=== PATIENT | female | born 1955 | race Caucasian/White ===

== ENCOUNTER 2016-02-12 09:33 | Inpatient (IN) | payer MEDICARE, MEDICAID ==
[~2016-02-12] VITALS: Ht 154.9 cm; Wt 100.8 kg
[~2016-02-12 09:33] MED LIST: AMLO2.5T PO; FOLI1 PO; HALO2 PO; MULT-29 PO; THIA100 PO
[2016-02-12 11:26] VITALS: BP 138/52
[2016-02-12 11:35] VITALS: BP 151/74
[2016-02-12] MEDS ORDERED: OLANZAPINE PAMOATE 405 MG/2.7 ML VIAL IM ONE (13:00)
[2016-02-12] MEDS ORDERED: ACETAMINOPHEN 325 MG TABLET PO PRN (13:00)
[2016-02-12] MEDS ORDERED: LOPERAMIDE HCL 2 MG CAPSULE PO PRN (13:00)
[2016-02-12] MEDS ORDERED: GuaiFENesin/D-METHORPHAN [SUGAR-FREE] 200-20MG/10 ML SYRUP UDCUP PO PRN (13:00)
[2016-02-12] MEDS: LORazepam 2 MG TABLET PO PRN ×2 (15:05→20:13)
[2016-02-12 16:21] VITALS: BP 141/86
[2016-02-12] MEDS: THIAMINE HCL 100 MG TABLET PO SCH (16:23)
[2016-02-12] MEDS: MAGNESIUM HYDROXIDE SUSPENSION 30 ML UDCUP PO PRN (17:36)
[2016-02-12] MEDS: ZOLPIDEM TARTRATE 10 MG TABLET PO PRN (20:33)
[2016-02-13 03:40] VITALS: BP 111/61
[2016-02-13 07:59] LABS: BASOPHILS # (AUTO) 0.03 K/uL (0.00-0.20); BASOPHILS % (AUTO) 0.4 % (0.0-2.0); EOSINOPHILS # (AUTO) 0.09 K/uL (0.00-0.70); EOSINOPHILS % (AUTO) 1.45 % (1.0-6.0); HEMATOCRIT 39.8 % (36-46); HEMOGLOBIN 13.1 g/dL (12.0-16.0); LYMPHOCYTES # (AUTO) 1.7 K/uL (1.0-4.8); LYMPHOCYTES % (AUTO) 26.4 % (22.0-44.0); MEAN CORPUSCULAR HEMOGLOBIN 28.3 pg (26.0-34.0); MEAN CORPUSCULAR HGB CONC 32.9 G/dL (31.0-37.0); MEAN CORPUSCULAR VOLUME 86 fL (80-100); MONOCYTES # (AUTO) 0.7 K/uL (0.1-1.0); MONOCYTES % (AUTO) 10.8 % (2.0-9.0); NEUTROPHILS # (AUTO) 3.9 K/uL (1.8-7.7); PLATELET COUNT (AUTO) 302 K/uL (150-450); RED BLOOD CELL COUNT(AUTO) 4.62 MIL/uL (4.00-5.20); RED CELL DISTRIBUTION WIDTH 13.8 % (11.5-14.5); WHITE BLOOD COUNT (AUTO) 6.3 K/uL (4.5-11.0)
[2016-02-13 08:05] VITALS: BP 137/96
[2016-02-13 08:21] LABS: ALANINE AMINOTRANSFERASE 33 U/L (12-78); ALBUMIN 3.6 g/dL (3.4-5.0); ANION GAP 11 mmol/L (8-16); ASPARTATE AMINOTRANSFERASE 20 U/L (15-37); BILIRUBIN,TOTAL 0.4 mg/dL (0.1-1.0); CALCIUM, TOTAL 8.7 mg/dL (8.8-10.5); CARBON DIOXIDE 25 mmol/L (22-29); CHLORIDE 96 mmol/L (98-107); GLOMERULAR FILTR. RATE CALC > 60 mL/min (>60); SODIUM SERUM 132 mmol/L (136-145); TOTAL PROTEIN, SERUM 7.1 g/dL (6.4-8.2); UREA NITROGEN, BLOOD 14 mg/dL (7-18)
[2016-02-13] MEDS ORDERED: FOLIC ACID 1 MG TABLET PO SCH (09:00)
[2016-02-13] MEDS: MULTIVITAMINS WITH MINERALS, THERAPEUTIC TABLET PO SCH (09:28)
[2016-02-13] MEDS: THIAMINE HCL 100 MG TABLET PO SCH ×2 (09:29→16:17)
[2016-02-13] MEDS: LORazepam 2 MG TABLET PO PRN ×2 (09:29→16:17)
[2016-02-13] MEDS: NICOTINE 21 MG/24 HOUR PATCH TD SCH (11:15)
[2016-02-13 16:10] VITALS: BP 135/72
[2016-02-13] MEDS: IBUPROFEN 400 MG TABLET PO PRN (16:17)
[2016-02-13 16:41] VITALS: BP 139/65
[2016-02-13] MEDS ORDERED: MAGNESIUM CITRATE 300 ML ORAL SOLUTION PO ONE (17:30)
[2016-02-13] MEDS ORDERED: NICOTINE 21 MG/24 HOUR PATCH TD ONE (17:30)
[2016-02-13 18:00] VITALS: BP 135/73
[2016-02-13] MEDS: ACETAMINOPHEN 325 MG TABLET PO PRN (18:02)
[2016-02-13] MEDS: ZOLPIDEM TARTRATE 10 MG TABLET PO PRN (21:16)
[2016-02-14 00:21] VITALS: BP 138/81
[2016-02-14] MEDS: LORazepam 2 MG TABLET PO PRN ×4 (00:21→17:32)
[2016-02-14 08:04] VITALS: BP 136/70
[2016-02-14] MEDS ORDERED: [UNRECOGNIZED DRUG - OTHER] PO SCH (09:00)
[2016-02-14] MEDS: FOLIC ACID 1 MG TABLET PO SCH (09:04)
[2016-02-14] MEDS: THIAMINE HCL 100 MG TABLET PO SCH ×2 (09:04→16:22)
[2016-02-14] MEDS: OMEPRAZOLE 20 MG CAPSULE PO SCH (09:05)
[2016-02-14] MEDS: AmLODIPine BESYLATE 2.5 MG TABLET PO SCH (09:05)
[2016-02-14] MEDS: MULTIVITAMINS WITH MINERALS, THERAPEUTIC TABLET PO SCH (09:05)
[2016-02-14] MEDS: NICOTINE 21 MG/24 HOUR PATCH TD SCH (09:06)
[2016-02-14] MEDS: OLANZapine 5 MG RAPDIS TABLET PO PRN ×2 (14:17→18:40)
[2016-02-14] MEDS: HydrOXYzine PAMOATE 50 MG CAPSULE PO PRN (16:22)
[2016-02-14 16:39] VITALS: BP 145/72
[2016-02-14 18:30] VITALS: BP 138/85
[2016-02-14] MEDS: ACETAMINOPHEN 325 MG TABLET PO PRN (18:31)
[2016-02-14] MEDS: ZOLPIDEM TARTRATE 10 MG TABLET PO PRN (21:14)
[2016-02-15 02:25] VITALS: BP 126/88
[2016-02-15] MEDS: LORazepam 2 MG TABLET PO PRN ×4 (02:28→18:13)
[2016-02-15] MEDS: OMEPRAZOLE 20 MG CAPSULE PO SCH (08:25)
[2016-02-15] MEDS: AmLODIPine BESYLATE 2.5 MG TABLET PO SCH (08:25)
[2016-02-15] MEDS: MULTIVITAMINS WITH MINERALS, THERAPEUTIC TABLET PO SCH (08:25)
[2016-02-15] MEDS: FOLIC ACID 1 MG TABLET PO SCH (08:25)
[2016-02-15 08:26] VITALS: BP 133/79
[2016-02-15] MEDS: ACETAMINOPHEN 325 MG TABLET PO PRN (08:26)
[2016-02-15] MEDS: THIAMINE HCL 100 MG TABLET PO SCH ×2 (08:26→16:31)
[2016-02-15] MEDS: NICOTINE 21 MG/24 HOUR PATCH TD SCH (08:26)
[2016-02-15 08:44] VITALS: BP 138/72
[2016-02-15] MEDS: IBUPROFEN 400 MG TABLET PO PRN (12:25)
[2016-02-15 16:05] VITALS: BP 142/66
[2016-02-15] MEDS: ZOLPIDEM TARTRATE 10 MG TABLET PO PRN (20:29)
[2016-02-16 01:50] VITALS: BP 128/67
[2016-02-16] MEDS: LORazepam 2 MG TABLET PO PRN ×4 (01:56→18:31)
[2016-02-16] MEDS: THIAMINE HCL 100 MG TABLET PO SCH ×2 (08:06→16:03)
[2016-02-16] MEDS: OMEPRAZOLE 20 MG CAPSULE PO SCH (08:06)
[2016-02-16] MEDS: AmLODIPine BESYLATE 2.5 MG TABLET PO SCH (08:06)
[2016-02-16] MEDS: FOLIC ACID 1 MG TABLET PO SCH (08:06)
[2016-02-16] MEDS: MULTIVITAMINS WITH MINERALS, THERAPEUTIC TABLET PO SCH (08:06)
[2016-02-16 08:42] VITALS: BP 138/78
[2016-02-16] MEDS: NICOTINE 21 MG/24 HOUR PATCH TD SCH (08:44)
[2016-02-16] MEDS: ACETAMINOPHEN 325 MG TABLET PO PRN (08:45)
[2016-02-16 09:33] LABS: APPEARANCE,URINE CLEAR (CLEAR); GLUCOSE, URINE (UA) NEGATIVE (NEGATIVE); KETONES,URINE NEGATIVE (NEGATIVE); LEUKOCYTE ESTERASE ,URINE NEGATIVE (NEGATIVE); OCCULT BLOOD,URINE NEGATIVE (NEGATIVE); PH,URINE 6.5 (5.0-8.0); PROTEIN,URINE NEGATIVE (NEGATIVE)
[2016-02-16 09:41] LABS: ADD UA MICROSCOPIC NO
[2016-02-16 16:00] VITALS: BP 139/78
[2016-02-16] MEDS: HydrOXYzine PAMOATE 50 MG CAPSULE PO PRN (16:04)
[2016-02-16] MEDS: IBUPROFEN 400 MG TABLET PO PRN (16:04)
[2016-02-16] MEDS: ASENAPINE 5 MG SUBLINGUAL TABLET SL SCH (20:15)
[2016-02-16] MEDS: ZOLPIDEM TARTRATE 10 MG TABLET PO PRN (21:13)
[2016-02-17 03:24] VITALS: BP 146/90
[2016-02-17] MEDS: LORazepam 2 MG TABLET PO PRN ×4 (03:31→17:23)
[2016-02-17] MEDS: THIAMINE HCL 100 MG TABLET PO SCH ×2 (08:21→16:52)
[2016-02-17] MEDS: NICOTINE 21 MG/24 HOUR PATCH TD SCH (08:21)
[2016-02-17] MEDS: OMEPRAZOLE 20 MG CAPSULE PO SCH (08:21)
[2016-02-17] MEDS: FOLIC ACID 1 MG TABLET PO SCH (08:21)
[2016-02-17] MEDS: AmLODIPine BESYLATE 2.5 MG TABLET PO SCH (08:22)
[2016-02-17] MEDS: ASENAPINE 5 MG SUBLINGUAL TABLET SL SCH (08:22)
[2016-02-17] MEDS: MULTIVITAMINS WITH MINERALS, THERAPEUTIC TABLET PO SCH (08:22)
[2016-02-17 08:23] VITALS: BP 132/78
[2016-02-17] MEDS: ACETAMINOPHEN 325 MG TABLET PO PRN (08:23)
[2016-02-17 08:32] LABS: ANION GAP 8 mmol/L (8-16); CALCIUM, TOTAL 8.9 mg/dL (8.8-10.5); CARBON DIOXIDE 28 mmol/L (22-29); CHLORIDE 98 mmol/L (98-107); CREATININE 0.66 mg/dL (0.60-1.30); GLOMERULAR FILTR. RATE CALC > 60 mL/min (>60); SODIUM SERUM 134 mmol/L (136-145); UREA NITROGEN, BLOOD 14 mg/dL (7-18)
[2016-02-17 08:44] VITALS: BP 129/82
[2016-02-17] MEDS: IBUPROFEN 400 MG TABLET PO PRN (15:15)
[2016-02-17 15:17] VITALS: BP 118/74
[2016-02-17 16:11] VITALS: BP 138/75
[2016-02-17 16:14] VITALS: BP 143/74
[2016-02-17] MEDS: ZOLPIDEM TARTRATE 10 MG TABLET PO PRN (20:38)
[2016-02-18 01:15] VITALS: BP 142/88
[2016-02-18] MEDS: ACETAMINOPHEN 325 MG TABLET PO PRN ×2 (02:21→18:23)
[2016-02-18] MEDS: LORazepam 2 MG TABLET PO PRN ×3 (05:00→17:28)
[2016-02-18 08:03] VITALS: BP 139/72
[2016-02-18] MEDS: AmLODIPine BESYLATE 2.5 MG TABLET PO SCH (08:29)
[2016-02-18] MEDS: MULTIVITAMINS WITH MINERALS, THERAPEUTIC TABLET PO SCH (08:30)
[2016-02-18] MEDS: FluPHENAZine HCL 5 MG TABLET PO SCH ×3 (08:30→17:29)
[2016-02-18] MEDS: OMEPRAZOLE 20 MG CAPSULE PO SCH (08:30)
[2016-02-18] MEDS: NICOTINE 21 MG/24 HOUR PATCH TD SCH (08:30)
[2016-02-18] MEDS: THIAMINE HCL 100 MG TABLET PO SCH ×2 (08:30→17:28)
[2016-02-18] MEDS: FOLIC ACID 1 MG TABLET PO SCH (08:30)
[2016-02-18] MEDS: DiphenhydrAMINE HCL 25 MG CAPSULE PO SCH ×3 (08:31→17:28)
[2016-02-18 16:04] VITALS: BP 130/79
[2016-02-18] MEDS: ZOLPIDEM TARTRATE 10 MG TABLET PO PRN (20:41)
[2016-02-19] MEDS: LORazepam 2 MG TABLET PO PRN ×3 (05:53→18:12)
[2016-02-19 06:33] VITALS: BP 107/68
[2016-02-19] MEDS: AmLODIPine BESYLATE 2.5 MG TABLET PO SCH (08:35)
[2016-02-19] MEDS: NICOTINE 21 MG/24 HOUR PATCH TD SCH (08:35)
[2016-02-19] MEDS: FOLIC ACID 1 MG TABLET PO SCH (08:36)
[2016-02-19] MEDS: FluPHENAZine HCL 5 MG TABLET PO SCH ×3 (08:36→16:05)
[2016-02-19] MEDS: OMEPRAZOLE 20 MG CAPSULE PO SCH (08:36)
[2016-02-19] MEDS: MULTIVITAMINS WITH MINERALS, THERAPEUTIC TABLET PO SCH (08:36)
[2016-02-19] MEDS: THIAMINE HCL 100 MG TABLET PO SCH ×2 (08:37→16:05)
[2016-02-19] MEDS: DiphenhydrAMINE HCL 25 MG CAPSULE PO SCH ×3 (08:37→16:05)
[2016-02-19 08:50] VITALS: BP 133/83
[2016-02-19] MEDS: IBUPROFEN 400 MG TABLET PO PRN (10:13)
[2016-02-19] MEDS: ACETAMINOPHEN 325 MG TABLET PO PRN (16:06)
[2016-02-19 16:08] VITALS: BP 145/69
[2016-02-20 06:32] VITALS: BP 144/88
[2016-02-20] MEDS: DiphenhydrAMINE HCL 25 MG CAPSULE PO SCH ×3 (08:04→16:03)
[2016-02-20] MEDS: MULTIVITAMINS WITH MINERALS, THERAPEUTIC TABLET PO SCH (08:04)
[2016-02-20] MEDS: OMEPRAZOLE 20 MG CAPSULE PO SCH (08:04)
[2016-02-20] MEDS: NICOTINE 21 MG/24 HOUR PATCH TD SCH (08:05)
[2016-02-20] MEDS: THIAMINE HCL 100 MG TABLET PO SCH ×2 (08:05→16:04)
[2016-02-20] MEDS: AmLODIPine BESYLATE 2.5 MG TABLET PO SCH (08:05)
[2016-02-20] MEDS: LORazepam 2 MG TABLET PO PRN ×2 (08:05→15:08)
[2016-02-20] MEDS: FOLIC ACID 1 MG TABLET PO SCH (08:05)
[2016-02-20] MEDS: FluPHENAZine HCL 5 MG TABLET PO SCH ×3 (08:06→16:04)
[2016-02-20] MEDS: PREGABALIN 50 MG CAPSULE PO SCH (08:06)
[2016-02-20 08:18] VITALS: BP 132/74
[2016-02-20 08:25] LABS: ANION GAP 10 mmol/L (8-16); CALCIUM, TOTAL 9.3 mg/dL (8.8-10.5); CARBON DIOXIDE 26 mmol/L (22-29); CHLORIDE 96 mmol/L (98-107); CREATININE 0.69 mg/dL (0.60-1.30); GLOMERULAR FILTR. RATE CALC > 60 mL/min (>60); POTASSIUM 4.3 mmol/L (3.5-5.1); SODIUM SERUM 132 mmol/L (136-145); UREA NITROGEN, BLOOD 12 mg/dL (7-18)
[2016-02-20] MEDS: IBUPROFEN 400 MG TABLET PO PRN ×2 (08:33→18:11)
[2016-02-20 15:54] VITALS: BP 110/87
[2016-02-20] MEDS: ACETAMINOPHEN 325 MG TABLET PO PRN (15:54)
[2016-02-20] MEDS: SODIUM CHLORIDE 1 GM TABLET PO SCH (16:03)
[2016-02-20 18:10] VITALS: BP 130/77
[2016-02-20] MEDS: FluPHENAZine HCL 5 MG TABLET PO PRN (18:50)
[2016-02-20] MEDS: ZOLPIDEM TARTRATE 10 MG TABLET PO PRN (20:10)
[2016-02-21 00:58] VITALS: BP 115/74
[2016-02-21] MEDS: LORazepam 2 MG TABLET PO PRN ×3 (00:59→16:34)
[2016-02-21] MEDS: DiphenhydrAMINE HCL 25 MG CAPSULE PO SCH ×3 (08:01→16:34)
[2016-02-21] MEDS: FOLIC ACID 1 MG TABLET PO SCH (08:01)
[2016-02-21] MEDS: SODIUM CHLORIDE 1 GM TABLET PO SCH ×2 (08:01→16:35)
[2016-02-21] MEDS: MULTIVITAMINS WITH MINERALS, THERAPEUTIC TABLET PO SCH (08:01)
[2016-02-21] MEDS: THIAMINE HCL 100 MG TABLET PO SCH ×2 (08:01→16:35)
[2016-02-21] MEDS: PREGABALIN 50 MG CAPSULE PO SCH (08:02)
[2016-02-21] MEDS: AmLODIPine BESYLATE 2.5 MG TABLET PO SCH (08:02)
[2016-02-21] MEDS: OMEPRAZOLE 20 MG CAPSULE PO SCH (08:02)
[2016-02-21] MEDS: FluPHENAZine HCL 5 MG TABLET PO SCH ×3 (08:02→16:35)
[2016-02-21 08:36] VITALS: BP 141/74
[2016-02-21] MEDS: NICOTINE 14 MG/24 HOUR PATCH TD SCH (09:45)
[2016-02-21 10:27] VITALS: BP 134/70
[2016-02-21] MEDS: IBUPROFEN 400 MG TABLET PO PRN ×2 (10:27→18:56)
[2016-02-21 16:08] VITALS: BP 133/86
[2016-02-21] MEDS: ACETAMINOPHEN 325 MG TABLET PO PRN (16:35)
[2016-02-21 16:47] VITALS: BP_SYST 133; BP_SYST 138; BP_DIAS 81; BP_DIAS 86
[2016-02-21 18:56] VITALS: BP 147/78
[2016-02-22 06:01] VITALS: BP 126/80
[2016-02-22] MEDS: LORazepam 2 MG TABLET PO PRN ×2 (07:48→14:33)
[2016-02-22] MEDS: FluPHENAZine HCL 5 MG TABLET PO SCH ×3 (08:30→16:31)
[2016-02-22] MEDS: SODIUM CHLORIDE 1 GM TABLET PO SCH ×2 (08:30→16:31)
[2016-02-22] MEDS: DiphenhydrAMINE HCL 25 MG CAPSULE PO SCH ×3 (08:30→16:30)
[2016-02-22] MEDS: FOLIC ACID 1 MG TABLET PO SCH (08:30)
[2016-02-22] MEDS: NICOTINE 14 MG/24 HOUR PATCH TD SCH (08:30)
[2016-02-22] MEDS: THIAMINE HCL 100 MG TABLET PO SCH (08:30)
[2016-02-22] MEDS: AmLODIPine BESYLATE 2.5 MG TABLET PO SCH (08:31)
[2016-02-22] MEDS: PREGABALIN 50 MG CAPSULE PO SCH (08:31)
[2016-02-22] MEDS: OMEPRAZOLE 20 MG CAPSULE PO SCH (08:31)
[2016-02-22] MEDS: MULTIVITAMINS WITH MINERALS, THERAPEUTIC TABLET PO SCH (08:31)
[2016-02-22 08:53] VITALS: BP 147/75
[2016-02-22 16:00] VITALS: BP 138/78
[2016-02-22 18:05] VITALS: BP 136/76
[2016-02-22] MEDS: IBUPROFEN 400 MG TABLET PO PRN (18:07)
[2016-02-22] MEDS: FluPHENAZine HCL 5 MG TABLET PO PRN (18:08)
[2016-02-22 20:00] VITALS: BP 128/77
[2016-02-22] MEDS: ACETAMINOPHEN 325 MG TABLET PO PRN (20:00)
[2016-02-22] MEDS: ZOLPIDEM TARTRATE 10 MG TABLET PO PRN (21:01)
[2016-02-23 06:15] VITALS: BP 131/87
[2016-02-23] MEDS: IBUPROFEN 400 MG TABLET PO PRN ×2 (06:17→12:30)
[2016-02-23] MEDS: LORazepam 2 MG TABLET PO PRN ×2 (06:40→15:02)
[2016-02-23] MEDS: FluPHENAZine HCL 5 MG TABLET PO PRN (07:11)
[2016-02-23 08:05] VITALS: BP 128/70
[2016-02-23] MEDS ORDERED: TUBERCULIN, PURIFIED PROTEIN DERIVATIVE 5 TU/0.1 ML SYG ID ONE (09:00)
[2016-02-23] MEDS: NICOTINE 14 MG/24 HOUR PATCH TD SCH (09:03)
[2016-02-23] MEDS: OMEPRAZOLE 20 MG CAPSULE PO SCH (09:03)
[2016-02-23] MEDS: AmLODIPine BESYLATE 2.5 MG TABLET PO SCH (09:03)
[2016-02-23] MEDS: PREGABALIN 50 MG CAPSULE PO SCH (09:04)
[2016-02-23] MEDS: FOLIC ACID 1 MG TABLET PO SCH (09:05)
[2016-02-23] MEDS: MULTIVITAMINS WITH MINERALS, THERAPEUTIC TABLET PO SCH (09:05)
[2016-02-23] MEDS: DiphenhydrAMINE HCL 25 MG CAPSULE PO SCH ×2 (09:05→16:05)
[2016-02-23] MEDS: SODIUM CHLORIDE 1 GM TABLET PO SCH ×2 (09:06→16:05)
[2016-02-23] MEDS: FluPHENAZine HCL 10 MG TABLET PO SCH ×2 (09:06→16:05)
[2016-02-23 16:09] VITALS: BP 147/77
[2016-02-24] MEDS: LORazepam 2 MG TABLET PO PRN ×3 (03:36→16:03)
[2016-02-24] MEDS: IBUPROFEN 400 MG TABLET PO PRN ×2 (03:38→20:03)
[2016-02-24 08:14] VITALS: BP 123/84
[2016-02-24 08:15] LABS: ANION GAP 9 mmol/L (8-16); CALCIUM, TOTAL 9.1 mg/dL (8.8-10.5); CARBON DIOXIDE 27 mmol/L (22-29); CHLORIDE 98 mmol/L (98-107); CREATININE 0.66 mg/dL (0.60-1.30); GLOMERULAR FILTR. RATE CALC > 60 mL/min (>60); POTASSIUM 4.1 mmol/L (3.5-5.1); SODIUM SERUM 134 mmol/L (136-145); UREA NITROGEN, BLOOD 12 mg/dL (7-18)
[2016-02-24] MEDS: DiphenhydrAMINE HCL 25 MG CAPSULE PO SCH ×2 (08:42→16:48)
[2016-02-24] MEDS: NICOTINE 14 MG/24 HOUR PATCH TD SCH (08:42)
[2016-02-24] MEDS: OMEPRAZOLE 20 MG CAPSULE PO SCH (08:43)
[2016-02-24] MEDS: AmLODIPine BESYLATE 2.5 MG TABLET PO SCH (08:43)
[2016-02-24] MEDS: PREGABALIN 50 MG CAPSULE PO SCH (08:43)
[2016-02-24] MEDS: SODIUM CHLORIDE 1 GM TABLET PO SCH ×2 (08:43→16:48)
[2016-02-24] MEDS: MULTIVITAMINS WITH MINERALS, THERAPEUTIC TABLET PO SCH (08:44)
[2016-02-24] MEDS: FOLIC ACID 1 MG TABLET PO SCH (08:44)
[2016-02-24] MEDS: FluPHENAZine HCL 10 MG TABLET PO SCH ×2 (08:44→16:48)
[2016-02-24 16:09] VITALS: BP 124/75
[2016-02-24 20:02] VITALS: BP 122/78
[2016-02-24] MEDS: ZOLPIDEM TARTRATE 10 MG TABLET PO PRN (21:40)
[2016-02-25] MEDS: LORazepam 2 MG TABLET PO PRN ×2 (04:28→14:14)
[2016-02-25] MEDS: FOLIC ACID 1 MG TABLET PO SCH (08:08)
[2016-02-25] MEDS: DiphenhydrAMINE HCL 25 MG CAPSULE PO SCH ×2 (08:08→17:00)
[2016-02-25] MEDS: SODIUM CHLORIDE 1 GM TABLET PO SCH ×2 (08:09→17:00)
[2016-02-25] MEDS: PREGABALIN 50 MG CAPSULE PO SCH (08:10)
[2016-02-25] MEDS: AmLODIPine BESYLATE 2.5 MG TABLET PO SCH (08:10)
[2016-02-25] MEDS: MULTIVITAMINS WITH MINERALS, THERAPEUTIC TABLET PO SCH (08:10)
[2016-02-25] MEDS: OMEPRAZOLE 20 MG CAPSULE PO SCH (08:11)
[2016-02-25] MEDS: NICOTINE 14 MG/24 HOUR PATCH TD SCH (08:30)
[2016-02-25] MEDS: FluPHENAZine HCL 10 MG TABLET PO SCH ×2 (08:41→16:59)
[2016-02-25 08:42] VITALS: BP 127/77
[2016-02-25 10:59] VITALS: BP 124/72
[2016-02-25] MEDS: IBUPROFEN 400 MG TABLET PO PRN (10:59)
[2016-02-25 16:00] VITALS: BP 133/69
[2016-02-25 17:58] VITALS: BP 135/72
[2016-02-25] MEDS: ACETAMINOPHEN 325 MG TABLET PO PRN (17:59)
[2016-02-26 02:09] VITALS: BP 137/84
[2016-02-26] MEDS: ZOLPIDEM TARTRATE 10 MG TABLET PO PRN (02:11)
[2016-02-26] MEDS: LORazepam 2 MG TABLET PO PRN ×3 (02:11→15:15)
[2016-02-26] MEDS: IBUPROFEN 400 MG TABLET PO PRN ×2 (06:03→16:05)
[2016-02-26 08:17] VITALS: BP 119/64
[2016-02-26] MEDS: NICOTINE 14 MG/24 HOUR PATCH TD SCH (08:30)
[2016-02-26] MEDS: DiphenhydrAMINE HCL 25 MG CAPSULE PO SCH ×2 (08:31→16:04)
[2016-02-26] MEDS: OMEPRAZOLE 20 MG CAPSULE PO SCH (08:31)
[2016-02-26] MEDS: SODIUM CHLORIDE 1 GM TABLET PO SCH ×2 (08:31→16:04)
[2016-02-26] MEDS: PREGABALIN 50 MG CAPSULE PO SCH (08:31)
[2016-02-26] MEDS: FOLIC ACID 1 MG TABLET PO SCH (08:31)
[2016-02-26] MEDS: MULTIVITAMINS WITH MINERALS, THERAPEUTIC TABLET PO SCH (08:31)
[2016-02-26] MEDS: FluPHENAZine HCL 10 MG TABLET PO SCH ×2 (08:32→16:04)
[2016-02-26] MEDS: AmLODIPine BESYLATE 2.5 MG TABLET PO SCH (08:32)
[2016-02-26 16:05] VITALS: BP 147/72
[2016-02-26 16:38] VITALS: BP 147/72
[2016-02-27 07:13] VITALS: BP 121/63
[2016-02-27] MEDS: PREGABALIN 50 MG CAPSULE PO SCH (08:02)
[2016-02-27] MEDS: AmLODIPine BESYLATE 2.5 MG TABLET PO SCH (08:02)
[2016-02-27] MEDS: LORazepam 2 MG TABLET PO PRN ×2 (08:05→15:11)
[2016-02-27] MEDS: OMEPRAZOLE 20 MG CAPSULE PO SCH (08:06)
[2016-02-27] MEDS: SODIUM CHLORIDE 1 GM TABLET PO SCH ×2 (08:06→16:24)
[2016-02-27] MEDS: FOLIC ACID 1 MG TABLET PO SCH (08:06)
[2016-02-27] MEDS: MULTIVITAMINS WITH MINERALS, THERAPEUTIC TABLET PO SCH (08:06)
[2016-02-27] MEDS: DiphenhydrAMINE HCL 25 MG CAPSULE PO SCH ×2 (08:06→16:24)
[2016-02-27] MEDS: FluPHENAZine HCL 10 MG TABLET PO SCH ×2 (08:06→16:24)
[2016-02-27] MEDS: NICOTINE 14 MG/24 HOUR PATCH TD SCH (08:07)
[2016-02-27 09:35] VITALS: BP 145/84
[2016-02-27] MEDS: IBUPROFEN 400 MG TABLET PO PRN ×2 (11:45→20:55)
[2016-02-27 16:35] VITALS: BP 123/79
[2016-02-27] MEDS: ACETAMINOPHEN 325 MG TABLET PO PRN (16:57)
[2016-02-27] MEDS: ZOLPIDEM TARTRATE 10 MG TABLET PO PRN (20:55)
[2016-02-28] MEDS: OMEPRAZOLE 20 MG CAPSULE PO SCH (08:09)
[2016-02-28] MEDS: LORazepam 2 MG TABLET PO PRN ×3 (08:09→21:33)
[2016-02-28] MEDS: MULTIVITAMINS WITH MINERALS, THERAPEUTIC TABLET PO SCH (08:10)
[2016-02-28] MEDS: FOLIC ACID 1 MG TABLET PO SCH (08:10)
[2016-02-28] MEDS: SODIUM CHLORIDE 1 GM TABLET PO SCH ×3 (08:10→16:22)
[2016-02-28] MEDS: DiphenhydrAMINE HCL 25 MG CAPSULE PO SCH ×2 (08:10→16:22)
[2016-02-28] MEDS: AmLODIPine BESYLATE 2.5 MG TABLET PO SCH (08:10)
[2016-02-28] MEDS: PREGABALIN 50 MG CAPSULE PO SCH (08:11)
[2016-02-28] MEDS: FluPHENAZine HCL 10 MG TABLET PO SCH ×3 (08:11→16:22)
[2016-02-28 08:13] VITALS: BP 146/100
[2016-02-28 08:25] LABS: ANION GAP 12 mmol/L (8-16); CARBON DIOXIDE 25 mmol/L (22-29); CHLORIDE 95 mmol/L (98-107); CREATININE 0.74 mg/dL (0.60-1.30); GLOMERULAR FILTR. RATE CALC > 60 mL/min (>60); POTASSIUM 4.1 mmol/L (3.5-5.1); SODIUM SERUM 132 mmol/L (136-145); UREA NITROGEN, BLOOD 13 mg/dL (7-18)
[2016-02-28] MEDS: NICOTINE 14 MG/24 HOUR PATCH TD SCH (08:31)
[2016-02-28 12:49] VITALS: BP 118/65
[2016-02-28 16:05] VITALS: BP 147/79
[2016-02-28 21:31] VITALS: BP 140/84
[2016-02-28] MEDS: IBUPROFEN 400 MG TABLET PO PRN (21:33)
[2016-02-29 07:16] VITALS: BP 126/80
[2016-02-29] MEDS: LORazepam 2 MG TABLET PO PRN ×2 (07:35→15:14)
[2016-02-29] MEDS: SODIUM CHLORIDE 1 GM TABLET PO SCH ×3 (08:19→16:20)
[2016-02-29] MEDS: NICOTINE 14 MG/24 HOUR PATCH TD SCH (08:19)
[2016-02-29] MEDS: FluPHENAZine HCL 10 MG TABLET PO SCH ×2 (08:20→16:20)
[2016-02-29] MEDS: MULTIVITAMINS WITH MINERALS, THERAPEUTIC TABLET PO SCH (08:20)
[2016-02-29] MEDS: OMEPRAZOLE 20 MG CAPSULE PO SCH (08:20)
[2016-02-29] MEDS: PREGABALIN 50 MG CAPSULE PO SCH (08:20)
[2016-02-29] MEDS: DiphenhydrAMINE HCL 25 MG CAPSULE PO SCH ×2 (08:20→16:20)
[2016-02-29] MEDS: AmLODIPine BESYLATE 10 MG TABLET PO SCH (08:21)
[2016-02-29] MEDS: FOLIC ACID 1 MG TABLET PO SCH (08:21)
[2016-02-29 08:49] VITALS: BP_SYST 128; BP_SYST 130; BP_DIAS 71; BP_DIAS 81
[2016-02-29] MEDS: IBUPROFEN 400 MG TABLET PO PRN ×2 (08:49→18:25)
[2016-02-29 16:10] VITALS: BP 142/81
[2016-02-29 18:20] VITALS: BP 123/74
[2016-03-01 06:14] VITALS: BP 138/66
[2016-03-01] MEDS: LORazepam 2 MG TABLET PO PRN ×2 (08:40→15:12)
[2016-03-01] MEDS: SODIUM CHLORIDE 1 GM TABLET PO SCH ×3 (09:00→17:09)
[2016-03-01] MEDS: MULTIVITAMINS WITH MINERALS, THERAPEUTIC TABLET PO SCH (09:00)
[2016-03-01] MEDS: NICOTINE 14 MG/24 HOUR PATCH TD SCH (09:00)
[2016-03-01] MEDS: DiphenhydrAMINE HCL 25 MG CAPSULE PO SCH ×2 (09:00→17:12)
[2016-03-01] MEDS: PREGABALIN 50 MG CAPSULE PO SCH (09:00)
[2016-03-01] MEDS: FOLIC ACID 1 MG TABLET PO SCH (09:00)
[2016-03-01] MEDS: OMEPRAZOLE 20 MG CAPSULE PO SCH (09:00)
[2016-03-01] MEDS: FluPHENAZine HCL 10 MG TABLET PO SCH ×2 (09:00→17:13)
[2016-03-01] MEDS: AmLODIPine BESYLATE 10 MG TABLET PO SCH (09:00)
[2016-03-01 09:25] VITALS: BP 122/78
[2016-03-01] MEDS: IBUPROFEN 400 MG TABLET PO PRN (09:25)
[2016-03-01 10:42] VITALS: BP 119/68
[2016-03-01 16:00] VITALS: BP 138/74
[2016-03-02 06:27] VITALS: BP 129/84
[2016-03-02] MEDS: PREGABALIN 50 MG CAPSULE PO SCH (08:03)
[2016-03-02] MEDS: FluPHENAZine HCL 10 MG TABLET PO SCH ×2 (08:03→16:39)
[2016-03-02] MEDS: OMEPRAZOLE 20 MG CAPSULE PO SCH (08:03)
[2016-03-02] MEDS: MULTIVITAMINS WITH MINERALS, THERAPEUTIC TABLET PO SCH (08:03)
[2016-03-02] MEDS: NICOTINE 14 MG/24 HOUR PATCH TD SCH (08:03)
[2016-03-02] MEDS: AmLODIPine BESYLATE 10 MG TABLET PO SCH (08:03)
[2016-03-02] MEDS: DiphenhydrAMINE HCL 25 MG CAPSULE PO SCH ×2 (08:04→16:38)
[2016-03-02] MEDS: SODIUM CHLORIDE 1 GM TABLET PO SCH ×3 (08:04→16:38)
[2016-03-02] MEDS: FOLIC ACID 1 MG TABLET PO SCH (08:04)
[2016-03-02 08:06] VITALS: BP 141/80
[2016-03-02] MEDS: LORazepam 2 MG TABLET PO PRN ×2 (08:32→14:42)
[2016-03-02] MEDS: IBUPROFEN 400 MG TABLET PO PRN (08:57)
[2016-03-02 09:00] LABS: ANION GAP 13 mmol/L (8-16); CALCIUM, TOTAL 9.3 mg/dL (8.8-10.5); CARBON DIOXIDE 24 mmol/L (22-29); CHLORIDE 95 mmol/L (98-107); CREATININE 0.79 mg/dL (0.60-1.30); GLOMERULAR FILTR. RATE CALC > 60 mL/min (>60); POTASSIUM 3.7 mmol/L (3.5-5.1); SODIUM SERUM 132 mmol/L (136-145); UREA NITROGEN, BLOOD 12 mg/dL (7-18)
[2016-03-02 16:00] VITALS: BP 121/75
[2016-03-02] MEDS: PRAZOSIN HCL 1 MG CAPSULE PO SCH (21:18)
[2016-03-03 02:12] VITALS: BP 119/83
[2016-03-03] MEDS: LORazepam 2 MG TABLET PO PRN ×2 (02:17→08:44)
[2016-03-03 08:45] VITALS: BP 137/78
[2016-03-03] MEDS: IBUPROFEN 400 MG TABLET PO PRN (08:45)
[2016-03-03 08:56] VITALS: BP 137/78
[2016-03-03] MEDS: SODIUM CHLORIDE 1 GM TABLET PO SCH ×3 (09:16→17:06)
[2016-03-03] MEDS: FOLIC ACID 1 MG TABLET PO SCH (09:16)
[2016-03-03] MEDS: NICOTINE 14 MG/24 HOUR PATCH TD SCH (09:17)
[2016-03-03] MEDS: DiphenhydrAMINE HCL 25 MG CAPSULE PO SCH ×2 (09:17→17:05)
[2016-03-03] MEDS: OMEPRAZOLE 20 MG CAPSULE PO SCH (09:17)
[2016-03-03] MEDS: FluPHENAZine HCL 10 MG TABLET PO SCH ×2 (09:17→17:06)
[2016-03-03] MEDS: MULTIVITAMINS WITH MINERALS, THERAPEUTIC TABLET PO SCH (09:17)
[2016-03-03] MEDS: AmLODIPine BESYLATE 10 MG TABLET PO SCH (09:17)
[2016-03-03] MEDS: PREGABALIN 50 MG CAPSULE PO SCH (09:18)
[2016-03-03 16:55] VITALS: BP 136/72
[2016-03-03] MEDS: PRAZOSIN HCL 1 MG CAPSULE PO SCH (20:36)
[2016-03-04] MEDS: LORazepam 2 MG TABLET PO PRN ×2 (05:11→12:40)
[2016-03-04] MEDS: IBUPROFEN 400 MG TABLET PO PRN (05:14)
[2016-03-04] MEDS: PREGABALIN 50 MG CAPSULE PO SCH (08:09)
[2016-03-04] MEDS: FluPHENAZine HCL 10 MG TABLET PO SCH ×2 (08:10→17:18)
[2016-03-04] MEDS: NICOTINE 14 MG/24 HOUR PATCH TD SCH (08:10)
[2016-03-04] MEDS: OMEPRAZOLE 20 MG CAPSULE PO SCH (08:10)
[2016-03-04] MEDS: AmLODIPine BESYLATE 10 MG TABLET PO SCH (08:10)
[2016-03-04] MEDS: SODIUM CHLORIDE 1 GM TABLET PO SCH ×3 (08:10→17:18)
[2016-03-04] MEDS: DiphenhydrAMINE HCL 25 MG CAPSULE PO SCH ×2 (08:10→17:18)
[2016-03-04] MEDS: MULTIVITAMINS WITH MINERALS, THERAPEUTIC TABLET PO SCH (08:11)
[2016-03-04] MEDS: FOLIC ACID 1 MG TABLET PO SCH (08:11)
[2016-03-04 08:45] VITALS: BP 137/71
[2016-03-04 16:17] VITALS: BP 107/64
[2016-03-04] MEDS: PRAZOSIN HCL 1 MG CAPSULE PO SCH (20:16)
[2016-03-05 00:15] VITALS: BP 123/71
[2016-03-05] MEDS: LORazepam 2 MG TABLET PO PRN ×3 (00:17→14:32)
[2016-03-05] MEDS: AmLODIPine BESYLATE 10 MG TABLET PO SCH (08:11)
[2016-03-05] MEDS: PREGABALIN 50 MG CAPSULE PO SCH (08:11)
[2016-03-05] MEDS: FOLIC ACID 1 MG TABLET PO SCH (08:11)
[2016-03-05] MEDS: FluPHENAZine HCL 10 MG TABLET PO SCH ×2 (08:11→16:23)
[2016-03-05] MEDS: DiphenhydrAMINE HCL 25 MG CAPSULE PO SCH ×2 (08:12→16:22)
[2016-03-05] MEDS: OMEPRAZOLE 20 MG CAPSULE PO SCH (08:12)
[2016-03-05] MEDS: MULTIVITAMINS WITH MINERALS, THERAPEUTIC TABLET PO SCH (08:12)
[2016-03-05] MEDS: SODIUM CHLORIDE 1 GM TABLET PO SCH ×3 (08:12→16:22)
[2016-03-05] MEDS: NICOTINE 14 MG/24 HOUR PATCH TD SCH (08:16)
[2016-03-05 08:42] VITALS: BP 132/88
[2016-03-05] MEDS: IBUPROFEN 400 MG TABLET PO PRN (14:32)
[2016-03-05 14:33] VITALS: BP 120/74
[2016-03-05 17:31] VITALS: BP 123/68
[2016-03-05] MEDS: PRAZOSIN HCL 1 MG CAPSULE PO SCH (20:34)
[2016-03-06 00:12] VITALS: BP 128/72
[2016-03-06] MEDS: LORazepam 2 MG TABLET PO PRN ×3 (00:16→16:52)
[2016-03-06] MEDS: IBUPROFEN 400 MG TABLET PO PRN ×2 (00:17→20:47)
[2016-03-06 08:09] VITALS: BP 115/74
[2016-03-06] MEDS: SODIUM CHLORIDE 1 GM TABLET PO SCH ×3 (08:12→17:09)
[2016-03-06] MEDS: OMEPRAZOLE 20 MG CAPSULE PO SCH (08:12)
[2016-03-06] MEDS: NICOTINE 14 MG/24 HOUR PATCH TD SCH (08:12)
[2016-03-06] MEDS: MULTIVITAMINS WITH MINERALS, THERAPEUTIC TABLET PO SCH (08:12)
[2016-03-06] MEDS: PREGABALIN 50 MG CAPSULE PO SCH (08:12)
[2016-03-06] MEDS: AmLODIPine BESYLATE 10 MG TABLET PO SCH (08:12)
[2016-03-06] MEDS: DiphenhydrAMINE HCL 25 MG CAPSULE PO SCH ×2 (08:13→17:09)
[2016-03-06] MEDS: FluPHENAZine HCL 10 MG TABLET PO SCH ×2 (08:13→17:09)
[2016-03-06] MEDS: FOLIC ACID 1 MG TABLET PO SCH (08:31)
[2016-03-06] MEDS: FluPHENAZine HCL 5 MG TABLET PO PRN (13:38)
[2016-03-06 16:06] VITALS: BP 133/87
[2016-03-06] MEDS: PRAZOSIN HCL 1 MG CAPSULE PO SCH (20:25)
[2016-03-06 20:47] VITALS: BP 128/74
[2016-03-07 06:04] VITALS: BP 111/78
[2016-03-07 07:55] LABS: ANION GAP 12 mmol/L (8-16); CALCIUM, TOTAL 9.3 mg/dL (8.8-10.5); CARBON DIOXIDE 25 mmol/L (22-29); CHLORIDE 94 mmol/L (98-107); CREATININE 0.77 mg/dL (0.60-1.30); GLOMERULAR FILTR. RATE CALC > 60 mL/min (>60); POTASSIUM 3.8 mmol/L (3.5-5.1); SODIUM SERUM 131 mmol/L (136-145); UREA NITROGEN, BLOOD 11 mg/dL (7-18)
[2016-03-07] MEDS: NICOTINE 14 MG/24 HOUR PATCH TD SCH (08:22)
[2016-03-07] MEDS: MULTIVITAMINS WITH MINERALS, THERAPEUTIC TABLET PO SCH (08:22)
[2016-03-07] MEDS: DiphenhydrAMINE HCL 25 MG CAPSULE PO SCH ×2 (08:22→16:26)
[2016-03-07] MEDS: SODIUM CHLORIDE 1 GM TABLET PO SCH ×3 (08:22→16:25)
[2016-03-07] MEDS: AmLODIPine BESYLATE 10 MG TABLET PO SCH (08:22)
[2016-03-07] MEDS: PREGABALIN 50 MG CAPSULE PO SCH (08:23)
[2016-03-07] MEDS: FluPHENAZine HCL 10 MG TABLET PO SCH (08:23)
[2016-03-07] MEDS: FOLIC ACID 1 MG TABLET PO SCH (08:23)
[2016-03-07] MEDS: OMEPRAZOLE 20 MG CAPSULE PO SCH (08:23)
[2016-03-07] MEDS: LORazepam 2 MG TABLET PO PRN ×3 (09:00→17:27)
[2016-03-07] MEDS: FluPHENAZine HCL 5 MG TABLET PO SCH (16:25)
[2016-03-07] MEDS: ClonazePAM 0.5 MG TABLET PO SCH (16:25)
[2016-03-07 17:26] VITALS: BP 112/76
[2016-03-07] MEDS: IBUPROFEN 400 MG TABLET PO PRN (17:29)
[2016-03-07 20:36] VITALS: BP 115/80
[2016-03-07] MEDS: PRAZOSIN HCL 1 MG CAPSULE PO SCH (20:38)
[2016-03-08] MEDS: LORazepam 2 MG TABLET PO PRN ×3 (01:36→20:01)
[2016-03-08 01:38] VITALS: BP 115/68
[2016-03-08] MEDS: FOLIC ACID 1 MG TABLET PO SCH (08:05)
[2016-03-08] MEDS: DiphenhydrAMINE HCL 25 MG CAPSULE PO SCH ×2 (08:05→16:22)
[2016-03-08] MEDS: AmLODIPine BESYLATE 10 MG TABLET PO SCH (08:05)
[2016-03-08] MEDS: MULTIVITAMINS WITH MINERALS, THERAPEUTIC TABLET PO SCH (08:05)
[2016-03-08] MEDS: PREGABALIN 50 MG CAPSULE PO SCH (08:06)
[2016-03-08] MEDS: SODIUM CHLORIDE 1 GM TABLET PO SCH ×3 (08:06→16:21)
[2016-03-08] MEDS: FluPHENAZine HCL 5 MG TABLET PO SCH ×2 (08:06→16:22)
[2016-03-08] MEDS: OMEPRAZOLE 20 MG CAPSULE PO SCH (08:06)
[2016-03-08] MEDS: ClonazePAM 0.5 MG TABLET PO SCH ×2 (08:06→16:23)
[2016-03-08] MEDS: NICOTINE 14 MG/24 HOUR PATCH TD SCH (08:24)
[2016-03-08 08:42] VITALS: BP 106/74
[2016-03-08 16:10] VITALS: BP 136/72
[2016-03-08] MEDS: PRAZOSIN HCL 1 MG CAPSULE PO SCH (20:00)
[2016-03-08] MEDS: IBUPROFEN 400 MG TABLET PO PRN (20:01)
[2016-03-08 20:04] VITALS: BP 112/64
[2016-03-09 05:30] VITALS: BP 123/77
[2016-03-09] MEDS: IBUPROFEN 400 MG TABLET PO PRN ×2 (05:33→21:26)
[2016-03-09] MEDS: LORazepam 2 MG TABLET PO PRN ×3 (05:34→16:31)
[2016-03-09] MEDS: ClonazePAM 0.5 MG TABLET PO SCH ×2 (08:13→16:31)
[2016-03-09] MEDS: FOLIC ACID 1 MG TABLET PO SCH (08:13)
[2016-03-09] MEDS: MULTIVITAMINS WITH MINERALS, THERAPEUTIC TABLET PO SCH (08:13)
[2016-03-09] MEDS: OMEPRAZOLE 20 MG CAPSULE PO SCH (08:13)
[2016-03-09] MEDS: FluPHENAZine HCL 5 MG TABLET PO SCH ×2 (08:13→16:30)
[2016-03-09] MEDS: DiphenhydrAMINE HCL 25 MG CAPSULE PO SCH ×2 (08:14→16:31)
[2016-03-09] MEDS: PREGABALIN 50 MG CAPSULE PO SCH (08:14)
[2016-03-09] MEDS: AmLODIPine BESYLATE 10 MG TABLET PO SCH (08:14)
[2016-03-09] MEDS: SODIUM CHLORIDE 1 GM TABLET PO SCH ×3 (08:14→16:30)
[2016-03-09] MEDS: NICOTINE 14 MG/24 HOUR PATCH TD SCH (08:21)
[2016-03-09 08:48] VITALS: BP 154/67
[2016-03-09 16:23] VITALS: BP 147/85
[2016-03-09] MEDS ORDERED: DiphenhydrAMINE HCL 50 MG/ML VIAL IM ONE (17:00)
[2016-03-09] MEDS ORDERED: FluPHENAZine HCL 2.5 MG/ML INJ IM ONE (17:00)
[2016-03-09] MEDS: LORazepam 0.5 MG TABLET PO SCH (17:00)
[2016-03-09] MEDS ORDERED: LORazepam 2 MG/ML VIAL IM ONE (17:00)
[2016-03-09 18:13] VITALS: BP 140/81
[2016-03-09 18:54] VITALS: BP 135/77
[2016-03-09] MEDS: PRAZOSIN HCL 1 MG CAPSULE PO SCH (19:57)
[2016-03-09] MEDS: ZOLPIDEM TARTRATE 10 MG TABLET PO PRN (21:39)
[2016-03-10 07:05] VITALS: BP 122/84
[2016-03-10] MEDS: PREGABALIN 50 MG CAPSULE PO SCH (08:17)
[2016-03-10] MEDS: OMEPRAZOLE 20 MG CAPSULE PO SCH (08:17)
[2016-03-10] MEDS: AmLODIPine BESYLATE 10 MG TABLET PO SCH (08:17)
[2016-03-10] MEDS: SODIUM CHLORIDE 1 GM TABLET PO SCH ×3 (08:17→17:01)
[2016-03-10] MEDS: DiphenhydrAMINE HCL 25 MG CAPSULE PO SCH ×2 (08:18→17:00)
[2016-03-10] MEDS: FOLIC ACID 1 MG TABLET PO SCH (08:18)
[2016-03-10] MEDS: MULTIVITAMINS WITH MINERALS, THERAPEUTIC TABLET PO SCH (08:18)
[2016-03-10] MEDS: LORazepam 0.5 MG TABLET PO SCH ×3 (08:18→17:00)
[2016-03-10] MEDS: FluPHENAZine HCL 5 MG TABLET PO SCH ×2 (08:19→17:00)
[2016-03-10] MEDS: NICOTINE 14 MG/24 HOUR PATCH TD SCH (08:21)
[2016-03-10 08:52] VITALS: BP 135/77
[2016-03-10 18:11] VITALS: BP 131/65
[2016-03-10] MEDS: PRAZOSIN HCL 1 MG CAPSULE PO SCH (20:49)
[2016-03-11 00:28] VITALS: BP 128/69
[2016-03-11] MEDS: ZOLPIDEM TARTRATE 10 MG TABLET PO PRN ×2 (00:45→20:20)
[2016-03-11] MEDS: MULTIVITAMINS WITH MINERALS, THERAPEUTIC TABLET PO SCH (08:23)
[2016-03-11] MEDS: FOLIC ACID 1 MG TABLET PO SCH (08:24)
[2016-03-11] MEDS: OMEPRAZOLE 20 MG CAPSULE PO SCH (08:24)
[2016-03-11] MEDS: DiphenhydrAMINE HCL 25 MG CAPSULE PO SCH ×2 (08:24→16:26)
[2016-03-11] MEDS: PREGABALIN 50 MG CAPSULE PO SCH (08:24)
[2016-03-11] MEDS: AmLODIPine BESYLATE 10 MG TABLET PO SCH (08:24)
[2016-03-11] MEDS: SODIUM CHLORIDE 1 GM TABLET PO SCH ×3 (08:24→16:26)
[2016-03-11] MEDS: FluPHENAZine HCL 5 MG TABLET PO SCH ×2 (08:25→16:26)
[2016-03-11 08:26] LABS: ANION GAP 11 mmol/L (8-16); CALCIUM, TOTAL 9.2 mg/dL (8.8-10.5); CARBON DIOXIDE 25 mmol/L (22-29); CHLORIDE 97 mmol/L (98-107); CREATININE 0.72 mg/dL (0.60-1.30); GLOMERULAR FILTR. RATE CALC > 60 mL/min (>60); SODIUM SERUM 133 mmol/L (136-145); UREA NITROGEN, BLOOD 14 mg/dL (7-18)
[2016-03-11] MEDS: IBUPROFEN 400 MG TABLET PO PRN (08:28)
[2016-03-11 08:47] VITALS: BP 126/74
[2016-03-11] MEDS ORDERED: OLANZAPINE PAMOATE 405 MG/2.7 ML VIAL IM SCH (09:00)
[2016-03-11] MEDS: NICOTINE 14 MG/24 HOUR PATCH TD SCH (09:24)
[2016-03-11] MEDS: LORazepam 0.5 MG TABLET PO SCH ×3 (09:24→16:26)
[2016-03-11] MEDS ORDERED: LORazepam 2 MG/ML VIAL IM ONE (15:00)
[2016-03-11 16:47] VITALS: BP 140/83
[2016-03-11] MEDS: PRAZOSIN HCL 1 MG CAPSULE PO SCH (20:10)
[2016-03-12 00:25] VITALS: BP 111/76
[2016-03-12] MEDS: LORazepam 2 MG TABLET PO PRN (00:32)
[2016-03-12] MEDS: DiphenhydrAMINE HCL 25 MG CAPSULE PO SCH ×2 (08:18→16:42)
[2016-03-12] MEDS: PREGABALIN 50 MG CAPSULE PO SCH (08:18)
[2016-03-12] MEDS: MULTIVITAMINS WITH MINERALS, THERAPEUTIC TABLET PO SCH (08:19)
[2016-03-12] MEDS: OMEPRAZOLE 20 MG CAPSULE PO SCH (08:19)
[2016-03-12] MEDS: LORazepam 0.5 MG TABLET PO SCH ×3 (08:19→16:43)
[2016-03-12] MEDS: FOLIC ACID 1 MG TABLET PO SCH (08:19)
[2016-03-12] MEDS: AmLODIPine BESYLATE 10 MG TABLET PO SCH (08:19)
[2016-03-12] MEDS: FluPHENAZine HCL 5 MG TABLET PO SCH ×2 (08:19→16:43)
[2016-03-12] MEDS: NICOTINE 14 MG/24 HOUR PATCH TD SCH (08:20)
[2016-03-12] MEDS: SODIUM CHLORIDE 1 GM TABLET PO SCH ×3 (08:20→16:42)
[2016-03-12 08:32] VITALS: BP 129/75
[2016-03-12 16:27] VITALS: BP 134/67
[2016-03-12 17:30] VITALS: BP 136/62
[2016-03-12] MEDS: IBUPROFEN 400 MG TABLET PO PRN (17:32)
[2016-03-12 18:30] VITALS: BP 126/60
[2016-03-12] MEDS: PRAZOSIN HCL 1 MG CAPSULE PO SCH (20:45)
[2016-03-13 04:10] VITALS: BP 117/77
[2016-03-13] MEDS: LORazepam 2 MG TABLET PO PRN ×2 (04:11→12:53)
[2016-03-13] MEDS: IBUPROFEN 400 MG TABLET PO PRN ×2 (04:11→19:42)
[2016-03-13] MEDS: NICOTINE 14 MG/24 HOUR PATCH TD SCH (08:16)
[2016-03-13] MEDS: OMEPRAZOLE 20 MG CAPSULE PO SCH (08:18)
[2016-03-13] MEDS: PREGABALIN 50 MG CAPSULE PO SCH (08:19)
[2016-03-13] MEDS: FluPHENAZine HCL 5 MG TABLET PO SCH ×2 (08:19→16:26)
[2016-03-13] MEDS: DiphenhydrAMINE HCL 25 MG CAPSULE PO SCH ×2 (08:22→16:26)
[2016-03-13] MEDS: LORazepam 0.5 MG TABLET PO SCH ×3 (08:22→16:26)
[2016-03-13] MEDS: SODIUM CHLORIDE 1 GM TABLET PO SCH ×3 (08:23→16:41)
[2016-03-13] MEDS: AmLODIPine BESYLATE 10 MG TABLET PO SCH (08:23)
[2016-03-13] MEDS: FOLIC ACID 1 MG TABLET PO SCH (08:23)
[2016-03-13] MEDS: MULTIVITAMINS WITH MINERALS, THERAPEUTIC TABLET PO SCH (08:23)
[2016-03-13 08:47] VITALS: BP 131/77
[2016-03-13 18:00] VITALS: BP 149/82
[2016-03-13] MEDS: PRAZOSIN HCL 1 MG CAPSULE PO SCH (20:54)
[2016-03-14 02:23] VITALS: BP 104/64
[2016-03-14] MEDS: LORazepam 2 MG TABLET PO PRN ×2 (02:28→13:02)
[2016-03-14] MEDS: NICOTINE 14 MG/24 HOUR PATCH TD SCH (08:25)
[2016-03-14] MEDS: FluPHENAZine HCL 5 MG TABLET PO SCH ×2 (08:25→16:14)
[2016-03-14] MEDS: OMEPRAZOLE 20 MG CAPSULE PO SCH (08:26)
[2016-03-14] MEDS: DiphenhydrAMINE HCL 25 MG CAPSULE PO SCH ×2 (08:26→16:14)
[2016-03-14] MEDS: LORazepam 0.5 MG TABLET PO SCH ×3 (08:26→16:14)
[2016-03-14] MEDS: PREGABALIN 50 MG CAPSULE PO SCH (08:26)
[2016-03-14] MEDS: SODIUM CHLORIDE 1 GM TABLET PO SCH ×3 (08:26→16:14)
[2016-03-14] MEDS: FOLIC ACID 1 MG TABLET PO SCH (08:26)
[2016-03-14] MEDS: MULTIVITAMINS WITH MINERALS, THERAPEUTIC TABLET PO SCH (08:26)
[2016-03-14] MEDS: AmLODIPine BESYLATE 10 MG TABLET PO SCH (09:13)
[2016-03-14 09:18] VITALS: BP 160/86
[2016-03-14] MEDS: IBUPROFEN 400 MG TABLET PO PRN (10:46)
[2016-03-14 16:37] VITALS: BP 135/75
[2016-03-14] MEDS: PRAZOSIN HCL 1 MG CAPSULE PO SCH (20:19)
[2016-03-14] MEDS: ZOLPIDEM TARTRATE 10 MG TABLET PO PRN (20:26)
[2016-03-15] MEDS: IBUPROFEN 400 MG TABLET PO PRN ×2 (00:27→11:48)
[2016-03-15 00:28] VITALS: BP 129/88
[2016-03-15] MEDS: LORazepam 2 MG TABLET PO PRN ×3 (00:28→20:52)
[2016-03-15] MEDS: SODIUM CHLORIDE 1 GM TABLET PO SCH ×3 (08:09→16:53)
[2016-03-15] MEDS: FluPHENAZine HCL 5 MG TABLET PO SCH ×2 (08:09→16:54)
[2016-03-15] MEDS: OMEPRAZOLE 20 MG CAPSULE PO SCH (08:09)
[2016-03-15] MEDS: LORazepam 0.5 MG TABLET PO SCH ×3 (08:09→16:53)
[2016-03-15] MEDS: MULTIVITAMINS WITH MINERALS, THERAPEUTIC TABLET PO SCH (08:09)
[2016-03-15] MEDS: PREGABALIN 50 MG CAPSULE PO SCH (08:10)
[2016-03-15] MEDS: DiphenhydrAMINE HCL 25 MG CAPSULE PO SCH ×2 (08:10→16:53)
[2016-03-15] MEDS: AmLODIPine BESYLATE 10 MG TABLET PO SCH (08:10)
[2016-03-15] MEDS: FOLIC ACID 1 MG TABLET PO SCH (08:10)
[2016-03-15] MEDS: NICOTINE 14 MG/24 HOUR PATCH TD SCH (08:11)
[2016-03-15 08:58] VITALS: BP 142/75
[2016-03-15 11:48] VITALS: BP 132/74
[2016-03-15 16:20] VITALS: BP 142/81
[2016-03-15] MEDS: PRAZOSIN HCL 1 MG CAPSULE PO SCH (20:24)
[2016-03-16 06:28] VITALS: BP 124/65
[2016-03-16] MEDS: IBUPROFEN 400 MG TABLET PO PRN ×2 (07:06→17:48)
[2016-03-16] MEDS: LORazepam 2 MG TABLET PO PRN (07:06)
[2016-03-16] MEDS: LORazepam 0.5 MG TABLET PO SCH ×3 (08:18→16:17)
[2016-03-16] MEDS: MULTIVITAMINS WITH MINERALS, THERAPEUTIC TABLET PO SCH (08:18)
[2016-03-16] MEDS: DiphenhydrAMINE HCL 25 MG CAPSULE PO SCH ×2 (08:18→16:17)
[2016-03-16] MEDS: NICOTINE 14 MG/24 HOUR PATCH TD SCH (08:18)
[2016-03-16] MEDS: AmLODIPine BESYLATE 10 MG TABLET PO SCH (08:19)
[2016-03-16] MEDS: OMEPRAZOLE 20 MG CAPSULE PO SCH (08:19)
[2016-03-16] MEDS: PREGABALIN 50 MG CAPSULE PO SCH (08:19)
[2016-03-16] MEDS: FOLIC ACID 1 MG TABLET PO SCH (08:19)
[2016-03-16] MEDS: SODIUM CHLORIDE 1 GM TABLET PO SCH ×3 (08:19→16:17)
[2016-03-16] MEDS: FluPHENAZine HCL 5 MG TABLET PO SCH ×2 (08:24→16:17)
[2016-03-16 08:39] VITALS: BP 114/68
[2016-03-16 12:59] VITALS: BP 110/80
[2016-03-16] MEDS: ACETAMINOPHEN 325 MG TABLET PO PRN (12:59)
[2016-03-16 16:10] VITALS: BP 141/86
[2016-03-16] MEDS: PRAZOSIN HCL 1 MG CAPSULE PO SCH (20:19)
[2016-03-17] MEDS: LORazepam 2 MG TABLET PO PRN ×2 (05:13→20:04)
[2016-03-17] MEDS: IBUPROFEN 400 MG TABLET PO PRN (07:11)
[2016-03-17 08:27] VITALS: BP 114/75
[2016-03-17] MEDS: MULTIVITAMINS WITH MINERALS, THERAPEUTIC TABLET PO SCH (08:52)
[2016-03-17] MEDS: DiphenhydrAMINE HCL 25 MG CAPSULE PO SCH ×2 (08:52→16:38)
[2016-03-17] MEDS: FluPHENAZine HCL 5 MG TABLET PO SCH ×2 (08:52→16:39)
[2016-03-17] MEDS: OMEPRAZOLE 20 MG CAPSULE PO SCH (08:53)
[2016-03-17] MEDS: LORazepam 0.5 MG TABLET PO SCH ×3 (08:53→16:39)
[2016-03-17] MEDS: PREGABALIN 50 MG CAPSULE PO SCH (08:53)
[2016-03-17] MEDS: NICOTINE 14 MG/24 HOUR PATCH TD SCH (08:53)
[2016-03-17] MEDS: FOLIC ACID 1 MG TABLET PO SCH (08:53)
[2016-03-17] MEDS: AmLODIPine BESYLATE 10 MG TABLET PO SCH (08:53)
[2016-03-17] MEDS: SODIUM CHLORIDE 1 GM TABLET PO SCH ×3 (08:54→16:39)
[2016-03-17] MEDS: ACETAMINOPHEN 325 MG TABLET PO PRN (11:43)
[2016-03-17 16:00] VITALS: BP 141/77
[2016-03-17 20:24] VITALS: BP 134/70
[2016-03-17] MEDS: PRAZOSIN HCL 1 MG CAPSULE PO SCH (20:26)
[2016-03-17] MEDS: ZOLPIDEM TARTRATE 10 MG TABLET PO PRN (21:01)
[2016-03-18 02:36] VITALS: BP 132/75
[2016-03-18] MEDS: LORazepam 2 MG TABLET PO PRN ×2 (07:16→18:07)
[2016-03-18] MEDS: FOLIC ACID 1 MG TABLET PO SCH (08:30)
[2016-03-18] MEDS: DiphenhydrAMINE HCL 25 MG CAPSULE PO SCH ×2 (08:30→16:23)
[2016-03-18] MEDS: AmLODIPine BESYLATE 10 MG TABLET PO SCH (08:30)
[2016-03-18] MEDS: OMEPRAZOLE 20 MG CAPSULE PO SCH (08:31)
[2016-03-18] MEDS: LORazepam 0.5 MG TABLET PO SCH ×3 (08:31→16:23)
[2016-03-18] MEDS: SODIUM CHLORIDE 1 GM TABLET PO SCH ×3 (08:31→16:23)
[2016-03-18] MEDS: MULTIVITAMINS WITH MINERALS, THERAPEUTIC TABLET PO SCH (08:31)
[2016-03-18] MEDS: FluPHENAZine HCL 5 MG TABLET PO SCH ×2 (08:31→16:22)
[2016-03-18] MEDS: PREGABALIN 50 MG CAPSULE PO SCH (08:32)
[2016-03-18 08:55] VITALS: BP 131/77
[2016-03-18] MEDS: NICOTINE 14 MG/24 HOUR PATCH TD SCH (10:05)
[2016-03-18] MEDS: ACETAMINOPHEN 325 MG TABLET PO PRN (10:54)
[2016-03-18 16:05] VITALS: BP 150/88
[2016-03-18] MEDS: PRAZOSIN HCL 1 MG CAPSULE PO SCH (20:09)
[2016-03-18] MEDS: ZOLPIDEM TARTRATE 10 MG TABLET PO PRN (20:10)
[2016-03-19] MEDS: IBUPROFEN 400 MG TABLET PO PRN (06:37)
[2016-03-19] MEDS: LORazepam 2 MG TABLET PO PRN (06:37)
[2016-03-19] MEDS: DiphenhydrAMINE HCL 25 MG CAPSULE PO SCH ×2 (08:05→16:16)
[2016-03-19] MEDS: NICOTINE 14 MG/24 HOUR PATCH TD SCH (08:05)
[2016-03-19] MEDS: SODIUM CHLORIDE 1 GM TABLET PO SCH ×3 (08:05→16:16)
[2016-03-19] MEDS: PREGABALIN 50 MG CAPSULE PO SCH (08:05)
[2016-03-19] MEDS: FluPHENAZine HCL 5 MG TABLET PO SCH ×2 (08:05→16:16)
[2016-03-19] MEDS: MULTIVITAMINS WITH MINERALS, THERAPEUTIC TABLET PO SCH (08:10)
[2016-03-19] MEDS: OMEPRAZOLE 20 MG CAPSULE PO SCH (08:11)
[2016-03-19] MEDS: FOLIC ACID 1 MG TABLET PO SCH (08:11)
[2016-03-19] MEDS: LORazepam 0.5 MG TABLET PO SCH ×3 (08:11→16:16)
[2016-03-19] MEDS: AmLODIPine BESYLATE 10 MG TABLET PO SCH (08:11)
[2016-03-19 08:28] VITALS: BP 130/62
[2016-03-19] MEDS ORDERED: INFLUENZA VIRUS VACCINE QVS 2016-17 (3YR+)/PF 60 MCG/0.5 ML SYRINGE IM ONE (12:00)
[2016-03-19] MEDS ORDERED: CloNIDine HCL 0.1 MG TABLET PO PRN (13:45)
[2016-03-19 15:54] VITALS: BP 136/76
[2016-03-19 16:01] VITALS: BP 136/76
[2016-03-19 16:45] VITALS: BP 128/74
[2016-03-19] MEDS: ACETAMINOPHEN 325 MG TABLET PO PRN (16:45)
[2016-03-19 20:36] VITALS: BP 124/78
[2016-03-19] MEDS: PRAZOSIN HCL 1 MG CAPSULE PO SCH (20:38)
[2016-03-19] MEDS: ZOLPIDEM TARTRATE 10 MG TABLET PO PRN (21:06)
[2016-03-20] MEDS: LORazepam 2 MG TABLET PO PRN ×2 (06:15→11:48)
[2016-03-20 06:26] VITALS: BP 138/75
[2016-03-20] MEDS: NICOTINE 14 MG/24 HOUR PATCH TD SCH (08:07)
[2016-03-20] MEDS: DiphenhydrAMINE HCL 25 MG CAPSULE PO SCH ×2 (08:07→16:47)
[2016-03-20] MEDS: FluPHENAZine HCL 5 MG TABLET PO SCH ×2 (08:08→16:47)
[2016-03-20] MEDS: AmLODIPine BESYLATE 10 MG TABLET PO SCH (08:08)
[2016-03-20] MEDS: SODIUM CHLORIDE 1 GM TABLET PO SCH ×3 (08:08→16:47)
[2016-03-20] MEDS: OMEPRAZOLE 20 MG CAPSULE PO SCH (08:08)
[2016-03-20] MEDS: PREGABALIN 50 MG CAPSULE PO SCH (08:08)
[2016-03-20] MEDS: FOLIC ACID 1 MG TABLET PO SCH (08:09)
[2016-03-20] MEDS: MULTIVITAMINS WITH MINERALS, THERAPEUTIC TABLET PO SCH (08:09)
[2016-03-20] MEDS: LORazepam 0.5 MG TABLET PO SCH ×3 (08:09→16:47)
[2016-03-20 08:56] VITALS: BP 135/70
[2016-03-20] MEDS: FluPHENAZine HCL 5 MG TABLET PO PRN (13:11)
[2016-03-20 17:32] VITALS: BP 133/70
[2016-03-20] MEDS: PRAZOSIN HCL 1 MG CAPSULE PO SCH (20:18)
[2016-03-20] MEDS: ZOLPIDEM TARTRATE 10 MG TABLET PO PRN (20:18)
[2016-03-21 04:06] VITALS: BP 114/78
[2016-03-21] MEDS: LORazepam 2 MG TABLET PO PRN ×2 (04:11→18:12)
[2016-03-21] MEDS: ACETAMINOPHEN 325 MG TABLET PO PRN ×2 (07:35→18:08)
[2016-03-21] MEDS ORDERED: DiphenhydrAMINE HCL 50 MG/ML VIAL IM ONE (08:15)
[2016-03-21] MEDS ORDERED: LORazepam 2 MG/ML VIAL IM ONE (08:15)
[2016-03-21] MEDS ORDERED: FluPHENAZine HCL 2.5 MG/ML INJ IM ONE (08:15)
[2016-03-21 08:20] VITALS: BP 128/75
[2016-03-21] MEDS: FluPHENAZine HCL 5 MG TABLET PO SCH ×2 (08:22→16:32)
[2016-03-21] MEDS: DiphenhydrAMINE HCL 25 MG CAPSULE PO SCH ×2 (08:22→16:32)
[2016-03-21] MEDS: LORazepam 0.5 MG TABLET PO SCH ×3 (08:22→16:33)
[2016-03-21] MEDS: OMEPRAZOLE 20 MG CAPSULE PO SCH (09:10)
[2016-03-21] MEDS: MULTIVITAMINS WITH MINERALS, THERAPEUTIC TABLET PO SCH (09:10)
[2016-03-21] MEDS: PREGABALIN 50 MG CAPSULE PO SCH (09:10)
[2016-03-21] MEDS: NICOTINE 14 MG/24 HOUR PATCH TD SCH (09:11)
[2016-03-21] MEDS: AmLODIPine BESYLATE 10 MG TABLET PO SCH (09:11)
[2016-03-21] MEDS: SODIUM CHLORIDE 1 GM TABLET PO SCH ×3 (09:11→16:32)
[2016-03-21] MEDS: FOLIC ACID 1 MG TABLET PO SCH (09:12)
[2016-03-21 16:23] VITALS: BP 134/94
[2016-03-21 18:07] VITALS: BP 130/86
[2016-03-21] MEDS: ZOLPIDEM TARTRATE 10 MG TABLET PO PRN (20:33)
[2016-03-21] MEDS: PRAZOSIN HCL 1 MG CAPSULE PO SCH (20:33)
[2016-03-22] MEDS: LORazepam 2 MG TABLET PO PRN ×3 (04:23→14:31)
[2016-03-22 05:15] VITALS: BP 125/68
[2016-03-22] MEDS: NICOTINE 14 MG/24 HOUR PATCH TD SCH (08:09)
[2016-03-22] MEDS: DiphenhydrAMINE HCL 25 MG CAPSULE PO SCH ×2 (08:09→16:37)
[2016-03-22] MEDS: OMEPRAZOLE 20 MG CAPSULE PO SCH (08:09)
[2016-03-22 08:10] VITALS: BP 100/59
[2016-03-22] MEDS: LORazepam 0.5 MG TABLET PO SCH ×3 (08:10→16:38)
[2016-03-22] MEDS: PREGABALIN 50 MG CAPSULE PO SCH (08:10)
[2016-03-22] MEDS: MULTIVITAMINS WITH MINERALS, THERAPEUTIC TABLET PO SCH (08:10)
[2016-03-22] MEDS: SODIUM CHLORIDE 1 GM TABLET PO SCH ×3 (08:10→16:38)
[2016-03-22] MEDS: FluPHENAZine HCL 5 MG TABLET PO SCH ×2 (08:10→16:38)
[2016-03-22] MEDS: FOLIC ACID 1 MG TABLET PO SCH (08:10)
[2016-03-22] MEDS: AmLODIPine BESYLATE 10 MG TABLET PO SCH (08:10)
[2016-03-22] MEDS: ACETAMINOPHEN 325 MG TABLET PO PRN (08:11)
[2016-03-22] MEDS: IBUPROFEN 400 MG TABLET PO PRN ×2 (09:08→17:56)
[2016-03-22 10:15] VITALS: BP 124/72
[2016-03-22 16:09] VITALS: BP 137/74
[2016-03-22] MEDS: ZOLPIDEM TARTRATE 10 MG TABLET PO PRN (20:22)
[2016-03-22] MEDS: PRAZOSIN HCL 1 MG CAPSULE PO SCH (20:22)
[2016-03-23 06:41] VITALS: BP 129/77
[2016-03-23] MEDS: ACETAMINOPHEN 325 MG TABLET PO PRN ×2 (06:47→16:19)
[2016-03-23] MEDS: LORazepam 2 MG TABLET PO PRN ×2 (06:48→15:14)
[2016-03-23] MEDS: MAG HYDROX/AL HYDROX/SIMETH ES 30 ML SUSPENSION UDCUP PO PRN (07:39)
[2016-03-23] MEDS: LORazepam 0.5 MG TABLET PO SCH ×3 (08:03→16:17)
[2016-03-23] MEDS: MULTIVITAMINS WITH MINERALS, THERAPEUTIC TABLET PO SCH (08:04)
[2016-03-23] MEDS: AmLODIPine BESYLATE 10 MG TABLET PO SCH (08:04)
[2016-03-23] MEDS: PREGABALIN 50 MG CAPSULE PO SCH (08:04)
[2016-03-23] MEDS: SODIUM CHLORIDE 1 GM TABLET PO SCH ×3 (08:04→16:16)
[2016-03-23] MEDS: OMEPRAZOLE 20 MG CAPSULE PO SCH (08:04)
[2016-03-23] MEDS: FOLIC ACID 1 MG TABLET PO SCH (08:04)
[2016-03-23] MEDS: FluPHENAZine HCL 5 MG TABLET PO SCH ×2 (08:05→16:17)
[2016-03-23] MEDS: DiphenhydrAMINE HCL 25 MG CAPSULE PO SCH ×2 (08:05→16:17)
[2016-03-23] MEDS: NICOTINE 14 MG/24 HOUR PATCH TD SCH (08:07)
[2016-03-23 08:54] VITALS: BP 136/73
[2016-03-23 09:55] VITALS: BP 130/74
[2016-03-23] MEDS: IBUPROFEN 400 MG TABLET PO PRN (09:55)
[2016-03-23 16:08] VITALS: BP 118/69
[2016-03-23] MEDS: PRAZOSIN HCL 1 MG CAPSULE PO SCH (20:23)
[2016-03-24 04:56] VITALS: BP 128/77
[2016-03-24] MEDS: ACETAMINOPHEN 325 MG TABLET PO PRN (05:38)
[2016-03-24] MEDS: LORazepam 2 MG TABLET PO PRN ×2 (05:38→17:11)
[2016-03-24] MEDS: FluPHENAZine HCL 5 MG TABLET PO SCH ×2 (08:06→16:03)
[2016-03-24] MEDS: MULTIVITAMINS WITH MINERALS, THERAPEUTIC TABLET PO SCH (08:07)
[2016-03-24] MEDS: PREGABALIN 50 MG CAPSULE PO SCH (08:07)
[2016-03-24] MEDS: DiphenhydrAMINE HCL 25 MG CAPSULE PO SCH ×2 (08:07→16:03)
[2016-03-24] MEDS: AmLODIPine BESYLATE 10 MG TABLET PO SCH (08:07)
[2016-03-24] MEDS: OMEPRAZOLE 20 MG CAPSULE PO SCH (08:07)
[2016-03-24] MEDS: FOLIC ACID 1 MG TABLET PO SCH (08:07)
[2016-03-24] MEDS: LORazepam 0.5 MG TABLET PO SCH ×3 (08:07→16:03)
[2016-03-24] MEDS: SODIUM CHLORIDE 1 GM TABLET PO SCH ×3 (08:08→16:03)
[2016-03-24 08:27] VITALS: BP 140/76
[2016-03-24] MEDS: NICOTINE 14 MG/24 HOUR PATCH TD SCH (08:46)
[2016-03-24 12:42] VITALS: BP 124/80
[2016-03-24] MEDS: IBUPROFEN 400 MG TABLET PO PRN (12:50)
[2016-03-24 19:52] VITALS: BP 143/75
[2016-03-24] MEDS: ZOLPIDEM TARTRATE 10 MG TABLET PO PRN (20:10)
[2016-03-24] MEDS: PRAZOSIN HCL 1 MG CAPSULE PO SCH (20:10)
[2016-03-25 05:40] VITALS: BP 139/71
[2016-03-25] MEDS: LORazepam 2 MG TABLET PO PRN ×2 (05:40→17:23)
[2016-03-25] MEDS: ACETAMINOPHEN 325 MG TABLET PO PRN (05:41)
[2016-03-25] MEDS: OMEPRAZOLE 20 MG CAPSULE PO SCH (08:08)
[2016-03-25] MEDS: NICOTINE 14 MG/24 HOUR PATCH TD SCH (08:11)
[2016-03-25] MEDS: DiphenhydrAMINE HCL 25 MG CAPSULE PO SCH ×2 (08:12→16:10)
[2016-03-25] MEDS: MULTIVITAMINS WITH MINERALS, THERAPEUTIC TABLET PO SCH (08:12)
[2016-03-25] MEDS: FluPHENAZine HCL 5 MG TABLET PO SCH ×2 (08:12→16:10)
[2016-03-25] MEDS: AmLODIPine BESYLATE 10 MG TABLET PO SCH (08:13)
[2016-03-25] MEDS: SODIUM CHLORIDE 1 GM TABLET PO SCH ×3 (08:13→16:09)
[2016-03-25] MEDS: FOLIC ACID 1 MG TABLET PO SCH (08:13)
[2016-03-25] MEDS: PREGABALIN 50 MG CAPSULE PO SCH (08:13)
[2016-03-25] MEDS: LORazepam 0.5 MG TABLET PO SCH ×3 (08:13→16:10)
[2016-03-25 08:26] LABS: ANION GAP 12 mmol/L (8-16); CALCIUM, TOTAL 9.3 mg/dL (8.8-10.5); CARBON DIOXIDE 23 mmol/L (22-29); CHLORIDE 98 mmol/L (98-107); CREATININE 0.88 mg/dL (0.60-1.30); GLOMERULAR FILTR. RATE CALC > 60 mL/min (>60); POTASSIUM 4.2 mmol/L (3.5-5.1); SODIUM SERUM 133 mmol/L (136-145); UREA NITROGEN, BLOOD 13 mg/dL (7-18)
[2016-03-25 09:08] VITALS: BP 124/78
[2016-03-25 09:45] VITALS: BP 118/70
[2016-03-25] MEDS: IBUPROFEN 400 MG TABLET PO PRN ×2 (09:45→20:40)
[2016-03-25 16:23] VITALS: BP 132/75
[2016-03-25] MEDS: ZOLPIDEM TARTRATE 10 MG TABLET PO PRN (20:16)
[2016-03-25] MEDS: PRAZOSIN HCL 1 MG CAPSULE PO SCH (20:16)
[2016-03-25 20:41] VITALS: BP 128/80
[2016-03-26 00:40] VITALS: BP 127/73
[2016-03-26] MEDS: ACETAMINOPHEN 325 MG TABLET PO PRN ×2 (00:58→20:19)
[2016-03-26] MEDS: LORazepam 2 MG TABLET PO PRN ×2 (01:28→14:37)
[2016-03-26] MEDS: IBUPROFEN 400 MG TABLET PO PRN ×2 (07:19→17:38)
[2016-03-26 08:02] VITALS: BP 158/82
[2016-03-26] MEDS: DiphenhydrAMINE HCL 25 MG CAPSULE PO SCH ×2 (08:14→16:24)
[2016-03-26] MEDS: AmLODIPine BESYLATE 10 MG TABLET PO SCH (08:14)
[2016-03-26] MEDS: MULTIVITAMINS WITH MINERALS, THERAPEUTIC TABLET PO SCH (08:15)
[2016-03-26] MEDS: FOLIC ACID 1 MG TABLET PO SCH (08:15)
[2016-03-26] MEDS: FluPHENAZine HCL 5 MG TABLET PO SCH ×2 (08:15→16:25)
[2016-03-26] MEDS: OMEPRAZOLE 20 MG CAPSULE PO SCH (08:15)
[2016-03-26] MEDS: PREGABALIN 50 MG CAPSULE PO SCH (08:15)
[2016-03-26] MEDS: LORazepam 0.5 MG TABLET PO SCH ×3 (08:15→16:25)
[2016-03-26] MEDS: SODIUM CHLORIDE 1 GM TABLET PO SCH ×3 (08:16→16:25)
[2016-03-26] MEDS: NICOTINE 14 MG/24 HOUR PATCH TD SCH (08:19)
[2016-03-26] MEDS: MAG HYDROX/AL HYDROX/SIMETH ES 30 ML SUSPENSION UDCUP PO PRN (14:23)
[2016-03-26 16:00] VITALS: BP 130/73
[2016-03-26] MEDS: PRAZOSIN HCL 1 MG CAPSULE PO SCH (20:08)
[2016-03-27] MEDS: IBUPROFEN 400 MG TABLET PO PRN ×2 (04:03→20:33)
[2016-03-27] MEDS: LORazepam 2 MG TABLET PO PRN ×3 (04:03→15:22)
[2016-03-27 08:12] VITALS: BP 145/78
[2016-03-27] MEDS: PREGABALIN 50 MG CAPSULE PO SCH (08:13)
[2016-03-27] MEDS: DiphenhydrAMINE HCL 25 MG CAPSULE PO SCH ×2 (08:13→16:20)
[2016-03-27] MEDS: OMEPRAZOLE 20 MG CAPSULE PO SCH (08:13)
[2016-03-27] MEDS: FluPHENAZine HCL 5 MG TABLET PO SCH ×2 (08:13→16:20)
[2016-03-27] MEDS: SODIUM CHLORIDE 1 GM TABLET PO SCH ×3 (08:13→16:21)
[2016-03-27] MEDS: AmLODIPine BESYLATE 10 MG TABLET PO SCH (08:14)
[2016-03-27] MEDS: LORazepam 0.5 MG TABLET PO SCH ×3 (08:14→16:21)
[2016-03-27] MEDS: FOLIC ACID 1 MG TABLET PO SCH (08:14)
[2016-03-27] MEDS: NICOTINE 14 MG/24 HOUR PATCH TD SCH (08:15)
[2016-03-27] MEDS: MULTIVITAMINS WITH MINERALS, THERAPEUTIC TABLET PO SCH (08:23)
[2016-03-27 16:16] VITALS: BP 135/78
[2016-03-27] MEDS: ACETAMINOPHEN 325 MG TABLET PO PRN (16:29)
[2016-03-27] MEDS: PRAZOSIN HCL 1 MG CAPSULE PO SCH (20:21)
[2016-03-27] MEDS: ZOLPIDEM TARTRATE 10 MG TABLET PO PRN (21:55)
[2016-03-28 04:44] VITALS: BP 128/77
[2016-03-28] MEDS: LORazepam 2 MG TABLET PO PRN ×2 (04:45→18:32)
[2016-03-28] MEDS: ACETAMINOPHEN 325 MG TABLET PO PRN ×2 (06:57→18:32)
[2016-03-28 08:00] VITALS: BP 125/76
[2016-03-28 08:53] VITALS: BP 147/76
[2016-03-28] MEDS: FluPHENAZine HCL 5 MG TABLET PO SCH ×2 (09:00→16:04)
[2016-03-28] MEDS: SODIUM CHLORIDE 1 GM TABLET PO SCH ×3 (09:00→16:05)
[2016-03-28] MEDS: PREGABALIN 50 MG CAPSULE PO SCH (09:01)
[2016-03-28] MEDS: AmLODIPine BESYLATE 10 MG TABLET PO SCH (09:01)
[2016-03-28] MEDS: DiphenhydrAMINE HCL 25 MG CAPSULE PO SCH ×2 (09:01→16:04)
[2016-03-28] MEDS: MULTIVITAMINS WITH MINERALS, THERAPEUTIC TABLET PO SCH (09:01)
[2016-03-28] MEDS: OMEPRAZOLE 20 MG CAPSULE PO SCH (09:01)
[2016-03-28] MEDS: FOLIC ACID 1 MG TABLET PO SCH (09:02)
[2016-03-28] MEDS: LORazepam 0.5 MG TABLET PO SCH ×3 (09:02→16:05)
[2016-03-28] MEDS: NICOTINE 14 MG/24 HOUR PATCH TD SCH (09:03)
[2016-03-28 16:15] VITALS: BP 141/70
[2016-03-28 18:30] VITALS: BP 130/75
[2016-03-28] MEDS: ZOLPIDEM TARTRATE 10 MG TABLET PO PRN (20:10)
[2016-03-28] MEDS: PRAZOSIN HCL 1 MG CAPSULE PO SCH (20:10)
[2016-03-28 20:50] VITALS: BP 139/88
[2016-03-28] MEDS: IBUPROFEN 400 MG TABLET PO PRN (20:54)
[2016-03-29 04:36] VITALS: BP 129/73
[2016-03-29] MEDS: IBUPROFEN 400 MG TABLET PO PRN ×3 (04:39→20:49)
[2016-03-29] MEDS: LORazepam 2 MG TABLET PO PRN ×2 (04:39→17:36)
[2016-03-29] MEDS: NICOTINE 14 MG/24 HOUR PATCH TD SCH (08:05)
[2016-03-29] MEDS: LORazepam 0.5 MG TABLET PO SCH ×3 (08:05→16:21)
[2016-03-29] MEDS: FluPHENAZine HCL 5 MG TABLET PO SCH ×2 (08:05→16:21)
[2016-03-29] MEDS: SODIUM CHLORIDE 1 GM TABLET PO SCH ×3 (08:05→16:21)
[2016-03-29] MEDS: AmLODIPine BESYLATE 10 MG TABLET PO SCH (08:06)
[2016-03-29] MEDS: PREGABALIN 50 MG CAPSULE PO SCH (08:06)
[2016-03-29] MEDS: DiphenhydrAMINE HCL 25 MG CAPSULE PO SCH ×2 (08:06→16:21)
[2016-03-29] MEDS: MULTIVITAMINS WITH MINERALS, THERAPEUTIC TABLET PO SCH (08:06)
[2016-03-29] MEDS: FOLIC ACID 1 MG TABLET PO SCH (08:06)
[2016-03-29] MEDS: OMEPRAZOLE 20 MG CAPSULE PO SCH (08:07)
[2016-03-29 08:35] VITALS: BP 137/81
[2016-03-29 12:24] VITALS: BP 128/74
[2016-03-29 16:40] VITALS: BP 112/63
[2016-03-29] MEDS: PRAZOSIN HCL 1 MG CAPSULE PO SCH (20:30)
[2016-03-29] MEDS: ZOLPIDEM TARTRATE 10 MG TABLET PO PRN (21:12)
[2016-03-30 06:31] VITALS: BP 101/62
[2016-03-30] MEDS: IBUPROFEN 400 MG TABLET PO PRN ×2 (06:56→14:28)
[2016-03-30] MEDS: LORazepam 2 MG TABLET PO PRN ×3 (07:25→22:32)
[2016-03-30] MEDS: DiphenhydrAMINE HCL 25 MG CAPSULE PO SCH ×2 (08:01→16:18)
[2016-03-30] MEDS: LORazepam 0.5 MG TABLET PO SCH ×3 (08:01→16:17)
[2016-03-30] MEDS: FluPHENAZine HCL 5 MG TABLET PO SCH ×2 (08:02→16:17)
[2016-03-30] MEDS: PREGABALIN 50 MG CAPSULE PO SCH (08:02)
[2016-03-30] MEDS: MULTIVITAMINS WITH MINERALS, THERAPEUTIC TABLET PO SCH (08:02)
[2016-03-30] MEDS: SODIUM CHLORIDE 1 GM TABLET PO SCH ×3 (08:02→16:18)
[2016-03-30] MEDS: AmLODIPine BESYLATE 10 MG TABLET PO SCH (08:03)
[2016-03-30] MEDS: OMEPRAZOLE 20 MG CAPSULE PO SCH (08:03)
[2016-03-30] MEDS: FOLIC ACID 1 MG TABLET PO SCH (08:03)
[2016-03-30] MEDS: NICOTINE 14 MG/24 HOUR PATCH TD SCH (08:04)
[2016-03-30 09:04] VITALS: BP 123/81
[2016-03-30 14:30] VITALS: BP 120/74
[2016-03-30 16:23] VITALS: BP 132/78
[2016-03-30] MEDS: ACETAMINOPHEN 325 MG TABLET PO PRN (20:39)
[2016-03-30] MEDS: ZOLPIDEM TARTRATE 10 MG TABLET PO PRN (20:39)
[2016-03-30] MEDS: PRAZOSIN HCL 1 MG CAPSULE PO SCH (20:39)
[2016-03-31 03:10] VITALS: BP 128/76
[2016-03-31] MEDS: LORazepam 2 MG TABLET PO PRN ×2 (03:12→09:18)
[2016-03-31] MEDS: IBUPROFEN 400 MG TABLET PO PRN ×2 (03:12→11:26)
[2016-03-31 08:23] VITALS: BP 144/73
[2016-03-31] MEDS: FluPHENAZine HCL 5 MG TABLET PO SCH ×2 (08:36→16:27)
[2016-03-31] MEDS: PREGABALIN 50 MG CAPSULE PO SCH (08:36)
[2016-03-31] MEDS: NICOTINE 14 MG/24 HOUR PATCH TD SCH (08:36)
[2016-03-31] MEDS: MULTIVITAMINS WITH MINERALS, THERAPEUTIC TABLET PO SCH (08:37)
[2016-03-31] MEDS: FOLIC ACID 1 MG TABLET PO SCH (08:37)
[2016-03-31] MEDS: AmLODIPine BESYLATE 10 MG TABLET PO SCH (08:37)
[2016-03-31] MEDS: OMEPRAZOLE 20 MG CAPSULE PO SCH (08:37)
[2016-03-31] MEDS: SODIUM CHLORIDE 1 GM TABLET PO SCH ×3 (08:37→16:27)
[2016-03-31] MEDS: LORazepam 0.5 MG TABLET PO SCH ×3 (08:38→16:27)
[2016-03-31] MEDS: DiphenhydrAMINE HCL 25 MG CAPSULE PO SCH ×2 (08:38→16:26)
[2016-03-31 11:20] VITALS: BP 126/68
[2016-03-31 16:39] VITALS: BP 123/73
[2016-03-31] MEDS: PRAZOSIN HCL 1 MG CAPSULE PO SCH (20:21)
[2016-03-31] MEDS: ZOLPIDEM TARTRATE 10 MG TABLET PO PRN (20:22)
[2016-04-01] MEDS: LORazepam 2 MG TABLET PO PRN ×3 (06:47→21:14)
[2016-04-01 06:48] VITALS: BP 122/79
[2016-04-01] MEDS: IBUPROFEN 400 MG TABLET PO PRN ×2 (06:48→13:14)
[2016-04-01] MEDS: FOLIC ACID 1 MG TABLET PO SCH (08:35)
[2016-04-01] MEDS: LORazepam 0.5 MG TABLET PO SCH ×3 (08:35→16:12)
[2016-04-01] MEDS: DiphenhydrAMINE HCL 25 MG CAPSULE PO SCH ×2 (08:35→16:12)
[2016-04-01] MEDS: PREGABALIN 50 MG CAPSULE PO SCH (08:35)
[2016-04-01] MEDS: OMEPRAZOLE 20 MG CAPSULE PO SCH (08:36)
[2016-04-01] MEDS: AmLODIPine BESYLATE 10 MG TABLET PO SCH (08:36)
[2016-04-01] MEDS: FluPHENAZine HCL 5 MG TABLET PO SCH ×2 (08:36→16:13)
[2016-04-01] MEDS: MULTIVITAMINS WITH MINERALS, THERAPEUTIC TABLET PO SCH (08:36)
[2016-04-01 08:37] VITALS: BP 148/78
[2016-04-01] MEDS: SODIUM CHLORIDE 1 GM TABLET PO SCH ×2 (08:37→12:28)
[2016-04-01] MEDS: NICOTINE 14 MG/24 HOUR PATCH TD SCH (09:51)
[2016-04-01 16:00] VITALS: BP 132/84
[2016-04-01] MEDS: PRAZOSIN HCL 1 MG CAPSULE PO SCH (20:05)
[2016-04-01] MEDS: ZOLPIDEM TARTRATE 10 MG TABLET PO PRN (20:21)
[2016-04-02 05:46] VITALS: BP 137/77
[2016-04-02] MEDS: FluPHENAZine HCL 5 MG TABLET PO SCH ×2 (06:14→16:15)
[2016-04-02] MEDS: LORazepam 0.5 MG TABLET PO SCH ×3 (06:14→16:15)
[2016-04-02] MEDS: PREGABALIN 50 MG CAPSULE PO SCH (06:15)
[2016-04-02] MEDS: DiphenhydrAMINE HCL 25 MG CAPSULE PO SCH ×2 (06:15→16:15)
[2016-04-02 06:53] VITALS: BP 128/80
[2016-04-02] MEDS: IBUPROFEN 400 MG TABLET PO PRN ×3 (07:03→23:16)
[2016-04-02] MEDS: MULTIVITAMINS WITH MINERALS, THERAPEUTIC TABLET PO SCH (08:23)
[2016-04-02] MEDS: OMEPRAZOLE 20 MG CAPSULE PO SCH (08:23)
[2016-04-02] MEDS: FOLIC ACID 1 MG TABLET PO SCH (08:24)
[2016-04-02] MEDS: NICOTINE 14 MG/24 HOUR PATCH TD SCH (08:26)
[2016-04-02] MEDS: AmLODIPine BESYLATE 10 MG TABLET PO SCH (08:28)
[2016-04-02 08:38] VITALS: BP 100/54
[2016-04-02] MEDS: LORazepam 2 MG TABLET PO PRN ×2 (11:43→17:21)
[2016-04-02 17:28] VITALS: BP 147/81
[2016-04-02] MEDS: FluPHENAZine HCL 5 MG TABLET PO PRN (19:33)
[2016-04-02] MEDS: ZOLPIDEM TARTRATE 10 MG TABLET PO PRN (20:24)
[2016-04-02] MEDS: PRAZOSIN HCL 1 MG CAPSULE PO SCH (20:24)
[2016-04-03 01:43] VITALS: BP 137/86
[2016-04-03] MEDS: FluPHENAZine HCL 5 MG TABLET PO SCH ×2 (06:22→16:42)
[2016-04-03] MEDS: DiphenhydrAMINE HCL 25 MG CAPSULE PO SCH ×2 (06:22→16:42)
[2016-04-03] MEDS: PREGABALIN 50 MG CAPSULE PO SCH (06:23)
[2016-04-03] MEDS: LORazepam 0.5 MG TABLET PO SCH ×3 (06:23→16:42)
[2016-04-03 08:09] VITALS: BP 120/70
[2016-04-03] MEDS: AmLODIPine BESYLATE 10 MG TABLET PO SCH (08:09)
[2016-04-03] MEDS: NICOTINE 14 MG/24 HOUR PATCH TD SCH (08:09)
[2016-04-03] MEDS: OMEPRAZOLE 20 MG CAPSULE PO SCH (08:09)
[2016-04-03] MEDS: IBUPROFEN 400 MG TABLET PO PRN ×2 (08:09→17:18)
[2016-04-03] MEDS: MULTIVITAMINS WITH MINERALS, THERAPEUTIC TABLET PO SCH (08:09)
[2016-04-03] MEDS: FOLIC ACID 1 MG TABLET PO SCH (08:09)
[2016-04-03 09:02] VITALS: BP 120/70
[2016-04-03] MEDS: LORazepam 2 MG TABLET PO PRN (09:45)
[2016-04-03] MEDS: FluPHENAZine HCL 5 MG TABLET PO PRN (10:36)
[2016-04-03 16:35] VITALS: BP 126/73
[2016-04-03 17:56] VITALS: BP 130/72
[2016-04-03] MEDS: PRAZOSIN HCL 1 MG CAPSULE PO SCH (20:26)
[2016-04-03] MEDS: ZOLPIDEM TARTRATE 10 MG TABLET PO PRN (20:26)
[2016-04-04 05:50] VITALS: BP 141/76
[2016-04-04] MEDS: DiphenhydrAMINE HCL 25 MG CAPSULE PO SCH ×2 (06:14→16:15)
[2016-04-04] MEDS: FluPHENAZine HCL 5 MG TABLET PO SCH ×2 (06:14→16:15)
[2016-04-04] MEDS: LORazepam 0.5 MG TABLET PO SCH ×4 (06:14→16:15)
[2016-04-04] MEDS: PREGABALIN 50 MG CAPSULE PO SCH (06:15)
[2016-04-04 06:30] VITALS: BP 140/76
[2016-04-04] MEDS: IBUPROFEN 400 MG TABLET PO PRN (06:33)
[2016-04-04] MEDS: FOLIC ACID 1 MG TABLET PO SCH (08:11)
[2016-04-04] MEDS: OMEPRAZOLE 20 MG CAPSULE PO SCH (08:11)
[2016-04-04] MEDS: MULTIVITAMINS WITH MINERALS, THERAPEUTIC TABLET PO SCH (08:11)
[2016-04-04] MEDS: AmLODIPine BESYLATE 10 MG TABLET PO SCH (08:11)
[2016-04-04] MEDS: NICOTINE 14 MG/24 HOUR PATCH TD SCH (08:12)
[2016-04-04 08:58] VITALS: BP 155/88
[2016-04-04] MEDS: LORazepam 2 MG TABLET PO PRN (12:44)
[2016-04-04] MEDS: FluPHENAZine HCL 5 MG TABLET PO PRN (12:44)
[2016-04-04] MEDS ORDERED: LORazepam 2 MG/ML VIAL IM ONE (15:00)
[2016-04-04 16:29] VITALS: BP 130/72
[2016-04-04 16:30] VITALS: BP 152/86
[2016-04-04 20:00] VITALS: BP 134/82
[2016-04-04] MEDS: ZOLPIDEM TARTRATE 10 MG TABLET PO PRN (20:34)
[2016-04-04] MEDS: PRAZOSIN HCL 1 MG CAPSULE PO SCH (20:34)
[2016-04-05 00:05] VITALS: BP 130/72
[2016-04-05] MEDS: IBUPROFEN 400 MG TABLET PO PRN (00:10)
[2016-04-05 05:21] VITALS: BP 123/69
[2016-04-05] MEDS: LORazepam 2 MG TABLET PO PRN ×3 (05:29→20:38)
[2016-04-05] MEDS: PREGABALIN 50 MG CAPSULE PO SCH ×2 (06:38→08:56)
[2016-04-05] MEDS: DiphenhydrAMINE HCL 25 MG CAPSULE PO SCH ×2 (06:38→16:27)
[2016-04-05] MEDS: FluPHENAZine HCL 5 MG TABLET PO SCH ×2 (06:38→16:27)
[2016-04-05] MEDS: LORazepam 0.5 MG TABLET PO SCH ×3 (06:39→16:27)
[2016-04-05 08:28] VITALS: BP 118/71
[2016-04-05] MEDS: OMEPRAZOLE 20 MG CAPSULE PO SCH (08:55)
[2016-04-05] MEDS: MULTIVITAMINS WITH MINERALS, THERAPEUTIC TABLET PO SCH (08:55)
[2016-04-05] MEDS: NICOTINE 14 MG/24 HOUR PATCH TD SCH (08:55)
[2016-04-05] MEDS: AmLODIPine BESYLATE 10 MG TABLET PO SCH (08:56)
[2016-04-05] MEDS: FOLIC ACID 1 MG TABLET PO SCH (08:56)
[2016-04-05 10:51] LABS: ANION GAP 17 mmol/L (8-16); CALCIUM, TOTAL 9.4 mg/dL (8.8-10.5); CARBON DIOXIDE 21 mmol/L (22-29); CHLORIDE 96 mmol/L (98-107); CREATININE 0.83 mg/dL (0.60-1.30); GLOMERULAR FILTR. RATE CALC > 60 mL/min (>60); POTASSIUM 4.3 mmol/L (3.5-5.1); SODIUM SERUM 134 mmol/L (136-145); UREA NITROGEN, BLOOD 16 mg/dL (7-18)
[2016-04-05 16:21] VITALS: BP 136/81
[2016-04-05] MEDS: PRAZOSIN HCL 1 MG CAPSULE PO SCH (20:33)
[2016-04-06 05:46] VITALS: BP 129/78
[2016-04-06] MEDS: LORazepam 0.5 MG TABLET PO SCH ×3 (06:08→16:41)
[2016-04-06] MEDS: DiphenhydrAMINE HCL 25 MG CAPSULE PO SCH ×2 (06:08→16:40)
[2016-04-06] MEDS: FluPHENAZine HCL 5 MG TABLET PO SCH ×2 (06:08→16:41)
[2016-04-06] MEDS: IBUPROFEN 400 MG TABLET PO PRN ×2 (07:00→16:41)
[2016-04-06] MEDS: AmLODIPine BESYLATE 10 MG TABLET PO SCH (08:18)
[2016-04-06] MEDS: OMEPRAZOLE 20 MG CAPSULE PO SCH (08:19)
[2016-04-06] MEDS: MULTIVITAMINS WITH MINERALS, THERAPEUTIC TABLET PO SCH (08:20)
[2016-04-06] MEDS: NICOTINE 14 MG/24 HOUR PATCH TD SCH (08:20)
[2016-04-06] MEDS: FOLIC ACID 1 MG TABLET PO SCH (08:20)
[2016-04-06 08:45] VITALS: BP 129/74
[2016-04-06] MEDS: LORazepam 2 MG TABLET PO PRN ×2 (10:18→15:14)
[2016-04-06] MEDS: FluPHENAZine HCL 5 MG TABLET PO PRN (15:13)
[2016-04-06 16:19] VITALS: BP 142/86
[2016-04-06] MEDS: PRAZOSIN HCL 1 MG CAPSULE PO SCH (20:40)
[2016-04-06] MEDS: ZOLPIDEM TARTRATE 10 MG TABLET PO PRN (20:40)
[2016-04-07 05:18] VITALS: BP 142/75
[2016-04-07] MEDS: LORazepam 2 MG TABLET PO PRN ×2 (05:20→10:56)
[2016-04-07] MEDS: PREGABALIN 50 MG CAPSULE PO SCH (06:40)
[2016-04-07] MEDS: DiphenhydrAMINE HCL 25 MG CAPSULE PO SCH ×2 (06:40→16:32)
[2016-04-07] MEDS: FluPHENAZine HCL 5 MG TABLET PO SCH ×2 (06:41→16:32)
[2016-04-07] MEDS: LORazepam 0.5 MG TABLET PO SCH ×3 (06:41→16:32)
[2016-04-07] MEDS: IBUPROFEN 400 MG TABLET PO PRN (07:18)
[2016-04-07] MEDS: NICOTINE 14 MG/24 HOUR PATCH TD SCH (08:12)
[2016-04-07] MEDS: OMEPRAZOLE 20 MG CAPSULE PO SCH (08:13)
[2016-04-07] MEDS: MULTIVITAMINS WITH MINERALS, THERAPEUTIC TABLET PO SCH (08:13)
[2016-04-07] MEDS: AmLODIPine BESYLATE 10 MG TABLET PO SCH (08:13)
[2016-04-07] MEDS: FOLIC ACID 1 MG TABLET PO SCH (08:13)
[2016-04-07 08:48] VITALS: BP 128/63
[2016-04-07] MEDS: FluPHENAZine HCL 5 MG TABLET PO PRN (12:29)
[2016-04-07 16:27] VITALS: BP 132/74
[2016-04-07 20:30] VITALS: BP 129/87
[2016-04-07] MEDS: PRAZOSIN HCL 1 MG CAPSULE PO SCH (20:36)
[2016-04-07] MEDS: ZOLPIDEM TARTRATE 10 MG TABLET PO PRN (20:36)
[2016-04-08] MEDS: PREGABALIN 50 MG CAPSULE PO SCH ×2 (06:00→06:47)
[2016-04-08] MEDS: FluPHENAZine HCL 5 MG TABLET PO SCH ×2 (06:06→16:24)
[2016-04-08] MEDS: LORazepam 0.5 MG TABLET PO SCH ×3 (06:06→16:24)
[2016-04-08] MEDS: DiphenhydrAMINE HCL 25 MG CAPSULE PO SCH ×2 (06:06→16:24)
[2016-04-08 06:58] VITALS: BP 138/75
[2016-04-08 09:00] VITALS: BP 131/66
[2016-04-08] MEDS: FOLIC ACID 1 MG TABLET PO SCH (09:13)
[2016-04-08] MEDS: OMEPRAZOLE 20 MG CAPSULE PO SCH (09:13)
[2016-04-08] MEDS: AmLODIPine BESYLATE 10 MG TABLET PO SCH (09:13)
[2016-04-08] MEDS: NICOTINE 14 MG/24 HOUR PATCH TD SCH (09:13)
[2016-04-08] MEDS: MULTIVITAMINS WITH MINERALS, THERAPEUTIC TABLET PO SCH (09:13)
[2016-04-08] MEDS: LORazepam 2 MG TABLET PO PRN ×2 (10:08→17:29)
[2016-04-08 16:18] VITALS: BP 142/78
[2016-04-08] MEDS: ZOLPIDEM TARTRATE 10 MG TABLET PO PRN (20:24)
[2016-04-08] MEDS: PRAZOSIN HCL 1 MG CAPSULE PO SCH (20:24)
[2016-04-09 05:16] VITALS: BP 140/88
[2016-04-09] MEDS: LORazepam 2 MG TABLET PO PRN ×3 (05:18→17:58)
[2016-04-09] MEDS: MAG HYDROX/AL HYDROX/SIMETH ES 30 ML SUSPENSION UDCUP PO PRN (05:18)
[2016-04-09] MEDS: PREGABALIN 50 MG CAPSULE PO SCH (06:19)
[2016-04-09] MEDS: LORazepam 0.5 MG TABLET PO SCH ×3 (06:20→16:38)
[2016-04-09] MEDS: FluPHENAZine HCL 5 MG TABLET PO SCH ×2 (06:20→16:38)
[2016-04-09] MEDS: DiphenhydrAMINE HCL 25 MG CAPSULE PO SCH ×2 (06:20→16:38)
[2016-04-09 08:24] VITALS: BP 112/64
[2016-04-09] MEDS: OMEPRAZOLE 20 MG CAPSULE PO SCH (08:26)
[2016-04-09] MEDS: MULTIVITAMINS WITH MINERALS, THERAPEUTIC TABLET PO SCH (08:26)
[2016-04-09] MEDS: AmLODIPine BESYLATE 10 MG TABLET PO SCH (08:26)
[2016-04-09] MEDS: NICOTINE 14 MG/24 HOUR PATCH TD SCH (08:26)
[2016-04-09] MEDS: FOLIC ACID 1 MG TABLET PO SCH (08:26)
[2016-04-09] MEDS: FluPHENAZine HCL 5 MG TABLET PO PRN (10:44)
[2016-04-09 16:13] VITALS: BP 123/69
[2016-04-09 20:22] VITALS: BP 130/70
[2016-04-09] MEDS: PRAZOSIN HCL 1 MG CAPSULE PO SCH (20:26)
[2016-04-09] MEDS: ZOLPIDEM TARTRATE 10 MG TABLET PO PRN (20:26)
[2016-04-10] MEDS: LORazepam 0.5 MG TABLET PO SCH ×3 (06:09→16:44)
[2016-04-10] MEDS: DiphenhydrAMINE HCL 25 MG CAPSULE PO SCH ×2 (06:09→16:44)
[2016-04-10] MEDS: FluPHENAZine HCL 5 MG TABLET PO SCH ×2 (06:09→16:44)
[2016-04-10] MEDS: PREGABALIN 50 MG CAPSULE PO SCH (06:10)
[2016-04-10 06:34] VITALS: BP 131/80
[2016-04-10] MEDS: IBUPROFEN 400 MG TABLET PO PRN (06:44)
[2016-04-10 08:12] VITALS: BP 111/70
[2016-04-10] MEDS: MULTIVITAMINS WITH MINERALS, THERAPEUTIC TABLET PO SCH (10:06)
[2016-04-10] MEDS: OMEPRAZOLE 20 MG CAPSULE PO SCH (10:06)
[2016-04-10] MEDS: AmLODIPine BESYLATE 10 MG TABLET PO SCH (10:06)
[2016-04-10] MEDS: FOLIC ACID 1 MG TABLET PO SCH (10:06)
[2016-04-10] MEDS: NICOTINE 14 MG/24 HOUR PATCH TD SCH (10:07)
[2016-04-10] MEDS: SODIUM CHLORIDE 1 GM TABLET PO SCH ×2 (14:25→16:44)
[2016-04-10] MEDS: LORazepam 2 MG TABLET PO PRN (14:25)
[2016-04-10] MEDS: FluPHENAZine HCL 5 MG TABLET PO PRN (15:16)
[2016-04-10 16:20] VITALS: BP 108/70
[2016-04-10] MEDS: PRAZOSIN HCL 1 MG CAPSULE PO SCH (20:25)
[2016-04-10] MEDS: ZOLPIDEM TARTRATE 10 MG TABLET PO PRN (20:33)
[2016-04-11 04:42] VITALS: BP 118/76
[2016-04-11] MEDS: LORazepam 2 MG TABLET PO PRN ×3 (04:43→14:32)
[2016-04-11] MEDS: LORazepam 0.5 MG TABLET PO SCH ×3 (06:01→16:18)
[2016-04-11] MEDS: DiphenhydrAMINE HCL 25 MG CAPSULE PO SCH ×2 (06:01→16:17)
[2016-04-11] MEDS: FluPHENAZine HCL 5 MG TABLET PO SCH ×2 (06:01→16:17)
[2016-04-11] MEDS: PREGABALIN 50 MG CAPSULE PO SCH (06:01)
[2016-04-11 08:59] VITALS: BP 134/62
[2016-04-11 09:41] VITALS: BP 130/78
[2016-04-11] MEDS: MULTIVITAMINS WITH MINERALS, THERAPEUTIC TABLET PO SCH (09:42)
[2016-04-11] MEDS: SODIUM CHLORIDE 1 GM TABLET PO SCH ×3 (09:42→16:17)
[2016-04-11] MEDS: FOLIC ACID 1 MG TABLET PO SCH (09:42)
[2016-04-11] MEDS: NICOTINE 14 MG/24 HOUR PATCH TD SCH (09:42)
[2016-04-11] MEDS: AmLODIPine BESYLATE 10 MG TABLET PO SCH (09:42)
[2016-04-11] MEDS: OMEPRAZOLE 20 MG CAPSULE PO SCH (09:42)
[2016-04-11] MEDS: IBUPROFEN 400 MG TABLET PO PRN (09:43)
[2016-04-11] MEDS: FluPHENAZine HCL 5 MG TABLET PO PRN ×2 (09:43→15:02)
[2016-04-11 10:43] VITALS: BP 129/74
[2016-04-11 16:10] VITALS: BP 133/79
[2016-04-11] MEDS: PRAZOSIN HCL 1 MG CAPSULE PO SCH (20:13)
[2016-04-11] MEDS: ZOLPIDEM TARTRATE 10 MG TABLET PO PRN (20:13)
[2016-04-12 03:41] VITALS: BP 140/70
[2016-04-12] MEDS: LORazepam 2 MG TABLET PO PRN ×3 (03:42→20:04)
[2016-04-12] MEDS: IBUPROFEN 400 MG TABLET PO PRN ×2 (03:42→18:39)
[2016-04-12] MEDS: DiphenhydrAMINE HCL 25 MG CAPSULE PO SCH ×2 (06:01→16:19)
[2016-04-12] MEDS: LORazepam 0.5 MG TABLET PO SCH ×3 (06:02→16:20)
[2016-04-12] MEDS: FluPHENAZine HCL 5 MG TABLET PO SCH ×2 (06:02→16:20)
[2016-04-12] MEDS: PREGABALIN 50 MG CAPSULE PO SCH (06:02)
[2016-04-12] MEDS: AmLODIPine BESYLATE 10 MG TABLET PO SCH (08:08)
[2016-04-12] MEDS: NICOTINE 14 MG/24 HOUR PATCH TD SCH (08:08)
[2016-04-12] MEDS: SODIUM CHLORIDE 1 GM TABLET PO SCH ×3 (08:08→16:58)
[2016-04-12] MEDS: FOLIC ACID 1 MG TABLET PO SCH (08:09)
[2016-04-12] MEDS: OMEPRAZOLE 20 MG CAPSULE PO SCH (08:09)
[2016-04-12] MEDS: MULTIVITAMINS WITH MINERALS, THERAPEUTIC TABLET PO SCH (08:09)
[2016-04-12 08:33] VITALS: BP 131/78
[2016-04-12] MEDS: FluPHENAZine HCL 5 MG TABLET PO PRN (09:48)
[2016-04-12] MEDS ORDERED: DiphenhydrAMINE HCL 50 MG/ML VIAL IM ONE (14:00)
[2016-04-12] MEDS ORDERED: FluPHENAZine HCL 2.5 MG/ML INJ IM ONE (14:00)
[2016-04-12 14:36] VITALS: BP 138/79
[2016-04-12 16:12] VITALS: BP 136/79
[2016-04-12 16:28] VITALS: BP 136/79
[2016-04-12] MEDS: PRAZOSIN HCL 1 MG CAPSULE PO SCH (20:25)
[2016-04-12] MEDS: ZOLPIDEM TARTRATE 10 MG TABLET PO PRN (21:31)
[2016-04-13] MEDS: DiphenhydrAMINE HCL 25 MG CAPSULE PO SCH ×2 (06:27→16:24)
[2016-04-13] MEDS: LORazepam 0.5 MG TABLET PO SCH ×3 (06:27→16:24)
[2016-04-13] MEDS: PREGABALIN 50 MG CAPSULE PO SCH (06:27)
[2016-04-13] MEDS: FluPHENAZine HCL 5 MG TABLET PO SCH ×2 (06:28→16:25)
[2016-04-13 06:37] VITALS: BP 107/60
[2016-04-13] MEDS: IBUPROFEN 400 MG TABLET PO PRN (06:43)
[2016-04-13] MEDS: AmLODIPine BESYLATE 10 MG TABLET PO SCH (08:21)
[2016-04-13] MEDS: OMEPRAZOLE 20 MG CAPSULE PO SCH (08:21)
[2016-04-13] MEDS: FOLIC ACID 1 MG TABLET PO SCH (08:21)
[2016-04-13] MEDS: MULTIVITAMINS WITH MINERALS, THERAPEUTIC TABLET PO SCH (08:21)
[2016-04-13] MEDS: NICOTINE 14 MG/24 HOUR PATCH TD SCH (08:21)
[2016-04-13] MEDS: SODIUM CHLORIDE 1 GM TABLET PO SCH ×3 (08:21→16:24)
[2016-04-13 08:22] VITALS: BP 133/71
[2016-04-13] MEDS: LORazepam 2 MG TABLET PO PRN ×2 (08:26→18:19)
[2016-04-13] MEDS: FluPHENAZine HCL 5 MG TABLET PO PRN (09:07)
[2016-04-13 16:08] VITALS: BP 119/69
[2016-04-13 18:17] VITALS: BP 137/71
[2016-04-13] MEDS: PRAZOSIN HCL 1 MG CAPSULE PO SCH (20:15)
[2016-04-13] MEDS: ZOLPIDEM TARTRATE 10 MG TABLET PO PRN (20:15)
[2016-04-14] MEDS: LORazepam 0.5 MG TABLET PO SCH ×3 (06:09→16:53)
[2016-04-14] MEDS: DiphenhydrAMINE HCL 25 MG CAPSULE PO SCH ×2 (06:10→16:03)
[2016-04-14] MEDS: FluPHENAZine HCL 5 MG TABLET PO SCH ×2 (06:10→16:04)
[2016-04-14] MEDS: PREGABALIN 50 MG CAPSULE PO SCH (06:11)
[2016-04-14 06:48] VITALS: BP 135/72
[2016-04-14] MEDS: IBUPROFEN 400 MG TABLET PO PRN (06:53)
[2016-04-14] MEDS: NICOTINE 14 MG/24 HOUR PATCH TD SCH (08:03)
[2016-04-14] MEDS: AmLODIPine BESYLATE 10 MG TABLET PO SCH (08:04)
[2016-04-14] MEDS: MULTIVITAMINS WITH MINERALS, THERAPEUTIC TABLET PO SCH (08:04)
[2016-04-14] MEDS: SODIUM CHLORIDE 1 GM TABLET PO SCH ×3 (08:04→16:03)
[2016-04-14] MEDS: FOLIC ACID 1 MG TABLET PO SCH (08:04)
[2016-04-14] MEDS: OMEPRAZOLE 20 MG CAPSULE PO SCH (08:04)
[2016-04-14 08:19] VITALS: BP 133/71
[2016-04-14] MEDS: PROMETHAZINE HCL 25 MG TABLET PO PRN (08:29)
[2016-04-14] MEDS: LORazepam 2 MG TABLET PO PRN ×2 (10:15→15:40)
[2016-04-14] MEDS: FluPHENAZine HCL 5 MG TABLET PO PRN (10:49)
[2016-04-14 16:22] VITALS: BP 138/76
[2016-04-14] MEDS: PRAZOSIN HCL 1 MG CAPSULE PO SCH (21:04)
[2016-04-14] MEDS: ZOLPIDEM TARTRATE 10 MG TABLET PO PRN (21:13)
[2016-04-15] MEDS: LORazepam 0.5 MG TABLET PO SCH ×3 (06:26→16:36)
[2016-04-15] MEDS: DiphenhydrAMINE HCL 25 MG CAPSULE PO SCH ×2 (06:26→16:35)
[2016-04-15] MEDS: FluPHENAZine HCL 5 MG TABLET PO SCH ×2 (06:26→16:35)
[2016-04-15] MEDS: PREGABALIN 50 MG CAPSULE PO SCH (06:28)
[2016-04-15 07:31] VITALS: BP 134/78
[2016-04-15] MEDS: MULTIVITAMINS WITH MINERALS, THERAPEUTIC TABLET PO SCH (07:52)
[2016-04-15] MEDS: FOLIC ACID 1 MG TABLET PO SCH (07:52)
[2016-04-15] MEDS: SODIUM CHLORIDE 1 GM TABLET PO SCH ×3 (07:52→16:35)
[2016-04-15] MEDS: OMEPRAZOLE 20 MG CAPSULE PO SCH (07:52)
[2016-04-15] MEDS: AmLODIPine BESYLATE 10 MG TABLET PO SCH (07:52)
[2016-04-15] MEDS: LORazepam 2 MG TABLET PO PRN ×2 (07:53→18:12)
[2016-04-15] MEDS: FluPHENAZine HCL 5 MG TABLET PO PRN ×2 (07:53→12:15)
[2016-04-15] MEDS: NICOTINE 14 MG/24 HOUR PATCH TD SCH (08:41)
[2016-04-15 08:59] VITALS: BP 125/77
[2016-04-15] MEDS: ACETAMINOPHEN 325 MG TABLET PO PRN (10:03)
[2016-04-15] MEDS ORDERED: FluPHENAZine HCL 2.5 MG/ML INJ IM ONE (12:45)
[2016-04-15] MEDS ORDERED: LORazepam 2 MG/ML VIAL IM ONE (12:45)
[2016-04-15] MEDS ORDERED: DiphenhydrAMINE HCL 50 MG/ML VIAL IM ONE (12:45)
[2016-04-15 18:40] VITALS: BP 133/78
[2016-04-15] MEDS: PRAZOSIN HCL 1 MG CAPSULE PO SCH (20:28)
[2016-04-15] MEDS: IBUPROFEN 400 MG TABLET PO PRN (20:29)
[2016-04-15] MEDS: ZOLPIDEM TARTRATE 10 MG TABLET PO PRN (20:29)
[2016-04-15 20:33] VITALS: BP 130/71
[2016-04-16 06:35] VITALS: BP 129/72
[2016-04-16] MEDS: FluPHENAZine HCL 5 MG TABLET PO SCH ×2 (06:48→16:18)
[2016-04-16] MEDS: DiphenhydrAMINE HCL 25 MG CAPSULE PO SCH ×2 (06:48→16:19)
[2016-04-16] MEDS: PREGABALIN 50 MG CAPSULE PO SCH (06:49)
[2016-04-16] MEDS: IBUPROFEN 400 MG TABLET PO PRN ×2 (06:49→16:19)
[2016-04-16] MEDS: LORazepam 0.5 MG TABLET PO SCH ×3 (06:57→16:19)
[2016-04-16 07:49] VITALS: BP 122/70
[2016-04-16 08:53] VITALS: BP 121/72
[2016-04-16] MEDS: MULTIVITAMINS WITH MINERALS, THERAPEUTIC TABLET PO SCH (09:23)
[2016-04-16] MEDS: SODIUM CHLORIDE 1 GM TABLET PO SCH ×3 (09:23→16:18)
[2016-04-16] MEDS: AmLODIPine BESYLATE 10 MG TABLET PO SCH (09:23)
[2016-04-16] MEDS: FOLIC ACID 1 MG TABLET PO SCH (09:23)
[2016-04-16] MEDS: OMEPRAZOLE 20 MG CAPSULE PO SCH (09:23)
[2016-04-16] MEDS: NICOTINE 14 MG/24 HOUR PATCH TD SCH (09:23)
[2016-04-16] MEDS: LORazepam 2 MG TABLET PO PRN ×2 (09:24→17:15)
[2016-04-16] MEDS: FluPHENAZine HCL 5 MG TABLET PO PRN (09:56)
[2016-04-16 16:00] VITALS: BP 130/77
[2016-04-16 16:32] VITALS: BP 127/73
[2016-04-16 20:48] VITALS: BP 129/88
[2016-04-16] MEDS: PRAZOSIN HCL 1 MG CAPSULE PO SCH (20:57)
[2016-04-16] MEDS: ZOLPIDEM TARTRATE 10 MG TABLET PO PRN (20:57)
[2016-04-17 03:13] VITALS: BP 139/73
[2016-04-17] MEDS: IBUPROFEN 400 MG TABLET PO PRN (03:16)
[2016-04-17] MEDS: DiphenhydrAMINE HCL 25 MG CAPSULE PO SCH ×2 (06:11→16:15)
[2016-04-17] MEDS: LORazepam 0.5 MG TABLET PO SCH ×3 (06:11→16:15)
[2016-04-17] MEDS: FluPHENAZine HCL 5 MG TABLET PO SCH ×2 (06:11→16:15)
[2016-04-17] MEDS: PREGABALIN 50 MG CAPSULE PO SCH (06:11)
[2016-04-17 09:13] VITALS: BP 108/59
[2016-04-17 09:46] VITALS: BP 106/66
[2016-04-17] MEDS: SODIUM CHLORIDE 1 GM TABLET PO SCH ×3 (09:49→16:15)
[2016-04-17] MEDS: NICOTINE 14 MG/24 HOUR PATCH TD SCH (09:49)
[2016-04-17] MEDS: OMEPRAZOLE 20 MG CAPSULE PO SCH (09:49)
[2016-04-17] MEDS: AmLODIPine BESYLATE 10 MG TABLET PO SCH (09:49)
[2016-04-17] MEDS: MULTIVITAMINS WITH MINERALS, THERAPEUTIC TABLET PO SCH (09:49)
[2016-04-17] MEDS: FOLIC ACID 1 MG TABLET PO SCH (09:50)
[2016-04-17] MEDS: LORazepam 2 MG TABLET PO PRN ×2 (09:50→15:02)
[2016-04-17] MEDS: FluPHENAZine HCL 5 MG TABLET PO PRN (13:20)
[2016-04-17 16:33] VITALS: BP 123/72
[2016-04-17 20:00] VITALS: BP 130/68
[2016-04-17] MEDS: PRAZOSIN HCL 1 MG CAPSULE PO SCH (20:33)
[2016-04-17] MEDS: ZOLPIDEM TARTRATE 10 MG TABLET PO PRN (20:33)
[2016-04-18] VITALS (7 sets, daily range): BP systolic 111–129; BP diastolic 68–83
[2016-04-18] MEDS: IBUPROFEN 400 MG TABLET PO PRN ×3 (02:35→21:46)
[2016-04-18] MEDS: LORazepam 2 MG TABLET PO PRN ×3 (02:55→14:56)
[2016-04-18] MEDS: LORazepam 0.5 MG TABLET PO SCH ×3 (06:26→16:58)
[2016-04-18] MEDS: PREGABALIN 50 MG CAPSULE PO SCH (06:26)
[2016-04-18] MEDS: DiphenhydrAMINE HCL 25 MG CAPSULE PO SCH ×2 (06:27→16:58)
[2016-04-18] MEDS: FluPHENAZine HCL 5 MG TABLET PO SCH ×2 (06:27→16:58)
[2016-04-18] MEDS: NICOTINE 14 MG/24 HOUR PATCH TD SCH (09:40)
[2016-04-18] MEDS: SODIUM CHLORIDE 1 GM TABLET PO SCH ×3 (09:40→16:58)
[2016-04-18] MEDS: OMEPRAZOLE 20 MG CAPSULE PO SCH (09:40)
[2016-04-18] MEDS: AmLODIPine BESYLATE 10 MG TABLET PO SCH (09:40)
[2016-04-18] MEDS: FOLIC ACID 1 MG TABLET PO SCH (09:41)
[2016-04-18] MEDS: ACETAMINOPHEN 325 MG TABLET PO PRN (09:42)
[2016-04-18] MEDS: MULTIVITAMINS WITH MINERALS, THERAPEUTIC TABLET PO SCH (09:45)
[2016-04-18] MEDS: FluPHENAZine HCL 5 MG TABLET PO PRN (09:58)
[2016-04-18] MEDS: PRAZOSIN HCL 1 MG CAPSULE PO SCH (20:51)
[2016-04-18] MEDS: ZOLPIDEM TARTRATE 10 MG TABLET PO PRN (20:52)
[2016-04-19] MEDS: PREGABALIN 50 MG CAPSULE PO SCH (06:11)
[2016-04-19] MEDS: FluPHENAZine HCL 5 MG TABLET PO SCH ×2 (06:11→16:03)
[2016-04-19] MEDS: DiphenhydrAMINE HCL 25 MG CAPSULE PO SCH ×2 (06:11→16:04)
[2016-04-19] MEDS: LORazepam 0.5 MG TABLET PO SCH ×3 (06:11→16:04)
[2016-04-19 06:32] VITALS: BP 125/78
[2016-04-19] MEDS: ACETAMINOPHEN 325 MG TABLET PO PRN (06:55)
[2016-04-19 08:29] VITALS: BP 150/80
[2016-04-19 09:30] VITALS: BP 140/73
[2016-04-19] MEDS: FOLIC ACID 1 MG TABLET PO SCH (09:31)
[2016-04-19] MEDS: SODIUM CHLORIDE 1 GM TABLET PO SCH ×3 (09:31→16:04)
[2016-04-19] MEDS: OMEPRAZOLE 20 MG CAPSULE PO SCH (09:31)
[2016-04-19] MEDS: LORazepam 2 MG TABLET PO PRN ×2 (09:32→13:56)
[2016-04-19] MEDS: AmLODIPine BESYLATE 10 MG TABLET PO SCH (09:32)
[2016-04-19] MEDS: NICOTINE 14 MG/24 HOUR PATCH TD SCH (09:32)
[2016-04-19] MEDS: FluPHENAZine HCL 5 MG TABLET PO PRN (09:33)
[2016-04-19] MEDS: MULTIVITAMINS WITH MINERALS, THERAPEUTIC TABLET PO SCH (09:34)
[2016-04-19] MEDS: IBUPROFEN 400 MG TABLET PO PRN ×2 (12:51→21:02)
[2016-04-19 16:00] VITALS: BP 140/85
[2016-04-19] MEDS: PRAZOSIN HCL 1 MG CAPSULE PO SCH (20:24)
[2016-04-19 21:00] VITALS: BP 121/77
[2016-04-19] MEDS: ZOLPIDEM TARTRATE 10 MG TABLET PO PRN (21:02)
[2016-04-20 04:00] VITALS: BP 122/76
[2016-04-20] MEDS: LORazepam 2 MG TABLET PO PRN ×3 (04:07→15:02)
[2016-04-20] MEDS: DiphenhydrAMINE HCL 25 MG CAPSULE PO SCH ×2 (06:49→16:37)
[2016-04-20] MEDS: LORazepam 0.5 MG TABLET PO SCH ×3 (06:50→16:37)
[2016-04-20] MEDS: FluPHENAZine HCL 5 MG TABLET PO SCH ×2 (06:50→16:37)
[2016-04-20] MEDS: PREGABALIN 50 MG CAPSULE PO SCH (06:50)
[2016-04-20] MEDS: AmLODIPine BESYLATE 10 MG TABLET PO SCH (08:10)
[2016-04-20] MEDS: MULTIVITAMINS WITH MINERALS, THERAPEUTIC TABLET PO SCH (08:10)
[2016-04-20] MEDS: NICOTINE 14 MG/24 HOUR PATCH TD SCH (08:10)
[2016-04-20] MEDS: SODIUM CHLORIDE 1 GM TABLET PO SCH ×3 (08:11→16:37)
[2016-04-20] MEDS: OMEPRAZOLE 20 MG CAPSULE PO SCH (08:11)
[2016-04-20] MEDS: FOLIC ACID 1 MG TABLET PO SCH (08:11)
[2016-04-20 08:54] VITALS: BP 127/86
[2016-04-20] MEDS: FluPHENAZine HCL 5 MG TABLET PO PRN (09:36)
[2016-04-20 16:21] VITALS: BP 138/78
[2016-04-20] MEDS: PRAZOSIN HCL 1 MG CAPSULE PO SCH (20:24)
[2016-04-20] MEDS: ZOLPIDEM TARTRATE 10 MG TABLET PO PRN (20:24)
[2016-04-21] VITALS (7 sets, daily range): BP systolic 117–130; BP diastolic 68–82
[2016-04-21] MEDS: IBUPROFEN 400 MG TABLET PO PRN ×2 (05:09→14:09)
[2016-04-21] MEDS: LORazepam 2 MG TABLET PO PRN ×3 (05:09→14:50)
[2016-04-21] MEDS: LORazepam 0.5 MG TABLET PO SCH ×3 (06:00→16:34)
[2016-04-21] MEDS: DiphenhydrAMINE HCL 25 MG CAPSULE PO SCH ×2 (06:00→16:34)
[2016-04-21] MEDS: PREGABALIN 50 MG CAPSULE PO SCH (06:00)
[2016-04-21] MEDS: FluPHENAZine HCL 10 MG TABLET PO SCH ×2 (06:00→16:34)
[2016-04-21] MEDS: SODIUM CHLORIDE 1 GM TABLET PO SCH ×3 (09:33→16:34)
[2016-04-21] MEDS: NICOTINE 14 MG/24 HOUR PATCH TD SCH (09:33)
[2016-04-21] MEDS: OMEPRAZOLE 20 MG CAPSULE PO SCH (09:33)
[2016-04-21] MEDS: FluPHENAZine HCL 5 MG TABLET PO PRN (09:34)
[2016-04-21] MEDS: FOLIC ACID 1 MG TABLET PO SCH (09:34)
[2016-04-21] MEDS: AmLODIPine BESYLATE 10 MG TABLET PO SCH (09:34)
[2016-04-21] MEDS: MULTIVITAMINS WITH MINERALS, THERAPEUTIC TABLET PO SCH (09:34)
[2016-04-21] MEDS: ACETAMINOPHEN 325 MG TABLET PO PRN (10:43)
[2016-04-21] MEDS: MAG HYDROX/AL HYDROX/SIMETH ES 30 ML SUSPENSION UDCUP PO PRN (12:39)
[2016-04-21] MEDS: PRAZOSIN HCL 1 MG CAPSULE PO SCH (20:19)
[2016-04-21] MEDS: ZOLPIDEM TARTRATE 10 MG TABLET PO PRN (20:19)
[2016-04-22] VITALS (7 sets, daily range): BP systolic 128–138; BP diastolic 73–88
[2016-04-22] MEDS: LORazepam 2 MG TABLET PO PRN ×3 (05:12→23:15)
[2016-04-22] MEDS: FluPHENAZine HCL 10 MG TABLET PO SCH (06:53)
[2016-04-22] MEDS: LORazepam 0.5 MG TABLET PO SCH ×3 (06:53→16:20)
[2016-04-22] MEDS: PREGABALIN 50 MG CAPSULE PO SCH (06:54)
[2016-04-22] MEDS: DiphenhydrAMINE HCL 25 MG CAPSULE PO SCH ×2 (06:54→16:20)
[2016-04-22] MEDS: FOLIC ACID 1 MG TABLET PO SCH (08:12)
[2016-04-22] MEDS: NICOTINE 14 MG/24 HOUR PATCH TD SCH (08:12)
[2016-04-22] MEDS: IBUPROFEN 400 MG TABLET PO PRN ×2 (08:12→16:39)
[2016-04-22] MEDS: MULTIVITAMINS WITH MINERALS, THERAPEUTIC TABLET PO SCH (08:13)
[2016-04-22] MEDS: AmLODIPine BESYLATE 10 MG TABLET PO SCH (08:13)
[2016-04-22] MEDS: OMEPRAZOLE 20 MG CAPSULE PO SCH (08:16)
[2016-04-22] MEDS: SODIUM CHLORIDE 1 GM TABLET PO SCH ×3 (08:16→16:19)
[2016-04-22] MEDS: FluPHENAZine HCL 5 MG TABLET PO PRN (09:19)
[2016-04-22] MEDS: FluPHENAZine HCL 5 MG TABLET PO SCH (20:23)
[2016-04-22] MEDS: ZOLPIDEM TARTRATE 10 MG TABLET PO PRN (20:23)
[2016-04-22] MEDS: PRAZOSIN HCL 1 MG CAPSULE PO SCH (20:23)
[2016-04-23 05:01] VITALS: BP 126/76
[2016-04-23] MEDS: LORazepam 2 MG TABLET PO PRN ×2 (05:11→14:04)
[2016-04-23] MEDS: IBUPROFEN 400 MG TABLET PO PRN ×2 (05:11→19:34)
[2016-04-23] MEDS: DiphenhydrAMINE HCL 25 MG CAPSULE PO SCH ×2 (06:03→16:22)
[2016-04-23] MEDS: LORazepam 0.5 MG TABLET PO SCH ×3 (06:03→16:21)
[2016-04-23] MEDS: PREGABALIN 50 MG CAPSULE PO SCH (06:03)
[2016-04-23] MEDS: FluPHENAZine HCL 5 MG TABLET PO SCH ×2 (06:04→20:22)
[2016-04-23 08:11] VITALS: BP 126/79
[2016-04-23] MEDS: OMEPRAZOLE 20 MG CAPSULE PO SCH (08:53)
[2016-04-23] MEDS: SODIUM CHLORIDE 1 GM TABLET PO SCH ×3 (08:53→16:21)
[2016-04-23] MEDS: FOLIC ACID 1 MG TABLET PO SCH (08:54)
[2016-04-23] MEDS: NICOTINE 14 MG/24 HOUR PATCH TD SCH (08:54)
[2016-04-23] MEDS: AmLODIPine BESYLATE 10 MG TABLET PO SCH (08:54)
[2016-04-23] MEDS: MULTIVITAMINS WITH MINERALS, THERAPEUTIC TABLET PO SCH (08:54)
[2016-04-23] MEDS: ACETAMINOPHEN 325 MG TABLET PO PRN (08:59)
[2016-04-23 16:00] VITALS: BP 135/73
[2016-04-23] MEDS: MAG HYDROX/AL HYDROX/SIMETH ES 30 ML SUSPENSION UDCUP PO PRN (16:24)
[2016-04-23] MEDS: FluPHENAZine HCL 5 MG TABLET PO PRN (16:35)
[2016-04-23 19:32] VITALS: BP 130/82
[2016-04-23] MEDS: PRAZOSIN HCL 1 MG CAPSULE PO SCH (20:22)
[2016-04-23 20:23] VITALS: BP 128/79
[2016-04-23] MEDS: ZOLPIDEM TARTRATE 10 MG TABLET PO PRN (21:13)
[2016-04-24] MEDS: LORazepam 2 MG TABLET PO PRN ×2 (02:48→10:26)
[2016-04-24 05:10] VITALS: BP 124/69
[2016-04-24] MEDS: FluPHENAZine HCL 5 MG TABLET PO SCH ×2 (05:59→20:27)
[2016-04-24] MEDS: LORazepam 0.5 MG TABLET PO SCH ×3 (05:59→16:25)
[2016-04-24] MEDS: PREGABALIN 50 MG CAPSULE PO SCH (05:59)
[2016-04-24] MEDS: DiphenhydrAMINE HCL 25 MG CAPSULE PO SCH ×2 (05:59→16:25)
[2016-04-24] MEDS: FOLIC ACID 1 MG TABLET PO SCH (08:19)
[2016-04-24] MEDS: NICOTINE 14 MG/24 HOUR PATCH TD SCH (08:19)
[2016-04-24] MEDS: AmLODIPine BESYLATE 10 MG TABLET PO SCH (08:20)
[2016-04-24] MEDS: MULTIVITAMINS WITH MINERALS, THERAPEUTIC TABLET PO SCH (08:20)
[2016-04-24] MEDS: SODIUM CHLORIDE 1 GM TABLET PO SCH ×3 (08:20→16:25)
[2016-04-24] MEDS: OMEPRAZOLE 20 MG CAPSULE PO SCH (08:20)
[2016-04-24 08:51] VITALS: BP 96/58
[2016-04-24] MEDS: FluPHENAZine HCL 5 MG TABLET PO PRN ×2 (10:26→17:07)
[2016-04-24 16:17] VITALS: BP 130/82
[2016-04-24] MEDS: PRAZOSIN HCL 1 MG CAPSULE PO SCH (20:27)
[2016-04-24] MEDS: ZOLPIDEM TARTRATE 10 MG TABLET PO PRN (20:27)
[2016-04-25] MEDS: LORazepam 2 MG TABLET PO PRN ×3 (04:24→15:05)
[2016-04-25] MEDS: LORazepam 0.5 MG TABLET PO SCH ×3 (05:44→16:31)
[2016-04-25] MEDS: DiphenhydrAMINE HCL 25 MG CAPSULE PO SCH ×2 (05:44→16:31)
[2016-04-25] MEDS: PREGABALIN 50 MG CAPSULE PO SCH (05:44)
[2016-04-25] MEDS: FluPHENAZine HCL 5 MG TABLET PO SCH ×2 (05:45→20:42)
[2016-04-25 07:28] VITALS: BP 140/86
[2016-04-25 08:00] VITALS: BP 146/72
[2016-04-25] MEDS: AmLODIPine BESYLATE 10 MG TABLET PO SCH (08:40)
[2016-04-25] MEDS: SODIUM CHLORIDE 1 GM TABLET PO SCH ×3 (08:40→16:31)
[2016-04-25] MEDS: NICOTINE 14 MG/24 HOUR PATCH TD SCH (08:41)
[2016-04-25] MEDS: MULTIVITAMINS WITH MINERALS, THERAPEUTIC TABLET PO SCH (08:41)
[2016-04-25] MEDS: OMEPRAZOLE 20 MG CAPSULE PO SCH (08:41)
[2016-04-25] MEDS: IBUPROFEN 400 MG TABLET PO PRN (08:42)
[2016-04-25] MEDS: FOLIC ACID 1 MG TABLET PO SCH (08:43)
[2016-04-25] MEDS: FluPHENAZine HCL 5 MG TABLET PO PRN (11:43)
[2016-04-25] MEDS: MAG HYDROX/AL HYDROX/SIMETH ES 30 ML SUSPENSION UDCUP PO PRN (12:11)
[2016-04-25 16:17] VITALS: BP 147/64
[2016-04-25] MEDS: ZOLPIDEM TARTRATE 10 MG TABLET PO PRN (20:42)
[2016-04-25] MEDS: PRAZOSIN HCL 1 MG CAPSULE PO SCH (20:42)
[2016-04-26] MEDS: PREGABALIN 50 MG CAPSULE PO SCH (06:01)
[2016-04-26] MEDS: FluPHENAZine HCL 5 MG TABLET PO SCH ×2 (06:01→20:35)
[2016-04-26] MEDS: DiphenhydrAMINE HCL 25 MG CAPSULE PO SCH ×2 (06:01→16:55)
[2016-04-26] MEDS: LORazepam 0.5 MG TABLET PO SCH ×3 (06:01→16:54)
[2016-04-26 06:14] VITALS: BP 116/64
[2016-04-26] MEDS: FOLIC ACID 1 MG TABLET PO SCH (08:02)
[2016-04-26] MEDS: MULTIVITAMINS WITH MINERALS, THERAPEUTIC TABLET PO SCH (08:03)
[2016-04-26] MEDS: AmLODIPine BESYLATE 10 MG TABLET PO SCH (08:03)
[2016-04-26] MEDS: NICOTINE 14 MG/24 HOUR PATCH TD SCH (08:03)
[2016-04-26] MEDS: OMEPRAZOLE 20 MG CAPSULE PO SCH (08:03)
[2016-04-26] MEDS: SODIUM CHLORIDE 1 GM TABLET PO SCH ×3 (08:03→16:54)
[2016-04-26] MEDS: LORazepam 2 MG TABLET PO PRN ×3 (08:37→22:10)
[2016-04-26 08:47] VITALS: BP 107/67
[2016-04-26] MEDS: FluPHENAZine HCL 5 MG TABLET PO PRN (09:17)
[2016-04-26 10:41] VITALS: BP 114/70
[2016-04-26] MEDS: IBUPROFEN 400 MG TABLET PO PRN ×2 (10:41→21:40)
[2016-04-26 16:00] VITALS: BP 137/72
[2016-04-26] MEDS: PRAZOSIN HCL 1 MG CAPSULE PO SCH (20:35)
[2016-04-26] MEDS: ZOLPIDEM TARTRATE 10 MG TABLET PO PRN (20:35)
[2016-04-26 21:41] VITALS: BP 148/83
[2016-04-27] MEDS: LORazepam 0.5 MG TABLET PO SCH ×3 (06:03→16:38)
[2016-04-27] MEDS: DiphenhydrAMINE HCL 25 MG CAPSULE PO SCH ×2 (06:04→16:38)
[2016-04-27] MEDS: FluPHENAZine HCL 5 MG TABLET PO SCH ×2 (06:04→20:34)
[2016-04-27] MEDS: PREGABALIN 50 MG CAPSULE PO SCH (06:04)
[2016-04-27 06:15] VITALS: BP 138/72
[2016-04-27] MEDS: MULTIVITAMINS WITH MINERALS, THERAPEUTIC TABLET PO SCH (08:15)
[2016-04-27] MEDS: OMEPRAZOLE 20 MG CAPSULE PO SCH (08:15)
[2016-04-27] MEDS: FOLIC ACID 1 MG TABLET PO SCH (08:15)
[2016-04-27] MEDS: AmLODIPine BESYLATE 10 MG TABLET PO SCH (08:15)
[2016-04-27] MEDS: SODIUM CHLORIDE 1 GM TABLET PO SCH ×3 (08:15→16:38)
[2016-04-27] MEDS: NICOTINE 14 MG/24 HOUR PATCH TD SCH (08:16)
[2016-04-27 08:31] VITALS: BP 114/67
[2016-04-27] MEDS: IBUPROFEN 400 MG TABLET PO PRN ×2 (08:31→21:27)
[2016-04-27] MEDS: LORazepam 2 MG TABLET PO PRN ×2 (09:38→17:14)
[2016-04-27] MEDS: FluPHENAZine HCL 5 MG TABLET PO PRN (13:09)
[2016-04-27] MEDS: MAG HYDROX/AL HYDROX/SIMETH ES 30 ML SUSPENSION UDCUP PO PRN (15:52)
[2016-04-27 16:16] VITALS: BP 141/79
[2016-04-27] MEDS: PRAZOSIN HCL 1 MG CAPSULE PO SCH (20:34)
[2016-04-27] MEDS: ZOLPIDEM TARTRATE 10 MG TABLET PO PRN (21:08)
[2016-04-27 21:28] VITALS: BP 137/78
[2016-04-28] MEDS: DiphenhydrAMINE HCL 25 MG CAPSULE PO SCH ×2 (06:01→16:02)
[2016-04-28] MEDS: PREGABALIN 50 MG CAPSULE PO SCH (06:01)
[2016-04-28] MEDS: FluPHENAZine HCL 5 MG TABLET PO SCH ×2 (06:02→20:42)
[2016-04-28] MEDS: LORazepam 0.5 MG TABLET PO SCH ×3 (06:02→16:01)
[2016-04-28 07:17] VITALS: BP 138/88
[2016-04-28] MEDS: LORazepam 2 MG TABLET PO PRN ×2 (07:21→18:11)
[2016-04-28] MEDS: IBUPROFEN 400 MG TABLET PO PRN ×2 (07:21→16:42)
[2016-04-28 08:16] VITALS: BP 112/72
[2016-04-28] MEDS: SODIUM CHLORIDE 1 GM TABLET PO SCH ×3 (08:16→16:01)
[2016-04-28] MEDS: MULTIVITAMINS WITH MINERALS, THERAPEUTIC TABLET PO SCH (08:16)
[2016-04-28] MEDS: OMEPRAZOLE 20 MG CAPSULE PO SCH (08:16)
[2016-04-28] MEDS: FluPHENAZine HCL 5 MG TABLET PO PRN ×2 (08:17→18:52)
[2016-04-28] MEDS: AmLODIPine BESYLATE 10 MG TABLET PO SCH (08:17)
[2016-04-28] MEDS: FOLIC ACID 1 MG TABLET PO SCH (08:17)
[2016-04-28] MEDS: NICOTINE 14 MG/24 HOUR PATCH TD SCH (08:19)
[2016-04-28 16:17] VITALS: BP 126/74
[2016-04-28 16:40] VITALS: BP 130/82
[2016-04-28 20:40] VITALS: BP 128/87
[2016-04-28] MEDS: PRAZOSIN HCL 1 MG CAPSULE PO SCH (20:41)
[2016-04-28] MEDS: ZOLPIDEM TARTRATE 10 MG TABLET PO PRN (20:42)
[2016-04-29] MEDS: LORazepam 2 MG TABLET PO PRN ×3 (04:22→19:45)
[2016-04-29 04:58] VITALS: BP 121/77
[2016-04-29] MEDS: PREGABALIN 50 MG CAPSULE PO SCH (06:03)
[2016-04-29] MEDS: FluPHENAZine HCL 5 MG TABLET PO SCH (06:03)
[2016-04-29] MEDS: LORazepam 0.5 MG TABLET PO SCH ×3 (06:03→16:04)
[2016-04-29] MEDS: DiphenhydrAMINE HCL 25 MG CAPSULE PO SCH ×2 (06:03→16:04)
[2016-04-29] MEDS: OMEPRAZOLE 20 MG CAPSULE PO SCH (08:25)
[2016-04-29] MEDS: FOLIC ACID 1 MG TABLET PO SCH (08:26)
[2016-04-29] MEDS: FluPHENAZine HCL 5 MG TABLET PO PRN (08:26)
[2016-04-29] MEDS: SODIUM CHLORIDE 1 GM TABLET PO SCH ×3 (08:26→16:04)
[2016-04-29] MEDS: AmLODIPine BESYLATE 10 MG TABLET PO SCH (08:26)
[2016-04-29] MEDS: MULTIVITAMINS WITH MINERALS, THERAPEUTIC TABLET PO SCH (08:26)
[2016-04-29] MEDS: NICOTINE 14 MG/24 HOUR PATCH TD SCH (08:26)
[2016-04-29 08:57] VITALS: BP 109/63
[2016-04-29] MEDS: IBUPROFEN 400 MG TABLET PO PRN ×2 (10:03→19:45)
[2016-04-29] MEDS: ACETAMINOPHEN 325 MG TABLET PO PRN (14:34)
[2016-04-29 16:11] VITALS: BP 135/78
[2016-04-29] MEDS: ZIPRASIDONE HCL 20 MG CAPSULE PO SCH (16:43)
[2016-04-29 19:42] VITALS: BP 130/84
[2016-04-29] MEDS: PRAZOSIN HCL 1 MG CAPSULE PO SCH (20:36)
[2016-04-29] MEDS: ZOLPIDEM TARTRATE 10 MG TABLET PO PRN (21:09)
[2016-04-30 04:45] VITALS: BP 124/75
[2016-04-30] MEDS: LORazepam 2 MG TABLET PO PRN ×3 (04:46→18:39)
[2016-04-30] MEDS: PREGABALIN 50 MG CAPSULE PO SCH (05:44)
[2016-04-30] MEDS: LORazepam 0.5 MG TABLET PO SCH ×3 (05:44→16:22)
[2016-04-30] MEDS: DiphenhydrAMINE HCL 25 MG CAPSULE PO SCH ×2 (05:45→16:22)
[2016-04-30] MEDS: ZIPRASIDONE HCL 20 MG CAPSULE PO SCH ×2 (06:26→16:22)
[2016-04-30] MEDS: FOLIC ACID 1 MG TABLET PO SCH (08:41)
[2016-04-30] MEDS: MULTIVITAMINS WITH MINERALS, THERAPEUTIC TABLET PO SCH (08:41)
[2016-04-30] MEDS: SODIUM CHLORIDE 1 GM TABLET PO SCH ×3 (08:41→16:23)
[2016-04-30] MEDS: AmLODIPine BESYLATE 10 MG TABLET PO SCH (08:41)
[2016-04-30] MEDS: OMEPRAZOLE 20 MG CAPSULE PO SCH (08:41)
[2016-04-30 08:42] VITALS: BP 113/61
[2016-04-30] MEDS: NICOTINE 14 MG/24 HOUR PATCH TD SCH (08:42)
[2016-04-30 11:02] VITALS: BP 116/70
[2016-04-30] MEDS: IBUPROFEN 400 MG TABLET PO PRN (11:02)
[2016-04-30 14:03] VITALS: BP 120/72
[2016-04-30] MEDS: ACETAMINOPHEN 325 MG TABLET PO PRN (14:03)
[2016-04-30 16:11] VITALS: BP 118/67
[2016-04-30] MEDS: FluPHENAZine HCL 5 MG TABLET PO PRN (17:26)
[2016-04-30 20:50] VITALS: BP 111/63
[2016-04-30] MEDS: ZOLPIDEM TARTRATE 10 MG TABLET PO PRN (20:55)
[2016-04-30] MEDS: PRAZOSIN HCL 1 MG CAPSULE PO SCH (20:55)
[2016-05-01] MEDS: LORazepam 2 MG TABLET PO PRN ×3 (04:00→17:36)
[2016-05-01 04:05] VITALS: BP 142/83
[2016-05-01] MEDS: DiphenhydrAMINE HCL 25 MG CAPSULE PO SCH ×2 (06:02→16:08)
[2016-05-01] MEDS: LORazepam 0.5 MG TABLET PO SCH ×3 (06:02→16:08)
[2016-05-01] MEDS: PREGABALIN 50 MG CAPSULE PO SCH (06:03)
[2016-05-01] MEDS: ZIPRASIDONE HCL 20 MG CAPSULE PO SCH ×2 (07:21→17:03)
[2016-05-01 08:08] VITALS: BP 108/65
[2016-05-01] MEDS: FOLIC ACID 1 MG TABLET PO SCH (08:18)
[2016-05-01] MEDS: AmLODIPine BESYLATE 10 MG TABLET PO SCH (08:18)
[2016-05-01] MEDS: NICOTINE 14 MG/24 HOUR PATCH TD SCH (08:18)
[2016-05-01] MEDS: OMEPRAZOLE 20 MG CAPSULE PO SCH (08:18)
[2016-05-01] MEDS: SODIUM CHLORIDE 1 GM TABLET PO SCH ×3 (08:18→16:08)
[2016-05-01 08:19] VITALS: BP 112/72
[2016-05-01] MEDS: IBUPROFEN 400 MG TABLET PO PRN ×3 (08:19→16:21)
[2016-05-01] MEDS: MULTIVITAMINS WITH MINERALS, THERAPEUTIC TABLET PO SCH (08:19)
[2016-05-01] MEDS: FluPHENAZine HCL 5 MG TABLET PO PRN ×2 (11:34→15:50)
[2016-05-01 15:50] VITALS: BP 120/66
[2016-05-01 16:12] VITALS: BP 120/66
[2016-05-01 20:11] VITALS: BP 126/78
[2016-05-01] MEDS: PRAZOSIN HCL 1 MG CAPSULE PO SCH (20:12)
[2016-05-01] MEDS: ZOLPIDEM TARTRATE 10 MG TABLET PO PRN (20:51)
[2016-05-02] MEDS: PREGABALIN 50 MG CAPSULE PO SCH (05:50)
[2016-05-02] MEDS: LORazepam 0.5 MG TABLET PO SCH ×3 (05:50→16:22)
[2016-05-02] MEDS: DiphenhydrAMINE HCL 25 MG CAPSULE PO SCH ×2 (05:50→16:22)
[2016-05-02] MEDS: ZIPRASIDONE HCL 20 MG CAPSULE PO SCH (06:17)
[2016-05-02 06:51] VITALS: BP 124/80
[2016-05-02] MEDS: NICOTINE 14 MG/24 HOUR PATCH TD SCH (08:01)
[2016-05-02] MEDS: SODIUM CHLORIDE 1 GM TABLET PO SCH ×3 (08:01→16:22)
[2016-05-02] MEDS: MULTIVITAMINS WITH MINERALS, THERAPEUTIC TABLET PO SCH (08:01)
[2016-05-02] MEDS: FOLIC ACID 1 MG TABLET PO SCH (08:02)
[2016-05-02] MEDS: LORazepam 2 MG TABLET PO PRN ×2 (08:02→16:38)
[2016-05-02] MEDS: AmLODIPine BESYLATE 10 MG TABLET PO SCH (08:02)
[2016-05-02] MEDS: OMEPRAZOLE 20 MG CAPSULE PO SCH (08:02)
[2016-05-02 08:35] VITALS: BP 115/67
[2016-05-02 08:50] VITALS: BP 124/74
[2016-05-02] MEDS: IBUPROFEN 400 MG TABLET PO PRN (08:50)
[2016-05-02] MEDS: FluPHENAZine HCL 5 MG TABLET PO PRN (11:35)
[2016-05-02 16:12] VITALS: BP 126/74
[2016-05-02] MEDS: ZIPRASIDONE HCL 40 MG CAPSULE PO SCH (16:22)
[2016-05-02] MEDS: ZOLPIDEM TARTRATE 10 MG TABLET PO PRN (21:09)
[2016-05-02] MEDS: PRAZOSIN HCL 1 MG CAPSULE PO SCH (21:09)
[2016-05-03 04:49] VITALS: BP 128/76
[2016-05-03] MEDS: LORazepam 2 MG TABLET PO PRN ×2 (04:50→11:03)
[2016-05-03] MEDS: ZIPRASIDONE HCL 40 MG CAPSULE PO SCH (06:26)
[2016-05-03] MEDS: LORazepam 0.5 MG TABLET PO SCH ×3 (06:26→17:34)
[2016-05-03] MEDS: PREGABALIN 50 MG CAPSULE PO SCH (06:26)
[2016-05-03] MEDS: DiphenhydrAMINE HCL 25 MG CAPSULE PO SCH ×2 (06:26→16:11)
[2016-05-03] MEDS: IBUPROFEN 400 MG TABLET PO PRN (08:38)
[2016-05-03] MEDS: OMEPRAZOLE 20 MG CAPSULE PO SCH (08:39)
[2016-05-03] MEDS: AmLODIPine BESYLATE 10 MG TABLET PO SCH (08:39)
[2016-05-03] MEDS: MULTIVITAMINS WITH MINERALS, THERAPEUTIC TABLET PO SCH (08:39)
[2016-05-03 08:40] VITALS: BP 136/81
[2016-05-03] MEDS: NICOTINE 14 MG/24 HOUR PATCH TD SCH (08:40)
[2016-05-03] MEDS: FOLIC ACID 1 MG TABLET PO SCH (08:41)
[2016-05-03] MEDS: SODIUM CHLORIDE 1 GM TABLET PO SCH ×3 (09:02→16:11)
[2016-05-03 11:03] VITALS: BP 129/89
[2016-05-03] MEDS: ACETAMINOPHEN 325 MG TABLET PO PRN (11:03)
[2016-05-03] MEDS: FluPHENAZine HCL 5 MG TABLET PO PRN (11:27)
[2016-05-03 16:00] VITALS: BP 135/79
[2016-05-03] MEDS: ZIPRASIDONE HCL 60 MG CAPSULE PO SCH (17:00)
[2016-05-03] MEDS: ZOLPIDEM TARTRATE 10 MG TABLET PO PRN (20:49)
[2016-05-03] MEDS: PRAZOSIN HCL 1 MG CAPSULE PO SCH (20:49)
[2016-05-04] MEDS: LORazepam 0.5 MG TABLET PO SCH ×3 (05:50→16:55)
[2016-05-04] MEDS: DiphenhydrAMINE HCL 25 MG CAPSULE PO SCH ×2 (05:51→16:55)
[2016-05-04] MEDS: PREGABALIN 50 MG CAPSULE PO SCH (05:51)
[2016-05-04] MEDS: ZIPRASIDONE HCL 60 MG CAPSULE PO SCH ×2 (06:15→16:55)
[2016-05-04 06:37] VITALS: BP 140/79
[2016-05-04 07:15] VITALS: BP 128/76
[2016-05-04] MEDS: LORazepam 2 MG TABLET PO PRN ×3 (07:16→17:51)
[2016-05-04] MEDS: FOLIC ACID 1 MG TABLET PO SCH (08:28)
[2016-05-04] MEDS: AmLODIPine BESYLATE 10 MG TABLET PO SCH (08:28)
[2016-05-04] MEDS: MULTIVITAMINS WITH MINERALS, THERAPEUTIC TABLET PO SCH (08:28)
[2016-05-04] MEDS: SODIUM CHLORIDE 1 GM TABLET PO SCH ×3 (08:28→16:55)
[2016-05-04] MEDS: NICOTINE 14 MG/24 HOUR PATCH TD SCH (08:28)
[2016-05-04] MEDS: OMEPRAZOLE 20 MG CAPSULE PO SCH (08:29)
[2016-05-04] MEDS: IBUPROFEN 400 MG TABLET PO PRN (08:29)
[2016-05-04] MEDS: FluPHENAZine HCL 5 MG TABLET PO PRN ×3 (08:29→17:51)
[2016-05-04 08:54] VITALS: BP 126/76
[2016-05-04 09:20] LABS: ANION GAP 11 mmol/L (8-16); CALCIUM, TOTAL 8.6 mg/dL (8.8-10.5); CARBON DIOXIDE 25 mmol/L (22-29); CHLORIDE 99 mmol/L (98-107); CREATININE 0.72 mg/dL (0.60-1.30); GLOMERULAR FILTR. RATE CALC > 60 mL/min (>60); POTASSIUM 3.9 mmol/L (3.5-5.1); SODIUM SERUM 135 mmol/L (136-145); UREA NITROGEN, BLOOD 11 mg/dL (7-18)
[2016-05-04] MEDS: ACETAMINOPHEN 325 MG TABLET PO PRN (10:17)
[2016-05-04 16:14] VITALS: BP 124/63
[2016-05-04] MEDS: PRAZOSIN HCL 1 MG CAPSULE PO SCH (20:27)
[2016-05-04] MEDS: ZOLPIDEM TARTRATE 10 MG TABLET PO PRN (21:02)
[2016-05-05] MEDS: LORazepam 0.5 MG TABLET PO SCH ×3 (06:07→16:02)
[2016-05-05] MEDS: DiphenhydrAMINE HCL 25 MG CAPSULE PO SCH ×2 (06:07→16:03)
[2016-05-05] MEDS: PREGABALIN 50 MG CAPSULE PO SCH (06:08)
[2016-05-05 06:20] VITALS: BP 145/98
[2016-05-05] MEDS: ZIPRASIDONE HCL 80 MG CAPSULE PO SCH ×2 (06:49→16:28)
[2016-05-05] MEDS: OMEPRAZOLE 20 MG CAPSULE PO SCH (08:10)
[2016-05-05] MEDS: AmLODIPine BESYLATE 10 MG TABLET PO SCH (08:11)
[2016-05-05] MEDS: MULTIVITAMINS WITH MINERALS, THERAPEUTIC TABLET PO SCH (08:11)
[2016-05-05] MEDS: FOLIC ACID 1 MG TABLET PO SCH (08:11)
[2016-05-05] MEDS: SODIUM CHLORIDE 1 GM TABLET PO SCH ×3 (08:11→16:02)
[2016-05-05] MEDS: NICOTINE 14 MG/24 HOUR PATCH TD SCH (08:13)
[2016-05-05 08:24] LABS: GLUCOSE, URINE (UA) NEGATIVE (NEGATIVE); KETONES,URINE NEGATIVE (NEGATIVE); LEUKOCYTE ESTERASE ,URINE SMALL (NEGATIVE); OCCULT BLOOD,URINE NEGATIVE (NEGATIVE); PROTEIN,URINE NEGATIVE (NEGATIVE)
[2016-05-05 08:55] VITALS: BP 120/69
[2016-05-05 09:12] LABS: ADD UA MICROSCOPIC YES; APPEARANCE,URINE HAZY (CLEAR)
[2016-05-05 09:13] LABS: RBC,URINE None Seen /HPF (0-2)
[2016-05-05 09:14] LABS: SQUAMOUS EPITHELIAL CELL,UR Few /LPF (None Seen)
[2016-05-05] MEDS: FluPHENAZine HCL 5 MG TABLET PO PRN ×2 (10:26→16:19)
[2016-05-05] MEDS: LORazepam 2 MG TABLET PO PRN ×3 (10:27→19:18)
[2016-05-05] MEDS: IBUPROFEN 400 MG TABLET PO PRN (15:58)
[2016-05-05 16:00] VITALS: BP 137/70
[2016-05-05] MEDS: PRAZOSIN HCL 1 MG CAPSULE PO SCH (20:24)
[2016-05-05] MEDS: ZOLPIDEM TARTRATE 10 MG TABLET PO PRN (21:03)
[2016-05-06] MEDS: LORazepam 2 MG TABLET PO PRN ×3 (04:38→14:46)
[2016-05-06] MEDS: DiphenhydrAMINE HCL 25 MG CAPSULE PO SCH ×2 (05:37→16:27)
[2016-05-06] MEDS: PREGABALIN 50 MG CAPSULE PO SCH (05:37)
[2016-05-06] MEDS: LORazepam 0.5 MG TABLET PO SCH ×3 (05:38→16:27)
[2016-05-06] MEDS: MAG HYDROX/AL HYDROX/SIMETH ES 30 ML SUSPENSION UDCUP PO PRN (05:51)
[2016-05-06] MEDS: ZIPRASIDONE HCL 80 MG CAPSULE PO SCH ×2 (06:24→16:28)
[2016-05-06] MEDS: NICOTINE 14 MG/24 HOUR PATCH TD SCH (08:12)
[2016-05-06] MEDS: OMEPRAZOLE 20 MG CAPSULE PO SCH (08:13)
[2016-05-06] MEDS: AmLODIPine BESYLATE 10 MG TABLET PO SCH (08:13)
[2016-05-06] MEDS: SODIUM CHLORIDE 1 GM TABLET PO SCH ×3 (08:13→16:27)
[2016-05-06] MEDS: FOLIC ACID 1 MG TABLET PO SCH (08:13)
[2016-05-06] MEDS: MULTIVITAMINS WITH MINERALS, THERAPEUTIC TABLET PO SCH (08:13)
[2016-05-06] MEDS: FluPHENAZine HCL 5 MG TABLET PO PRN (08:14)
[2016-05-06 09:27] VITALS: BP 124/77
[2016-05-06 13:52] VITALS: BP 120/74
[2016-05-06] MEDS: IBUPROFEN 400 MG TABLET PO PRN (13:52)
[2016-05-06 16:25] VITALS: BP 132/76
[2016-05-06] MEDS: PRAZOSIN HCL 1 MG CAPSULE PO SCH (20:55)
[2016-05-06] MEDS: ZOLPIDEM TARTRATE 10 MG TABLET PO PRN (21:00)
[2016-05-07] MEDS: LORazepam 0.5 MG TABLET PO SCH ×3 (06:24→16:20)
[2016-05-07] MEDS: ZIPRASIDONE HCL 80 MG CAPSULE PO SCH ×2 (06:24→17:07)
[2016-05-07] MEDS: DiphenhydrAMINE HCL 25 MG CAPSULE PO SCH ×2 (06:25→17:06)
[2016-05-07] MEDS: PREGABALIN 50 MG CAPSULE PO SCH (06:25)
[2016-05-07 06:35] VITALS: BP 134/64
[2016-05-07 09:24] VITALS: BP 123/64
[2016-05-07] MEDS: AmLODIPine BESYLATE 10 MG TABLET PO SCH (09:56)
[2016-05-07] MEDS: NICOTINE 14 MG/24 HOUR PATCH TD SCH (09:56)
[2016-05-07] MEDS: FOLIC ACID 1 MG TABLET PO SCH (09:56)
[2016-05-07] MEDS: SODIUM CHLORIDE 1 GM TABLET PO SCH ×3 (09:56→17:07)
[2016-05-07] MEDS: LORazepam 2 MG TABLET PO PRN ×2 (09:56→17:15)
[2016-05-07] MEDS: MULTIVITAMINS WITH MINERALS, THERAPEUTIC TABLET PO SCH (09:57)
[2016-05-07] MEDS: OMEPRAZOLE 20 MG CAPSULE PO SCH (09:57)
[2016-05-07] MEDS: IBUPROFEN 400 MG TABLET PO PRN ×2 (10:54→22:09)
[2016-05-07] MEDS: ACETAMINOPHEN 325 MG TABLET PO PRN (13:23)
[2016-05-07] MEDS: FluPHENAZine HCL 5 MG TABLET PO PRN (13:24)
[2016-05-07 16:00] VITALS: BP 138/76
[2016-05-07] MEDS: PRAZOSIN HCL 1 MG CAPSULE PO SCH (20:47)
[2016-05-07] MEDS: ZOLPIDEM TARTRATE 10 MG TABLET PO PRN (21:05)
[2016-05-07 22:09] VITALS: BP 121/70
[2016-05-08] MEDS: ZIPRASIDONE HCL 80 MG CAPSULE PO SCH ×2 (06:53→16:32)
[2016-05-08] MEDS: LORazepam 0.5 MG TABLET PO SCH ×3 (06:53→16:33)
[2016-05-08] MEDS: PREGABALIN 50 MG CAPSULE PO SCH (06:53)
[2016-05-08] MEDS: DiphenhydrAMINE HCL 25 MG CAPSULE PO SCH ×2 (06:53→16:33)
[2016-05-08 08:23] VITALS: BP 119/77
[2016-05-08] MEDS: SODIUM CHLORIDE 1 GM TABLET PO SCH ×3 (08:34→16:33)
[2016-05-08] MEDS: AmLODIPine BESYLATE 10 MG TABLET PO SCH (08:34)
[2016-05-08] MEDS: FOLIC ACID 1 MG TABLET PO SCH (08:35)
[2016-05-08] MEDS: MULTIVITAMINS WITH MINERALS, THERAPEUTIC TABLET PO SCH (08:35)
[2016-05-08] MEDS: OMEPRAZOLE 20 MG CAPSULE PO SCH (08:35)
[2016-05-08] MEDS: NICOTINE 14 MG/24 HOUR PATCH TD SCH (08:38)
[2016-05-08] MEDS: LORazepam 2 MG TABLET PO PRN ×2 (11:51→16:34)
[2016-05-08] MEDS: FluPHENAZine HCL 5 MG TABLET PO PRN (11:51)
[2016-05-08 16:21] VITALS: BP 132/89
[2016-05-08] MEDS: PRAZOSIN HCL 1 MG CAPSULE PO SCH (20:23)
[2016-05-09 05:48] VITALS: BP 131/72
[2016-05-09] MEDS: PREGABALIN 50 MG CAPSULE PO SCH (05:54)
[2016-05-09] MEDS: LORazepam 0.5 MG TABLET PO SCH ×3 (05:54→16:01)
[2016-05-09] MEDS: DiphenhydrAMINE HCL 25 MG CAPSULE PO SCH ×2 (05:54→16:01)
[2016-05-09] MEDS: ZIPRASIDONE HCL 80 MG CAPSULE PO SCH ×2 (07:11→16:23)
[2016-05-09] MEDS: IBUPROFEN 400 MG TABLET PO PRN (07:17)
[2016-05-09 08:00] VITALS: BP 147/71
[2016-05-09 08:17] VITALS: BP 132/80
[2016-05-09] MEDS: NICOTINE 14 MG/24 HOUR PATCH TD SCH (10:27)
[2016-05-09] MEDS: MULTIVITAMINS WITH MINERALS, THERAPEUTIC TABLET PO SCH (10:27)
[2016-05-09] MEDS: AmLODIPine BESYLATE 10 MG TABLET PO SCH (10:27)
[2016-05-09] MEDS: OMEPRAZOLE 20 MG CAPSULE PO SCH (10:27)
[2016-05-09] MEDS: SODIUM CHLORIDE 1 GM TABLET PO SCH ×3 (10:28→16:01)
[2016-05-09] MEDS: FOLIC ACID 1 MG TABLET PO SCH (10:28)
[2016-05-09] MEDS: LORazepam 2 MG TABLET PO PRN ×2 (10:28→14:28)
[2016-05-09] MEDS: FluPHENAZine HCL 5 MG TABLET PO PRN ×2 (12:51→17:18)
[2016-05-09 16:00] VITALS: BP 117/62
[2016-05-09] MEDS: MAGNESIUM HYDROXIDE SUSPENSION 30 ML UDCUP PO PRN (17:19)
[2016-05-09] MEDS: PRAZOSIN HCL 1 MG CAPSULE PO SCH (20:42)
[2016-05-09] MEDS: ZOLPIDEM TARTRATE 10 MG TABLET PO PRN (21:10)
[2016-05-10] MEDS: LORazepam 2 MG TABLET PO PRN ×3 (04:41→17:49)
[2016-05-10 04:52] VITALS: BP 126/73
[2016-05-10] MEDS: DiphenhydrAMINE HCL 25 MG CAPSULE PO SCH ×2 (06:41→16:52)
[2016-05-10] MEDS: LORazepam 0.5 MG TABLET PO SCH ×3 (06:41→16:51)
[2016-05-10] MEDS: ZIPRASIDONE HCL 80 MG CAPSULE PO SCH ×2 (06:42→16:51)
[2016-05-10] MEDS: PREGABALIN 50 MG CAPSULE PO SCH (06:42)
[2016-05-10 08:40] VITALS: BP 111/67
[2016-05-10] MEDS: FluPHENAZine HCL 5 MG TABLET PO PRN (08:50)
[2016-05-10] MEDS: MULTIVITAMINS WITH MINERALS, THERAPEUTIC TABLET PO SCH (08:50)
[2016-05-10] MEDS: NICOTINE 14 MG/24 HOUR PATCH TD SCH (08:50)
[2016-05-10] MEDS: IBUPROFEN 400 MG TABLET PO PRN ×2 (08:51→16:52)
[2016-05-10] MEDS: AmLODIPine BESYLATE 10 MG TABLET PO SCH (08:51)
[2016-05-10] MEDS: FOLIC ACID 1 MG TABLET PO SCH (08:53)
[2016-05-10] MEDS: OMEPRAZOLE 20 MG CAPSULE PO SCH (08:53)
[2016-05-10] MEDS: SODIUM CHLORIDE 1 GM TABLET PO SCH ×3 (08:53→16:52)
[2016-05-10] MEDS: ACETAMINOPHEN 325 MG TABLET PO PRN (10:47)
[2016-05-10 16:00] VITALS: BP 119/65
[2016-05-10] MEDS: PRAZOSIN HCL 1 MG CAPSULE PO SCH (20:24)
[2016-05-11 05:50] VITALS: BP 132/82
[2016-05-11] MEDS: IBUPROFEN 400 MG TABLET PO PRN (05:54)
[2016-05-11] MEDS: PREGABALIN 50 MG CAPSULE PO SCH (05:55)
[2016-05-11] MEDS: DiphenhydrAMINE HCL 25 MG CAPSULE PO SCH ×2 (05:56→16:14)
[2016-05-11] MEDS: LORazepam 0.5 MG TABLET PO SCH ×3 (05:56→16:14)
[2016-05-11] MEDS: ZIPRASIDONE HCL 80 MG CAPSULE PO SCH ×2 (06:25→16:49)
[2016-05-11 08:11] VITALS: BP 114/64
[2016-05-11] MEDS: SODIUM CHLORIDE 1 GM TABLET PO SCH ×3 (09:50→16:14)
[2016-05-11] MEDS: OMEPRAZOLE 20 MG CAPSULE PO SCH (09:51)
[2016-05-11] MEDS: FOLIC ACID 1 MG TABLET PO SCH (09:51)
[2016-05-11] MEDS: MULTIVITAMINS WITH MINERALS, THERAPEUTIC TABLET PO SCH (09:51)
[2016-05-11] MEDS: AmLODIPine BESYLATE 10 MG TABLET PO SCH (09:51)
[2016-05-11] MEDS: LORazepam 2 MG TABLET PO PRN ×4 (09:51→20:12)
[2016-05-11] MEDS: NICOTINE 14 MG/24 HOUR PATCH TD SCH (09:52)
[2016-05-11] MEDS: PROMETHAZINE HCL 25 MG TABLET PO PRN (12:54)
[2016-05-11] MEDS: MAG HYDROX/AL HYDROX/SIMETH ES 30 ML SUSPENSION UDCUP PO PRN (14:15)
[2016-05-11 16:11] VITALS: BP 121/65
[2016-05-11 20:00] VITALS: BP 124/72
[2016-05-11] MEDS: PRAZOSIN HCL 1 MG CAPSULE PO SCH (20:06)
[2016-05-12] MEDS: LORazepam 0.5 MG TABLET PO SCH ×3 (06:54→16:21)
[2016-05-12] MEDS: DiphenhydrAMINE HCL 25 MG CAPSULE PO SCH ×2 (06:55→16:20)
[2016-05-12] MEDS: ZIPRASIDONE HCL 80 MG CAPSULE PO SCH ×2 (06:55→16:51)
[2016-05-12] MEDS: PREGABALIN 50 MG CAPSULE PO SCH (06:55)
[2016-05-12 06:56] VITALS: BP 120/79
[2016-05-12] MEDS: IBUPROFEN 400 MG TABLET PO PRN ×2 (07:20→13:57)
[2016-05-12 08:11] VITALS: BP 123/74
[2016-05-12] MEDS: AmLODIPine BESYLATE 10 MG TABLET PO SCH (09:58)
[2016-05-12] MEDS: OMEPRAZOLE 20 MG CAPSULE PO SCH (09:58)
[2016-05-12] MEDS: MAGNESIUM HYDROXIDE SUSPENSION 30 ML UDCUP PO PRN (09:58)
[2016-05-12] MEDS: SODIUM CHLORIDE 1 GM TABLET PO SCH ×3 (09:58→16:20)
[2016-05-12] MEDS: MULTIVITAMINS WITH MINERALS, THERAPEUTIC TABLET PO SCH (09:59)
[2016-05-12] MEDS: LORazepam 2 MG TABLET PO PRN ×2 (09:59→18:04)
[2016-05-12] MEDS: FOLIC ACID 1 MG TABLET PO SCH (09:59)
[2016-05-12] MEDS: NICOTINE 14 MG/24 HOUR PATCH TD SCH (10:00)
[2016-05-12 16:14] VITALS: BP 139/82
[2016-05-12] MEDS: PRAZOSIN HCL 1 MG CAPSULE PO SCH (20:50)
[2016-05-13] MEDS: LORazepam 0.5 MG TABLET PO SCH ×3 (06:21→16:23)
[2016-05-13] MEDS: DiphenhydrAMINE HCL 25 MG CAPSULE PO SCH ×2 (06:21→16:23)
[2016-05-13] MEDS: PREGABALIN 50 MG CAPSULE PO SCH (06:21)
[2016-05-13] MEDS: ZIPRASIDONE HCL 80 MG CAPSULE PO SCH ×2 (06:31→16:24)
[2016-05-13 06:38] VITALS: BP 135/79
[2016-05-13] MEDS: IBUPROFEN 400 MG TABLET PO PRN (07:16)
[2016-05-13 08:31] VITALS: BP 112/65
[2016-05-13] MEDS: MULTIVITAMINS WITH MINERALS, THERAPEUTIC TABLET PO SCH (08:44)
[2016-05-13] MEDS: OMEPRAZOLE 20 MG CAPSULE PO SCH (08:44)
[2016-05-13] MEDS: LORazepam 2 MG TABLET PO PRN ×3 (08:44→19:35)
[2016-05-13] MEDS: FOLIC ACID 1 MG TABLET PO SCH (08:44)
[2016-05-13] MEDS: AmLODIPine BESYLATE 10 MG TABLET PO SCH (08:44)
[2016-05-13] MEDS: SODIUM CHLORIDE 1 GM TABLET PO SCH ×3 (08:46→16:23)
[2016-05-13] MEDS: NICOTINE 14 MG/24 HOUR PATCH TD SCH (09:59)
[2016-05-13] MEDS: ACETAMINOPHEN 325 MG TABLET PO PRN (10:54)
[2016-05-13] MEDS: FluPHENAZine HCL 5 MG TABLET PO PRN (11:18)
[2016-05-13 16:02] VITALS: BP 151/82
[2016-05-13 17:18] VITALS: BP 136/80
[2016-05-13] MEDS: PRAZOSIN HCL 1 MG CAPSULE PO SCH (20:46)
[2016-05-14 05:31] VITALS: BP 111/67
[2016-05-14] MEDS: DiphenhydrAMINE HCL 25 MG CAPSULE PO SCH ×2 (05:36→16:02)
[2016-05-14] MEDS: LORazepam 0.5 MG TABLET PO SCH ×3 (05:37→16:02)
[2016-05-14] MEDS: IBUPROFEN 400 MG TABLET PO PRN ×2 (05:37→16:56)
[2016-05-14] MEDS: PREGABALIN 50 MG CAPSULE PO SCH (05:37)
[2016-05-14] MEDS: ZIPRASIDONE HCL 80 MG CAPSULE PO SCH ×2 (06:46→16:56)
[2016-05-14 08:46] VITALS: BP 101/69
[2016-05-14] MEDS: MULTIVITAMINS WITH MINERALS, THERAPEUTIC TABLET PO SCH (08:46)
[2016-05-14] MEDS: OMEPRAZOLE 20 MG CAPSULE PO SCH (08:46)
[2016-05-14] MEDS: SODIUM CHLORIDE 1 GM TABLET PO SCH ×3 (08:46→16:02)
[2016-05-14] MEDS: FOLIC ACID 1 MG TABLET PO SCH (08:46)
[2016-05-14] MEDS: LORazepam 2 MG TABLET PO PRN ×2 (08:47→19:36)
[2016-05-14] MEDS: FluPHENAZine HCL 5 MG TABLET PO PRN (08:48)
[2016-05-14] MEDS: NICOTINE 14 MG/24 HOUR PATCH TD SCH (09:00)
[2016-05-14 09:38] VITALS: BP 120/70
[2016-05-14] MEDS: AmLODIPine BESYLATE 10 MG TABLET PO SCH (09:39)
[2016-05-14 10:56] VITALS: BP 118/74
[2016-05-14] MEDS: ACETAMINOPHEN 325 MG TABLET PO PRN (10:56)
[2016-05-14 16:56] VITALS: BP 132/72
[2016-05-14] MEDS: PRAZOSIN HCL 1 MG CAPSULE PO SCH (20:52)
[2016-05-15 01:34] VITALS: BP 112/69
[2016-05-15] MEDS: IBUPROFEN 400 MG TABLET PO PRN ×2 (01:38→10:08)
[2016-05-15] MEDS: LORazepam 2 MG TABLET PO PRN ×3 (01:38→13:36)
[2016-05-15] MEDS: PREGABALIN 50 MG CAPSULE PO SCH (05:53)
[2016-05-15] MEDS: LORazepam 0.5 MG TABLET PO SCH ×3 (05:53→17:00)
[2016-05-15] MEDS: DiphenhydrAMINE HCL 25 MG CAPSULE PO SCH ×2 (05:53→16:03)
[2016-05-15] MEDS: ZIPRASIDONE HCL 80 MG CAPSULE PO SCH ×2 (06:47→16:40)
[2016-05-15] MEDS: AmLODIPine BESYLATE 10 MG TABLET PO SCH (08:25)
[2016-05-15] MEDS: SODIUM CHLORIDE 1 GM TABLET PO SCH ×3 (08:25→16:40)
[2016-05-15] MEDS: OMEPRAZOLE 20 MG CAPSULE PO SCH (08:25)
[2016-05-15] MEDS: FOLIC ACID 1 MG TABLET PO SCH (08:26)
[2016-05-15] MEDS: MULTIVITAMINS WITH MINERALS, THERAPEUTIC TABLET PO SCH (08:26)
[2016-05-15] MEDS: NICOTINE 14 MG/24 HOUR PATCH TD SCH (08:26)
[2016-05-15 08:34] VITALS: BP 133/59
[2016-05-15 10:08] VITALS: BP 122/72
[2016-05-15] MEDS: FluPHENAZine HCL 5 MG TABLET PO PRN (14:22)
[2016-05-15 16:13] VITALS: BP 113/60
[2016-05-15 16:30] VITALS: BP 128/86
[2016-05-15 20:50] VITALS: BP 127/86
[2016-05-15] MEDS: PRAZOSIN HCL 1 MG CAPSULE PO SCH (20:53)
[2016-05-16] VITALS (7 sets, daily range): BP systolic 115–132; BP diastolic 64–86
[2016-05-16] MEDS: IBUPROFEN 400 MG TABLET PO PRN ×2 (05:50→13:51)
[2016-05-16] MEDS: PREGABALIN 50 MG CAPSULE PO SCH (05:50)
[2016-05-16] MEDS: DiphenhydrAMINE HCL 25 MG CAPSULE PO SCH ×2 (05:50→16:07)
[2016-05-16] MEDS: LORazepam 0.5 MG TABLET PO SCH ×3 (05:50→16:07)
[2016-05-16] MEDS: ZIPRASIDONE HCL 80 MG CAPSULE PO SCH ×2 (06:24→16:33)
[2016-05-16] MEDS: MULTIVITAMINS WITH MINERALS, THERAPEUTIC TABLET PO SCH (08:24)
[2016-05-16] MEDS: SODIUM CHLORIDE 1 GM TABLET PO SCH ×3 (08:26→16:06)
[2016-05-16] MEDS: AmLODIPine BESYLATE 10 MG TABLET PO SCH (08:26)
[2016-05-16] MEDS: OMEPRAZOLE 20 MG CAPSULE PO SCH (08:26)
[2016-05-16] MEDS: FOLIC ACID 1 MG TABLET PO SCH (08:27)
[2016-05-16] MEDS: NICOTINE 14 MG/24 HOUR PATCH TD SCH (08:27)
[2016-05-16] MEDS: CELECOXIB 100 MG CAPSULE PO PRN ×2 (08:29→17:02)
[2016-05-16] MEDS: LORazepam 2 MG TABLET PO PRN ×2 (08:29→13:27)
[2016-05-16] MEDS: FluPHENAZine HCL 5 MG TABLET PO PRN ×2 (10:38→14:39)
[2016-05-16] MEDS: MAG HYDROX/AL HYDROX/SIMETH ES 30 ML SUSPENSION UDCUP PO PRN (13:54)
[2016-05-16] MEDS: PRAZOSIN HCL 1 MG CAPSULE PO SCH (20:40)
[2016-05-16] MEDS: ZOLPIDEM TARTRATE 10 MG TABLET PO PRN (21:05)
[2016-05-17] VITALS (7 sets, daily range): BP systolic 108–130; BP diastolic 66–90
[2016-05-17] MEDS: PREGABALIN 50 MG CAPSULE PO SCH (06:01)
[2016-05-17] MEDS: DiphenhydrAMINE HCL 25 MG CAPSULE PO SCH ×2 (06:02→16:11)
[2016-05-17] MEDS: LORazepam 0.5 MG TABLET PO SCH ×3 (06:02→16:11)
[2016-05-17] MEDS: ZIPRASIDONE HCL 80 MG CAPSULE PO SCH ×2 (06:48→16:11)
[2016-05-17] MEDS: AmLODIPine BESYLATE 10 MG TABLET PO SCH (08:08)
[2016-05-17] MEDS: FOLIC ACID 1 MG TABLET PO SCH (08:08)
[2016-05-17] MEDS: MAGNESIUM HYDROXIDE SUSPENSION 30 ML UDCUP PO PRN (08:08)
[2016-05-17] MEDS: LORazepam 2 MG TABLET PO PRN ×2 (08:08→21:53)
[2016-05-17] MEDS: SODIUM CHLORIDE 1 GM TABLET PO SCH ×3 (08:08→16:11)
[2016-05-17] MEDS: MULTIVITAMINS WITH MINERALS, THERAPEUTIC TABLET PO SCH (08:09)
[2016-05-17] MEDS: NICOTINE 14 MG/24 HOUR PATCH TD SCH (08:09)
[2016-05-17] MEDS: OMEPRAZOLE 20 MG CAPSULE PO SCH (08:09)
[2016-05-17] MEDS: CELECOXIB 100 MG CAPSULE PO PRN (09:33)
[2016-05-17] MEDS: IBUPROFEN 400 MG TABLET PO PRN (13:40)
[2016-05-17] MEDS: PRAZOSIN HCL 1 MG CAPSULE PO SCH (20:15)
[2016-05-17] MEDS: ZOLPIDEM TARTRATE 10 MG TABLET PO PRN (20:16)
[2016-05-18 05:21] VITALS: BP 114/67
[2016-05-18] MEDS: LORazepam 0.5 MG TABLET PO SCH ×3 (05:59→16:03)
[2016-05-18] MEDS: PREGABALIN 50 MG CAPSULE PO SCH (05:59)
[2016-05-18] MEDS: ZIPRASIDONE HCL 80 MG CAPSULE PO SCH ×2 (05:59→16:03)
[2016-05-18] MEDS: DiphenhydrAMINE HCL 25 MG CAPSULE PO SCH ×2 (06:00→16:03)
[2016-05-18] MEDS: LORazepam 2 MG TABLET PO PRN ×2 (06:33→10:08)
[2016-05-18] MEDS: MULTIVITAMINS WITH MINERALS, THERAPEUTIC TABLET PO SCH (08:13)
[2016-05-18] MEDS: SODIUM CHLORIDE 1 GM TABLET PO SCH ×3 (08:13→16:04)
[2016-05-18] MEDS: OMEPRAZOLE 20 MG CAPSULE PO SCH (08:13)
[2016-05-18] MEDS: FOLIC ACID 1 MG TABLET PO SCH (08:13)
[2016-05-18 08:14] VITALS: BP 150/76
[2016-05-18] MEDS: AmLODIPine BESYLATE 10 MG TABLET PO SCH (08:14)
[2016-05-18] MEDS: CELECOXIB 100 MG CAPSULE PO PRN (08:14)
[2016-05-18] MEDS: NICOTINE 14 MG/24 HOUR PATCH TD SCH (08:15)
[2016-05-18 08:33] VITALS: BP 150/76
[2016-05-18 10:08] VITALS: BP 138/70
[2016-05-18] MEDS: IBUPROFEN 400 MG TABLET PO PRN (10:09)
[2016-05-18] MEDS: FluPHENAZine HCL 5 MG TABLET PO PRN (10:21)
[2016-05-18 16:13] VITALS: BP 116/60
[2016-05-18 20:30] VITALS: BP 127/75
[2016-05-18] MEDS: PRAZOSIN HCL 1 MG CAPSULE PO SCH (20:52)
[2016-05-19 05:25] VITALS: BP 118/68
[2016-05-19] MEDS: DiphenhydrAMINE HCL 25 MG CAPSULE PO SCH ×2 (06:03→16:13)
[2016-05-19] MEDS: ZIPRASIDONE HCL 80 MG CAPSULE PO SCH ×2 (06:03→16:13)
[2016-05-19] MEDS: PREGABALIN 50 MG CAPSULE PO SCH (06:03)
[2016-05-19] MEDS: LORazepam 0.5 MG TABLET PO SCH ×3 (06:03→16:13)
[2016-05-19] MEDS: SODIUM CHLORIDE 1 GM TABLET PO SCH ×3 (08:03→16:41)
[2016-05-19] MEDS: OMEPRAZOLE 20 MG CAPSULE PO SCH (08:03)
[2016-05-19] MEDS: AmLODIPine BESYLATE 10 MG TABLET PO SCH (08:03)
[2016-05-19] MEDS: MULTIVITAMINS WITH MINERALS, THERAPEUTIC TABLET PO SCH (08:04)
[2016-05-19 08:06] VITALS: BP 134/74
[2016-05-19] MEDS: IBUPROFEN 400 MG TABLET PO PRN ×2 (08:06→16:14)
[2016-05-19] MEDS: NICOTINE 14 MG/24 HOUR PATCH TD SCH (08:06)
[2016-05-19] MEDS: FOLIC ACID 1 MG TABLET PO SCH (08:06)
[2016-05-19] MEDS: LORazepam 2 MG TABLET PO PRN ×2 (08:07→17:36)
[2016-05-19 08:56] VITALS: BP 139/77
[2016-05-19] MEDS: FluPHENAZine HCL 5 MG TABLET PO PRN ×3 (10:13→20:56)
[2016-05-19 16:15] VITALS: BP 120/61
[2016-05-19 20:52] VITALS: BP 119/60
[2016-05-19] MEDS: PRAZOSIN HCL 1 MG CAPSULE PO SCH (20:56)
[2016-05-20 04:00] VITALS: BP 110/68
[2016-05-20] MEDS: IBUPROFEN 400 MG TABLET PO PRN ×2 (04:00→14:13)
[2016-05-20] MEDS: LORazepam 2 MG TABLET PO PRN ×4 (04:00→21:15)
[2016-05-20] MEDS: PREGABALIN 50 MG CAPSULE PO SCH (05:48)
[2016-05-20] MEDS: DiphenhydrAMINE HCL 25 MG CAPSULE PO SCH ×2 (05:48→16:05)
[2016-05-20] MEDS: LORazepam 0.5 MG TABLET PO SCH ×3 (05:48→16:05)
[2016-05-20] MEDS: ZIPRASIDONE HCL 80 MG CAPSULE PO SCH ×2 (06:34→16:05)
[2016-05-20] MEDS: OMEPRAZOLE 20 MG CAPSULE PO SCH (08:18)
[2016-05-20] MEDS: SODIUM CHLORIDE 1 GM TABLET PO SCH ×3 (08:18→16:58)
[2016-05-20] MEDS: AmLODIPine BESYLATE 10 MG TABLET PO SCH (08:18)
[2016-05-20] MEDS: MULTIVITAMINS WITH MINERALS, THERAPEUTIC TABLET PO SCH (08:18)
[2016-05-20] MEDS: FOLIC ACID 1 MG TABLET PO SCH (08:18)
[2016-05-20] MEDS: NICOTINE 14 MG/24 HOUR PATCH TD SCH (08:19)
[2016-05-20 08:41] VITALS: BP 119/74
[2016-05-20 08:55] VITALS: BP 119/74
[2016-05-20] MEDS: CELECOXIB 100 MG CAPSULE PO PRN (08:55)
[2016-05-20 14:13] VITALS: BP 121/76
[2016-05-20 16:05] VITALS: BP 115/66
[2016-05-20 20:17] VITALS: BP 123/66
[2016-05-20] MEDS: PRAZOSIN HCL 1 MG CAPSULE PO SCH (21:15)
[2016-05-21 05:58] VITALS: BP 120/77
[2016-05-21] MEDS: LORazepam 0.5 MG TABLET PO SCH ×3 (06:07→16:24)
[2016-05-21] MEDS: PREGABALIN 50 MG CAPSULE PO SCH (06:07)
[2016-05-21] MEDS: DiphenhydrAMINE HCL 25 MG CAPSULE PO SCH ×2 (06:08→16:23)
[2016-05-21] MEDS: IBUPROFEN 400 MG TABLET PO PRN ×2 (06:28→16:24)
[2016-05-21] MEDS: ZIPRASIDONE HCL 80 MG CAPSULE PO SCH ×2 (06:51→16:24)
[2016-05-21 08:07] VITALS: BP 122/87
[2016-05-21] MEDS: MULTIVITAMINS WITH MINERALS, THERAPEUTIC TABLET PO SCH (08:39)
[2016-05-21] MEDS: LORazepam 2 MG TABLET PO PRN ×2 (08:39→17:11)
[2016-05-21] MEDS: NICOTINE 14 MG/24 HOUR PATCH TD SCH (08:39)
[2016-05-21] MEDS: SODIUM CHLORIDE 1 GM TABLET PO SCH ×3 (08:39→16:24)
[2016-05-21] MEDS: OMEPRAZOLE 20 MG CAPSULE PO SCH (08:40)
[2016-05-21] MEDS: AmLODIPine BESYLATE 10 MG TABLET PO SCH (08:40)
[2016-05-21] MEDS: FOLIC ACID 1 MG TABLET PO SCH (08:40)
[2016-05-21] MEDS: FluPHENAZine HCL 5 MG TABLET PO PRN (09:34)
[2016-05-21 16:08] VITALS: BP 137/69
[2016-05-21] MEDS: PRAZOSIN HCL 1 MG CAPSULE PO SCH (20:43)
[2016-05-22 05:27] VITALS: BP 119/68
[2016-05-22] MEDS: DiphenhydrAMINE HCL 25 MG CAPSULE PO SCH ×2 (05:56→16:17)
[2016-05-22] MEDS: LORazepam 0.5 MG TABLET PO SCH ×3 (05:56→16:18)
[2016-05-22] MEDS: PREGABALIN 50 MG CAPSULE PO SCH (05:56)
[2016-05-22] MEDS: ZIPRASIDONE HCL 80 MG CAPSULE PO SCH ×2 (06:43→16:18)
[2016-05-22] MEDS: NICOTINE 14 MG/24 HOUR PATCH TD SCH (09:00)
[2016-05-22 09:01] VITALS: BP 136/84
[2016-05-22 09:03] VITALS: BP 135/86
[2016-05-22] MEDS: OMEPRAZOLE 20 MG CAPSULE PO SCH (09:30)
[2016-05-22] MEDS: AmLODIPine BESYLATE 10 MG TABLET PO SCH (09:30)
[2016-05-22] MEDS: SODIUM CHLORIDE 1 GM TABLET PO SCH ×3 (09:30→16:17)
[2016-05-22] MEDS: MULTIVITAMINS WITH MINERALS, THERAPEUTIC TABLET PO SCH (09:31)
[2016-05-22] MEDS: LORazepam 2 MG TABLET PO PRN ×3 (09:31→20:26)
[2016-05-22] MEDS: FOLIC ACID 1 MG TABLET PO SCH (09:31)
[2016-05-22 16:15] VITALS: BP 127/65
[2016-05-22] MEDS: FluPHENAZine HCL 5 MG TABLET PO PRN (17:59)
[2016-05-22 20:20] VITALS: BP 129/76
[2016-05-22] MEDS: PRAZOSIN HCL 1 MG CAPSULE PO SCH (20:26)
[2016-05-23 06:00] VITALS: BP 122/83
[2016-05-23] MEDS: LORazepam 0.5 MG TABLET PO SCH ×3 (06:15→16:58)
[2016-05-23] MEDS: DiphenhydrAMINE HCL 25 MG CAPSULE PO SCH ×2 (06:15→16:56)
[2016-05-23] MEDS: IBUPROFEN 400 MG TABLET PO PRN ×2 (06:16→16:58)
[2016-05-23] MEDS: PREGABALIN 50 MG CAPSULE PO SCH (06:16)
[2016-05-23] MEDS: ZIPRASIDONE HCL 80 MG CAPSULE PO SCH ×2 (06:37→16:58)
[2016-05-23 08:39] VITALS: BP 129/80
[2016-05-23] MEDS: NICOTINE 14 MG/24 HOUR PATCH TD SCH (09:00)
[2016-05-23 09:08] VITALS: BP 122/84
[2016-05-23] MEDS: MULTIVITAMINS WITH MINERALS, THERAPEUTIC TABLET PO SCH (09:09)
[2016-05-23] MEDS: AmLODIPine BESYLATE 10 MG TABLET PO SCH (09:09)
[2016-05-23] MEDS: SODIUM CHLORIDE 1 GM TABLET PO SCH ×3 (09:09→16:57)
[2016-05-23] MEDS: FOLIC ACID 1 MG TABLET PO SCH (09:09)
[2016-05-23] MEDS: OMEPRAZOLE 20 MG CAPSULE PO SCH (09:09)
[2016-05-23] MEDS: CELECOXIB 100 MG CAPSULE PO PRN (09:10)
[2016-05-23] MEDS: LORazepam 2 MG TABLET PO PRN ×3 (09:10→18:52)
[2016-05-23 10:10] VITALS: BP 119/78
[2016-05-23] MEDS: FluPHENAZine HCL 5 MG TABLET PO PRN ×2 (13:08→17:49)
[2016-05-23] MEDS ORDERED: CELECOXIB 100 MG CAPSULE PO PRN (13:45)
[2016-05-23 16:29] VITALS: BP 146/84
[2016-05-23 20:24] VITALS: BP 122/71
[2016-05-23] MEDS: PRAZOSIN HCL 1 MG CAPSULE PO SCH (20:29)
[2016-05-23] MEDS: ROPINIRole HCL 1 MG TABLET PO SCH (22:58)
[2016-05-24] VITALS (8 sets, daily range): BP systolic 109–133; BP diastolic 63–82
[2016-05-24] MEDS: DiphenhydrAMINE HCL 25 MG CAPSULE PO SCH ×2 (05:28→17:06)
[2016-05-24] MEDS: PREGABALIN 50 MG CAPSULE PO SCH (05:29)
[2016-05-24] MEDS: IBUPROFEN 400 MG TABLET PO PRN ×2 (05:29→13:29)
[2016-05-24] MEDS: LORazepam 0.5 MG TABLET PO SCH ×3 (05:29→17:06)
[2016-05-24] MEDS: ZIPRASIDONE HCL 80 MG CAPSULE PO SCH ×2 (06:20→17:06)
[2016-05-24] MEDS: NICOTINE 14 MG/24 HOUR PATCH TD SCH (09:00)
[2016-05-24] MEDS: OMEPRAZOLE 20 MG CAPSULE PO SCH (09:03)
[2016-05-24] MEDS: SODIUM CHLORIDE 1 GM TABLET PO SCH ×3 (09:04→17:06)
[2016-05-24] MEDS: AmLODIPine BESYLATE 10 MG TABLET PO SCH (09:04)
[2016-05-24] MEDS: MULTIVITAMINS WITH MINERALS, THERAPEUTIC TABLET PO SCH (09:04)
[2016-05-24] MEDS: FOLIC ACID 1 MG TABLET PO SCH (09:04)
[2016-05-24] MEDS: LORazepam 2 MG TABLET PO PRN ×2 (09:05→18:38)
[2016-05-24] MEDS: CELECOXIB 100 MG CAPSULE PO PRN (09:06)
[2016-05-24] MEDS: MAGNESIUM HYDROXIDE SUSPENSION 30 ML UDCUP PO PRN (13:20)
[2016-05-24] MEDS: FluPHENAZine HCL 5 MG TABLET PO PRN (13:38)
[2016-05-24] MEDS: ROPINIRole HCL 1 MG TABLET PO SCH (21:06)
[2016-05-24] MEDS: PRAZOSIN HCL 1 MG CAPSULE PO SCH (21:06)
[2016-05-25 06:10] VITALS: BP 104/70
[2016-05-25] MEDS: DiphenhydrAMINE HCL 25 MG CAPSULE PO SCH ×2 (06:39→16:25)
[2016-05-25] MEDS: LORazepam 0.5 MG TABLET PO SCH ×3 (06:39→16:26)
[2016-05-25] MEDS: ZIPRASIDONE HCL 80 MG CAPSULE PO SCH ×2 (06:39→16:25)
[2016-05-25] MEDS: PREGABALIN 50 MG CAPSULE PO SCH (06:39)
[2016-05-25] MEDS: FOLIC ACID 1 MG TABLET PO SCH (08:04)
[2016-05-25] MEDS: MULTIVITAMINS WITH MINERALS, THERAPEUTIC TABLET PO SCH (08:05)
[2016-05-25] MEDS: AmLODIPine BESYLATE 10 MG TABLET PO SCH (08:05)
[2016-05-25] MEDS: OMEPRAZOLE 20 MG CAPSULE PO SCH (08:05)
[2016-05-25] MEDS: SODIUM CHLORIDE 1 GM TABLET PO SCH ×3 (08:05→16:25)
[2016-05-25] MEDS: NICOTINE 14 MG/24 HOUR PATCH TD SCH (08:11)
[2016-05-25 08:21] VITALS: BP 139/87
[2016-05-25] MEDS: IBUPROFEN 400 MG TABLET PO PRN ×2 (08:21→17:07)
[2016-05-25] MEDS: LORazepam 2 MG TABLET PO PRN ×2 (08:32→17:06)
[2016-05-25] MEDS: ACETAMINOPHEN 325 MG TABLET PO PRN (12:34)
[2016-05-25] MEDS: CYCLOBENZAPRINE HCL 10 MG TABLET PO SCH (13:03)
[2016-05-25 16:13] VITALS: BP 123/65
[2016-05-25] MEDS: LIDOCAINE HCL 5% TRANSDERMAL PATCH TD SCH (16:26)
[2016-05-25 20:57] VITALS: BP 123/68
[2016-05-25] MEDS: ROPINIRole HCL 1 MG TABLET PO SCH (20:58)
[2016-05-25] MEDS: PRAZOSIN HCL 1 MG CAPSULE PO SCH (20:58)
[2016-05-26 04:34] VITALS: BP 109/67
[2016-05-26] MEDS: LORazepam 2 MG TABLET PO PRN ×2 (04:40→14:16)
[2016-05-26] MEDS: IBUPROFEN 400 MG TABLET PO PRN ×2 (04:40→13:12)
[2016-05-26] MEDS: PREGABALIN 50 MG CAPSULE PO SCH (06:25)
[2016-05-26] MEDS: DiphenhydrAMINE HCL 25 MG CAPSULE PO SCH ×2 (06:26→16:11)
[2016-05-26] MEDS: LORazepam 0.5 MG TABLET PO SCH ×3 (06:27→16:11)
[2016-05-26] MEDS: ZIPRASIDONE HCL 80 MG CAPSULE PO SCH ×2 (06:28→16:11)
[2016-05-26] MEDS: CYCLOBENZAPRINE HCL 10 MG TABLET PO SCH (08:15)
[2016-05-26] MEDS: FOLIC ACID 1 MG TABLET PO SCH (08:15)
[2016-05-26] MEDS: OMEPRAZOLE 20 MG CAPSULE PO SCH (08:15)
[2016-05-26] MEDS: SODIUM CHLORIDE 1 GM TABLET PO SCH ×3 (08:15→16:11)
[2016-05-26] MEDS: AmLODIPine BESYLATE 10 MG TABLET PO SCH (08:15)
[2016-05-26] MEDS: MULTIVITAMINS WITH MINERALS, THERAPEUTIC TABLET PO SCH (08:15)
[2016-05-26 08:17] VITALS: BP 140/83
[2016-05-26] MEDS: LIDOCAINE HCL 5% TRANSDERMAL PATCH TD SCH (08:19)
[2016-05-26] MEDS: NICOTINE 14 MG/24 HOUR PATCH TD SCH (08:22)
[2016-05-26] MEDS: MAG HYDROX/AL HYDROX/SIMETH ES 30 ML SUSPENSION UDCUP PO PRN (10:23)
[2016-05-26 13:12] VITALS: BP 126/80
[2016-05-26 16:11] VITALS: BP 119/70
[2016-05-26] MEDS: ROPINIRole HCL 1 MG TABLET PO SCH (20:55)
[2016-05-26] MEDS: PRAZOSIN HCL 1 MG CAPSULE PO SCH (20:55)
[2016-05-27 05:09] VITALS: BP 118/63
[2016-05-27] MEDS: IBUPROFEN 400 MG TABLET PO PRN ×2 (05:18→16:14)
[2016-05-27] MEDS: LORazepam 0.5 MG TABLET PO SCH ×3 (06:25→16:14)
[2016-05-27] MEDS: DiphenhydrAMINE HCL 25 MG CAPSULE PO SCH ×2 (06:26→16:14)
[2016-05-27] MEDS: PREGABALIN 50 MG CAPSULE PO SCH (06:26)
[2016-05-27] MEDS: ZIPRASIDONE HCL 80 MG CAPSULE PO SCH ×2 (06:30→16:14)
[2016-05-27] MEDS: AmLODIPine BESYLATE 10 MG TABLET PO SCH (08:05)
[2016-05-27] MEDS: LIDOCAINE HCL 5% TRANSDERMAL PATCH TD SCH (08:05)
[2016-05-27] MEDS: FOLIC ACID 1 MG TABLET PO SCH (08:05)
[2016-05-27] MEDS: OMEPRAZOLE 20 MG CAPSULE PO SCH (08:05)
[2016-05-27] MEDS: MULTIVITAMINS WITH MINERALS, THERAPEUTIC TABLET PO SCH (08:05)
[2016-05-27] MEDS: SODIUM CHLORIDE 1 GM TABLET PO SCH ×3 (08:05→16:14)
[2016-05-27] MEDS: CYCLOBENZAPRINE HCL 10 MG TABLET PO SCH (08:06)
[2016-05-27] MEDS: NICOTINE 14 MG/24 HOUR PATCH TD SCH (08:06)
[2016-05-27] MEDS: LORazepam 2 MG TABLET PO PRN ×2 (08:06→15:02)
[2016-05-27 08:22] VITALS: BP 122/67
[2016-05-27] MEDS: FluPHENAZine HCL 5 MG TABLET PO PRN (12:56)
[2016-05-27 16:14] VITALS: BP 117/65
[2016-05-27] MEDS: ROPINIRole HCL 1 MG TABLET PO SCH (20:28)
[2016-05-27] MEDS: PRAZOSIN HCL 1 MG CAPSULE PO SCH (20:29)
[2016-05-28 03:36] VITALS: BP 111/74
[2016-05-28] MEDS: IBUPROFEN 400 MG TABLET PO PRN ×2 (03:59→16:02)
[2016-05-28] MEDS: LORazepam 0.5 MG TABLET PO SCH ×3 (05:56→16:02)
[2016-05-28] MEDS: DiphenhydrAMINE HCL 25 MG CAPSULE PO SCH ×2 (05:56→16:02)
[2016-05-28] MEDS: PREGABALIN 50 MG CAPSULE PO SCH (05:56)
[2016-05-28] MEDS: ZIPRASIDONE HCL 80 MG CAPSULE PO SCH ×2 (06:44→16:59)
[2016-05-28 08:10] VITALS: BP 136/98
[2016-05-28] MEDS: SODIUM CHLORIDE 1 GM TABLET PO SCH ×3 (08:22→16:02)
[2016-05-28] MEDS: OMEPRAZOLE 20 MG CAPSULE PO SCH (08:22)
[2016-05-28] MEDS: MULTIVITAMINS WITH MINERALS, THERAPEUTIC TABLET PO SCH (08:22)
[2016-05-28] MEDS: FOLIC ACID 1 MG TABLET PO SCH (08:22)
[2016-05-28] MEDS: AmLODIPine BESYLATE 10 MG TABLET PO SCH (08:22)
[2016-05-28] MEDS: NICOTINE 14 MG/24 HOUR PATCH TD SCH (08:23)
[2016-05-28] MEDS: LIDOCAINE HCL 5% TRANSDERMAL PATCH TD SCH (08:23)
[2016-05-28] MEDS: CYCLOBENZAPRINE HCL 10 MG TABLET PO SCH (08:23)
[2016-05-28] MEDS: LORazepam 2 MG TABLET PO PRN (12:42)
[2016-05-28] MEDS: MAG HYDROX/AL HYDROX/SIMETH ES 30 ML SUSPENSION UDCUP PO PRN (14:49)
[2016-05-28 16:02] VITALS: BP 130/84
[2016-05-28 16:14] VITALS: BP 144/75
[2016-05-28] MEDS: ROPINIRole HCL 1 MG TABLET PO SCH (20:24)
[2016-05-28] MEDS: PRAZOSIN HCL 1 MG CAPSULE PO SCH (20:25)
[2016-05-29 00:02] VITALS: BP 140/70
[2016-05-29] MEDS: LORazepam 2 MG TABLET PO PRN ×2 (00:05→12:24)
[2016-05-29] MEDS: PREGABALIN 50 MG CAPSULE PO SCH (05:57)
[2016-05-29] MEDS: DiphenhydrAMINE HCL 25 MG CAPSULE PO SCH ×2 (05:57→16:22)
[2016-05-29] MEDS: LORazepam 0.5 MG TABLET PO SCH ×3 (05:57→16:23)
[2016-05-29] MEDS: ZIPRASIDONE HCL 80 MG CAPSULE PO SCH ×2 (06:45→16:23)
[2016-05-29] MEDS: CELECOXIB 100 MG CAPSULE PO PRN (08:05)
[2016-05-29] MEDS: OMEPRAZOLE 20 MG CAPSULE PO SCH (08:07)
[2016-05-29] MEDS: AmLODIPine BESYLATE 10 MG TABLET PO SCH (08:08)
[2016-05-29] MEDS: SODIUM CHLORIDE 1 GM TABLET PO SCH ×3 (08:08→16:22)
[2016-05-29] MEDS: FOLIC ACID 1 MG TABLET PO SCH (08:08)
[2016-05-29] MEDS: CYCLOBENZAPRINE HCL 10 MG TABLET PO SCH (08:08)
[2016-05-29] MEDS: MULTIVITAMINS WITH MINERALS, THERAPEUTIC TABLET PO SCH (08:08)
[2016-05-29] MEDS: NICOTINE 14 MG/24 HOUR PATCH TD SCH (08:09)
[2016-05-29] MEDS: LIDOCAINE HCL 5% TRANSDERMAL PATCH TD SCH (08:09)
[2016-05-29 08:12] VITALS: BP 138/72
[2016-05-29 08:25] LABS: CREATININE 0.98 mg/dL (0.60-1.30); POTASSIUM 4.2 mmol/L (3.5-5.1)
[2016-05-29] MEDS: MAG HYDROX/AL HYDROX/SIMETH ES 30 ML SUSPENSION UDCUP PO PRN (08:49)
[2016-05-29 16:00] VITALS: BP 132/74
[2016-05-29] MEDS: IBUPROFEN 400 MG TABLET PO PRN (16:23)
[2016-05-29] MEDS: ROPINIRole HCL 1 MG TABLET PO SCH (20:42)
[2016-05-29] MEDS: PRAZOSIN HCL 1 MG CAPSULE PO SCH (20:42)
[2016-05-30 04:45] VITALS: BP 115/71
[2016-05-30] MEDS: IBUPROFEN 400 MG TABLET PO PRN (04:46)
[2016-05-30] MEDS: LORazepam 0.5 MG TABLET PO SCH ×3 (05:58→16:22)
[2016-05-30] MEDS: DiphenhydrAMINE HCL 25 MG CAPSULE PO SCH ×2 (05:59→16:05)
[2016-05-30] MEDS: PREGABALIN 50 MG CAPSULE PO SCH (05:59)
[2016-05-30] MEDS: ZIPRASIDONE HCL 80 MG CAPSULE PO SCH ×2 (07:00→16:36)
[2016-05-30] MEDS: LORazepam 2 MG TABLET PO PRN ×2 (07:28→13:33)
[2016-05-30] MEDS: FOLIC ACID 1 MG TABLET PO SCH (07:59)
[2016-05-30] MEDS: SODIUM CHLORIDE 1 GM TABLET PO SCH ×3 (08:04→16:05)
[2016-05-30] MEDS: CYCLOBENZAPRINE HCL 10 MG TABLET PO SCH (08:04)
[2016-05-30] MEDS: MULTIVITAMINS WITH MINERALS, THERAPEUTIC TABLET PO SCH (08:04)
[2016-05-30] MEDS: NICOTINE 14 MG/24 HOUR PATCH TD SCH (08:05)
[2016-05-30] MEDS: LIDOCAINE HCL 5% TRANSDERMAL PATCH TD SCH (08:05)
[2016-05-30] MEDS: OMEPRAZOLE 20 MG CAPSULE PO SCH (08:05)
[2016-05-30 08:43] VITALS: BP 108/50
[2016-05-30 08:53] VITALS: BP 118/72
[2016-05-30] MEDS: AmLODIPine BESYLATE 10 MG TABLET PO SCH (08:54)
[2016-05-30 13:33] VITALS: BP 128/88
[2016-05-30] MEDS: CELECOXIB 100 MG CAPSULE PO PRN (13:33)
[2016-05-30 16:23] VITALS: BP 117/63
[2016-05-30] MEDS: ROPINIRole HCL 1 MG TABLET PO SCH (20:40)
[2016-05-30] MEDS: PRAZOSIN HCL 1 MG CAPSULE PO SCH (20:40)
[2016-05-31 04:20] VITALS: BP 115/68
[2016-05-31] MEDS: IBUPROFEN 400 MG TABLET PO PRN ×2 (04:25→14:30)
[2016-05-31] MEDS: LORazepam 2 MG TABLET PO PRN ×3 (04:25→15:10)
[2016-05-31] MEDS: DiphenhydrAMINE HCL 25 MG CAPSULE PO SCH ×2 (06:08→16:17)
[2016-05-31] MEDS: PREGABALIN 50 MG CAPSULE PO SCH (06:08)
[2016-05-31] MEDS: LORazepam 0.5 MG TABLET PO SCH ×3 (06:09→16:18)
[2016-05-31] MEDS: ZIPRASIDONE HCL 80 MG CAPSULE PO SCH ×2 (06:09→16:18)
[2016-05-31 08:12] VITALS: BP 148/78
[2016-05-31] MEDS: NICOTINE 14 MG/24 HOUR PATCH TD SCH (08:29)
[2016-05-31] MEDS: AmLODIPine BESYLATE 10 MG TABLET PO SCH (08:30)
[2016-05-31] MEDS: MULTIVITAMINS WITH MINERALS, THERAPEUTIC TABLET PO SCH (08:30)
[2016-05-31] MEDS: OMEPRAZOLE 20 MG CAPSULE PO SCH (08:31)
[2016-05-31] MEDS: SODIUM CHLORIDE 1 GM TABLET PO SCH ×3 (08:31→16:17)
[2016-05-31] MEDS: FOLIC ACID 1 MG TABLET PO SCH (08:31)
[2016-05-31] MEDS: CYCLOBENZAPRINE HCL 10 MG TABLET PO SCH (08:31)
[2016-05-31] MEDS: LIDOCAINE HCL 5% TRANSDERMAL PATCH TD SCH (08:33)
[2016-05-31 14:30] VITALS: BP 135/73
[2016-05-31 16:09] VITALS: BP_SYST 109; BP_SYST 115; BP_DIAS 66; BP_DIAS 68
[2016-05-31] MEDS: ROPINIRole HCL 1 MG TABLET PO SCH (20:24)
[2016-05-31] MEDS: PRAZOSIN HCL 1 MG CAPSULE PO SCH (20:25)
[2016-06-01 04:49] VITALS: BP 127/67
[2016-06-01] MEDS: IBUPROFEN 400 MG TABLET PO PRN (04:50)
[2016-06-01] MEDS: LORazepam 0.5 MG TABLET PO SCH ×3 (06:21→16:19)
[2016-06-01] MEDS: DiphenhydrAMINE HCL 25 MG CAPSULE PO SCH ×2 (06:21→16:18)
[2016-06-01] MEDS: PREGABALIN 50 MG CAPSULE PO SCH (06:21)
[2016-06-01] MEDS: ZIPRASIDONE HCL 80 MG CAPSULE PO SCH ×2 (06:21→16:18)
[2016-06-01] MEDS: CELECOXIB 100 MG CAPSULE PO PRN (08:03)
[2016-06-01] MEDS: FOLIC ACID 1 MG TABLET PO SCH (08:12)
[2016-06-01] MEDS: SODIUM CHLORIDE 1 GM TABLET PO SCH ×3 (08:12→16:18)
[2016-06-01] MEDS: MULTIVITAMINS WITH MINERALS, THERAPEUTIC TABLET PO SCH (08:12)
[2016-06-01] MEDS: AmLODIPine BESYLATE 10 MG TABLET PO SCH (08:12)
[2016-06-01] MEDS: CYCLOBENZAPRINE HCL 10 MG TABLET PO SCH (08:12)
[2016-06-01] MEDS: OMEPRAZOLE 20 MG CAPSULE PO SCH (08:12)
[2016-06-01] MEDS: NICOTINE 14 MG/24 HOUR PATCH TD SCH (08:13)
[2016-06-01] MEDS: LIDOCAINE HCL 5% TRANSDERMAL PATCH TD SCH (08:13)
[2016-06-01 08:53] VITALS: BP 118/72
[2016-06-01] MEDS: LORazepam 2 MG TABLET PO PRN ×2 (11:44→23:39)
[2016-06-01] MEDS: FluPHENAZine HCL 5 MG TABLET PO PRN (13:00)
[2016-06-01 16:14] VITALS: BP 128/55
[2016-06-01] MEDS: PRAZOSIN HCL 1 MG CAPSULE PO SCH (20:28)
[2016-06-01] MEDS: ROPINIRole HCL 1 MG TABLET PO SCH (20:28)
[2016-06-02] VITALS: BP 109/70
[2016-06-02] MEDS: IBUPROFEN 400 MG TABLET PO PRN ×2 (04:02→17:06)
[2016-06-02] MEDS: PREGABALIN 50 MG CAPSULE PO SCH ×2 (06:18→17:05)
[2016-06-02] MEDS: DiphenhydrAMINE HCL 25 MG CAPSULE PO SCH ×2 (06:18→17:05)
[2016-06-02] MEDS: LORazepam 0.5 MG TABLET PO SCH ×3 (06:18→17:07)
[2016-06-02] MEDS: ZIPRASIDONE HCL 80 MG CAPSULE PO SCH ×2 (06:19→17:05)
[2016-06-02] MEDS: MULTIVITAMINS WITH MINERALS, THERAPEUTIC TABLET PO SCH (08:26)
[2016-06-02] MEDS: SODIUM CHLORIDE 1 GM TABLET PO SCH ×3 (08:26→17:05)
[2016-06-02] MEDS: OMEPRAZOLE 20 MG CAPSULE PO SCH (08:26)
[2016-06-02] MEDS: CYCLOBENZAPRINE HCL 10 MG TABLET PO SCH (08:26)
[2016-06-02] MEDS: FOLIC ACID 1 MG TABLET PO SCH (08:26)
[2016-06-02] MEDS: NICOTINE 14 MG/24 HOUR PATCH TD SCH (08:27)
[2016-06-02] MEDS: LIDOCAINE HCL 5% TRANSDERMAL PATCH TD SCH (08:27)
[2016-06-02 09:00] VITALS: BP 124/54
[2016-06-02 09:04] VITALS: BP 120/66
[2016-06-02] MEDS: LORazepam 2 MG TABLET PO PRN ×2 (09:04→15:08)
[2016-06-02] MEDS: AmLODIPine BESYLATE 10 MG TABLET PO SCH (09:04)
[2016-06-02 16:15] VITALS: BP 135/71
[2016-06-02] MEDS: PRAZOSIN HCL 1 MG CAPSULE PO SCH (20:52)
[2016-06-02] MEDS: ROPINIRole HCL 1 MG TABLET PO SCH (20:52)
[2016-06-03 05:31] VITALS: BP 133/86
[2016-06-03] MEDS: IBUPROFEN 400 MG TABLET PO PRN ×2 (05:33→17:04)
[2016-06-03] MEDS: LORazepam 0.5 MG TABLET PO SCH ×3 (06:30→17:04)
[2016-06-03] MEDS: DiphenhydrAMINE HCL 25 MG CAPSULE PO SCH ×2 (06:31→17:04)
[2016-06-03] MEDS: ZIPRASIDONE HCL 80 MG CAPSULE PO SCH ×2 (06:31→17:04)
[2016-06-03] MEDS: LIDOCAINE HCL 5% TRANSDERMAL PATCH TD SCH (08:18)
[2016-06-03] MEDS: FOLIC ACID 1 MG TABLET PO SCH (08:18)
[2016-06-03] MEDS: SODIUM CHLORIDE 1 GM TABLET PO SCH ×3 (08:18→17:04)
[2016-06-03] MEDS: OMEPRAZOLE 20 MG CAPSULE PO SCH (08:18)
[2016-06-03] MEDS: MULTIVITAMINS WITH MINERALS, THERAPEUTIC TABLET PO SCH (08:19)
[2016-06-03] MEDS: AmLODIPine BESYLATE 10 MG TABLET PO SCH (08:19)
[2016-06-03] MEDS: PREGABALIN 50 MG CAPSULE PO SCH ×3 (08:19→17:04)
[2016-06-03] MEDS: CYCLOBENZAPRINE HCL 10 MG TABLET PO SCH (08:19)
[2016-06-03] MEDS: NICOTINE 14 MG/24 HOUR PATCH TD SCH (08:20)
[2016-06-03 08:47] VITALS: BP 124/75
[2016-06-03] MEDS: LORazepam 2 MG TABLET PO PRN (08:51)
[2016-06-03] MEDS: FluPHENAZine HCL 5 MG TABLET PO PRN (09:40)
[2016-06-03 09:56] VITALS: BP 118/74
[2016-06-03] MEDS: CELECOXIB 100 MG CAPSULE PO PRN (09:56)
[2016-06-03 16:20] VITALS: BP 113/51
[2016-06-03] MEDS: PRAZOSIN HCL 1 MG CAPSULE PO SCH (20:43)
[2016-06-03] MEDS: ROPINIRole HCL 1 MG TABLET PO SCH (20:44)
[2016-06-03 21:35] VITALS: BP 116/66
[2016-06-04] MEDS: LORazepam 2 MG TABLET PO PRN ×3 (00:36→18:46)
[2016-06-04 06:45] VITALS: BP 124/79
[2016-06-04] MEDS: LORazepam 0.5 MG TABLET PO SCH ×3 (06:53→16:10)
[2016-06-04] MEDS: ZIPRASIDONE HCL 80 MG CAPSULE PO SCH ×2 (06:53→16:11)
[2016-06-04] MEDS: DiphenhydrAMINE HCL 25 MG CAPSULE PO SCH ×2 (06:53→16:10)
[2016-06-04] MEDS: IBUPROFEN 400 MG TABLET PO PRN (06:56)
[2016-06-04] MEDS: MULTIVITAMINS WITH MINERALS, THERAPEUTIC TABLET PO SCH (08:37)
[2016-06-04] MEDS: SODIUM CHLORIDE 1 GM TABLET PO SCH ×3 (08:38→16:10)
[2016-06-04] MEDS: AmLODIPine BESYLATE 10 MG TABLET PO SCH (08:38)
[2016-06-04] MEDS: OMEPRAZOLE 20 MG CAPSULE PO SCH (08:38)
[2016-06-04] MEDS: PREGABALIN 50 MG CAPSULE PO SCH ×3 (08:38→16:11)
[2016-06-04 08:39] VITALS: BP 105/54
[2016-06-04] MEDS: LIDOCAINE HCL 5% TRANSDERMAL PATCH TD SCH (08:39)
[2016-06-04] MEDS: CYCLOBENZAPRINE HCL 10 MG TABLET PO SCH (08:39)
[2016-06-04] MEDS: FOLIC ACID 1 MG TABLET PO SCH (08:39)
[2016-06-04] MEDS: CELECOXIB 100 MG CAPSULE PO PRN (08:40)
[2016-06-04] MEDS: NICOTINE 14 MG/24 HOUR PATCH TD SCH (08:40)
[2016-06-04 16:10] VITALS: BP 122/69
[2016-06-04] MEDS: ROPINIRole HCL 1 MG TABLET PO SCH (20:18)
[2016-06-04] MEDS: PRAZOSIN HCL 1 MG CAPSULE PO SCH (20:18)
[2016-06-05] MEDS: IBUPROFEN 400 MG TABLET PO PRN ×2 (04:04→13:09)
[2016-06-05 04:05] VITALS: BP 114/72
[2016-06-05] MEDS: ZIPRASIDONE HCL 80 MG CAPSULE PO SCH ×2 (06:32→16:56)
[2016-06-05] MEDS: DiphenhydrAMINE HCL 25 MG CAPSULE PO SCH ×2 (06:32→16:01)
[2016-06-05] MEDS: LORazepam 0.5 MG TABLET PO SCH ×3 (06:32→16:00)
[2016-06-05] MEDS: FOLIC ACID 1 MG TABLET PO SCH (08:24)
[2016-06-05] MEDS: LORazepam 2 MG TABLET PO PRN (08:24)
[2016-06-05] MEDS: NICOTINE 14 MG/24 HOUR PATCH TD SCH (08:24)
[2016-06-05] MEDS: MULTIVITAMINS WITH MINERALS, THERAPEUTIC TABLET PO SCH (08:24)
[2016-06-05] MEDS: CYCLOBENZAPRINE HCL 10 MG TABLET PO SCH (08:25)
[2016-06-05] MEDS: OMEPRAZOLE 20 MG CAPSULE PO SCH (08:25)
[2016-06-05] MEDS: SODIUM CHLORIDE 1 GM TABLET PO SCH ×3 (08:25→16:00)
[2016-06-05] MEDS: PREGABALIN 50 MG CAPSULE PO SCH ×3 (08:25→16:00)
[2016-06-05] MEDS: AmLODIPine BESYLATE 10 MG TABLET PO SCH (08:25)
[2016-06-05] MEDS: LIDOCAINE HCL 5% TRANSDERMAL PATCH TD SCH (08:26)
[2016-06-05] MEDS: CELECOXIB 100 MG CAPSULE PO PRN (08:43)
[2016-06-05 08:45] VITALS: BP 138/68
[2016-06-05] MEDS: MAG HYDROX/AL HYDROX/SIMETH ES 30 ML SUSPENSION UDCUP PO PRN (13:24)
[2016-06-05 16:14] VITALS: BP 131/81
[2016-06-05] MEDS: PRAZOSIN HCL 1 MG CAPSULE PO SCH (20:24)
[2016-06-05] MEDS: ROPINIRole HCL 1 MG TABLET PO SCH (20:25)
[2016-06-06 01:30] VITALS: BP 110/75
[2016-06-06] MEDS: LORazepam 2 MG TABLET PO PRN ×3 (01:35→18:37)
[2016-06-06] MEDS: IBUPROFEN 400 MG TABLET PO PRN ×2 (01:35→14:40)
[2016-06-06] MEDS: LORazepam 0.5 MG TABLET PO SCH ×3 (06:07→16:28)
[2016-06-06] MEDS: DiphenhydrAMINE HCL 25 MG CAPSULE PO SCH ×2 (06:07→16:04)
[2016-06-06] MEDS: ZIPRASIDONE HCL 80 MG CAPSULE PO SCH ×2 (06:42→16:28)
[2016-06-06] MEDS: CELECOXIB 100 MG CAPSULE PO PRN (07:28)
[2016-06-06 07:30] VITALS: BP 112/78
[2016-06-06] MEDS: SODIUM CHLORIDE 1 GM TABLET PO SCH ×3 (08:15→16:04)
[2016-06-06] MEDS: MULTIVITAMINS WITH MINERALS, THERAPEUTIC TABLET PO SCH (08:15)
[2016-06-06] MEDS: AmLODIPine BESYLATE 10 MG TABLET PO SCH (08:15)
[2016-06-06] MEDS: OMEPRAZOLE 20 MG CAPSULE PO SCH (08:15)
[2016-06-06] MEDS: FOLIC ACID 1 MG TABLET PO SCH (08:15)
[2016-06-06] MEDS: PREGABALIN 50 MG CAPSULE PO SCH ×3 (08:16→16:28)
[2016-06-06] MEDS: CYCLOBENZAPRINE HCL 10 MG TABLET PO SCH (08:16)
[2016-06-06] MEDS: NICOTINE 14 MG/24 HOUR PATCH TD SCH (08:16)
[2016-06-06] MEDS: LIDOCAINE HCL 5% TRANSDERMAL PATCH TD SCH (08:16)
[2016-06-06] MEDS: MAGNESIUM HYDROXIDE SUSPENSION 30 ML UDCUP PO PRN (08:30)
[2016-06-06 08:48] VITALS: BP 129/85
[2016-06-06 16:11] VITALS: BP 135/77
[2016-06-06 20:17] VITALS: BP 130/70
[2016-06-06] MEDS: ROPINIRole HCL 1 MG TABLET PO SCH (20:18)
[2016-06-06] MEDS: PRAZOSIN HCL 1 MG CAPSULE PO SCH (20:18)
[2016-06-06] MEDS: ZOLPIDEM TARTRATE 10 MG TABLET PO PRN (21:12)
[2016-06-07 02:02] VITALS: BP 112/74
[2016-06-07] MEDS: IBUPROFEN 400 MG TABLET PO PRN ×2 (02:05→16:06)
[2016-06-07] MEDS: MAGNESIUM CITRATE 300 ML ORAL SOLUTION PO PRN (02:26)
[2016-06-07] MEDS: ZIPRASIDONE HCL 80 MG CAPSULE PO SCH ×2 (06:40→16:05)
[2016-06-07] MEDS: LORazepam 0.5 MG TABLET PO SCH ×3 (06:40→16:06)
[2016-06-07] MEDS: DiphenhydrAMINE HCL 25 MG CAPSULE PO SCH ×2 (06:40→16:06)
[2016-06-07] MEDS: LIDOCAINE HCL 5% TRANSDERMAL PATCH TD SCH (08:12)
[2016-06-07] MEDS: CYCLOBENZAPRINE HCL 10 MG TABLET PO SCH (08:12)
[2016-06-07] MEDS: FOLIC ACID 1 MG TABLET PO SCH (08:12)
[2016-06-07] MEDS: MULTIVITAMINS WITH MINERALS, THERAPEUTIC TABLET PO SCH (08:13)
[2016-06-07] MEDS: SODIUM CHLORIDE 1 GM TABLET PO SCH ×3 (08:13→16:05)
[2016-06-07] MEDS: AmLODIPine BESYLATE 10 MG TABLET PO SCH (08:13)
[2016-06-07] MEDS: OMEPRAZOLE 20 MG CAPSULE PO SCH (08:13)
[2016-06-07] MEDS: PREGABALIN 50 MG CAPSULE PO SCH ×3 (08:14→16:06)
[2016-06-07] MEDS: NICOTINE 14 MG/24 HOUR PATCH TD SCH (08:14)
[2016-06-07 08:37] VITALS: BP 143/65
[2016-06-07] MEDS: CELECOXIB 100 MG CAPSULE PO PRN (08:37)
[2016-06-07 09:00] VITALS: BP 143/65
[2016-06-07 09:57] LABS: ALANINE AMINOTRANSFERASE 31 U/L (12-78); ALBUMIN 4.1 g/dL (3.4-5.0); ANION GAP 6 mmol/L (8-16); ASPARTATE AMINOTRANSFERASE 22 U/L (15-37); BILIRUBIN,TOTAL 0.2 mg/dL (0.1-1.0); CARBON DIOXIDE 31 mmol/L (22-29); CHLORIDE 95 mmol/L (98-107); CREATINE KINASE MB 2.1 ng/mL (0-5); CREATINE KINASE, TOTAL 197 U/L (26-192); CREATININE 0.96 mg/dL (0.60-1.30); GLOMERULAR FILTR. RATE CALC 59 mL/min (>60); POTASSIUM 4.5 mmol/L (3.5-5.1); SODIUM SERUM 132 mmol/L (136-145); TOTAL PROTEIN, SERUM 7.2 g/dL (6.4-8.2); UREA NITROGEN, BLOOD 15 mg/dL (7-18)
[2016-06-07] MEDS: LORazepam 2 MG TABLET PO PRN (15:11)
[2016-06-07 16:00] VITALS: BP 132/78
[2016-06-07] MEDS: PRAZOSIN HCL 1 MG CAPSULE PO SCH (20:18)
[2016-06-07] MEDS: ROPINIRole HCL 1 MG TABLET PO SCH (20:18)
[2016-06-08 04:40] VITALS: BP 102/79
[2016-06-08] MEDS: IBUPROFEN 400 MG TABLET PO PRN (04:42)
[2016-06-08] MEDS: DiphenhydrAMINE HCL 25 MG CAPSULE PO SCH ×2 (06:56→16:30)
[2016-06-08] MEDS: LORazepam 0.5 MG TABLET PO SCH ×3 (06:57→16:29)
[2016-06-08] MEDS: ZIPRASIDONE HCL 80 MG CAPSULE PO SCH ×2 (06:57→16:51)
[2016-06-08] MEDS: CYCLOBENZAPRINE HCL 10 MG TABLET PO SCH (08:06)
[2016-06-08] MEDS: LIDOCAINE HCL 5% TRANSDERMAL PATCH TD SCH (08:06)
[2016-06-08] MEDS: AmLODIPine BESYLATE 10 MG TABLET PO SCH (08:06)
[2016-06-08] MEDS: SODIUM CHLORIDE 1 GM TABLET PO SCH ×3 (08:07→16:29)
[2016-06-08] MEDS: OMEPRAZOLE 20 MG CAPSULE PO SCH (08:07)
[2016-06-08] MEDS: MULTIVITAMINS WITH MINERALS, THERAPEUTIC TABLET PO SCH (08:07)
[2016-06-08] MEDS: PREGABALIN 50 MG CAPSULE PO SCH ×3 (08:07→16:29)
[2016-06-08] MEDS: FOLIC ACID 1 MG TABLET PO SCH (08:07)
[2016-06-08] MEDS: LORazepam 2 MG TABLET PO PRN ×3 (08:08→17:20)
[2016-06-08 08:46] VITALS: BP 137/66
[2016-06-08 16:14] VITALS: BP 147/83
[2016-06-08] MEDS: PRAZOSIN HCL 1 MG CAPSULE PO SCH (20:04)
[2016-06-08] MEDS: ROPINIRole HCL 1 MG TABLET PO SCH (20:04)
[2016-06-09 04:14] VITALS: BP 130/71
[2016-06-09] MEDS: IBUPROFEN 400 MG TABLET PO PRN (05:55)
[2016-06-09] MEDS: DiphenhydrAMINE HCL 25 MG CAPSULE PO SCH ×2 (06:05→16:00)
[2016-06-09] MEDS: ZIPRASIDONE HCL 80 MG CAPSULE PO SCH ×2 (06:05→16:00)
[2016-06-09] MEDS: LORazepam 0.5 MG TABLET PO SCH ×3 (06:06→16:00)
[2016-06-09 08:09] VITALS: BP 138/65
[2016-06-09] MEDS: SODIUM CHLORIDE 1 GM TABLET PO SCH ×3 (09:30→16:00)
[2016-06-09] MEDS: LIDOCAINE HCL 5% TRANSDERMAL PATCH TD SCH (09:30)
[2016-06-09] MEDS: AmLODIPine BESYLATE 10 MG TABLET PO SCH (09:31)
[2016-06-09] MEDS: FOLIC ACID 1 MG TABLET PO SCH (09:31)
[2016-06-09] MEDS: MULTIVITAMINS WITH MINERALS, THERAPEUTIC TABLET PO SCH (09:31)
[2016-06-09] MEDS: PREGABALIN 50 MG CAPSULE PO SCH ×3 (09:31→16:01)
[2016-06-09] MEDS: LORazepam 2 MG TABLET PO PRN ×2 (09:32→13:39)
[2016-06-09] MEDS: CYCLOBENZAPRINE HCL 10 MG TABLET PO SCH (09:32)
[2016-06-09] MEDS: OMEPRAZOLE 20 MG CAPSULE PO SCH (09:32)
[2016-06-09] MEDS: FluPHENAZine HCL 5 MG TABLET PO PRN (12:50)
[2016-06-09 16:12] VITALS: BP 135/66
[2016-06-09] MEDS: ROPINIRole HCL 1 MG TABLET PO SCH (21:08)
[2016-06-09] MEDS: PRAZOSIN HCL 1 MG CAPSULE PO SCH (21:08)
[2016-06-10 03:12] VITALS: BP 109/66
[2016-06-10] MEDS: IBUPROFEN 400 MG TABLET PO PRN (03:15)
[2016-06-10] MEDS: ZIPRASIDONE HCL 80 MG CAPSULE PO SCH ×2 (06:12→17:11)
[2016-06-10] MEDS: LORazepam 0.5 MG TABLET PO SCH ×3 (06:12→18:00)
[2016-06-10] MEDS: DiphenhydrAMINE HCL 25 MG CAPSULE PO SCH ×2 (06:13→17:11)
[2016-06-10] MEDS: LIDOCAINE HCL 5% TRANSDERMAL PATCH TD SCH (08:04)
[2016-06-10] MEDS: FOLIC ACID 1 MG TABLET PO SCH (08:04)
[2016-06-10] MEDS: OMEPRAZOLE 20 MG CAPSULE PO SCH (08:05)
[2016-06-10] MEDS: MULTIVITAMINS WITH MINERALS, THERAPEUTIC TABLET PO SCH (08:05)
[2016-06-10] MEDS: CELECOXIB 100 MG CAPSULE PO PRN (08:05)
[2016-06-10] MEDS: SODIUM CHLORIDE 1 GM TABLET PO SCH ×3 (08:09→17:12)
[2016-06-10] MEDS: PREGABALIN 50 MG CAPSULE PO SCH ×3 (08:09→18:00)
[2016-06-10] MEDS: CYCLOBENZAPRINE HCL 10 MG TABLET PO SCH (08:09)
[2016-06-10] MEDS: AmLODIPine BESYLATE 10 MG TABLET PO SCH (08:13)
[2016-06-10 08:32] VITALS: BP 106/58
[2016-06-10 16:37] VITALS: BP 109/58
[2016-06-10] MEDS: PRAZOSIN HCL 1 MG CAPSULE PO SCH (20:26)
[2016-06-10] MEDS: ROPINIRole HCL 1 MG TABLET PO SCH (20:26)
[2016-06-11 00:08] VITALS: BP 121/64
[2016-06-11] MEDS: LORazepam 2 MG TABLET PO PRN ×2 (00:20→12:04)
[2016-06-11] MEDS: IBUPROFEN 400 MG TABLET PO PRN (00:21)
[2016-06-11] MEDS: DiphenhydrAMINE HCL 25 MG CAPSULE PO SCH ×2 (06:13→16:36)
[2016-06-11] MEDS: ZIPRASIDONE HCL 80 MG CAPSULE PO SCH ×2 (06:14→16:36)
[2016-06-11] MEDS: LORazepam 0.5 MG TABLET PO SCH ×3 (06:14→17:03)
[2016-06-11] MEDS: PREGABALIN 50 MG CAPSULE PO SCH ×3 (08:17→17:03)
[2016-06-11] MEDS: SODIUM CHLORIDE 1 GM TABLET PO SCH ×3 (08:17→16:36)
[2016-06-11] MEDS: AmLODIPine BESYLATE 10 MG TABLET PO SCH (08:17)
[2016-06-11] MEDS: OMEPRAZOLE 20 MG CAPSULE PO SCH (08:18)
[2016-06-11] MEDS: CYCLOBENZAPRINE HCL 10 MG TABLET PO SCH (08:19)
[2016-06-11] MEDS: FOLIC ACID 1 MG TABLET PO SCH (08:19)
[2016-06-11] MEDS: MULTIVITAMINS WITH MINERALS, THERAPEUTIC TABLET PO SCH (08:19)
[2016-06-11] MEDS: LIDOCAINE HCL 5% TRANSDERMAL PATCH TD SCH (08:20)
[2016-06-11 08:53] VITALS: BP 132/67
[2016-06-11] MEDS: CELECOXIB 100 MG CAPSULE PO PRN (12:05)
[2016-06-11 16:07] VITALS: BP 134/77
[2016-06-11] MEDS: PRAZOSIN HCL 1 MG CAPSULE PO SCH (20:17)
[2016-06-11] MEDS: ROPINIRole HCL 1 MG TABLET PO SCH (20:17)
[2016-06-12 04:05] VITALS: BP 132/69
[2016-06-12] MEDS: IBUPROFEN 400 MG TABLET PO PRN (04:09)
[2016-06-12] MEDS: LORazepam 0.5 MG TABLET PO SCH ×3 (06:08→16:37)
[2016-06-12] MEDS: DiphenhydrAMINE HCL 25 MG CAPSULE PO SCH ×2 (06:09→16:09)
[2016-06-12] MEDS: ZIPRASIDONE HCL 80 MG CAPSULE PO SCH ×2 (06:33→16:37)
[2016-06-12] MEDS: OMEPRAZOLE 20 MG CAPSULE PO SCH (08:07)
[2016-06-12] MEDS: CYCLOBENZAPRINE HCL 10 MG TABLET PO SCH (08:08)
[2016-06-12] MEDS: LIDOCAINE HCL 5% TRANSDERMAL PATCH TD SCH (08:09)
[2016-06-12] MEDS: AmLODIPine BESYLATE 10 MG TABLET PO SCH (08:09)
[2016-06-12] MEDS: FOLIC ACID 1 MG TABLET PO SCH (08:10)
[2016-06-12] MEDS: MULTIVITAMINS WITH MINERALS, THERAPEUTIC TABLET PO SCH (08:10)
[2016-06-12] MEDS: PREGABALIN 50 MG CAPSULE PO SCH ×3 (08:10→16:37)
[2016-06-12] MEDS: SODIUM CHLORIDE 1 GM TABLET PO SCH ×3 (08:10→16:08)
[2016-06-12 08:49] VITALS: BP 115/66
[2016-06-12] MEDS: LORazepam 2 MG TABLET PO PRN ×2 (09:11→13:59)
[2016-06-12] MEDS: FluPHENAZine HCL 5 MG TABLET PO PRN (13:31)
[2016-06-12 14:37] VITALS: BP 120/74
[2016-06-12] MEDS: CELECOXIB 100 MG CAPSULE PO PRN (14:37)
[2016-06-12 16:25] VITALS: BP 112/64
[2016-06-12] MEDS: PRAZOSIN HCL 1 MG CAPSULE PO SCH (20:29)
[2016-06-12] MEDS: ROPINIRole HCL 1 MG TABLET PO SCH (20:30)
[2016-06-13 04:15] VITALS: BP 111/70
[2016-06-13] MEDS: IBUPROFEN 400 MG TABLET PO PRN (04:28)
[2016-06-13] MEDS: LORazepam 2 MG TABLET PO PRN ×2 (04:40→09:29)
[2016-06-13] MEDS: LORazepam 0.5 MG TABLET PO SCH ×3 (06:05→17:10)
[2016-06-13] MEDS: DiphenhydrAMINE HCL 25 MG CAPSULE PO SCH ×2 (06:10→16:19)
[2016-06-13] MEDS: ZIPRASIDONE HCL 80 MG CAPSULE PO SCH ×2 (06:26→16:47)
[2016-06-13 08:53] VITALS: BP 114/68
[2016-06-13] MEDS: PREGABALIN 50 MG CAPSULE PO SCH ×3 (09:28→17:10)
[2016-06-13] MEDS: MULTIVITAMINS WITH MINERALS, THERAPEUTIC TABLET PO SCH (09:28)
[2016-06-13] MEDS: FOLIC ACID 1 MG TABLET PO SCH (09:28)
[2016-06-13] MEDS: OMEPRAZOLE 20 MG CAPSULE PO SCH (09:28)
[2016-06-13] MEDS: LIDOCAINE HCL 5% TRANSDERMAL PATCH TD SCH (09:28)
[2016-06-13] MEDS: CYCLOBENZAPRINE HCL 10 MG TABLET PO SCH (09:29)
[2016-06-13] MEDS: AmLODIPine BESYLATE 10 MG TABLET PO SCH (09:29)
[2016-06-13] MEDS: MAGNESIUM HYDROXIDE SUSPENSION 30 ML UDCUP PO PRN (09:30)
[2016-06-13] MEDS: FluPHENAZine HCL 5 MG TABLET PO PRN (09:47)
[2016-06-13 11:39] VITALS: BP 111/75
[2016-06-13] MEDS: CELECOXIB 100 MG CAPSULE PO PRN (11:41)
[2016-06-13 12:41] VITALS: BP 113/71
[2016-06-13 16:10] VITALS: BP 119/61
[2016-06-13] MEDS: ROPINIRole HCL 1 MG TABLET PO SCH (20:35)
[2016-06-13] MEDS: PRAZOSIN HCL 1 MG CAPSULE PO SCH (20:35)
[2016-06-14 04:16] VITALS: BP 111/65
[2016-06-14] MEDS: IBUPROFEN 400 MG TABLET PO PRN ×2 (04:19→13:36)
[2016-06-14] MEDS: ZIPRASIDONE HCL 80 MG CAPSULE PO SCH ×2 (06:31→16:10)
[2016-06-14] MEDS: DiphenhydrAMINE HCL 25 MG CAPSULE PO SCH ×2 (06:31→16:09)
[2016-06-14] MEDS: LORazepam 0.5 MG TABLET PO SCH ×3 (06:32→16:09)
[2016-06-14 08:02] VITALS: BP 130/68
[2016-06-14] MEDS: FOLIC ACID 1 MG TABLET PO SCH (08:21)
[2016-06-14] MEDS: LIDOCAINE HCL 5% TRANSDERMAL PATCH TD SCH (08:21)
[2016-06-14] MEDS: AmLODIPine BESYLATE 10 MG TABLET PO SCH (08:21)
[2016-06-14] MEDS: PREGABALIN 50 MG CAPSULE PO SCH ×3 (08:21→16:10)
[2016-06-14] MEDS: MULTIVITAMINS WITH MINERALS, THERAPEUTIC TABLET PO SCH (08:21)
[2016-06-14] MEDS: OMEPRAZOLE 20 MG CAPSULE PO SCH (08:21)
[2016-06-14] MEDS: CYCLOBENZAPRINE HCL 10 MG TABLET PO SCH (08:22)
[2016-06-14] MEDS: FluPHENAZine HCL 5 MG TABLET PO PRN (09:08)
[2016-06-14] MEDS: LORazepam 2 MG TABLET PO PRN (12:15)
[2016-06-14] MEDS: CELECOXIB 100 MG CAPSULE PO PRN (12:16)
[2016-06-14] MEDS: ACETAMINOPHEN 325 MG TABLET PO PRN (14:41)
[2016-06-14 16:30] VITALS: BP 132/70
[2016-06-14] MEDS: ROPINIRole HCL 1 MG TABLET PO SCH (20:46)
[2016-06-14] MEDS: PRAZOSIN HCL 1 MG CAPSULE PO SCH (20:46)
[2016-06-15 01:39] VITALS: BP 111/63
[2016-06-15] MEDS: DiphenhydrAMINE HCL 25 MG CAPSULE PO SCH ×2 (06:19→16:05)
[2016-06-15 06:20] VITALS: BP 121/72
[2016-06-15] MEDS: IBUPROFEN 400 MG TABLET PO PRN (06:20)
[2016-06-15] MEDS: LORazepam 0.5 MG TABLET PO SCH ×3 (06:20→16:06)
[2016-06-15] MEDS: ZIPRASIDONE HCL 80 MG CAPSULE PO SCH ×2 (06:54→16:05)
[2016-06-15] MEDS: AmLODIPine BESYLATE 10 MG TABLET PO SCH (08:34)
[2016-06-15] MEDS: OMEPRAZOLE 20 MG CAPSULE PO SCH (08:34)
[2016-06-15] MEDS: CYCLOBENZAPRINE HCL 10 MG TABLET PO SCH (08:34)
[2016-06-15] MEDS: LORazepam 2 MG TABLET PO PRN ×3 (08:35→22:33)
[2016-06-15] MEDS: MULTIVITAMINS WITH MINERALS, THERAPEUTIC TABLET PO SCH (08:35)
[2016-06-15] MEDS: PREGABALIN 50 MG CAPSULE PO SCH ×3 (08:35→16:05)
[2016-06-15] MEDS: LIDOCAINE HCL 5% TRANSDERMAL PATCH TD SCH (08:35)
[2016-06-15] MEDS: FOLIC ACID 1 MG TABLET PO SCH (08:36)
[2016-06-15 08:54] VITALS: BP 135/87
[2016-06-15] MEDS: CELECOXIB 100 MG CAPSULE PO PRN (10:26)
[2016-06-15] MEDS: FluPHENAZine HCL 5 MG TABLET PO PRN (14:45)
[2016-06-15 16:10] VITALS: BP 113/66
[2016-06-15] MEDS: PRAZOSIN HCL 1 MG CAPSULE PO SCH (20:09)
[2016-06-15] MEDS: ROPINIRole HCL 1 MG TABLET PO SCH (20:09)
[2016-06-16] MEDS: DiphenhydrAMINE HCL 25 MG CAPSULE PO SCH ×2 (06:13→16:07)
[2016-06-16] MEDS: ZIPRASIDONE HCL 80 MG CAPSULE PO SCH ×2 (06:13→16:45)
[2016-06-16] MEDS: LORazepam 0.5 MG TABLET PO SCH ×3 (06:13→16:06)
[2016-06-16 06:49] VITALS: BP 124/61
[2016-06-16 08:01] VITALS: BP 125/73
[2016-06-16] MEDS: PREGABALIN 50 MG CAPSULE PO SCH ×3 (08:01→16:06)
[2016-06-16] MEDS: CYCLOBENZAPRINE HCL 10 MG TABLET PO SCH (08:01)
[2016-06-16] MEDS: OMEPRAZOLE 20 MG CAPSULE PO SCH (08:01)
[2016-06-16] MEDS: IBUPROFEN 400 MG TABLET PO PRN (08:01)
[2016-06-16] MEDS: MULTIVITAMINS WITH MINERALS, THERAPEUTIC TABLET PO SCH (08:02)
[2016-06-16] MEDS: FOLIC ACID 1 MG TABLET PO SCH (08:02)
[2016-06-16] MEDS: AmLODIPine BESYLATE 10 MG TABLET PO SCH (08:02)
[2016-06-16] MEDS: LIDOCAINE HCL 5% TRANSDERMAL PATCH TD SCH (08:06)
[2016-06-16 08:29] VITALS: BP 125/73
[2016-06-16] MEDS: FluPHENAZine HCL 5 MG TABLET PO PRN (10:44)
[2016-06-16] MEDS: LORazepam 2 MG TABLET PO PRN (10:45)
[2016-06-16] MEDS: ACETAMINOPHEN 325 MG TABLET PO PRN (14:27)
[2016-06-16 15:27] VITALS: BP 119/61
[2016-06-16 16:29] VITALS: BP 119/61
[2016-06-16] MEDS: PRAZOSIN HCL 1 MG CAPSULE PO SCH (20:08)
[2016-06-16] MEDS: ROPINIRole HCL 1 MG TABLET PO SCH (20:09)
[2016-06-17] MEDS: ZIPRASIDONE HCL 80 MG CAPSULE PO SCH ×2 (06:25→16:45)
[2016-06-17] MEDS: LORazepam 0.5 MG TABLET PO SCH ×3 (06:25→16:45)
[2016-06-17] MEDS: DiphenhydrAMINE HCL 25 MG CAPSULE PO SCH ×2 (06:25→16:45)
[2016-06-17 06:45] VITALS: BP 116/64
[2016-06-17 07:59] VITALS: BP 106/59
[2016-06-17 08:00] VITALS: BP 106/59
[2016-06-17] MEDS: PREGABALIN 50 MG CAPSULE PO SCH ×3 (08:27→17:14)
[2016-06-17] MEDS: MULTIVITAMINS WITH MINERALS, THERAPEUTIC TABLET PO SCH (08:27)
[2016-06-17] MEDS: FluPHENAZine HCL 5 MG TABLET PO PRN (08:27)
[2016-06-17] MEDS: FOLIC ACID 1 MG TABLET PO SCH (08:27)
[2016-06-17] MEDS: OMEPRAZOLE 20 MG CAPSULE PO SCH (08:27)
[2016-06-17] MEDS: LORazepam 2 MG TABLET PO PRN ×2 (08:28→16:45)
[2016-06-17] MEDS: CYCLOBENZAPRINE HCL 10 MG TABLET PO SCH (08:28)
[2016-06-17] MEDS: LIDOCAINE HCL 5% TRANSDERMAL PATCH TD SCH (08:29)
[2016-06-17] MEDS: ACETAMINOPHEN 325 MG TABLET PO PRN (08:29)
[2016-06-17] MEDS: AmLODIPine BESYLATE 10 MG TABLET PO SCH (09:49)
[2016-06-17] MEDS: CELECOXIB 100 MG CAPSULE PO PRN (09:56)
[2016-06-17 16:45] VITALS: BP_SYST 127; BP_SYST 137; BP_DIAS 71
[2016-06-17] MEDS: IBUPROFEN 400 MG TABLET PO PRN (16:45)
[2016-06-17 20:41] VITALS: BP 103/69
[2016-06-17] MEDS: ROPINIRole HCL 1 MG TABLET PO SCH (20:50)
[2016-06-17] MEDS: PRAZOSIN HCL 1 MG CAPSULE PO SCH (20:50)
[2016-06-18 02:15] VITALS: BP 106/62
[2016-06-18] MEDS: IBUPROFEN 400 MG TABLET PO PRN (02:32)
[2016-06-18] MEDS: DiphenhydrAMINE HCL 25 MG CAPSULE PO SCH ×2 (06:49→16:02)
[2016-06-18] MEDS: ZIPRASIDONE HCL 80 MG CAPSULE PO SCH ×2 (06:49→16:47)
[2016-06-18] MEDS: LORazepam 0.5 MG TABLET PO SCH ×3 (06:49→16:02)
[2016-06-18] MEDS: LORazepam 2 MG TABLET PO PRN ×2 (07:24→16:46)
[2016-06-18] MEDS: FOLIC ACID 1 MG TABLET PO SCH (08:07)
[2016-06-18] MEDS: PREGABALIN 50 MG CAPSULE PO SCH ×3 (08:07→16:02)
[2016-06-18] MEDS: CYCLOBENZAPRINE HCL 10 MG TABLET PO SCH (08:08)
[2016-06-18] MEDS: MULTIVITAMINS WITH MINERALS, THERAPEUTIC TABLET PO SCH (08:08)
[2016-06-18] MEDS: OMEPRAZOLE 20 MG CAPSULE PO SCH (08:08)
[2016-06-18] MEDS: AmLODIPine BESYLATE 10 MG TABLET PO SCH (08:08)
[2016-06-18 08:09] VITALS: BP 112/62
[2016-06-18] MEDS: LIDOCAINE HCL 5% TRANSDERMAL PATCH TD SCH (08:09)
[2016-06-18 16:44] VITALS: BP 143/72
[2016-06-18] MEDS: PRAZOSIN HCL 1 MG CAPSULE PO SCH (20:09)
[2016-06-18] MEDS: ROPINIRole HCL 1 MG TABLET PO SCH (20:09)
[2016-06-19 04:47] VITALS: BP 130/78
[2016-06-19] MEDS: IBUPROFEN 400 MG TABLET PO PRN (04:50)
[2016-06-19] MEDS: DiphenhydrAMINE HCL 25 MG CAPSULE PO SCH ×2 (05:57→16:01)
[2016-06-19] MEDS: LORazepam 0.5 MG TABLET PO SCH ×3 (05:58→16:22)
[2016-06-19] MEDS: ZIPRASIDONE HCL 80 MG CAPSULE PO SCH ×2 (06:31→16:37)
[2016-06-19] MEDS: LORazepam 2 MG TABLET PO PRN (08:09)
[2016-06-19] MEDS: PREGABALIN 50 MG CAPSULE PO SCH ×3 (08:13→16:58)
[2016-06-19] MEDS: CYCLOBENZAPRINE HCL 10 MG TABLET PO SCH (08:13)
[2016-06-19] MEDS: LIDOCAINE HCL 5% TRANSDERMAL PATCH TD SCH (08:13)
[2016-06-19] MEDS: FOLIC ACID 1 MG TABLET PO SCH (08:13)
[2016-06-19] MEDS: OMEPRAZOLE 20 MG CAPSULE PO SCH (08:13)
[2016-06-19] MEDS: AmLODIPine BESYLATE 10 MG TABLET PO SCH (08:13)
[2016-06-19] MEDS: MULTIVITAMINS WITH MINERALS, THERAPEUTIC TABLET PO SCH (08:14)
[2016-06-19 08:20] VITALS: BP 135/75
[2016-06-19] MEDS: CELECOXIB 100 MG CAPSULE PO PRN ×2 (08:31→16:22)
[2016-06-19 16:22] VITALS: BP 131/85
[2016-06-19 16:28] VITALS: BP 131/85
[2016-06-19] MEDS: PRAZOSIN HCL 1 MG CAPSULE PO SCH (20:25)
[2016-06-19] MEDS: ROPINIRole HCL 1 MG TABLET PO SCH (20:25)
[2016-06-20] MEDS: LORazepam 2 MG TABLET PO PRN ×3 (03:57→14:54)
[2016-06-20 04:24] VITALS: BP 119/72
[2016-06-20 05:48] VITALS: BP 122/76
[2016-06-20] MEDS: LORazepam 0.5 MG TABLET PO SCH ×3 (05:50→17:31)
[2016-06-20] MEDS: DiphenhydrAMINE HCL 25 MG CAPSULE PO SCH ×2 (05:51→16:32)
[2016-06-20] MEDS: IBUPROFEN 400 MG TABLET PO PRN (05:51)
[2016-06-20] MEDS: ZIPRASIDONE HCL 80 MG CAPSULE PO SCH ×2 (06:45→16:32)
[2016-06-20 08:10] LABS: ANION GAP 9 mmol/L (8-16); CALCIUM, TOTAL 9.1 mg/dL (8.8-10.5); CARBON DIOXIDE 28 mmol/L (22-29); CHLORIDE 99 mmol/L (98-107); GLOMERULAR FILTR. RATE CALC > 60 mL/min (>60); POTASSIUM 4.3 mmol/L (3.5-5.1); SODIUM SERUM 136 mmol/L (136-145); THYROID STIMULATING HORMONE 1.99 uIU/mL (0.36-3.74); UREA NITROGEN, BLOOD 20 mg/dL (7-18)
[2016-06-20 08:29] VITALS: BP 106/66
[2016-06-20] MEDS: FOLIC ACID 1 MG TABLET PO SCH (09:06)
[2016-06-20] MEDS: LIDOCAINE HCL 5% TRANSDERMAL PATCH TD SCH (09:06)
[2016-06-20] MEDS: OMEPRAZOLE 20 MG CAPSULE PO SCH (09:06)
[2016-06-20] MEDS: AmLODIPine BESYLATE 10 MG TABLET PO SCH (09:06)
[2016-06-20] MEDS: MULTIVITAMINS WITH MINERALS, THERAPEUTIC TABLET PO SCH (09:06)
[2016-06-20] MEDS: PREGABALIN 50 MG CAPSULE PO SCH ×3 (09:07→17:06)
[2016-06-20] MEDS: FluPHENAZine HCL 5 MG TABLET PO PRN ×2 (09:07→14:54)
[2016-06-20] MEDS: CYCLOBENZAPRINE HCL 10 MG TABLET PO SCH (09:07)
[2016-06-20] MEDS: MAGNESIUM HYDROXIDE SUSPENSION 30 ML UDCUP PO PRN (09:08)
[2016-06-20 16:00] VITALS: BP 124/66
[2016-06-20] MEDS: ROPINIRole HCL 1 MG TABLET PO SCH (20:13)
[2016-06-20] MEDS: PRAZOSIN HCL 1 MG CAPSULE PO SCH (20:13)
[2016-06-21 01:50] VITALS: BP 126/71
[2016-06-21] MEDS: IBUPROFEN 400 MG TABLET PO PRN (01:53)
[2016-06-21] MEDS: MAGNESIUM HYDROXIDE SUSPENSION 30 ML UDCUP PO PRN (05:25)
[2016-06-21] MEDS: LORazepam 0.5 MG TABLET PO SCH ×3 (06:06→16:56)
[2016-06-21] MEDS: DiphenhydrAMINE HCL 25 MG CAPSULE PO SCH ×2 (06:06→16:57)
[2016-06-21] MEDS: ZIPRASIDONE HCL 80 MG CAPSULE PO SCH ×2 (06:38→16:57)
[2016-06-21] MEDS: CELECOXIB 100 MG CAPSULE PO PRN (08:02)
[2016-06-21] MEDS: LORazepam 2 MG TABLET PO PRN ×3 (08:02→20:10)
[2016-06-21] MEDS: CYCLOBENZAPRINE HCL 10 MG TABLET PO SCH (08:04)
[2016-06-21] MEDS: OMEPRAZOLE 20 MG CAPSULE PO SCH (08:05)
[2016-06-21] MEDS: AmLODIPine BESYLATE 10 MG TABLET PO SCH (08:06)
[2016-06-21] MEDS: PREGABALIN 50 MG CAPSULE PO SCH ×3 (08:06→16:57)
[2016-06-21] MEDS: FOLIC ACID 1 MG TABLET PO SCH (08:06)
[2016-06-21] MEDS: MULTIVITAMINS WITH MINERALS, THERAPEUTIC TABLET PO SCH (08:06)
[2016-06-21] MEDS: LIDOCAINE HCL 5% TRANSDERMAL PATCH TD SCH (08:07)
[2016-06-21 08:41] VITALS: BP 110/60
[2016-06-21] MEDS: MAGNESIUM CITRATE 300 ML ORAL SOLUTION PO PRN (10:33)
[2016-06-21 16:13] VITALS: BP 118/63
[2016-06-21 19:57] VITALS: BP 133/86
[2016-06-21] MEDS: PRAZOSIN HCL 1 MG CAPSULE PO SCH (20:18)
[2016-06-21] MEDS: ROPINIRole HCL 1 MG TABLET PO SCH (20:18)
[2016-06-22 05:50] VITALS: BP 131/78
[2016-06-22] MEDS: IBUPROFEN 400 MG TABLET PO PRN (05:52)
[2016-06-22] MEDS: LORazepam 0.5 MG TABLET PO SCH ×3 (05:54→16:07)
[2016-06-22] MEDS: DiphenhydrAMINE HCL 25 MG CAPSULE PO SCH ×2 (05:55→16:07)
[2016-06-22] MEDS: ZIPRASIDONE HCL 80 MG CAPSULE PO SCH ×2 (06:59→17:04)
[2016-06-22] MEDS: LIDOCAINE HCL 5% TRANSDERMAL PATCH TD SCH (08:08)
[2016-06-22] MEDS: AmLODIPine BESYLATE 10 MG TABLET PO SCH (08:08)
[2016-06-22] MEDS: OMEPRAZOLE 20 MG CAPSULE PO SCH (08:08)
[2016-06-22] MEDS: CYCLOBENZAPRINE HCL 10 MG TABLET PO SCH (08:09)
[2016-06-22] MEDS: FOLIC ACID 1 MG TABLET PO SCH (08:09)
[2016-06-22] MEDS: PREGABALIN 50 MG CAPSULE PO SCH ×3 (08:09→16:07)
[2016-06-22] MEDS: FluPHENAZine HCL 5 MG TABLET PO PRN ×2 (08:09→13:16)
[2016-06-22] MEDS: MULTIVITAMINS WITH MINERALS, THERAPEUTIC TABLET PO SCH (08:09)
[2016-06-22 08:46] VITALS: BP 115/68
[2016-06-22 16:23] VITALS: BP 116/65
[2016-06-22] MEDS: ROPINIRole HCL 1 MG TABLET PO SCH (20:21)
[2016-06-22] MEDS: PRAZOSIN HCL 1 MG CAPSULE PO SCH (20:21)
[2016-06-23 00:39] VITALS: BP 101/62
[2016-06-23] MEDS: IBUPROFEN 400 MG TABLET PO PRN (00:43)
[2016-06-23] MEDS: LORazepam 0.5 MG TABLET PO SCH ×3 (06:32→16:33)
[2016-06-23] MEDS: DiphenhydrAMINE HCL 25 MG CAPSULE PO SCH ×2 (06:34→16:33)
[2016-06-23] MEDS: ZIPRASIDONE HCL 80 MG CAPSULE PO SCH ×2 (06:34→16:33)
[2016-06-23] MEDS: AmLODIPine BESYLATE 10 MG TABLET PO SCH (08:13)
[2016-06-23] MEDS: LORazepam 2 MG TABLET PO PRN (08:13)
[2016-06-23] MEDS: FOLIC ACID 1 MG TABLET PO SCH (08:14)
[2016-06-23] MEDS: MULTIVITAMINS WITH MINERALS, THERAPEUTIC TABLET PO SCH (08:14)
[2016-06-23] MEDS: OMEPRAZOLE 20 MG CAPSULE PO SCH (08:14)
[2016-06-23] MEDS: PREGABALIN 50 MG CAPSULE PO SCH ×3 (08:19→16:33)
[2016-06-23] MEDS: CYCLOBENZAPRINE HCL 10 MG TABLET PO SCH (08:19)
[2016-06-23] MEDS: LIDOCAINE HCL 5% TRANSDERMAL PATCH TD SCH (08:20)
[2016-06-23 08:26] VITALS: BP 111/61
[2016-06-23 16:09] VITALS: BP 118/66
[2016-06-23] MEDS: PRAZOSIN HCL 1 MG CAPSULE PO SCH (20:08)
[2016-06-23] MEDS: ROPINIRole HCL 1 MG TABLET PO SCH (20:09)
[2016-06-24 05:07] VITALS: BP 115/78
[2016-06-24] MEDS: IBUPROFEN 400 MG TABLET PO PRN ×2 (05:08→16:24)
[2016-06-24] MEDS: DiphenhydrAMINE HCL 25 MG CAPSULE PO SCH ×2 (06:13→16:23)
[2016-06-24] MEDS: LORazepam 0.5 MG TABLET PO SCH ×3 (06:13→16:23)
[2016-06-24] MEDS: ZIPRASIDONE HCL 80 MG CAPSULE PO SCH ×2 (06:48→16:23)
[2016-06-24] MEDS: LORazepam 2 MG TABLET PO PRN ×3 (07:57→22:24)
[2016-06-24] MEDS: LIDOCAINE HCL 5% TRANSDERMAL PATCH TD SCH (07:59)
[2016-06-24] MEDS: CYCLOBENZAPRINE HCL 10 MG TABLET PO SCH (08:00)
[2016-06-24] MEDS: AmLODIPine BESYLATE 10 MG TABLET PO SCH (08:00)
[2016-06-24] MEDS: OMEPRAZOLE 20 MG CAPSULE PO SCH (08:00)
[2016-06-24] MEDS: MULTIVITAMINS WITH MINERALS, THERAPEUTIC TABLET PO SCH (08:00)
[2016-06-24] MEDS: PREGABALIN 50 MG CAPSULE PO SCH ×3 (08:00→16:24)
[2016-06-24] MEDS: FOLIC ACID 1 MG TABLET PO SCH (08:00)
[2016-06-24 08:34] VITALS: BP 120/77
[2016-06-24] MEDS: CELECOXIB 100 MG CAPSULE PO PRN (12:06)
[2016-06-24 16:15] VITALS: BP 125/90
[2016-06-24] MEDS: ROPINIRole HCL 1 MG TABLET PO SCH (20:01)
[2016-06-24] MEDS: PRAZOSIN HCL 1 MG CAPSULE PO SCH (20:01)
[2016-06-25 05:20] VITALS: BP 126/79
[2016-06-25] MEDS: IBUPROFEN 400 MG TABLET PO PRN (05:27)
[2016-06-25] MEDS: ZIPRASIDONE HCL 80 MG CAPSULE PO SCH ×2 (06:47→17:04)
[2016-06-25] MEDS: LORazepam 0.5 MG TABLET PO SCH ×3 (06:47→16:11)
[2016-06-25] MEDS: DiphenhydrAMINE HCL 25 MG CAPSULE PO SCH ×2 (06:48→16:11)
[2016-06-25 08:47] VITALS: BP 139/68
[2016-06-25] MEDS: FOLIC ACID 1 MG TABLET PO SCH (08:56)
[2016-06-25] MEDS: CYCLOBENZAPRINE HCL 10 MG TABLET PO SCH (08:56)
[2016-06-25] MEDS: LIDOCAINE HCL 5% TRANSDERMAL PATCH TD SCH (08:56)
[2016-06-25 08:57] VITALS: BP 139/68
[2016-06-25] MEDS: AmLODIPine BESYLATE 10 MG TABLET PO SCH (08:57)
[2016-06-25] MEDS: PREGABALIN 50 MG CAPSULE PO SCH ×3 (08:57→16:11)
[2016-06-25] MEDS: MULTIVITAMINS WITH MINERALS, THERAPEUTIC TABLET PO SCH (08:57)
[2016-06-25] MEDS: LORazepam 2 MG TABLET PO PRN ×2 (08:57→17:05)
[2016-06-25] MEDS: OMEPRAZOLE 20 MG CAPSULE PO SCH (08:57)
[2016-06-25] MEDS: CELECOXIB 100 MG CAPSULE PO PRN (08:59)
[2016-06-25] MEDS: ACETAMINOPHEN 325 MG TABLET PO PRN (10:52)
[2016-06-25] MEDS: FluPHENAZine HCL 5 MG TABLET PO PRN (13:05)
[2016-06-25 13:17] VITALS: BP 139/68
[2016-06-25 16:21] VITALS: BP 125/67
[2016-06-25] MEDS: PRAZOSIN HCL 1 MG CAPSULE PO SCH (20:15)
[2016-06-25] MEDS: ROPINIRole HCL 1 MG TABLET PO SCH (20:15)
[2016-06-26 05:39] VITALS: BP 137/96
[2016-06-26] MEDS: MAGNESIUM HYDROXIDE SUSPENSION 30 ML UDCUP PO PRN (05:44)
[2016-06-26] MEDS: DiphenhydrAMINE HCL 25 MG CAPSULE PO SCH ×2 (05:45→16:03)
[2016-06-26] MEDS: LORazepam 0.5 MG TABLET PO SCH ×3 (05:45→17:00)
[2016-06-26] MEDS: ZIPRASIDONE HCL 80 MG CAPSULE PO SCH ×2 (06:34→16:31)
[2016-06-26 08:32] VITALS: BP 116/68
[2016-06-26] MEDS: LIDOCAINE HCL 5% TRANSDERMAL PATCH TD SCH (09:16)
[2016-06-26] MEDS: OMEPRAZOLE 20 MG CAPSULE PO SCH (09:16)
[2016-06-26] MEDS: AmLODIPine BESYLATE 10 MG TABLET PO SCH (09:16)
[2016-06-26] MEDS: FOLIC ACID 1 MG TABLET PO SCH (09:16)
[2016-06-26] MEDS: MULTIVITAMINS WITH MINERALS, THERAPEUTIC TABLET PO SCH (09:17)
[2016-06-26] MEDS: PREGABALIN 50 MG CAPSULE PO SCH ×3 (09:17→17:00)
[2016-06-26] MEDS: FluPHENAZine HCL 5 MG TABLET PO PRN (09:18)
[2016-06-26] MEDS: CYCLOBENZAPRINE HCL 10 MG TABLET PO SCH (09:18)
[2016-06-26] MEDS: LORazepam 2 MG TABLET PO PRN (09:18)
[2016-06-26] MEDS: MAGNESIUM CITRATE 300 ML ORAL SOLUTION PO PRN (09:32)
[2016-06-26 16:14] VITALS: BP 118/66
[2016-06-26 20:20] VITALS: BP 120/70
[2016-06-26] MEDS: PRAZOSIN HCL 1 MG CAPSULE PO SCH (20:22)
[2016-06-26] MEDS: ROPINIRole HCL 1 MG TABLET PO SCH (20:22)
[2016-06-27 05:22] VITALS: BP 112/65
[2016-06-27] MEDS: LORazepam 0.5 MG TABLET PO SCH ×3 (05:47→16:20)
[2016-06-27] MEDS: DiphenhydrAMINE HCL 25 MG CAPSULE PO SCH ×2 (05:47→16:20)
[2016-06-27] MEDS: ZIPRASIDONE HCL 80 MG CAPSULE PO SCH ×2 (06:43→16:21)
[2016-06-27] MEDS: MULTIVITAMINS WITH MINERALS, THERAPEUTIC TABLET PO SCH (08:04)
[2016-06-27] MEDS: FOLIC ACID 1 MG TABLET PO SCH (08:05)
[2016-06-27] MEDS: AmLODIPine BESYLATE 10 MG TABLET PO SCH (08:05)
[2016-06-27] MEDS: CYCLOBENZAPRINE HCL 10 MG TABLET PO SCH (08:05)
[2016-06-27] MEDS: PREGABALIN 50 MG CAPSULE PO SCH ×3 (08:05→16:21)
[2016-06-27] MEDS: LIDOCAINE HCL 5% TRANSDERMAL PATCH TD SCH (08:06)
[2016-06-27] MEDS: LORazepam 2 MG TABLET PO PRN ×2 (08:06→20:39)
[2016-06-27] MEDS: IBUPROFEN 400 MG TABLET PO PRN (08:07)
[2016-06-27] MEDS: OMEPRAZOLE 20 MG CAPSULE PO SCH (08:11)
[2016-06-27 08:57] VITALS: BP 121/70
[2016-06-27 16:10] VITALS: BP 116/59
[2016-06-27] MEDS: PRAZOSIN HCL 1 MG CAPSULE PO SCH (20:11)
[2016-06-27] MEDS: ROPINIRole HCL 1 MG TABLET PO SCH (20:11)
[2016-06-28] MEDS: IBUPROFEN 400 MG TABLET PO PRN (04:58)
[2016-06-28] MEDS: DiphenhydrAMINE HCL 25 MG CAPSULE PO SCH ×2 (06:11→16:17)
[2016-06-28] MEDS: LORazepam 0.5 MG TABLET PO SCH ×3 (06:11→16:17)
[2016-06-28 06:12] VITALS: BP 112/62
[2016-06-28] MEDS: ZIPRASIDONE HCL 80 MG CAPSULE PO SCH ×2 (06:56→16:17)
[2016-06-28] MEDS: FOLIC ACID 1 MG TABLET PO SCH (08:21)
[2016-06-28] MEDS: MULTIVITAMINS WITH MINERALS, THERAPEUTIC TABLET PO SCH (08:21)
[2016-06-28] MEDS: CYCLOBENZAPRINE HCL 10 MG TABLET PO SCH (08:21)
[2016-06-28] MEDS: AmLODIPine BESYLATE 10 MG TABLET PO SCH (08:21)
[2016-06-28] MEDS: LIDOCAINE HCL 5% TRANSDERMAL PATCH TD SCH (08:21)
[2016-06-28] MEDS: PREGABALIN 50 MG CAPSULE PO SCH ×3 (08:22→16:17)
[2016-06-28] MEDS: OMEPRAZOLE 20 MG CAPSULE PO SCH (08:22)
[2016-06-28] MEDS: FluPHENAZine HCL 5 MG TABLET PO PRN (08:22)
[2016-06-28] MEDS: LORazepam 2 MG TABLET PO PRN ×2 (08:22→13:58)
[2016-06-28 08:40] VITALS: BP 116/71
[2016-06-28 16:00] VITALS: BP 128/80
[2016-06-28] MEDS: PRAZOSIN HCL 1 MG CAPSULE PO SCH (20:15)
[2016-06-28] MEDS: ROPINIRole HCL 1 MG TABLET PO SCH (20:15)
[2016-06-29 03:44] VITALS: BP 122/64
[2016-06-29] MEDS: IBUPROFEN 400 MG TABLET PO PRN (03:48)
[2016-06-29] MEDS: LORazepam 0.5 MG TABLET PO SCH ×3 (06:18→16:16)
[2016-06-29] MEDS: DiphenhydrAMINE HCL 25 MG CAPSULE PO SCH ×2 (06:18→16:16)
[2016-06-29] MEDS: ZIPRASIDONE HCL 80 MG CAPSULE PO SCH ×2 (06:18→16:16)
[2016-06-29 08:34] VITALS: BP 138/71
[2016-06-29] MEDS: CYCLOBENZAPRINE HCL 10 MG TABLET PO SCH (08:49)
[2016-06-29] MEDS: LORazepam 2 MG TABLET PO PRN (08:49)
[2016-06-29] MEDS: FOLIC ACID 1 MG TABLET PO SCH (08:49)
[2016-06-29] MEDS: PREGABALIN 50 MG CAPSULE PO SCH ×3 (08:50→16:16)
[2016-06-29] MEDS: MULTIVITAMINS WITH MINERALS, THERAPEUTIC TABLET PO SCH (08:50)
[2016-06-29] MEDS: OMEPRAZOLE 20 MG CAPSULE PO SCH (08:50)
[2016-06-29] MEDS: AmLODIPine BESYLATE 10 MG TABLET PO SCH (08:50)
[2016-06-29] MEDS: LIDOCAINE HCL 5% TRANSDERMAL PATCH TD SCH (08:50)
[2016-06-29] MEDS: CELECOXIB 100 MG CAPSULE PO PRN (13:02)
[2016-06-29 16:15] VITALS: BP 113/66
[2016-06-29] MEDS: ROPINIRole HCL 1 MG TABLET PO SCH (20:14)
[2016-06-29] MEDS: PRAZOSIN HCL 1 MG CAPSULE PO SCH (20:14)
[2016-06-30] MEDS: LORazepam 0.5 MG TABLET PO SCH ×3 (06:11→16:23)
[2016-06-30] MEDS: DiphenhydrAMINE HCL 25 MG CAPSULE PO SCH ×2 (06:11→16:23)
[2016-06-30] MEDS: ZIPRASIDONE HCL 80 MG CAPSULE PO SCH ×2 (06:12→17:06)
[2016-06-30 07:13] VITALS: BP 115/68
[2016-06-30] MEDS: MULTIVITAMINS WITH MINERALS, THERAPEUTIC TABLET PO SCH (08:08)
[2016-06-30] MEDS: FOLIC ACID 1 MG TABLET PO SCH (08:08)
[2016-06-30] MEDS: AmLODIPine BESYLATE 10 MG TABLET PO SCH (08:08)
[2016-06-30] MEDS: PREGABALIN 50 MG CAPSULE PO SCH ×3 (08:08→16:23)
[2016-06-30] MEDS: OMEPRAZOLE 20 MG CAPSULE PO SCH (08:09)
[2016-06-30] MEDS: CYCLOBENZAPRINE HCL 10 MG TABLET PO SCH (08:09)
[2016-06-30] MEDS: LIDOCAINE HCL 5% TRANSDERMAL PATCH TD SCH (08:12)
[2016-06-30 08:41] VITALS: BP 123/73
[2016-06-30] MEDS: CELECOXIB 100 MG CAPSULE PO PRN (09:10)
[2016-06-30] MEDS: LORazepam 2 MG TABLET PO PRN (09:30)
[2016-06-30 16:09] VITALS: BP 112/69
[2016-06-30] MEDS: PRAZOSIN HCL 1 MG CAPSULE PO SCH (20:03)
[2016-06-30] MEDS: ROPINIRole HCL 1 MG TABLET PO SCH (20:03)
[2016-07-01 02:30] VITALS: BP 111/74
[2016-07-01] MEDS: LORazepam 2 MG TABLET PO PRN ×3 (02:32→22:09)
[2016-07-01] MEDS: IBUPROFEN 400 MG TABLET PO PRN (06:06)
[2016-07-01] MEDS: LORazepam 0.5 MG TABLET PO SCH ×3 (06:06→16:46)
[2016-07-01] MEDS: ZIPRASIDONE HCL 80 MG CAPSULE PO SCH ×2 (06:06→16:46)
[2016-07-01] MEDS: DiphenhydrAMINE HCL 25 MG CAPSULE PO SCH ×2 (06:06→16:05)
[2016-07-01 08:41] VITALS: BP 122/70
[2016-07-01 08:42] VITALS: BP 122/70
[2016-07-01] MEDS: LIDOCAINE HCL 5% TRANSDERMAL PATCH TD SCH (08:43)
[2016-07-01] MEDS: OMEPRAZOLE 20 MG CAPSULE PO SCH (08:43)
[2016-07-01] MEDS: CELECOXIB 100 MG CAPSULE PO PRN (08:44)
[2016-07-01] MEDS: PREGABALIN 50 MG CAPSULE PO SCH ×3 (08:44→16:46)
[2016-07-01] MEDS: CYCLOBENZAPRINE HCL 10 MG TABLET PO SCH (08:44)
[2016-07-01] MEDS: FOLIC ACID 1 MG TABLET PO SCH (08:44)
[2016-07-01] MEDS: AmLODIPine BESYLATE 10 MG TABLET PO SCH (08:45)
[2016-07-01] MEDS: FluPHENAZine HCL 5 MG TABLET PO PRN (08:45)
[2016-07-01] MEDS: MULTIVITAMINS WITH MINERALS, THERAPEUTIC TABLET PO SCH (08:45)
[2016-07-01] MEDS: MAG HYDROX/AL HYDROX/SIMETH ES 30 ML SUSPENSION UDCUP PO PRN (09:32)
[2016-07-01 16:12] VITALS: BP 122/78
[2016-07-01 20:21] VITALS: BP 110/86
[2016-07-01] MEDS: PRAZOSIN HCL 1 MG CAPSULE PO SCH (20:22)
[2016-07-01] MEDS: ROPINIRole HCL 1 MG TABLET PO SCH (20:22)
[2016-07-02] MEDS: DiphenhydrAMINE HCL 25 MG CAPSULE PO SCH ×2 (06:34→16:13)
[2016-07-02] MEDS: LORazepam 0.5 MG TABLET PO SCH ×3 (06:34→16:13)
[2016-07-02] MEDS: ZIPRASIDONE HCL 80 MG CAPSULE PO SCH ×2 (06:34→16:58)
[2016-07-02] MEDS: IBUPROFEN 400 MG TABLET PO PRN (06:42)
[2016-07-02] MEDS: LORazepam 2 MG TABLET PO PRN (08:15)
[2016-07-02] MEDS: FluPHENAZine HCL 5 MG TABLET PO PRN (08:15)
[2016-07-02] MEDS: CELECOXIB 100 MG CAPSULE PO PRN ×2 (08:15→16:20)
[2016-07-02] MEDS: LIDOCAINE HCL 5% TRANSDERMAL PATCH TD SCH (08:17)
[2016-07-02] MEDS: AmLODIPine BESYLATE 10 MG TABLET PO SCH (08:18)
[2016-07-02] MEDS: MULTIVITAMINS WITH MINERALS, THERAPEUTIC TABLET PO SCH (08:18)
[2016-07-02] MEDS: FOLIC ACID 1 MG TABLET PO SCH (08:18)
[2016-07-02] MEDS: CYCLOBENZAPRINE HCL 10 MG TABLET PO SCH (08:18)
[2016-07-02] MEDS: OMEPRAZOLE 20 MG CAPSULE PO SCH (08:18)
[2016-07-02] MEDS: PREGABALIN 50 MG CAPSULE PO SCH ×3 (08:18→16:13)
[2016-07-02 08:51] VITALS: BP 134/73
[2016-07-02] MEDS ORDERED: HYDROCODONE/ACETAMINOPHEN 5-325 MG TABLET PO ONE (09:30)
[2016-07-02 16:09] VITALS: BP 130/80
[2016-07-02 17:20] VITALS: BP 135/78
[2016-07-02] MEDS: PRAZOSIN HCL 1 MG CAPSULE PO SCH (20:02)
[2016-07-02] MEDS: ROPINIRole HCL 1 MG TABLET PO SCH (20:02)
[2016-07-03] MEDS: DiphenhydrAMINE HCL 25 MG CAPSULE PO SCH ×2 (06:39→16:04)
[2016-07-03] MEDS: ZIPRASIDONE HCL 80 MG CAPSULE PO SCH ×2 (06:39→16:42)
[2016-07-03] MEDS: LORazepam 0.5 MG TABLET PO SCH ×3 (06:39→16:04)
[2016-07-03] MEDS: IBUPROFEN 400 MG TABLET PO PRN ×2 (06:40→22:31)
[2016-07-03] MEDS: AmLODIPine BESYLATE 10 MG TABLET PO SCH (08:10)
[2016-07-03] MEDS: OMEPRAZOLE 20 MG CAPSULE PO SCH (08:10)
[2016-07-03] MEDS: CYCLOBENZAPRINE HCL 10 MG TABLET PO SCH (08:10)
[2016-07-03] MEDS: MULTIVITAMINS WITH MINERALS, THERAPEUTIC TABLET PO SCH (08:10)
[2016-07-03] MEDS: FOLIC ACID 1 MG TABLET PO SCH (08:10)
[2016-07-03] MEDS: PREGABALIN 50 MG CAPSULE PO SCH ×3 (08:10→16:04)
[2016-07-03] MEDS: LIDOCAINE HCL 5% TRANSDERMAL PATCH TD SCH (08:13)
[2016-07-03 08:14] VITALS: BP 144/80
[2016-07-03] MEDS: CELECOXIB 100 MG CAPSULE PO PRN (08:20)
[2016-07-03] MEDS: FluPHENAZine HCL 5 MG TABLET PO PRN (13:49)
[2016-07-03] MEDS: LORazepam 2 MG TABLET PO PRN ×3 (14:07→20:55)
[2016-07-03 16:00] VITALS: BP 129/71
[2016-07-03] MEDS: PRAZOSIN HCL 1 MG CAPSULE PO SCH (20:07)
[2016-07-03] MEDS: ROPINIRole HCL 1 MG TABLET PO SCH (20:07)
[2016-07-03 22:32] VITALS: BP 143/85
[2016-07-04] MEDS: LORazepam 2 MG TABLET PO PRN ×2 (05:01→10:09)
[2016-07-04] MEDS: IBUPROFEN 400 MG TABLET PO PRN ×2 (05:02→13:08)
[2016-07-04 05:04] VITALS: BP 126/69
[2016-07-04] MEDS: LORazepam 0.5 MG TABLET PO SCH ×3 (06:11→16:15)
[2016-07-04] MEDS: ZIPRASIDONE HCL 80 MG CAPSULE PO SCH ×2 (06:11→16:15)
[2016-07-04] MEDS: DiphenhydrAMINE HCL 25 MG CAPSULE PO SCH ×2 (06:11→16:15)
[2016-07-04] MEDS: MULTIVITAMINS WITH MINERALS, THERAPEUTIC TABLET PO SCH (08:30)
[2016-07-04] MEDS: PREGABALIN 50 MG CAPSULE PO SCH ×3 (08:30→16:15)
[2016-07-04] MEDS: OMEPRAZOLE 20 MG CAPSULE PO SCH (08:30)
[2016-07-04] MEDS: CYCLOBENZAPRINE HCL 10 MG TABLET PO SCH (08:30)
[2016-07-04] MEDS: AmLODIPine BESYLATE 10 MG TABLET PO SCH (08:31)
[2016-07-04] MEDS: FOLIC ACID 1 MG TABLET PO SCH (08:31)
[2016-07-04] MEDS: LIDOCAINE HCL 5% TRANSDERMAL PATCH TD SCH (08:34)
[2016-07-04 09:14] VITALS: BP 116/63
[2016-07-04 10:09] VITALS: BP 135/70
[2016-07-04 16:15] VITALS: BP 112/58
[2016-07-04] MEDS: ROPINIRole HCL 1 MG TABLET PO SCH (20:24)
[2016-07-04] MEDS: PRAZOSIN HCL 1 MG CAPSULE PO SCH (20:24)
[2016-07-05] MEDS: DiphenhydrAMINE HCL 25 MG CAPSULE PO SCH ×2 (06:26→16:50)
[2016-07-05] MEDS: LORazepam 0.5 MG TABLET PO SCH ×3 (06:26→16:50)
[2016-07-05] MEDS: IBUPROFEN 400 MG TABLET PO PRN (06:26)
[2016-07-05 06:27] VITALS: BP 104/68
[2016-07-05] MEDS: ZIPRASIDONE HCL 80 MG CAPSULE PO SCH ×2 (07:07→16:50)
[2016-07-05] MEDS: AmLODIPine BESYLATE 10 MG TABLET PO SCH (08:04)
[2016-07-05] MEDS: CYCLOBENZAPRINE HCL 10 MG TABLET PO SCH (08:04)
[2016-07-05] MEDS: MULTIVITAMINS WITH MINERALS, THERAPEUTIC TABLET PO SCH (08:04)
[2016-07-05] MEDS: LIDOCAINE HCL 5% TRANSDERMAL PATCH TD SCH (08:04)
[2016-07-05] MEDS: OMEPRAZOLE 20 MG CAPSULE PO SCH (08:04)
[2016-07-05] MEDS: FOLIC ACID 1 MG TABLET PO SCH (08:04)
[2016-07-05] MEDS: PREGABALIN 50 MG CAPSULE PO SCH ×3 (08:04→17:12)
[2016-07-05] MEDS: CELECOXIB 100 MG CAPSULE PO PRN (08:06)
[2016-07-05] MEDS: LORazepam 2 MG TABLET PO PRN (08:06)
[2016-07-05] MEDS: FluPHENAZine HCL 5 MG TABLET PO PRN (08:06)
[2016-07-05 08:22] VITALS: BP 125/70
[2016-07-05] MEDS ORDERED: MENTHOL/CAMPHOR/DIMETH/PHENOL 10 GM OINTMENT TP PRN (09:30)
[2016-07-05 16:37] VITALS: BP 127/79
[2016-07-05] MEDS: PRAZOSIN HCL 1 MG CAPSULE PO SCH (20:57)
[2016-07-05] MEDS: ROPINIRole HCL 1 MG TABLET PO SCH (20:57)
[2016-07-06 05:29] VITALS: BP 108/64
[2016-07-06] MEDS: DiphenhydrAMINE HCL 25 MG CAPSULE PO SCH ×2 (05:33→16:15)
[2016-07-06] MEDS: IBUPROFEN 400 MG TABLET PO PRN ×2 (05:34→16:14)
[2016-07-06] MEDS: LORazepam 0.5 MG TABLET PO SCH ×3 (05:34→16:15)
[2016-07-06] MEDS: ZIPRASIDONE HCL 80 MG CAPSULE PO SCH ×2 (06:26→17:00)
[2016-07-06 08:49] VITALS: BP 146/66
[2016-07-06] MEDS: OMEPRAZOLE 20 MG CAPSULE PO SCH (09:07)
[2016-07-06] MEDS: LIDOCAINE HCL 5% TRANSDERMAL PATCH TD SCH (09:07)
[2016-07-06] MEDS: MULTIVITAMINS WITH MINERALS, THERAPEUTIC TABLET PO SCH (09:08)
[2016-07-06] MEDS: CYCLOBENZAPRINE HCL 10 MG TABLET PO SCH (09:08)
[2016-07-06] MEDS: AmLODIPine BESYLATE 10 MG TABLET PO SCH (09:08)
[2016-07-06] MEDS: PREGABALIN 50 MG CAPSULE PO SCH ×3 (09:08→16:15)
[2016-07-06] MEDS: FOLIC ACID 1 MG TABLET PO SCH (09:17)
[2016-07-06] MEDS: FluPHENAZine HCL 5 MG TABLET PO PRN (09:18)
[2016-07-06] MEDS: LORazepam 2 MG TABLET PO PRN ×2 (09:18→14:50)
[2016-07-06 11:34] VITALS: BP 135/78
[2016-07-06] MEDS: CELECOXIB 100 MG CAPSULE PO PRN (11:36)
[2016-07-06 12:36] VITALS: BP 132/74
[2016-07-06 16:14] VITALS: BP 130/71
[2016-07-06 16:37] VITALS: BP 126/68
[2016-07-06] MEDS: PRAZOSIN HCL 1 MG CAPSULE PO SCH (20:02)
[2016-07-06] MEDS: ROPINIRole HCL 1 MG TABLET PO SCH (20:02)
[2016-07-07] MEDS: LORazepam 2 MG TABLET PO PRN ×2 (01:09→08:14)
[2016-07-07 01:10] VITALS: BP 107/60
[2016-07-07] MEDS: IBUPROFEN 400 MG TABLET PO PRN (01:10)
[2016-07-07] MEDS: LORazepam 0.5 MG TABLET PO SCH ×3 (06:40→16:34)
[2016-07-07] MEDS: DiphenhydrAMINE HCL 25 MG CAPSULE PO SCH ×2 (06:41→16:02)
[2016-07-07] MEDS: ZIPRASIDONE HCL 80 MG CAPSULE PO SCH ×2 (06:41→16:31)
[2016-07-07 08:11] VITALS: BP 146/92
[2016-07-07] MEDS: OMEPRAZOLE 20 MG CAPSULE PO SCH (08:13)
[2016-07-07] MEDS: LIDOCAINE HCL 5% TRANSDERMAL PATCH TD SCH (08:13)
[2016-07-07] MEDS: MULTIVITAMINS WITH MINERALS, THERAPEUTIC TABLET PO SCH (08:13)
[2016-07-07] MEDS: CYCLOBENZAPRINE HCL 10 MG TABLET PO SCH (08:13)
[2016-07-07] MEDS: AmLODIPine BESYLATE 10 MG TABLET PO SCH (08:14)
[2016-07-07] MEDS: FluPHENAZine HCL 5 MG TABLET PO PRN (08:14)
[2016-07-07] MEDS: PREGABALIN 50 MG CAPSULE PO SCH ×3 (08:14→16:34)
[2016-07-07] MEDS: FOLIC ACID 1 MG TABLET PO SCH (08:14)
[2016-07-07] MEDS: CELECOXIB 100 MG CAPSULE PO PRN (08:15)
[2016-07-07 16:13] VITALS: BP 121/67
[2016-07-07] MEDS: PRAZOSIN HCL 1 MG CAPSULE PO SCH (20:27)
[2016-07-07] MEDS: ROPINIRole HCL 1 MG TABLET PO SCH (20:27)
[2016-07-08] MEDS: IBUPROFEN 400 MG TABLET PO PRN (04:54)
[2016-07-08 04:55] VITALS: BP 129/88
[2016-07-08] MEDS: LORazepam 0.5 MG TABLET PO SCH ×2 (06:23→13:31)
[2016-07-08] MEDS: ZIPRASIDONE HCL 80 MG CAPSULE PO SCH (06:23)
[2016-07-08] MEDS: DiphenhydrAMINE HCL 25 MG CAPSULE PO SCH (06:23)
[2016-07-08 08:30] VITALS: BP 138/65
[2016-07-08] MEDS: MULTIVITAMINS WITH MINERALS, THERAPEUTIC TABLET PO SCH (10:02)
[2016-07-08] MEDS: OMEPRAZOLE 20 MG CAPSULE PO SCH (10:02)
[2016-07-08] MEDS: AmLODIPine BESYLATE 10 MG TABLET PO SCH (10:02)
[2016-07-08] MEDS: PREGABALIN 50 MG CAPSULE PO SCH ×3 (10:02→17:00)
[2016-07-08] MEDS: FOLIC ACID 1 MG TABLET PO SCH (10:03)
[2016-07-08] MEDS: LIDOCAINE HCL 5% TRANSDERMAL PATCH TD SCH (10:03)
[2016-07-08] MEDS: CYCLOBENZAPRINE HCL 10 MG TABLET PO SCH (10:03)
[2016-07-08] MEDS: LORazepam 2 MG TABLET PO PRN (10:08)
[2016-07-08] MEDS: PRAZOSIN HCL 1 MG CAPSULE PO SCH (21:00)
[2016-07-08] MEDS: ROPINIRole HCL 1 MG TABLET PO SCH (21:00)
[2016-07-09] MEDS: LORazepam 0.5 MG TABLET PO SCH (06:00)
[2016-07-09] MEDS: DiphenhydrAMINE HCL 25 MG CAPSULE PO SCH (06:00)
[2016-07-09] MEDS: ZIPRASIDONE HCL 80 MG CAPSULE PO SCH (07:00)
[2016-07-09] MEDS: MULTIVITAMINS WITH MINERALS, THERAPEUTIC TABLET PO SCH (09:00)
[2016-07-09] MEDS: CYCLOBENZAPRINE HCL 10 MG TABLET PO SCH (09:00)
[2016-07-09] MEDS: OMEPRAZOLE 20 MG CAPSULE PO SCH (09:00)
[2016-07-09] MEDS: PREGABALIN 50 MG CAPSULE PO SCH ×3 (09:00→17:00)
[2016-07-09] MEDS: FOLIC ACID 1 MG TABLET PO SCH (09:00)
[2016-07-09] MEDS: AmLODIPine BESYLATE 10 MG TABLET PO SCH (09:00)
[2016-07-09] MEDS: LIDOCAINE HCL 5% TRANSDERMAL PATCH TD SCH (09:00)
[2016-07-09] MEDS: ROPINIRole HCL 1 MG TABLET PO SCH (21:00)
[2016-07-09] MEDS: PRAZOSIN HCL 1 MG CAPSULE PO SCH (21:00)
[2016-07-10] MEDS: LORazepam 0.5 MG TABLET PO SCH ×3 (06:00→17:10)
[2016-07-10] MEDS: DiphenhydrAMINE HCL 25 MG CAPSULE PO SCH ×2 (06:00→16:02)
[2016-07-10] MEDS: ZIPRASIDONE HCL 80 MG CAPSULE PO SCH ×2 (06:49→16:48)
[2016-07-10] MEDS: IBUPROFEN 400 MG TABLET PO PRN (06:50)
[2016-07-10 06:51] VITALS: BP 141/86
[2016-07-10] MEDS: MULTIVITAMINS WITH MINERALS, THERAPEUTIC TABLET PO SCH (08:48)
[2016-07-10] MEDS: OMEPRAZOLE 20 MG CAPSULE PO SCH (08:49)
[2016-07-10] MEDS: CYCLOBENZAPRINE HCL 10 MG TABLET PO SCH (08:49)
[2016-07-10] MEDS: LIDOCAINE HCL 5% TRANSDERMAL PATCH TD SCH (08:49)
[2016-07-10] MEDS: AmLODIPine BESYLATE 10 MG TABLET PO SCH (08:49)
[2016-07-10] MEDS: PREGABALIN 50 MG CAPSULE PO SCH ×3 (08:49→17:10)
[2016-07-10] MEDS: FluPHENAZine HCL 5 MG TABLET PO PRN (08:50)
[2016-07-10] MEDS: CELECOXIB 100 MG CAPSULE PO PRN (08:50)
[2016-07-10] MEDS: LORazepam 2 MG TABLET PO PRN ×2 (08:50→19:28)
[2016-07-10] MEDS: FOLIC ACID 1 MG TABLET PO SCH (08:50)
[2016-07-10 09:03] VITALS: BP 151/72
[2016-07-10 16:11] VITALS: BP 111/60
[2016-07-10] MEDS: PRAZOSIN HCL 1 MG CAPSULE PO SCH (20:40)
[2016-07-10] MEDS: ROPINIRole HCL 1 MG TABLET PO SCH (20:41)
[2016-07-11] MEDS: ZIPRASIDONE HCL 80 MG CAPSULE PO SCH ×2 (06:27→16:31)
[2016-07-11] MEDS: LORazepam 0.5 MG TABLET PO SCH ×3 (06:27→16:57)
[2016-07-11] MEDS: DiphenhydrAMINE HCL 25 MG CAPSULE PO SCH ×2 (06:28→16:31)
[2016-07-11] MEDS: IBUPROFEN 400 MG TABLET PO PRN (06:28)
[2016-07-11 06:29] VITALS: BP 122/88
[2016-07-11] MEDS: AmLODIPine BESYLATE 10 MG TABLET PO SCH (08:20)
[2016-07-11] MEDS: MULTIVITAMINS WITH MINERALS, THERAPEUTIC TABLET PO SCH (08:21)
[2016-07-11] MEDS: LORazepam 2 MG TABLET PO PRN ×2 (08:21→15:57)
[2016-07-11] MEDS: OMEPRAZOLE 20 MG CAPSULE PO SCH (08:21)
[2016-07-11] MEDS: FluPHENAZine HCL 5 MG TABLET PO PRN (08:21)
[2016-07-11] MEDS: FOLIC ACID 1 MG TABLET PO SCH (08:21)
[2016-07-11] MEDS: LIDOCAINE HCL 5% TRANSDERMAL PATCH TD SCH (08:22)
[2016-07-11] MEDS: PREGABALIN 50 MG CAPSULE PO SCH ×3 (08:22→16:57)
[2016-07-11] MEDS: CYCLOBENZAPRINE HCL 10 MG TABLET PO SCH (08:22)
[2016-07-11 08:30] VITALS: BP 131/79
[2016-07-11] MEDS: CELECOXIB 100 MG CAPSULE PO PRN ×2 (10:43→18:59)
[2016-07-11 16:00] VITALS: BP 121/67
[2016-07-11 18:57] VITALS: BP 128/80
[2016-07-11] MEDS: PRAZOSIN HCL 1 MG CAPSULE PO SCH (20:09)
[2016-07-11] MEDS: ROPINIRole HCL 1 MG TABLET PO SCH (20:09)
[2016-07-12 05:39] VITALS: BP 136/77
[2016-07-12] MEDS: ZIPRASIDONE HCL 80 MG CAPSULE PO SCH ×2 (06:12→16:42)
[2016-07-12] MEDS: DiphenhydrAMINE HCL 25 MG CAPSULE PO SCH ×2 (06:12→16:41)
[2016-07-12] MEDS: IBUPROFEN 400 MG TABLET PO PRN (06:12)
[2016-07-12] MEDS: LORazepam 0.5 MG TABLET PO SCH ×3 (06:12→16:42)
[2016-07-12] MEDS: PREGABALIN 50 MG CAPSULE PO SCH ×3 (08:41→16:42)
[2016-07-12] MEDS: LIDOCAINE HCL 5% TRANSDERMAL PATCH TD SCH (08:41)
[2016-07-12] MEDS: OMEPRAZOLE 20 MG CAPSULE PO SCH (08:42)
[2016-07-12] MEDS: MULTIVITAMINS WITH MINERALS, THERAPEUTIC TABLET PO SCH (08:42)
[2016-07-12] MEDS: CYCLOBENZAPRINE HCL 10 MG TABLET PO SCH (08:42)
[2016-07-12] MEDS: AmLODIPine BESYLATE 10 MG TABLET PO SCH (08:42)
[2016-07-12] MEDS: FOLIC ACID 1 MG TABLET PO SCH (08:42)
[2016-07-12] MEDS: LORazepam 2 MG TABLET PO PRN ×3 (08:43→20:46)
[2016-07-12 09:05] VITALS: BP 136/99
[2016-07-12] MEDS: FluPHENAZine HCL 5 MG TABLET PO PRN ×2 (10:20→16:42)
[2016-07-12 12:27] VITALS: BP 124/98
[2016-07-12] MEDS: CELECOXIB 100 MG CAPSULE PO PRN ×2 (12:27→19:03)
[2016-07-12 16:10] VITALS: BP 126/79
[2016-07-12 19:01] VITALS: BP 119/75
[2016-07-12 20:03] VITALS: BP 114/76
[2016-07-12] MEDS: ROPINIRole HCL 1 MG TABLET PO SCH (20:46)
[2016-07-12] MEDS: PRAZOSIN HCL 1 MG CAPSULE PO SCH (20:46)
[2016-07-13] MEDS: IBUPROFEN 400 MG TABLET PO PRN (05:29)
[2016-07-13] MEDS: LORazepam 0.5 MG TABLET PO SCH ×3 (06:13→16:10)
[2016-07-13] MEDS: ZIPRASIDONE HCL 80 MG CAPSULE PO SCH ×2 (06:14→16:59)
[2016-07-13] MEDS: DiphenhydrAMINE HCL 25 MG CAPSULE PO SCH ×2 (06:14→16:09)
[2016-07-13 06:28] VITALS: BP 126/62
[2016-07-13] MEDS: PREGABALIN 50 MG CAPSULE PO SCH ×3 (08:21→16:10)
[2016-07-13] MEDS: OMEPRAZOLE 20 MG CAPSULE PO SCH (08:22)
[2016-07-13] MEDS: MULTIVITAMINS WITH MINERALS, THERAPEUTIC TABLET PO SCH (08:22)
[2016-07-13] MEDS: FOLIC ACID 1 MG TABLET PO SCH (08:22)
[2016-07-13] MEDS: CYCLOBENZAPRINE HCL 10 MG TABLET PO SCH (08:23)
[2016-07-13 08:40] VITALS: BP 106/58
[2016-07-13 08:59] VITALS: BP 135/64
[2016-07-13] MEDS: AmLODIPine BESYLATE 10 MG TABLET PO SCH (08:59)
[2016-07-13] MEDS: CELECOXIB 100 MG CAPSULE PO PRN ×2 (08:59→16:10)
[2016-07-13] MEDS: LORazepam 2 MG TABLET PO PRN ×2 (09:00→17:42)
[2016-07-13] MEDS: LIDOCAINE HCL 5% TRANSDERMAL PATCH TD SCH (09:00)
[2016-07-13] MEDS: FluPHENAZine HCL 5 MG TABLET PO PRN (12:49)
[2016-07-13 16:10] VITALS: BP 137/69
[2016-07-13 16:14] VITALS: BP 135/71
[2016-07-13] MEDS: ROPINIRole HCL 1 MG TABLET PO SCH (20:21)
[2016-07-13] MEDS: PRAZOSIN HCL 1 MG CAPSULE PO SCH (20:21)
[2016-07-14] VITALS (8 sets, daily range): BP systolic 121–136; BP diastolic 64–87
[2016-07-14] MEDS: IBUPROFEN 400 MG TABLET PO PRN (05:12)
[2016-07-14] MEDS: ZIPRASIDONE HCL 80 MG CAPSULE PO SCH ×2 (06:12→16:03)
[2016-07-14] MEDS: LORazepam 0.5 MG TABLET PO SCH ×3 (06:12→16:02)
[2016-07-14] MEDS: DiphenhydrAMINE HCL 25 MG CAPSULE PO SCH ×2 (06:12→16:03)
[2016-07-14] MEDS: AmLODIPine BESYLATE 10 MG TABLET PO SCH (08:27)
[2016-07-14] MEDS: LIDOCAINE HCL 5% TRANSDERMAL PATCH TD SCH (08:27)
[2016-07-14] MEDS: PREGABALIN 50 MG CAPSULE PO SCH ×3 (08:27→16:02)
[2016-07-14] MEDS: LORazepam 2 MG TABLET PO PRN (08:28)
[2016-07-14] MEDS: FluPHENAZine HCL 5 MG TABLET PO PRN (08:28)
[2016-07-14] MEDS: MULTIVITAMINS WITH MINERALS, THERAPEUTIC TABLET PO SCH (08:28)
[2016-07-14] MEDS: FOLIC ACID 1 MG TABLET PO SCH (08:28)
[2016-07-14] MEDS: CYCLOBENZAPRINE HCL 10 MG TABLET PO SCH (08:28)
[2016-07-14] MEDS: OMEPRAZOLE 20 MG CAPSULE PO SCH (08:28)
[2016-07-14] MEDS: CELECOXIB 100 MG CAPSULE PO PRN (09:26)
[2016-07-14] MEDS: TraMADol HCL 50 MG TABLET PO PRN (11:04)
[2016-07-14] MEDS: MAGNESIUM HYDROXIDE SUSPENSION 30 ML UDCUP PO PRN (14:59)
[2016-07-14] MEDS: ROPINIRole HCL 1 MG TABLET PO SCH (20:23)
[2016-07-14] MEDS: PRAZOSIN HCL 1 MG CAPSULE PO SCH (20:23)
[2016-07-15] MEDS: LORazepam 0.5 MG TABLET PO SCH ×3 (05:36→17:15)
[2016-07-15] MEDS: DiphenhydrAMINE HCL 25 MG CAPSULE PO SCH ×2 (05:36→16:06)
[2016-07-15] MEDS: TraMADol HCL 50 MG TABLET PO PRN ×2 (06:12→16:05)
[2016-07-15] MEDS: ZIPRASIDONE HCL 80 MG CAPSULE PO SCH ×2 (06:12→16:40)
[2016-07-15 06:14] VITALS: BP 141/75
[2016-07-15 08:00] VITALS: BP 136/89
[2016-07-15] MEDS: LIDOCAINE HCL 5% TRANSDERMAL PATCH TD SCH (08:14)
[2016-07-15] MEDS: MULTIVITAMINS WITH MINERALS, THERAPEUTIC TABLET PO SCH (08:15)
[2016-07-15] MEDS: CYCLOBENZAPRINE HCL 10 MG TABLET PO SCH (08:15)
[2016-07-15] MEDS: PREGABALIN 50 MG CAPSULE PO SCH ×3 (08:16→17:15)
[2016-07-15] MEDS: FOLIC ACID 1 MG TABLET PO SCH (08:16)
[2016-07-15] MEDS: OMEPRAZOLE 20 MG CAPSULE PO SCH (08:16)
[2016-07-15] MEDS: AmLODIPine BESYLATE 10 MG TABLET PO SCH (08:16)
[2016-07-15] MEDS: LORazepam 2 MG TABLET PO PRN (08:29)
[2016-07-15 11:05] VITALS: BP 124/74
[2016-07-15] MEDS: IBUPROFEN 400 MG TABLET PO PRN ×2 (11:05→22:22)
[2016-07-15 16:05] VITALS: BP 130/70
[2016-07-15 16:14] VITALS: BP 138/77
[2016-07-15] MEDS: ROPINIRole HCL 1 MG TABLET PO SCH (20:18)
[2016-07-15] MEDS: PRAZOSIN HCL 1 MG CAPSULE PO SCH (20:19)
[2016-07-15 22:20] VITALS: BP 125/70
[2016-07-16 06:22] VITALS: BP 128/79
[2016-07-16] MEDS: DiphenhydrAMINE HCL 25 MG CAPSULE PO SCH ×2 (06:30→16:36)
[2016-07-16] MEDS: LORazepam 0.5 MG TABLET PO SCH ×3 (06:30→16:35)
[2016-07-16] MEDS: ZIPRASIDONE HCL 80 MG CAPSULE PO SCH ×2 (06:31→16:36)
[2016-07-16] MEDS: TraMADol HCL 50 MG TABLET PO PRN ×2 (06:31→16:36)
[2016-07-16 08:10] VITALS: BP 102/67
[2016-07-16] MEDS: OMEPRAZOLE 20 MG CAPSULE PO SCH (08:49)
[2016-07-16] MEDS: MULTIVITAMINS WITH MINERALS, THERAPEUTIC TABLET PO SCH (08:49)
[2016-07-16] MEDS: FOLIC ACID 1 MG TABLET PO SCH (08:49)
[2016-07-16] MEDS: LORazepam 2 MG TABLET PO PRN ×2 (08:50→14:34)
[2016-07-16] MEDS: PREGABALIN 50 MG CAPSULE PO SCH ×3 (08:50→17:03)
[2016-07-16] MEDS: CYCLOBENZAPRINE HCL 10 MG TABLET PO SCH (08:50)
[2016-07-16] MEDS: LIDOCAINE HCL 5% TRANSDERMAL PATCH TD SCH (08:52)
[2016-07-16] MEDS: AmLODIPine BESYLATE 10 MG TABLET PO SCH (09:00)
[2016-07-16] MEDS: FluPHENAZine HCL 5 MG TABLET PO PRN (13:32)
[2016-07-16 17:02] VITALS: BP 107/61
[2016-07-16] MEDS: ROPINIRole HCL 1 MG TABLET PO SCH (20:54)
[2016-07-16] MEDS: PRAZOSIN HCL 1 MG CAPSULE PO SCH (20:54)
[2016-07-17] MEDS: IBUPROFEN 400 MG TABLET PO PRN (03:48)
[2016-07-17 03:52] VITALS: BP 121/95
[2016-07-17] MEDS: LORazepam 0.5 MG TABLET PO SCH ×3 (06:12→16:08)
[2016-07-17] MEDS: DiphenhydrAMINE HCL 25 MG CAPSULE PO SCH ×2 (06:13→16:08)
[2016-07-17] MEDS: ZIPRASIDONE HCL 80 MG CAPSULE PO SCH ×2 (06:42→16:54)
[2016-07-17] MEDS: OMEPRAZOLE 20 MG CAPSULE PO SCH (08:02)
[2016-07-17] MEDS: FOLIC ACID 1 MG TABLET PO SCH (08:03)
[2016-07-17] MEDS: LIDOCAINE HCL 5% TRANSDERMAL PATCH TD SCH (08:03)
[2016-07-17] MEDS: CYCLOBENZAPRINE HCL 10 MG TABLET PO SCH (08:03)
[2016-07-17] MEDS: PREGABALIN 50 MG CAPSULE PO SCH ×3 (08:03→16:08)
[2016-07-17] MEDS: MULTIVITAMINS WITH MINERALS, THERAPEUTIC TABLET PO SCH (08:04)
[2016-07-17 08:12] VITALS: BP 110/60
[2016-07-17 08:46] VITALS: BP 113/71
[2016-07-17] MEDS: TraMADol HCL 50 MG TABLET PO PRN ×2 (08:46→16:58)
[2016-07-17] MEDS: AmLODIPine BESYLATE 10 MG TABLET PO SCH (08:46)
[2016-07-17] MEDS: LORazepam 2 MG TABLET PO PRN (14:16)
[2016-07-17 16:39] VITALS: BP 118/66
[2016-07-17 17:58] VITALS: BP 133/77
[2016-07-17] MEDS: ROPINIRole HCL 1 MG TABLET PO SCH (21:00)
[2016-07-17] MEDS: PRAZOSIN HCL 1 MG CAPSULE PO SCH (21:14)
[2016-07-18 05:55] VITALS: BP 122/70
[2016-07-18] MEDS: LORazepam 0.5 MG TABLET PO SCH ×3 (06:04→16:17)
[2016-07-18] MEDS: DiphenhydrAMINE HCL 25 MG CAPSULE PO SCH ×2 (06:04→16:16)
[2016-07-18] MEDS: ZIPRASIDONE HCL 80 MG CAPSULE PO SCH ×2 (06:36→16:17)
[2016-07-18] MEDS: LIDOCAINE HCL 5% TRANSDERMAL PATCH TD SCH (08:19)
[2016-07-18] MEDS: PREGABALIN 50 MG CAPSULE PO SCH ×3 (08:20→16:17)
[2016-07-18] MEDS: OMEPRAZOLE 20 MG CAPSULE PO SCH (08:20)
[2016-07-18] MEDS: MULTIVITAMINS WITH MINERALS, THERAPEUTIC TABLET PO SCH (08:20)
[2016-07-18] MEDS: AmLODIPine BESYLATE 10 MG TABLET PO SCH (08:20)
[2016-07-18] MEDS: CYCLOBENZAPRINE HCL 10 MG TABLET PO SCH (08:20)
[2016-07-18] MEDS: LORazepam 2 MG TABLET PO PRN (08:21)
[2016-07-18] MEDS: FluPHENAZine HCL 5 MG TABLET PO PRN (08:21)
[2016-07-18] MEDS: TraMADol HCL 50 MG TABLET PO PRN (08:21)
[2016-07-18 08:43] VITALS: BP 126/69
[2016-07-18] MEDS: FOLIC ACID 1 MG TABLET PO SCH (09:25)
[2016-07-18] MEDS: IBUPROFEN 400 MG TABLET PO PRN ×2 (13:58→16:17)
[2016-07-18] MEDS: MAGNESIUM HYDROXIDE SUSPENSION 30 ML UDCUP PO PRN (13:59)
[2016-07-18 16:07] VITALS: BP 131/88
[2016-07-18 16:12] VITALS: BP 131/88
[2016-07-18] MEDS: ROPINIRole HCL 1 MG TABLET PO SCH (21:02)
[2016-07-18] MEDS: PRAZOSIN HCL 1 MG CAPSULE PO SCH (21:02)
[2016-07-19 03:41] VITALS: BP 129/69
[2016-07-19 03:43] VITALS: BP 109/63
[2016-07-19] MEDS: LORazepam 2 MG TABLET PO PRN ×2 (03:43→13:48)
[2016-07-19] MEDS: DiphenhydrAMINE HCL 25 MG CAPSULE PO SCH ×2 (06:27→16:02)
[2016-07-19] MEDS: LORazepam 0.5 MG TABLET PO SCH ×3 (06:28→16:01)
[2016-07-19] MEDS: ZIPRASIDONE HCL 80 MG CAPSULE PO SCH ×2 (06:28→16:01)
[2016-07-19] MEDS: LIDOCAINE HCL 5% TRANSDERMAL PATCH TD SCH (08:07)
[2016-07-19] MEDS: OMEPRAZOLE 20 MG CAPSULE PO SCH (08:07)
[2016-07-19] MEDS: PREGABALIN 50 MG CAPSULE PO SCH ×3 (08:07→16:01)
[2016-07-19] MEDS: FOLIC ACID 1 MG TABLET PO SCH (08:08)
[2016-07-19] MEDS: CYCLOBENZAPRINE HCL 10 MG TABLET PO SCH (08:08)
[2016-07-19] MEDS: MULTIVITAMINS WITH MINERALS, THERAPEUTIC TABLET PO SCH (08:08)
[2016-07-19] MEDS: AmLODIPine BESYLATE 10 MG TABLET PO SCH (08:08)
[2016-07-19] MEDS: TraMADol HCL 50 MG TABLET PO PRN ×2 (08:09→16:27)
[2016-07-19 08:10] VITALS: BP 140/75
[2016-07-19 11:54] VITALS: BP 128/74
[2016-07-19] MEDS: ACETAMINOPHEN 325 MG TABLET PO PRN (11:54)
[2016-07-19 16:17] VITALS: BP 132/71
[2016-07-19] MEDS: PRAZOSIN HCL 1 MG CAPSULE PO SCH (20:12)
[2016-07-19] MEDS: ROPINIRole HCL 1 MG TABLET PO SCH (20:12)
[2016-07-20 06:00] VITALS: BP 133/78
[2016-07-20] MEDS: LORazepam 0.5 MG TABLET PO SCH ×3 (06:05→16:30)
[2016-07-20] MEDS: DiphenhydrAMINE HCL 25 MG CAPSULE PO SCH ×2 (06:05→16:30)
[2016-07-20] MEDS: TraMADol HCL 50 MG TABLET PO PRN ×2 (06:06→17:32)
[2016-07-20] MEDS: ZIPRASIDONE HCL 80 MG CAPSULE PO SCH ×2 (06:23→16:31)
[2016-07-20] MEDS: LORazepam 2 MG TABLET PO PRN ×2 (08:19→20:38)
[2016-07-20] MEDS: MULTIVITAMINS WITH MINERALS, THERAPEUTIC TABLET PO SCH (08:20)
[2016-07-20] MEDS: LIDOCAINE HCL 5% TRANSDERMAL PATCH TD SCH (08:20)
[2016-07-20] MEDS: PREGABALIN 50 MG CAPSULE PO SCH ×3 (08:20→16:30)
[2016-07-20] MEDS: FluPHENAZine HCL 5 MG TABLET PO PRN (08:20)
[2016-07-20] MEDS: AmLODIPine BESYLATE 10 MG TABLET PO SCH (08:20)
[2016-07-20] MEDS: FOLIC ACID 1 MG TABLET PO SCH (08:21)
[2016-07-20] MEDS: CYCLOBENZAPRINE HCL 10 MG TABLET PO SCH (08:21)
[2016-07-20] MEDS: OMEPRAZOLE 20 MG CAPSULE PO SCH (08:21)
[2016-07-20 08:34] VITALS: BP 146/58
[2016-07-20 16:12] VITALS: BP 121/75
[2016-07-20 17:34] VITALS: BP 116/70
[2016-07-20] MEDS: ROPINIRole HCL 1 MG TABLET PO SCH (20:08)
[2016-07-20] MEDS: PRAZOSIN HCL 1 MG CAPSULE PO SCH (20:08)
[2016-07-20 20:37] VITALS: BP 134/89
[2016-07-21 05:58] VITALS: BP 129/86
[2016-07-21] MEDS: LORazepam 0.5 MG TABLET PO SCH ×3 (06:02→16:21)
[2016-07-21] MEDS: DiphenhydrAMINE HCL 25 MG CAPSULE PO SCH ×2 (06:02→16:21)
[2016-07-21] MEDS: ZIPRASIDONE HCL 80 MG CAPSULE PO SCH ×2 (06:37→16:21)
[2016-07-21] MEDS: CYCLOBENZAPRINE HCL 10 MG TABLET PO SCH (08:12)
[2016-07-21] MEDS: OMEPRAZOLE 20 MG CAPSULE PO SCH (08:12)
[2016-07-21] MEDS: FOLIC ACID 1 MG TABLET PO SCH (08:12)
[2016-07-21] MEDS: AmLODIPine BESYLATE 10 MG TABLET PO SCH (08:12)
[2016-07-21] MEDS: PREGABALIN 50 MG CAPSULE PO SCH ×3 (08:13→16:21)
[2016-07-21] MEDS: MULTIVITAMINS WITH MINERALS, THERAPEUTIC TABLET PO SCH (08:13)
[2016-07-21 08:33] VITALS: BP 110/65
[2016-07-21] MEDS: TraMADol HCL 50 MG TABLET PO PRN ×2 (08:33→17:19)
[2016-07-21 08:35] VITALS: BP 110/65
[2016-07-21] MEDS: LIDOCAINE HCL 5% TRANSDERMAL PATCH TD SCH (09:10)
[2016-07-21] MEDS: LORazepam 2 MG TABLET PO PRN (09:31)
[2016-07-21] MEDS: FluPHENAZine HCL 5 MG TABLET PO PRN (09:32)
[2016-07-21] MEDS: MAGNESIUM HYDROXIDE SUSPENSION 30 ML UDCUP PO PRN (13:54)
[2016-07-21 16:11] VITALS: BP 109/57
[2016-07-21 17:17] VITALS: BP 129/82
[2016-07-21] MEDS: PRAZOSIN HCL 1 MG CAPSULE PO SCH (21:00)
[2016-07-21] MEDS: ROPINIRole HCL 1 MG TABLET PO SCH (21:00)
[2016-07-22] MEDS: ZIPRASIDONE HCL 80 MG CAPSULE PO SCH ×2 (06:56→16:09)
[2016-07-22] MEDS: DiphenhydrAMINE HCL 25 MG CAPSULE PO SCH ×2 (06:56→16:08)
[2016-07-22] MEDS: LORazepam 2 MG TABLET PO PRN (06:56)
[2016-07-22] MEDS: LORazepam 0.5 MG TABLET PO SCH ×3 (06:57→16:09)
[2016-07-22 07:21] VITALS: BP 122/79
[2016-07-22] MEDS: TraMADol HCL 50 MG TABLET PO PRN ×2 (07:26→16:09)
[2016-07-22] MEDS: MULTIVITAMINS WITH MINERALS, THERAPEUTIC TABLET PO SCH (08:11)
[2016-07-22] MEDS: AmLODIPine BESYLATE 10 MG TABLET PO SCH (08:11)
[2016-07-22] MEDS: CYCLOBENZAPRINE HCL 10 MG TABLET PO SCH (08:11)
[2016-07-22] MEDS: OMEPRAZOLE 20 MG CAPSULE PO SCH (08:12)
[2016-07-22] MEDS: FOLIC ACID 1 MG TABLET PO SCH (08:12)
[2016-07-22] MEDS: PREGABALIN 50 MG CAPSULE PO SCH ×3 (08:12→16:42)
[2016-07-22 08:56] VITALS: BP 118/64
[2016-07-22] MEDS: LIDOCAINE HCL 5% TRANSDERMAL PATCH TD SCH (09:00)
[2016-07-22 16:00] VITALS: BP 124/75
[2016-07-22] MEDS: PRAZOSIN HCL 1 MG CAPSULE PO SCH (20:08)
[2016-07-22] MEDS: ROPINIRole HCL 1 MG TABLET PO SCH (20:08)
[2016-07-23 00:55] VITALS: BP 112/72
[2016-07-23] MEDS: LORazepam 0.5 MG TABLET PO SCH ×3 (06:08→16:42)
[2016-07-23] MEDS: DiphenhydrAMINE HCL 25 MG CAPSULE PO SCH ×2 (06:08→16:17)
[2016-07-23] MEDS: ZIPRASIDONE HCL 80 MG CAPSULE PO SCH ×2 (06:55→16:33)
[2016-07-23 07:00] VITALS: BP 118/75
[2016-07-23] MEDS: TraMADol HCL 50 MG TABLET PO PRN ×2 (07:02→15:46)
[2016-07-23] MEDS: LORazepam 2 MG TABLET PO PRN (07:02)
[2016-07-23] MEDS: FOLIC ACID 1 MG TABLET PO SCH (08:13)
[2016-07-23] MEDS: PREGABALIN 50 MG CAPSULE PO SCH ×3 (08:13→16:42)
[2016-07-23] MEDS: AmLODIPine BESYLATE 10 MG TABLET PO SCH (08:13)
[2016-07-23] MEDS: CYCLOBENZAPRINE HCL 10 MG TABLET PO SCH (08:13)
[2016-07-23] MEDS: FluPHENAZine HCL 5 MG TABLET PO PRN (08:13)
[2016-07-23] MEDS: OMEPRAZOLE 20 MG CAPSULE PO SCH (08:13)
[2016-07-23] MEDS: MULTIVITAMINS WITH MINERALS, THERAPEUTIC TABLET PO SCH (08:13)
[2016-07-23] MEDS: LIDOCAINE HCL 5% TRANSDERMAL PATCH TD SCH (08:14)
[2016-07-23] MEDS: MAG HYDROX/AL HYDROX/SIMETH ES 30 ML SUSPENSION UDCUP PO PRN (08:25)
[2016-07-23 08:26] VITALS: BP 126/74
[2016-07-23] MEDS: IBUPROFEN 400 MG TABLET PO PRN (11:37)
[2016-07-23 15:45] VITALS: BP 133/81
[2016-07-23 16:11] VITALS: BP 133/81
[2016-07-23] MEDS: ROPINIRole HCL 1 MG TABLET PO SCH (20:25)
[2016-07-23] MEDS: PRAZOSIN HCL 1 MG CAPSULE PO SCH (20:25)
[2016-07-24 04:56] VITALS: BP 123/68
[2016-07-24] MEDS: DiphenhydrAMINE HCL 25 MG CAPSULE PO SCH ×2 (06:02→16:30)
[2016-07-24] MEDS: LORazepam 0.5 MG TABLET PO SCH ×3 (06:02→16:31)
[2016-07-24] MEDS: ZIPRASIDONE HCL 80 MG CAPSULE PO SCH ×2 (06:34→16:30)
[2016-07-24] MEDS: TraMADol HCL 50 MG TABLET PO PRN ×2 (06:47→14:46)
[2016-07-24] MEDS: OMEPRAZOLE 20 MG CAPSULE PO SCH (08:00)
[2016-07-24] MEDS: PREGABALIN 50 MG CAPSULE PO SCH ×3 (08:00→16:31)
[2016-07-24] MEDS: CYCLOBENZAPRINE HCL 10 MG TABLET PO SCH (08:00)
[2016-07-24] MEDS: FOLIC ACID 1 MG TABLET PO SCH (08:01)
[2016-07-24] MEDS: MULTIVITAMINS WITH MINERALS, THERAPEUTIC TABLET PO SCH (08:01)
[2016-07-24] MEDS: AmLODIPine BESYLATE 10 MG TABLET PO SCH (08:02)
[2016-07-24] MEDS: LIDOCAINE HCL 5% TRANSDERMAL PATCH TD SCH (08:03)
[2016-07-24 08:26] VITALS: BP 118/68
[2016-07-24] MEDS: FluPHENAZine HCL 5 MG TABLET PO PRN ×2 (09:23→18:28)
[2016-07-24] MEDS: LORazepam 2 MG TABLET PO PRN ×2 (09:23→16:31)
[2016-07-24] MEDS: MAG HYDROX/AL HYDROX/SIMETH ES 30 ML SUSPENSION UDCUP PO PRN (10:39)
[2016-07-24 14:47] VITALS: BP 120/70
[2016-07-24 16:15] VITALS: BP 114/84
[2016-07-24] MEDS: IBUPROFEN 400 MG TABLET PO PRN (18:29)
[2016-07-24] MEDS: ROPINIRole HCL 1 MG TABLET PO SCH (20:20)
[2016-07-24] MEDS: PRAZOSIN HCL 1 MG CAPSULE PO SCH (20:26)
[2016-07-24] MEDS: ZOLPIDEM TARTRATE 10 MG TABLET PO PRN (20:35)
[2016-07-25] MEDS: LORazepam 0.5 MG TABLET PO SCH ×3 (05:59→16:18)
[2016-07-25] MEDS: DiphenhydrAMINE HCL 25 MG CAPSULE PO SCH ×2 (06:00→16:18)
[2016-07-25] MEDS: ZIPRASIDONE HCL 80 MG CAPSULE PO SCH ×2 (06:46→17:00)
[2016-07-25 07:12] VITALS: BP 126/83
[2016-07-25] MEDS: LIDOCAINE HCL 5% TRANSDERMAL PATCH TD SCH (08:23)
[2016-07-25] MEDS: FOLIC ACID 1 MG TABLET PO SCH (08:24)
[2016-07-25] MEDS: PREGABALIN 50 MG CAPSULE PO SCH ×3 (08:24→16:18)
[2016-07-25] MEDS: CYCLOBENZAPRINE HCL 10 MG TABLET PO SCH (08:24)
[2016-07-25] MEDS: OMEPRAZOLE 20 MG CAPSULE PO SCH (08:24)
[2016-07-25] MEDS: MULTIVITAMINS WITH MINERALS, THERAPEUTIC TABLET PO SCH (08:24)
[2016-07-25] MEDS: AmLODIPine BESYLATE 10 MG TABLET PO SCH (08:28)
[2016-07-25 08:30] VITALS: BP 112/66
[2016-07-25] MEDS: TraMADol HCL 50 MG TABLET PO PRN ×2 (08:30→17:20)
[2016-07-25] MEDS: LORazepam 2 MG TABLET PO PRN ×2 (09:02→17:20)
[2016-07-25] MEDS: MAG HYDROX/AL HYDROX/SIMETH ES 30 ML SUSPENSION UDCUP PO PRN (09:02)
[2016-07-25] MEDS: MAGNESIUM HYDROXIDE SUSPENSION 30 ML UDCUP PO PRN (10:39)
[2016-07-25 16:17] VITALS: BP 135/86
[2016-07-25 17:20] VITALS: BP 148/88
[2016-07-25] MEDS: PRAZOSIN HCL 1 MG CAPSULE PO SCH (20:15)
[2016-07-25] MEDS: ROPINIRole HCL 1 MG TABLET PO SCH (20:16)
[2016-07-26 06:01] VITALS: BP 123/70
[2016-07-26] MEDS: TraMADol HCL 50 MG TABLET PO PRN (06:04)
[2016-07-26] MEDS: DiphenhydrAMINE HCL 25 MG CAPSULE PO SCH ×2 (06:11→16:26)
[2016-07-26] MEDS: LORazepam 0.5 MG TABLET PO SCH ×3 (06:11→16:26)
[2016-07-26] MEDS: ZIPRASIDONE HCL 80 MG CAPSULE PO SCH ×2 (06:35→16:26)
[2016-07-26] MEDS ORDERED: TUBERCULIN, PURIFIED PROTEIN DERIVATIVE 5 TU/0.1 ML SYG ID ONE (08:30)
[2016-07-26] MEDS: OMEPRAZOLE 20 MG CAPSULE PO SCH (08:35)
[2016-07-26] MEDS: LIDOCAINE HCL 5% TRANSDERMAL PATCH TD SCH (08:35)
[2016-07-26] MEDS: AmLODIPine BESYLATE 10 MG TABLET PO SCH (08:35)
[2016-07-26] MEDS: MULTIVITAMINS WITH MINERALS, THERAPEUTIC TABLET PO SCH (08:36)
[2016-07-26 08:37] VITALS: BP 119/83
[2016-07-26] MEDS: CELECOXIB 100 MG CAPSULE PO PRN (08:39)
[2016-07-26] MEDS: FOLIC ACID 1 MG TABLET PO SCH (08:46)
[2016-07-26] MEDS: CYCLOBENZAPRINE HCL 10 MG TABLET PO SCH (08:46)
[2016-07-26] MEDS: PREGABALIN 50 MG CAPSULE PO SCH ×3 (08:46→16:26)
[2016-07-26] MEDS: LORazepam 2 MG TABLET PO PRN ×2 (08:47→17:48)
[2016-07-26 09:05] VITALS: BP 127/71
[2016-07-26 09:39] VITALS: BP 120/84
[2016-07-26] MEDS ORDERED: ZIPR80CA2 PO (10:18)
[2016-07-26] MEDS ORDERED: DIPH25 PO (10:18)
[2016-07-26] MEDS ORDERED: PREG50 PO (10:18)
[2016-07-26] MEDS ORDERED: PRAZ1 PO (10:18)
[2016-07-26] MEDS ORDERED: LORA0.5T83 PO (10:18)
[2016-07-26 16:09] VITALS: BP 118/77
[2016-07-26] MEDS: PRAZOSIN HCL 1 MG CAPSULE PO SCH (20:38)
[2016-07-26] MEDS: ROPINIRole HCL 1 MG TABLET PO SCH (20:38)
[2016-07-27 00:08] VITALS: BP 107/61
[2016-07-27] MEDS: TraMADol HCL 50 MG TABLET PO PRN (06:02)
[2016-07-27] MEDS: ZIPRASIDONE HCL 80 MG CAPSULE PO SCH (06:16)
[2016-07-27] MEDS: DiphenhydrAMINE HCL 25 MG CAPSULE PO SCH (06:16)
[2016-07-27] MEDS: LORazepam 0.5 MG TABLET PO SCH ×2 (06:16→12:43)
[2016-07-27] MEDS: AmLODIPine BESYLATE 10 MG TABLET PO SCH (08:17)
[2016-07-27] MEDS: FOLIC ACID 1 MG TABLET PO SCH (08:17)
[2016-07-27] MEDS: MULTIVITAMINS WITH MINERALS, THERAPEUTIC TABLET PO SCH (08:17)
[2016-07-27] MEDS: LORazepam 2 MG TABLET PO PRN (08:17)
[2016-07-27] MEDS: OMEPRAZOLE 20 MG CAPSULE PO SCH (08:17)
[2016-07-27] MEDS: CYCLOBENZAPRINE HCL 10 MG TABLET PO SCH (08:19)
[2016-07-27] MEDS: PREGABALIN 50 MG CAPSULE PO SCH ×2 (08:19→12:43)
[2016-07-27] MEDS: LIDOCAINE HCL 5% TRANSDERMAL PATCH TD SCH (08:20)
[2016-07-27] MEDS ORDERED: CYCL10 PO (08:22)
[2016-07-27] MEDS ORDERED: AMLO-512 PO (08:22)
[2016-07-27] MEDS ORDERED: OMEP20 PO (08:22)
[2016-07-27] MEDS ORDERED: ROPI1TAB11 PO (08:22)
[2016-07-27 08:37] VITALS: BP 124/71
[2016-07-27] MEDS: MAGNESIUM HYDROXIDE SUSPENSION 30 ML UDCUP PO PRN (10:00)
[2016-07-27] MEDS: IBUPROFEN 400 MG TABLET PO PRN (11:43)
== END 2016-07-27 13:00 | DRG 885 ==
LOC: B3A 11:19
PROVIDERS: ADMIT Psychiatry & Neurology Psychiatry; ATTEND Psychiatry & Neurology Psychiatry
PROC: 3E0234Z Introduction of Serum, Toxoid and Vaccine into Muscle, Percutaneous Approach (ICD-10-PCS; principal; 2016-03-19)
DX: F25.0 Schizoaffective disorder, bipolar type (principal); E87.1 Hypo-osmolality and hyponatremia; M62.82 Rhabdomyolysis; R45.851 Suicidal ideations; F17.200 Nicotine dependence, unspecified, uncomplicated; I10 Essential (primary) hypertension; G43.909 Migraine, unspecified, not intractable, without status migrainosus; E78.5 Hyperlipidemia, unspecified; I25.10 Atherosclerotic heart disease of native coronary artery without angina pectoris; G89.4 Chronic pain syndrome; M19.90 Unspecified osteoarthritis, unspecified site; M54.30 Sciatica, unspecified side; E66.9 Obesity, unspecified; J44.9 Chronic obstructive pulmonary disease, unspecified; K21.9 Gastro-esophageal reflux disease without esophagitis; K59.09 Other constipation; R73.9 Hyperglycemia, unspecified; L84 Corns and callosities; M79.7 Fibromyalgia; Z88.8 Allergy status to other drugs, medicaments and biological substances; Z91.14 Patient's other noncompliance with medication regimen; Z68.36 Body mass index [BMI] 36.0-36.9, adult; Z79.899 Other long term (current) drug therapy; Z91.19 Patient's noncompliance with other medical treatment and regimen; Z23 Encounter for immunization
CPT/HCPCS: 72100; 83036; 83735; 84295; 84439; 84443; 87081; 87086; 90471; 93005; G0479; G0480; G0481; J1200; J2060; J3490

== ENCOUNTER 2017-05-05 15:05 | Emergency (ER) | payer MEDICAID, MEDICARE ==
[~2017-05-05] VITALS: Ht 154.9 cm; Wt 85.9 kg
[~2017-05-05 15:05] MED LIST changes: +AMLO-512 PO; -AMLO2.5T PO; +CYCL10 PO; +DIPH25 PO; -FOLI1 PO; -HALO2 PO; +LORA0.5T83 PO; -MULT-29 PO; +OMEP20 PO; +PRAZ1 PO; +PREG50 PO; +ROPI1TAB11 PO; -THIA100 PO; +ZIPR80CA2 PO
[2017-05-05] MEDS ORDERED: LORA0.5T2 PO (15:31)
[2017-05-05] MEDS ORDERED: TOPI100T37 PO (15:31)
[2017-05-05] MEDS ORDERED: HALO10 PO (15:31)
[2017-05-05] MEDS ORDERED: ASEN10TA8 SL (15:31)
[2017-05-05] MEDS ORDERED: SERT100T12 PO (15:31)
[2017-05-05 16:51] LABS: ANION GAP 7 mmol/L (8-16); BASOPHILS % (AUTO) 0.4 % (0.0-2.0); CALCIUM, TOTAL 9.2 mg/dL (8.8-10.5); CARBON DIOXIDE 28 mmol/L (22-29); CHLORIDE 97 mmol/L (98-107); CREATININE 0.91 mg/dL (0.60-1.30); EOSINOPHILS % (AUTO) 1.4 % (1.0-6.0); GLOMERULAR FILTR. RATE CALC > 60 mL/min (>60); HEMATOCRIT 36.9 % (36-46); HEMOGLOBIN 12.8 g/dL (12.0-16.0); LYMPHOCYTES # (AUTO) 1.7 K/uL (1.0-4.8); LYMPHOCYTES % (AUTO) 26.9 % (22.0-44.0); MEAN CORPUSCULAR HGB CONC 34.7 G/dL (31.0-37.0); MEAN CORPUSCULAR VOLUME 87 fL (80-100); MONOCYTES # (AUTO) 0.6 K/uL (0.1-1.0); MONOCYTES % (AUTO) 8.9 % (2.0-9.0); NEUTROPHILS # (AUTO) 4.1 K/uL (1.8-7.7); NEUTROPHILS % (AUTO) 62.4 % (40.0-70.0); PLATELET COUNT (AUTO) 301 K/uL (150-450); POTASSIUM 3.6 mmol/L (3.5-5.1); RED BLOOD CELL COUNT(AUTO) 4.27 MIL/uL (4.00-5.20); RED CELL DISTRIBUTION WIDTH 13.4 % (11.5-14.5); SODIUM SERUM 132 mmol/L (136-145); UREA NITROGEN, BLOOD 15 mg/dL (7-18); WHITE BLOOD COUNT (AUTO) 6.5 K/uL (4.5-11.0)
[2017-05-05 17:15] LABS: ALANINE AMINOTRANSFERASE 30 U/L (12-78); ASPARTATE AMINOTRANSFERASE 18 U/L (15-37); BILIRUBIN,TOTAL 0.2 mg/dL (0.1-1.0); CREATINE KINASE MB 3.3 ng/mL (0-5); CREATINE KINASE, TOTAL 243 U/L (26-192); TOTAL PROTEIN, SERUM 7.2 g/dL (6.4-8.2)
[2017-05-05 17:24] LABS: B-TYPE NATRIURETIC PEPTIDE 13 pg/mL (0-100)
[2017-05-05] MEDS ORDERED: KETOROLAC TROMETHAMINE 30 MG/ML VIAL IVP ONE (18:45)
[2017-05-05] MEDS ORDERED: ACETAMINOPHEN 500 MG TABLET PO ONE (18:45)
[2017-05-05 19:25] VITALS: BP 132/76
== END 2017-05-05 20:40 | disposition home or self-care (01) ==
LOC: EMS 15:08
DX: R07.89 Other chest pain (principal); F41.9 Anxiety disorder, unspecified; F20.9 Schizophrenia, unspecified; K21.9 Gastro-esophageal reflux disease without esophagitis; M79.7 Fibromyalgia; F17.200 Nicotine dependence, unspecified, uncomplicated; I25.2 Old myocardial infarction; Z45.2 Encounter for adjustment and management of vascular access device
CPT/HCPCS: 71010; 80053; 82550; 82553; 83880; 84484; 85025; 93005; 96374; 99285; J1885

== ENCOUNTER 2017-08-31 07:46 | Inpatient (IN) | payer MEDICARE ==
[~2017-08-31] VITALS: Ht 154.9 cm; Wt 94.5 kg
[~2017-08-31 07:46] MED LIST changes: +ASEN10TA8 SL; +HALO10 PO; +LORA0.5T2 PO; -LORA0.5T83 PO; -PRAZ1 PO; -PREG50 PO; -ROPI1TAB11 PO; +SERT100T12 PO; +TOPI100T37 PO; -ZIPR80CA2 PO
[2017-08-31] MEDS ORDERED: ACETAMINOPHEN 500 MG TABLET PO ONE (08:30)
[2017-08-31 10:22] LABS: BASOPHILS % (AUTO) 1.9 % (0.0-2.0); EOSINOPHILS % (AUTO) 1.4 % (1.0-6.0); HEMATOCRIT 36.8 % (36-46); HEMOGLOBIN 13.1 g/dL (12.0-16.0); LYMPHOCYTES # (AUTO) 0.8 K/uL (1.0-4.8); LYMPHOCYTES % (AUTO) 19.2 % (22.0-44.0); MEAN CORPUSCULAR HEMOGLOBIN 29.7 pg (26.0-34.0); MEAN CORPUSCULAR HGB CONC 35.5 G/dL (31.0-37.0); MEAN CORPUSCULAR VOLUME 84 fL (80-100); MONOCYTES # (AUTO) 0.4 K/uL (0.1-1.0); MONOCYTES % (AUTO) 9.9 % (2.0-9.0); NEUTROPHILS # (AUTO) 2.7 K/uL (1.8-7.7); NEUTROPHILS % (AUTO) 67.6 % (40.0-70.0); PLATELET COUNT (AUTO) 317 K/uL (150-450); RED BLOOD CELL COUNT(AUTO) 4.39 MIL/uL (4.00-5.20); RED CELL DISTRIBUTION WIDTH 12.3 % (11.5-14.5)
[2017-08-31 10:41] LABS: ANION GAP 11 mmol/L (8-16); CALCIUM, TOTAL 9.2 mg/dL (8.8-10.5); CARBON DIOXIDE 27 mmol/L (22-29); CHLORIDE 85 mmol/L (98-107); CREATININE 0.78 mg/dL (0.60-1.30); GLOMERULAR FILTR. RATE CALC > 60 mL/min (>60); GLUCOSE,RANDOM 112 mg/dL (70-110); POTASSIUM 3.6 mmol/L (3.5-5.1); SODIUM SERUM 123 mmol/L (136-145); UREA NITROGEN, BLOOD 8 mg/dL (7-18)
[2017-08-31 10:42] LABS: ALANINE AMINOTRANSFERASE 33 U/L (12-78); ALBUMIN 4.6 g/dL (3.4-5.0); ALKALINE PHOSPHATASE 111 U/L (46-116); ASPARTATE AMINOTRANSFERASE 20 U/L (15-37); BILIRUBIN,TOTAL 7.7 mg/dL (0.1-1.0); TOTAL PROTEIN, SERUM 7.7 g/dL (6.4-8.2)
[2017-08-31 10:55] LABS: B-TYPE NATRIURETIC PEPTIDE 26 pg/mL (0-100)
[2017-08-31] MEDS ORDERED: IBUPROFEN 600 MG TABLET PO ONE (11:15)
[2017-08-31 11:16] LABS: CKMB RELATIVE INDEX 2.5 % (0.0-4.0); CREATINE KINASE MB 6.7 ng/mL (0-5); CREATINE KINASE, TOTAL 263 U/L (26-192)
[2017-08-31] MEDS ORDERED: ACETAMINOPHEN 325 MG TABLET PO PRN (12:00)
[2017-08-31] MEDS ORDERED: ONDANSETRON HCL 4 MG/2 ML VIAL IVP PRN ×2 (12:00→20:45)
[2017-08-31] MEDS ORDERED: LORazepam 2 MG/ML VIAL IVP ONE (13:00)
[2017-08-31 20:15] VITALS: BP 143/75
[2017-08-31] MEDS ORDERED: IPRATROPIUM BROMIDE 0.5 MG/2.5 ML NEB SOLUTION NEB PRN (20:45)
[2017-08-31] MEDS ORDERED: MAGNESIUM HYDROXIDE SUSPENSION 30 ML UDCUP PO PRN (20:45)
[2017-08-31] MEDS ORDERED: ALBUTEROL SULFATE 2.5 MG/0.5 ML NEB SOLUTION NEB PRN (20:45)
[2017-08-31] MEDS ORDERED: ZOLPIDEM TARTRATE 10 MG TABLET PO PRN (20:45)
[2017-08-31] MEDS ORDERED: LORazepam 0.5 MG TABLET PO SCH (21:00)
[2017-08-31] MEDS ORDERED: TOPIRAMATE 100 MG TABLET PO SCH (21:00)
[2017-08-31] MEDS: DOCUSATE SODIUM 100 MG CAPSULE PO SCH (21:00)
[2017-08-31] MEDS ORDERED: ASENAPINE 10 MG SUBLINGUAL TABLET SL SCH (21:00)
[2017-08-31] MEDS ORDERED: MELOXICAM 7.5 MG TABLET PO PRN (21:15)
[2017-08-31] MEDS ORDERED: MAG HYDROX/AL HYDROX/SIMETH ES 30 ML SUSPENSION UDCUP PO PRN (21:15)
[2017-08-31] MEDS ORDERED: QUEtiapine FUMARATE 100 MG TABLET PO PRN (21:15)
[2017-08-31] MEDS ORDERED: LOPERAMIDE HCL 2 MG CAPSULE PO PRN (21:15)
[2017-08-31 23:06] VITALS: BP 141/74
[2017-08-31] MEDS: NITROGLYCERIN 2% (1 GM=INCH) PACKET TP SCH (23:28)
[2017-08-31] MEDS: LORazepam 2 MG/ML VIAL IVP PRN (23:28)
[2017-09-01] MEDS ORDERED: INFLUENZA VIRUS VACCINE QVS 2017-18 (3YR+)/PF 60 MCG/0.5 ML SYRINGE IM ONE (00:15)
[2017-09-01 04:02] VITALS: BP 116/59
[2017-09-01] MEDS: IBUPROFEN 400 MG TABLET PO PRN ×3 (04:06→21:32)
[2017-09-01] MEDS ORDERED: DiphenhydrAMINE HCL 25 MG CAPSULE PO SCH (06:00)
[2017-09-01] MEDS: NITROGLYCERIN 2% (1 GM=INCH) PACKET TP SCH ×3 (06:52→18:12)
[2017-09-01 07:35] LABS: CHOL/HDL RATIO 5.6 (3.9-5.7)
[2017-09-01] MEDS: LORazepam 2 MG/ML VIAL IVP PRN ×2 (07:35→13:03)
[2017-09-01 08:10] VITALS: BP 130/67
[2017-09-01] MEDS: PANTOPRAZOLE SODIUM 40 MG/VIAL IVP SCH (08:31)
[2017-09-01] MEDS: AmLODIPine BESYLATE 10 MG TABLET PO SCH (08:32)
[2017-09-01] MEDS: ASPIRIN 81 MG CHEWABLE TABLET PO SCH (08:32)
[2017-09-01] MEDS: MULTIVITAMINS WITH MINERALS, THERAPEUTIC TABLET PO SCH (08:33)
[2017-09-01] MEDS: OXYBUTYNIN CHLORIDE 5 MG ER TABLET PO SCH (08:33)
[2017-09-01] MEDS: SERTRALINE HCL 100 MG TABLET PO SCH (08:33)
[2017-09-01] MEDS: QUEtiapine FUMARATE 100 MG TABLET PO SCH ×3 (08:33→21:33)
[2017-09-01] MEDS: TOPIRAMATE 100 MG TABLET PO SCH ×2 (08:34→21:33)
[2017-09-01] MEDS: DOCUSATE SODIUM 100 MG CAPSULE PO SCH ×2 (08:39→21:33)
[2017-09-01] MEDS ORDERED: CYCLOBENZAPRINE HCL 10 MG TABLET PO SCH (09:00)
[2017-09-01] MEDS ORDERED: SERTRALINE HCL 100 MG TABLET PO SCH (09:00)
[2017-09-01 11:19] VITALS: BP 104/40
[2017-09-01 15:16] VITALS: BP 127/64
[2017-09-01 15:47] LABS: BASOPHILS % (AUTO) 4.7 % (0.0-2.0); EOSINOPHILS % (AUTO) 1.1 % (1.0-6.0); HEMOGLOBIN 12.3 g/dL (12.0-16.0); LYMPHOCYTES # (AUTO) 0.9 K/uL (1.0-4.8); LYMPHOCYTES % (AUTO) 20.8 % (22.0-44.0); MEAN CORPUSCULAR HEMOGLOBIN 30.7 pg (26.0-34.0); MEAN CORPUSCULAR HGB CONC 36.3 G/dL (31.0-37.0); MEAN CORPUSCULAR VOLUME 85 fL (80-100); MONOCYTES # (AUTO) 0.3 K/uL (0.1-1.0); MONOCYTES % (AUTO) 6.7 % (2.0-9.0); NEUTROPHILS # (AUTO) 2.8 K/uL (1.8-7.7); NEUTROPHILS % (AUTO) 66.7 % (40.0-70.0); PLATELET COUNT (AUTO) 316 K/uL (150-450); RED BLOOD CELL COUNT(AUTO) 4.01 MIL/uL (4.00-5.20); RED CELL DISTRIBUTION WIDTH 12.5 % (11.5-14.5)
[2017-09-01 15:57] LABS: ALANINE AMINOTRANSFERASE 27 U/L (12-78); ALBUMIN 3.9 g/dL (3.4-5.0); ALKALINE PHOSPHATASE 95 U/L (46-116); ANION GAP 10 mmol/L (8-16); ASPARTATE AMINOTRANSFERASE 25 U/L (15-37); BILIRUBIN,TOTAL 0.3 mg/dL (0.1-1.0); CALCIUM, TOTAL 8.6 mg/dL (8.8-10.5); CARBON DIOXIDE 24 mmol/L (22-29); CHLORIDE 91 mmol/L (98-107); CREATININE 0.74 mg/dL (0.60-1.30); GLOMERULAR FILTR. RATE CALC > 60 mL/min (>60); GLUCOSE,RANDOM 99 mg/dL (70-110); POTASSIUM 3.9 mmol/L (3.5-5.1); SODIUM SERUM 125 mmol/L (136-145); UREA NITROGEN, BLOOD 10 mg/dL (7-18)
[2017-09-01 19:41] VITALS: BP 105/61
[2017-09-01] MEDS: SODIUM CHLORIDE 0.9% 1,000 ML IV SCH (20:29)
[2017-09-01] MEDS: PRAZOSIN HCL 2 MG CAPSULE PO SCH ×2 (21:00→21:33)
[2017-09-01 23:52] VITALS: BP 120/67
[2017-09-02] MEDS: ACETAMINOPHEN 325 MG TABLET PO PRN ×4 (01:20→16:33)
[2017-09-02 05:12] VITALS: BP 105/55
[2017-09-02] MEDS: NITROGLYCERIN 2% (1 GM=INCH) PACKET TP SCH ×4 (06:00→18:00)
[2017-09-02] MEDS: LORazepam 2 MG/ML VIAL IVP PRN ×3 (06:23→15:34)
[2017-09-02 07:12] LABS: BASOPHILS % (AUTO) 1.1 % (0.0-2.0); EOSINOPHILS % (AUTO) 1.5 % (1.0-6.0); HEMATOCRIT 36.7 % (36-46); HEMOGLOBIN 12.7 g/dL (12.0-16.0); LYMPHOCYTES # (AUTO) 1.2 K/uL (1.0-4.8); LYMPHOCYTES % (AUTO) 29.9 % (22.0-44.0); MEAN CORPUSCULAR HEMOGLOBIN 29.6 pg (26.0-34.0); MEAN CORPUSCULAR HGB CONC 34.7 G/dL (31.0-37.0); MEAN CORPUSCULAR VOLUME 85 fL (80-100); MONOCYTES # (AUTO) 0.5 K/uL (0.1-1.0); MONOCYTES % (AUTO) 12.3 % (2.0-9.0); NEUTROPHILS # (AUTO) 2.3 K/uL (1.8-7.7); NEUTROPHILS % (AUTO) 55.2 % (40.0-70.0); PLATELET COUNT (AUTO) 279 K/uL (150-450); RED BLOOD CELL COUNT(AUTO) 4.31 MIL/uL (4.00-5.20); RED CELL DISTRIBUTION WIDTH 12.6 % (11.5-14.5)
[2017-09-02 07:39] LABS: ALANINE AMINOTRANSFERASE 25 U/L (12-78); ALBUMIN 3.7 g/dL (3.4-5.0); ALKALINE PHOSPHATASE 92 U/L (46-116); ANION GAP 9 mmol/L (8-16); ASPARTATE AMINOTRANSFERASE 14 U/L (15-37); BILIRUBIN,TOTAL 0.2 mg/dL (0.1-1.0); CALCIUM, TOTAL 8.7 mg/dL (8.8-10.5); CARBON DIOXIDE 24 mmol/L (22-29); CHLORIDE 94 mmol/L (98-107); CREATININE 0.78 mg/dL (0.60-1.30); GLOMERULAR FILTR. RATE CALC > 60 mL/min (>60); GLUCOSE,RANDOM 115 mg/dL (70-110); POTASSIUM 4.2 mmol/L (3.5-5.1); SODIUM SERUM 127 mmol/L (136-145); TOTAL PROTEIN, SERUM 6.7 g/dL (6.4-8.2); UREA NITROGEN, BLOOD 12 mg/dL (7-18)
[2017-09-02 07:45] VITALS: BP 127/74
[2017-09-02] MEDS: TOPIRAMATE 100 MG TABLET PO SCH (08:03)
[2017-09-02] MEDS: MULTIVITAMINS WITH MINERALS, THERAPEUTIC TABLET PO SCH (08:04)
[2017-09-02] MEDS: QUEtiapine FUMARATE 100 MG TABLET PO SCH ×2 (08:04→16:33)
[2017-09-02] MEDS: SERTRALINE HCL 100 MG TABLET PO SCH (08:04)
[2017-09-02] MEDS: OXYBUTYNIN CHLORIDE 5 MG ER TABLET PO SCH (08:04)
[2017-09-02] MEDS: DOCUSATE SODIUM 100 MG CAPSULE PO SCH (08:05)
[2017-09-02] MEDS: ASPIRIN 81 MG CHEWABLE TABLET PO SCH (08:05)
[2017-09-02] MEDS: AmLODIPine BESYLATE 10 MG TABLET PO SCH (08:05)
[2017-09-02] MEDS: PANTOPRAZOLE SODIUM 40 MG/VIAL IVP SCH (08:06)
[2017-09-02 11:21] VITALS: BP 142/66
[2017-09-02] MEDS: SODIUM CHLORIDE 0.9% 1,000 ML IV SCH (11:30)
[2017-09-02] MEDS ORDERED: SODIUM CHLORIDE 1 GM TABLET PO ONE (14:45)
[2017-09-02 14:53] VITALS: BP 122/67
[2017-09-02] MEDS ORDERED: SERT50TA12 PO (15:28)
[2017-09-02] MEDS ORDERED: TOPI100T37 PO (15:28)
[2017-09-02] MEDS ORDERED: ACET-2247 PO (15:28)
[2017-09-02] MEDS ORDERED: QUET100T PO ×2 (15:28)
[2017-09-02] MEDS ORDERED: ZOLP10TA7 PO (15:28)
[2017-09-02] MEDS ORDERED: OMEP20 PO (16:30)
[2017-09-02] MEDS ORDERED: MULT1CAP32 PO (16:30)
[2017-09-02] MEDS ORDERED: PRAZ2 PO (16:30)
[2017-09-02] MEDS ORDERED: IBUP-1506 PO (16:30)
[2017-09-02] MEDS ORDERED: LOPE2 PO (16:30)
[2017-09-02] MEDS ORDERED: ASEN10TA8 SL (16:30)
[2017-09-02] MEDS ORDERED: MELO-107 PO (16:30)
[2017-09-02] MEDS ORDERED: OXYB5XL PO (16:30)
[2017-09-02 18:26] LABS: ALANINE AMINOTRANSFERASE 28 U/L (12-78); ALBUMIN 3.9 g/dL (3.4-5.0); ALKALINE PHOSPHATASE 93 U/L (46-116); ANION GAP 9 mmol/L (8-16); ASPARTATE AMINOTRANSFERASE 17 U/L (15-37); BILIRUBIN,TOTAL 0.2 mg/dL (0.1-1.0); CALCIUM, TOTAL 8.4 mg/dL (8.8-10.5); CARBON DIOXIDE 27 mmol/L (22-29); CHLORIDE 96 mmol/L (98-107); CREATININE 0.85 mg/dL (0.60-1.30); GLOMERULAR FILTR. RATE CALC > 60 mL/min (>60); GLUCOSE,RANDOM 86 mg/dL (70-110); POTASSIUM 3.8 mmol/L (3.5-5.1); SODIUM SERUM 132 mmol/L (136-145); TOTAL PROTEIN, SERUM 6.9 g/dL (6.4-8.2); UREA NITROGEN, BLOOD 10 mg/dL (7-18)
== END 2017-09-02 19:10 | DRG 645 ==
LOC: EMS 07:49 → 5S 17:54
PROVIDERS: ADMIT Hospitalist; ATTEND Hospitalist
DX: E22.2 Syndrome of inappropriate secretion of antidiuretic hormone (principal); F25.0 Schizoaffective disorder, bipolar type; F43.10 Post-traumatic stress disorder, unspecified; K21.9 Gastro-esophageal reflux disease without esophagitis; R07.89 Other chest pain; I25.2 Old myocardial infarction; F17.210 Nicotine dependence, cigarettes, uncomplicated; I10 Essential (primary) hypertension; M79.7 Fibromyalgia; M19.90 Unspecified osteoarthritis, unspecified site; Z79.899 Other long term (current) drug therapy; Z88.8 Allergy status to other drugs, medicaments and biological substances
CPT/HCPCS: 70450; 93005; 93306; 96374; 99285; C9113; J2060; J7030

== ENCOUNTER 2018-11-06 20:51 | Emergency (ER) | payer MEDICARE, MEDICAID ==
[~2018-11-06] VITALS: Ht 154.9 cm; Wt 63.6 kg
[~2018-11-06 20:51] MED LIST changes: +ACET-2247 PO; -AMLO-512 PO; -CYCL10 PO; -DIPH25 PO; -HALO10 PO; +IBUP-1506 PO; +LOPE2 PO; -LORA0.5T2 PO; +MELO-107 PO; +MULT1CAP32 PO; +OXYB5XL PO; +PRAZ2 PO; +QUET100T PO; -SERT100T12 PO; +SERT50TA12 PO; +ZOLP10TA7 PO
[2018-11-06] MEDS ORDERED: MAGNESIUM CITRATE 300 ML ORAL SOLUTION PO ONE (22:45)
[2018-11-06 22:53] LABS: BASOPHILS % (AUTO) 0.6 % (0.0-2.0); EOSINOPHILS % (AUTO) 2.1 % (1.0-6.0); HEMATOCRIT 35.2 % (36-46); HEMOGLOBIN 12.1 g/dL (12.0-16.0); LYMPHOCYTES # (AUTO) 1.9 K/uL (1.0-4.8); MEAN CORPUSCULAR HEMOGLOBIN 30.5 pg (26.0-34.0); MEAN CORPUSCULAR HGB CONC 34.3 G/dL (31.0-37.0); MEAN CORPUSCULAR VOLUME 89 fL (80-100); MONOCYTES # (AUTO) 0.7 K/uL (0.1-1.0); MONOCYTES % (AUTO) 10.2 % (2.0-9.0); NEUTROPHILS # (AUTO) 4.5 K/uL (1.8-7.7); NEUTROPHILS % (AUTO) 61.1 % (40.0-70.0); PLATELET COUNT (AUTO) 475 K/uL (150-450); RED BLOOD CELL COUNT(AUTO) 3.95 MIL/uL (4.00-5.20); RED CELL DISTRIBUTION WIDTH 12.5 % (11.5-14.5)
[2018-11-06 23:10] LABS: ALANINE AMINOTRANSFERASE 30 U/L (12-78); ALBUMIN 3.6 g/dL (3.4-5.0); ALKALINE PHOSPHATASE 97 U/L (46-116); ANION GAP 13 mmol/L (8-16); ASPARTATE AMINOTRANSFERASE 20 U/L (15-37); BILIRUBIN,TOTAL 0.2 mg/dL (0.1-1.0); CALCIUM, TOTAL 9.4 mg/dL (8.8-10.5); CARBON DIOXIDE 23 mmol/L (22-29); CHLORIDE 99 mmol/L (98-107); CREATININE 1.09 mg/dL (0.60-1.30); GLOMERULAR FILTR. RATE CALC 51 mL/min (>60); GLUCOSE,RANDOM 119 mg/dL (70-110); LIPASE 139 U/L (73-393); SODIUM SERUM 135 mmol/L (136-145); UREA NITROGEN, BLOOD 16 mg/dL (7-18)
[2018-11-06 23:12] LABS: POTASSIUM 2.9 mmol/L (3.5-5.1)
[2018-11-06] MEDS ORDERED: ALBUTEROL SULFATE HFA 90 MCG/PUFF 8 GM INHALER IH ONE (23:45)
[2018-11-06] MEDS ORDERED: POTASSIUM CHLORIDE 10% 40 MEQ/30 ML LIQUID UDCUP PO ONE (23:45)
[2018-11-06 23:48] VITALS: BP 134/77
== END 2018-11-07 00:52 | disposition home or self-care (01) ==
LOC: EMS 20:53
DX: K59.00 Constipation, unspecified (principal); J44.1 Chronic obstructive pulmonary disease with (acute) exacerbation; E87.6 Hypokalemia; I25.2 Old myocardial infarction; K21.9 Gastro-esophageal reflux disease without esophagitis; F20.9 Schizophrenia, unspecified; F17.210 Nicotine dependence, cigarettes, uncomplicated; Z88.8 Allergy status to other drugs, medicaments and biological substances; Z79.899 Other long term (current) drug therapy
CPT/HCPCS: 36415; 71045; 74176; 80053; 83690; 84484; 85025; 93005; 94640; 99285; 99406; G0480; J3535

== ENCOUNTER 2018-11-07 05:10 | Emergency (ER) | payer MEDICARE, MEDICAID ==
[~2018-11-07] VITALS: Ht 154.9 cm; Wt 90.9 kg
[2018-11-07 06:39] VITALS: BP 140/86
== END 2018-11-07 07:35 | disposition left against medical advice (07) ==
LOC: EMS 05:15
DX: F25.9 Schizoaffective disorder, unspecified (principal); I25.2 Old myocardial infarction; K21.9 Gastro-esophageal reflux disease without esophagitis; M79.7 Fibromyalgia; F17.210 Nicotine dependence, cigarettes, uncomplicated; F43.10 Post-traumatic stress disorder, unspecified; Z79.899 Other long term (current) drug therapy; Z98.890 Other specified postprocedural states; Z88.8 Allergy status to other drugs, medicaments and biological substances

== ENCOUNTER 2018-11-20 16:56 | Inpatient (IN) | payer MEDICARE, MEDICAID ==
[~2018-11-20] VITALS: Ht 154.9 cm; Wt 87.2 kg
[2018-11-20 17:36] VITALS: BP 150/75
[2018-11-20] MEDS ORDERED: PNEUMOCOCCAL VACCINE POLYVALENT 0.5 ML VIAL [PPSV23] IM ONE (17:45)
[2018-11-20 18:19] VITALS: BP 143/86
[2018-11-20] MEDS ORDERED: NICOTINE 14 MG/24 HOUR PATCH TD PRN (18:45)
[2018-11-20] MEDS ORDERED: DOCUSATE SODIUM 100 MG CAPSULE PO PRN (18:45)
[2018-11-20] MEDS ORDERED: LOPERAMIDE HCL 2 MG CAPSULE PO PRN (18:45)
[2018-11-20] MEDS ORDERED: PETROLATUM,WHITE 28 GM JELLY TP PRN (18:45)
[2018-11-20] MEDS ORDERED: CloNIDine HCL 0.1 MG TABLET PO PRN (18:45)
[2018-11-20] MEDS ORDERED: ONDANSETRON HCL 4 MG TABLET PO PRN (18:45)
[2018-11-20] MEDS ORDERED: MAG HYDROX/AL HYDROX/SIMETH ES 30 ML SUSPENSION UDCUP PO PRN (18:45)
[2018-11-20] MEDS ORDERED: GuaiFENesin/D-METHORPHAN [SUGAR-FREE] 200-20MG/10 ML SYRUP UDCUP PO PRN (18:45)
[2018-11-20] MEDS ORDERED: ACETAMINOPHEN 325 MG TABLET PO PRN (18:45)
[2018-11-20] MEDS ORDERED: ALBUTEROL SULFATE HFA 90 MCG/PUFF 8 GM INHALER IH PRN (18:45)
[2018-11-20] MEDS: LORazepam 2 MG TABLET PO PRN (18:49)
[2018-11-20] MEDS: QUEtiapine FUMARATE 100 MG TABLET PO PRN (18:50)
[2018-11-20] MEDS ORDERED: DiphenhydrAMINE HCL 50 MG/ML VIAL IM ONE (19:15)
[2018-11-20] MEDS: PRAZOSIN HCL 2 MG CAPSULE PO SCH ×2 (21:00→21:55)
[2018-11-21 04:02] VITALS: BP 142/80
[2018-11-21 08:08] VITALS: BP 127/53
[2018-11-21] MEDS: OMEPRAZOLE 20 MG CAPSULE PO SCH (08:18)
[2018-11-21] MEDS: MULTIVITAMINS, THERAPEUTIC TABLET PO SCH (08:18)
[2018-11-21] MEDS: OXYBUTYNIN CHLORIDE 5 MG ER TABLET PO SCH (08:18)
[2018-11-21] MEDS: QUEtiapine FUMARATE 100 MG TABLET PO PRN ×2 (08:22→16:35)
[2018-11-21] MEDS: LORazepam 2 MG TABLET PO PRN ×3 (08:22→16:35)
[2018-11-21 08:24] LABS: BASOPHILS % (AUTO) 0.5 % (0.0-2.0); EOSINOPHILS % (AUTO) 1.7 % (1.0-6.0); HEMATOCRIT 37.9 % (36-46); HEMOGLOBIN 12.5 g/dL (12.0-16.0); LYMPHOCYTES # (AUTO) 0.9 K/uL (1.0-4.8); LYMPHOCYTES % (AUTO) 23.2 % (22.0-44.0); MEAN CORPUSCULAR HEMOGLOBIN 29.8 pg (26.0-34.0); MEAN CORPUSCULAR VOLUME 90 fL (80-100); MONOCYTES # (AUTO) 0.6 K/uL (0.1-1.0); NEUTROPHILS # (AUTO) 2.3 K/uL (1.8-7.7); NEUTROPHILS % (AUTO) 59.6 % (40.0-70.0); PLATELET COUNT (AUTO) 261 K/uL (150-450); RED CELL DISTRIBUTION WIDTH 12.9 % (11.5-14.5)
[2018-11-21 08:36] LABS: HEMOGLOBIN A1C 5.9 % (4.5-6.2)
[2018-11-21 08:39] LABS: ALANINE AMINOTRANSFERASE 16 U/L (12-78); ALBUMIN 3.1 g/dL (3.4-5.0); ALKALINE PHOSPHATASE 75 U/L (46-116); ANION GAP 9 mmol/L (8-16); ASPARTATE AMINOTRANSFERASE 15 U/L (15-37); BILIRUBIN,TOTAL 0.2 mg/dL (0.1-1.0); CALCIUM, TOTAL 8.6 mg/dL (8.8-10.5); CARBON DIOXIDE 25 mmol/L (22-29); CHLORIDE 105 mmol/L (98-107); CHOL/HDL RATIO 3.4 (3.9-5.7); CHOLESTEROL 172 mg/dL (131-200); CREATININE 0.65 mg/dL (0.60-1.30); FREE T4 (FREE THYROXINE) 0.99 ng/dL (0.76-1.46); GLOMERULAR FILTR. RATE CALC > 60 mL/min (>60); GLUCOSE,RANDOM 99 mg/dL (70-110); HDL CHOLESTEROL 51 mg/dL (40-60); LDL CHOL (CALC.) 105 mg/dL (0-130); POTASSIUM 3.3 mmol/L (3.5-5.1); SODIUM SERUM 139 mmol/L (136-145); THYROID STIMULATING HORMONE 0.98 uIU/mL (0.36-3.74); TOTAL PROTEIN, SERUM 6.5 g/dL (6.4-8.2); TRIGLYCERIDES 79 mg/dL (15-150); UREA NITROGEN, BLOOD 9 mg/dL (7-18)
[2018-11-21] MEDS: MAGNESIUM HYDROXIDE SUSPENSION 30 ML UDCUP PO PRN (09:28)
[2018-11-21] MEDS ORDERED: POTASSIUM CHLORIDE 20 MEQ ER TABLET PO ONE (10:15)
[2018-11-21] MEDS ORDERED: MELOXICAM 7.5 MG TABLET PO PRN (11:15)
[2018-11-21] MEDS: AmLODIPine BESYLATE 2.5 MG TABLET PO SCH (12:29)
[2018-11-21] MEDS: ASENAPINE 10 MG SUBLINGUAL TABLET SL SCH ×2 (13:18→16:35)
[2018-11-21] MEDS: SERTRALINE HCL 100 MG TABLET PO SCH (13:18)
[2018-11-21] MEDS: QUEtiapine FUMARATE 100 MG TABLET PO SCH (13:18)
[2018-11-21 16:10] VITALS: BP 131/68
[2018-11-21] MEDS: TOPIRAMATE 100 MG TABLET PO SCH (16:35)
[2018-11-21] MEDS ORDERED: LORazepam 2 MG/ML VIAL ONE (19:56)
[2018-11-21] MEDS ORDERED: DiphenhydrAMINE HCL 50 MG/ML VIAL ONE (19:56)
[2018-11-21] MEDS ORDERED: DiphenhydrAMINE HCL 50 MG/ML VIAL IM ONE (20:00)
[2018-11-21] MEDS ORDERED: LORazepam 2 MG/ML VIAL IM ONE (20:00)
[2018-11-21] MEDS ORDERED: PRAZOSIN HCL 2 MG CAPSULE PO SCH (21:00)
[2018-11-21] MEDS: PRAZOSIN HCL 2 MG CAPSULE PO SCH (21:10)
[2018-11-21] MEDS: QUEtiapine FUMARATE 200 MG TABLET PO SCH (21:10)
[2018-11-21] MEDS: ZOLPIDEM TARTRATE 10 MG TABLET PO PRN (21:11)
[2018-11-21] MEDS: IBUPROFEN 400 MG TABLET PO PRN (21:11)
[2018-11-22 04:25] VITALS: BP 136/70
[2018-11-22] MEDS: LORazepam 2 MG TABLET PO PRN ×2 (04:46→16:38)
[2018-11-22 07:41] LABS: BASOPHILS % (AUTO) 0.4 % (0.0-2.0); EOSINOPHILS % (AUTO) 0.9 % (1.0-6.0); HEMATOCRIT 37.9 % (36-46); HEMOGLOBIN 12.4 g/dL (12.0-16.0); LYMPHOCYTES % (AUTO) 18.7 % (22.0-44.0); MEAN CORPUSCULAR HEMOGLOBIN 29.7 pg (26.0-34.0); MEAN CORPUSCULAR HGB CONC 32.7 G/dL (31.0-37.0); MEAN CORPUSCULAR VOLUME 91 fL (80-100); MONOCYTES # (AUTO) 0.6 K/uL (0.1-1.0); MONOCYTES % (AUTO) 11.4 % (2.0-9.0); NEUTROPHILS # (AUTO) 3.7 K/uL (1.8-7.7); NEUTROPHILS % (AUTO) 68.6 % (40.0-70.0); PLATELET COUNT (AUTO) 316 K/uL (150-450); RED BLOOD CELL COUNT(AUTO) 4.18 MIL/uL (4.00-5.20); RED CELL DISTRIBUTION WIDTH 12.8 % (11.5-14.5)
[2018-11-22 08:00] LABS: CALCIUM, TOTAL 9.2 mg/dL (8.8-10.5); CREATININE 0.99 mg/dL (0.60-1.30); POTASSIUM 3.8 mmol/L (3.5-5.1)
[2018-11-22 08:18] VITALS: BP 111/63
[2018-11-22] MEDS: MULTIVITAMINS, THERAPEUTIC TABLET PO SCH (08:43)
[2018-11-22] MEDS: TOPIRAMATE 100 MG TABLET PO SCH ×2 (08:43→16:38)
[2018-11-22] MEDS: AmLODIPine BESYLATE 2.5 MG TABLET PO SCH (08:43)
[2018-11-22] MEDS: OMEPRAZOLE 20 MG CAPSULE PO SCH (08:45)
[2018-11-22] MEDS: OXYBUTYNIN CHLORIDE 5 MG ER TABLET PO SCH (08:45)
[2018-11-22] MEDS: ASENAPINE 10 MG SUBLINGUAL TABLET SL SCH ×2 (08:46→16:38)
[2018-11-22] MEDS: SERTRALINE HCL 100 MG TABLET PO SCH (08:46)
[2018-11-22] MEDS: QUEtiapine FUMARATE 100 MG TABLET PO SCH ×2 (08:51→09:18)
[2018-11-22] MEDS ORDERED: OXYBUTYNIN CHLORIDE 5 MG ER TABLET PO SCH (09:00)
[2018-11-22] MEDS ORDERED: OMEPRAZOLE 20 MG CAPSULE PO SCH (09:00)
[2018-11-22] MEDS ORDERED: FluPHENAZine HCL 2.5 MG/ML INJ IM PRN ×2 (09:45)
[2018-11-22] MEDS: MAGNESIUM HYDROXIDE SUSPENSION 30 ML UDCUP PO PRN (12:55)
[2018-11-22] MEDS: IBUPROFEN 400 MG TABLET PO PRN (12:55)
[2018-11-22 16:15] VITALS: BP 142/82
[2018-11-22] MEDS: QUEtiapine FUMARATE 100 MG TABLET PO PRN (16:39)
[2018-11-22] MEDS: QUEtiapine FUMARATE 200 MG TABLET PO SCH (20:32)
[2018-11-22] MEDS: PRAZOSIN HCL 2 MG CAPSULE PO SCH (20:32)
[2018-11-22] MEDS: ZOLPIDEM TARTRATE 10 MG TABLET PO PRN (20:32)
[2018-11-23 05:40] VITALS: BP 130/60
[2018-11-23 08:57] VITALS: BP 129/78
[2018-11-23] MEDS: OXYBUTYNIN CHLORIDE 5 MG ER TABLET PO SCH (08:58)
[2018-11-23] MEDS: OMEPRAZOLE 20 MG CAPSULE PO SCH (08:58)
[2018-11-23] MEDS: TOPIRAMATE 100 MG TABLET PO SCH ×2 (08:58→18:30)
[2018-11-23] MEDS: MULTIVITAMINS, THERAPEUTIC TABLET PO SCH (08:58)
[2018-11-23] MEDS: AmLODIPine BESYLATE 2.5 MG TABLET PO SCH (08:59)
[2018-11-23] MEDS: QUEtiapine FUMARATE 100 MG TABLET PO SCH (08:59)
[2018-11-23] MEDS: SERTRALINE HCL 100 MG TABLET PO SCH (09:00)
[2018-11-23] MEDS: ASENAPINE 10 MG SUBLINGUAL TABLET SL SCH ×2 (09:01→18:30)
[2018-11-23] MEDS: LORazepam 2 MG TABLET PO PRN ×2 (12:43→20:54)
[2018-11-23 16:06] VITALS: BP 108/58
[2018-11-23] MEDS: MAGNESIUM HYDROXIDE SUSPENSION 30 ML UDCUP PO PRN (16:11)
[2018-11-23] MEDS: PRAZOSIN HCL 2 MG CAPSULE PO SCH (21:53)
[2018-11-23] MEDS: QUEtiapine FUMARATE 200 MG TABLET PO SCH (21:53)
[2018-11-24 06:01] VITALS: BP 112/76
[2018-11-24] MEDS: MAGNESIUM HYDROXIDE SUSPENSION 30 ML UDCUP PO PRN (06:35)
[2018-11-24 08:07] VITALS: BP 106/62
[2018-11-24] MEDS: MULTIVITAMINS, THERAPEUTIC TABLET PO SCH (08:12)
[2018-11-24] MEDS: OMEPRAZOLE 20 MG CAPSULE PO SCH (08:12)
[2018-11-24] MEDS: QUEtiapine FUMARATE 100 MG TABLET PO SCH (08:13)
[2018-11-24] MEDS: TOPIRAMATE 100 MG TABLET PO SCH ×2 (08:13→16:32)
[2018-11-24] MEDS: ASENAPINE 10 MG SUBLINGUAL TABLET SL SCH ×2 (08:14→16:32)
[2018-11-24] MEDS: SERTRALINE HCL 100 MG TABLET PO SCH (08:15)
[2018-11-24] MEDS: OXYBUTYNIN CHLORIDE 5 MG ER TABLET PO SCH (08:16)
[2018-11-24] MEDS: AmLODIPine BESYLATE 2.5 MG TABLET PO SCH (08:20)
[2018-11-24] MEDS: QUEtiapine FUMARATE 100 MG TABLET PO PRN (12:53)
[2018-11-24 16:23] VITALS: BP 138/68
[2018-11-24] MEDS: PRAZOSIN HCL 2 MG CAPSULE PO SCH (20:50)
[2018-11-24] MEDS: QUEtiapine FUMARATE 200 MG TABLET PO SCH (20:50)
[2018-11-25 02:44] VITALS: BP 139/76
[2018-11-25] MEDS: LORazepam 2 MG TABLET PO PRN (05:34)
[2018-11-25 08:21] VITALS: BP 136/78
[2018-11-25] MEDS: OXYBUTYNIN CHLORIDE 5 MG ER TABLET PO SCH (08:34)
[2018-11-25] MEDS: SERTRALINE HCL 100 MG TABLET PO SCH (08:35)
[2018-11-25] MEDS: QUEtiapine FUMARATE 100 MG TABLET PO SCH (08:35)
[2018-11-25] MEDS: ASENAPINE 10 MG SUBLINGUAL TABLET SL SCH ×2 (08:35→16:02)
[2018-11-25] MEDS: MULTIVITAMINS, THERAPEUTIC TABLET PO SCH (08:35)
[2018-11-25] MEDS: OMEPRAZOLE 20 MG CAPSULE PO SCH (08:35)
[2018-11-25] MEDS: TOPIRAMATE 100 MG TABLET PO SCH ×2 (08:35→16:02)
[2018-11-25] MEDS: AmLODIPine BESYLATE 2.5 MG TABLET PO SCH (08:36)
[2018-11-25] MEDS: IBUPROFEN 400 MG TABLET PO PRN (09:30)
[2018-11-25] MEDS ORDERED: QUET200T PO (13:36)
[2018-11-25] MEDS ORDERED: AMLO2.5T4 PO (13:38)
[2018-11-25 16:17] VITALS: BP 149/79
== END 2018-11-25 16:10 | disposition home or self-care (01) | DRG 885 ==
LOC: B3A 17:16
DX: F20.0 Paranoid schizophrenia (principal); G43.909 Migraine, unspecified, not intractable, without status migrainosus; F17.200 Nicotine dependence, unspecified, uncomplicated; Z71.6 Tobacco abuse counseling; D72.819 Decreased white blood cell count, unspecified; E78.5 Hyperlipidemia, unspecified; E87.6 Hypokalemia; I10 Essential (primary) hypertension; I25.10 Atherosclerotic heart disease of native coronary artery without angina pectoris; J44.9 Chronic obstructive pulmonary disease, unspecified; K21.9 Gastro-esophageal reflux disease without esophagitis; K59.00 Constipation, unspecified; M19.90 Unspecified osteoarthritis, unspecified site; M79.7 Fibromyalgia; R32 Unspecified urinary incontinence; E66.9 Obesity, unspecified; Z68.36 Body mass index [BMI] 36.0-36.9, adult; Z79.899 Other long term (current) drug therapy
CPT/HCPCS: 83036; 84439; 84443; 90732; J1200; J2060; J3230

== ENCOUNTER 2018-12-15 18:53 | Emergency (ER) | payer MEDICAID, MEDICARE ==
[~2018-12-15] VITALS: Ht 160 cm; Wt 81.8 kg
[~2018-12-15 18:53] MED LIST changes: -ACET-2247 PO; +AMLO2.5T4 PO; +CIP250 PO; -IBUP-1506 PO; -LOPE2 PO; -MELO-107 PO; -MULT1CAP32 PO; -PRAZ2 PO; +PRAZ2CAP2 PO; +QUET100T33 PO; +QUET200T PO; +QUET200T29 PO; +SERT100T12 PO; -SERT50TA12 PO; -ZOLP10TA7 PO
[2018-12-15 20:29] LABS: BASOPHILS % (AUTO) 0.6 % (0.0-2.0); EOSINOPHILS % (AUTO) 0.7 % (1.0-6.0); HEMATOCRIT 37.2 % (36-46); HEMOGLOBIN 12.4 g/dL (12.0-16.0); LYMPHOCYTES # (AUTO) 1.7 K/uL (1.0-4.8); LYMPHOCYTES % (AUTO) 21.2 % (22.0-44.0); MEAN CORPUSCULAR HEMOGLOBIN 29.7 pg (26.0-34.0); MEAN CORPUSCULAR HGB CONC 33.4 G/dL (31.0-37.0); MEAN CORPUSCULAR VOLUME 89 fL (80-100); MONOCYTES # (AUTO) 0.8 K/uL (0.1-1.0); MONOCYTES % (AUTO) 9.9 % (2.0-9.0); NEUTROPHILS # (AUTO) 5.5 K/uL (1.8-7.7); NEUTROPHILS % (AUTO) 67.6 % (40.0-70.0); PLATELET COUNT (AUTO) 348 K/uL (150-450); RED BLOOD CELL COUNT(AUTO) 4.19 MIL/uL (4.00-5.20); RED CELL DISTRIBUTION WIDTH 12.7 % (11.5-14.5)
[2018-12-15 20:43] LABS: APPEARANCE,URINE CLEAR (CLEAR); BILIRUBIN,URINE NEGATIVE (NEGATIVE); GLUCOSE, URINE (UA) NEGATIVE (NEGATIVE); KETONES,URINE NEGATIVE (NEGATIVE); LEUKOCYTE ESTERASE ,URINE NEGATIVE (NEGATIVE); NITRATE,URINE NEGATIVE (NEGATIVE); OCCULT BLOOD,URINE NEGATIVE (NEGATIVE); PH,URINE 6.5 (5.0-8.0); PROTEIN,URINE NEGATIVE (NEGATIVE); UROBILINOGEN,URINE 0.2 mg/dL (<=1.0)
[2018-12-15 20:45] LABS: ANION GAP 9 mmol/L (8-16); CALCIUM, TOTAL 9.2 mg/dL (8.8-10.5); CARBON DIOXIDE 26 mmol/L (22-29); CHLORIDE 99 mmol/L (98-107); CREATININE 0.83 mg/dL (0.60-1.30); GLOMERULAR FILTR. RATE CALC > 60 mL/min (>60); GLUCOSE,RANDOM 103 mg/dL (70-110); POTASSIUM 3.5 mmol/L (3.5-5.1); SODIUM SERUM 134 mmol/L (136-145); UREA NITROGEN, BLOOD 11 mg/dL (7-18)
[2018-12-15 20:50] LABS: AMPHET/METH SCREEN,URINE NEGATIVE (NEGATIVE); BARBITURATE SCREEN, URINE NEGATIVE (NEGATIVE); BENZODIAZEPINES SCREEN,URINE NEGATIVE (NEGATIVE); CANNABINOID SCREEN,URINE NEGATIVE (NEGATIVE); COCAINE SCREEN,URINE NEGATIVE (NEGATIVE); METHADONE SCREEN, URINE NEGATIVE (NEGATIVE); OPIATE SCREEN,URINE POSITIVE (NEGATIVE)
[2018-12-15 20:50] LABS: ALANINE AMINOTRANSFERASE 26 U/L (12-78); ALBUMIN 3.7 g/dL (3.4-5.0); ALKALINE PHOSPHATASE 82 U/L (46-116); ASPARTATE AMINOTRANSFERASE 20 U/L (15-37); BILIRUBIN,TOTAL 0.2 mg/dL (0.1-1.0); TOTAL PROTEIN, SERUM 7.3 g/dL (6.4-8.2)
[2018-12-15 20:54] LABS: PHENCYCLIDINE SCREEN,URINE NEGATIVE (NEGATIVE)
[2018-12-16] MEDS ORDERED: LORazepam 2 MG/ML VIAL IM ONE (09:15)
[2018-12-16] MEDS ORDERED: FluPHENAZine HCL 2.5 MG/ML INJ IM ONE (09:15)
[2018-12-16] MEDS ORDERED: DiphenhydrAMINE HCL 50 MG/ML VIAL IM ONE (09:15)
[2018-12-16 13:02] VITALS: BP 141/67
== END 2018-12-16 13:11 | disposition home or self-care (01) ==
LOC: EMS 18:57
DX: F25.9 Schizoaffective disorder, unspecified (principal); F22 Delusional disorders; K21.9 Gastro-esophageal reflux disease without esophagitis; I25.2 Old myocardial infarction; F17.210 Nicotine dependence, cigarettes, uncomplicated; Z88.8 Allergy status to other drugs, medicaments and biological substances
CPT/HCPCS: 36415; 70450; 80053; 80307; 81003; 84484; 85025; 93005; 96372; 99284; G0480; J1200; J2060; J3490

== ENCOUNTER 2018-12-21 20:49 | Inpatient (IN) | payer MEDICARE, MEDICAID ==
[~2018-12-21] VITALS: Ht 154.9 cm; Wt 90.0 kg
[2018-12-21] MEDS ORDERED: -PHARMACY VACCINE NOTE- MISC ONE (23:30)
[2018-12-22] MEDS: LORazepam 2 MG TABLET PO PRN ×2 (00:03→16:33)
[2018-12-22] MEDS: ZOLPIDEM TARTRATE 10 MG TABLET PO PRN (00:03)
[2018-12-22 00:15] VITALS: BP 120/81
[2018-12-22] MEDS ORDERED: ALBUTEROL SULFATE HFA 90 MCG/PUFF 8 GM INHALER IH PRN (07:15)
[2018-12-22] MEDS ORDERED: PETROLATUM,WHITE 28 GM JELLY TP PRN (07:15)
[2018-12-22] MEDS ORDERED: ONDANSETRON HCL 4 MG TABLET PO PRN (07:15)
[2018-12-22] MEDS ORDERED: GuaiFENesin/D-METHORPHAN [SUGAR-FREE] 200-20MG/10 ML SYRUP UDCUP PO PRN (07:15)
[2018-12-22] MEDS ORDERED: CloNIDine HCL 0.1 MG TABLET PO PRN (07:15)
[2018-12-22] MEDS ORDERED: DOCUSATE SODIUM 100 MG CAPSULE PO PRN (07:15)
[2018-12-22] MEDS ORDERED: LOPERAMIDE HCL 2 MG CAPSULE PO PRN (07:15)
[2018-12-22 07:32] LABS: BASOPHILS % (AUTO) 0.5 % (0.0-2.0); EOSINOPHILS % (AUTO) 1.4 % (1.0-6.0); HEMATOCRIT 37.8 % (36-46); HEMOGLOBIN 12.7 g/dL (12.0-16.0); LYMPHOCYTES # (AUTO) 1.1 K/uL (1.0-4.8); LYMPHOCYTES % (AUTO) 17.4 % (22.0-44.0); MEAN CORPUSCULAR HEMOGLOBIN 29.8 pg (26.0-34.0); MEAN CORPUSCULAR HGB CONC 33.5 G/dL (31.0-37.0); MEAN CORPUSCULAR VOLUME 89 fL (80-100); MONOCYTES # (AUTO) 0.7 K/uL (0.1-1.0); MONOCYTES % (AUTO) 11.4 % (2.0-9.0); NEUTROPHILS # (AUTO) 4.4 K/uL (1.8-7.7); NEUTROPHILS % (AUTO) 69.3 % (40.0-70.0); PLATELET COUNT (AUTO) 320 K/uL (150-450); RED BLOOD CELL COUNT(AUTO) 4.25 MIL/uL (4.00-5.20); RED CELL DISTRIBUTION WIDTH 13.2 % (11.5-14.5)
[2018-12-22 08:08] LABS: ALANINE AMINOTRANSFERASE 18 U/L (12-78); ALBUMIN 3.2 g/dL (3.4-5.0); ALKALINE PHOSPHATASE 68 U/L (46-116); ANION GAP 8 mmol/L (8-16); ASPARTATE AMINOTRANSFERASE 13 U/L (15-37); BILIRUBIN,TOTAL 0.2 mg/dL (0.1-1.0); CALCIUM, TOTAL 8.8 mg/dL (8.8-10.5); CARBON DIOXIDE 26 mmol/L (22-29); CHLORIDE 104 mmol/L (98-107); CREATININE 0.72 mg/dL (0.60-1.30); FREE T4 (FREE THYROXINE) 0.94 ng/dL (0.76-1.46); GLOMERULAR FILTR. RATE CALC > 60 mL/min (>60); GLUCOSE,RANDOM 103 mg/dL (70-110); POTASSIUM 3.6 mmol/L (3.5-5.1); SODIUM SERUM 138 mmol/L (136-145); THYROID STIMULATING HORMONE 0.28 uIU/mL (0.36-3.74); TOTAL PROTEIN, SERUM 6.5 g/dL (6.4-8.2); UREA NITROGEN, BLOOD 12 mg/dL (7-18)
[2018-12-22 08:17] VITALS: BP 122/64
[2018-12-22] MEDS: QUEtiapine FUMARATE 100 MG TABLET PO SCH (10:45)
[2018-12-22] MEDS: ASENAPINE 10 MG SUBLINGUAL TABLET SL SCH ×2 (12:35→17:04)
[2018-12-22] MEDS: SERTRALINE HCL 100 MG TABLET PO SCH (12:36)
[2018-12-22] MEDS: TOPIRAMATE 100 MG TABLET PO SCH ×2 (12:37→17:04)
[2018-12-22] MEDS ORDERED: MAGNESIUM CITRATE 300 ML ORAL SOLUTION PO PRN (13:45)
[2018-12-22] MEDS ORDERED: SUMAtriptan SUCCINATE 25 MG TABLET PO PRN (13:45)
[2018-12-22 16:27] VITALS: BP 127/90
[2018-12-22] MEDS: ACETAMINOPHEN 325 MG TABLET PO PRN (16:33)
[2018-12-22] MEDS: NICOTINE 14 MG/24 HOUR PATCH TD PRN (16:42)
[2018-12-22 20:46] VITALS: BP 142/74
[2018-12-22] MEDS: QUEtiapine FUMARATE 200 MG TABLET PO SCH (20:47)
[2018-12-22] MEDS: PRAZOSIN HCL 2 MG CAPSULE PO SCH (20:47)
[2018-12-23 06:35] VITALS: BP 133/60
[2018-12-23] MEDS: LORazepam 2 MG TABLET PO PRN ×3 (06:57→21:09)
[2018-12-23] MEDS: ACETAMINOPHEN 325 MG TABLET PO PRN ×2 (06:57→17:58)
[2018-12-23 07:57] VITALS: BP 117/70
[2018-12-23] MEDS: OXYBUTYNIN CHLORIDE 5 MG ER TABLET PO SCH (08:13)
[2018-12-23] MEDS: AmLODIPine BESYLATE 2.5 MG TABLET PO SCH (08:15)
[2018-12-23] MEDS: TOPIRAMATE 100 MG TABLET PO SCH ×2 (08:15→16:03)
[2018-12-23] MEDS: ASENAPINE 10 MG SUBLINGUAL TABLET SL SCH ×2 (08:15→16:02)
[2018-12-23] MEDS: OMEPRAZOLE 20 MG CAPSULE PO SCH (08:16)
[2018-12-23] MEDS: SERTRALINE HCL 100 MG TABLET PO SCH (08:16)
[2018-12-23] MEDS: QUEtiapine FUMARATE 100 MG TABLET PO SCH ×2 (08:17→09:48)
[2018-12-23 08:18] VITALS: BP 127/86
[2018-12-23] MEDS: NICOTINE 14 MG/24 HOUR PATCH TD PRN (09:10)
[2018-12-23 13:35] VITALS: BP 121/60
[2018-12-23] MEDS: IBUPROFEN 400 MG TABLET PO PRN (13:50)
[2018-12-23] MEDS: MAGNESIUM HYDROXIDE SUSPENSION 30 ML UDCUP PO PRN (15:39)
[2018-12-23 16:15] VITALS: BP 135/73
[2018-12-23 17:55] VITALS: BP 137/76
[2018-12-23] MEDS: MAG HYDROX/AL HYDROX/SIMETH ES 30 ML SUSPENSION UDCUP PO PRN (17:57)
[2018-12-23] MEDS: PRAZOSIN HCL 2 MG CAPSULE PO SCH (20:00)
[2018-12-23] MEDS: QUEtiapine FUMARATE 200 MG TABLET PO SCH (20:00)
[2018-12-24 05:59] VITALS: BP 128/78
[2018-12-24 08:23] VITALS: BP 106/69
[2018-12-24] MEDS: TOPIRAMATE 100 MG TABLET PO SCH ×2 (08:40→17:02)
[2018-12-24] MEDS: OMEPRAZOLE 20 MG CAPSULE PO SCH (08:40)
[2018-12-24] MEDS: ASENAPINE 10 MG SUBLINGUAL TABLET SL SCH ×2 (08:40→17:02)
[2018-12-24] MEDS: AmLODIPine BESYLATE 2.5 MG TABLET PO SCH (08:41)
[2018-12-24] MEDS: SERTRALINE HCL 100 MG TABLET PO SCH (08:41)
[2018-12-24] MEDS: QUEtiapine FUMARATE 100 MG TABLET PO SCH (08:41)
[2018-12-24] MEDS: OXYBUTYNIN CHLORIDE 5 MG ER TABLET PO SCH (08:41)
[2018-12-24 10:52] VITALS: BP 110/68
[2018-12-24] MEDS: ACETAMINOPHEN 325 MG TABLET PO PRN (10:53)
[2018-12-24 11:53] VITALS: BP 120/75
[2018-12-24] MEDS: NICOTINE 14 MG/24 HOUR PATCH TD PRN (12:23)
[2018-12-24] MEDS: LORazepam 2 MG TABLET PO PRN ×2 (12:24→17:03)
[2018-12-24 16:00] VITALS: BP 142/79
[2018-12-24] MEDS: PRAZOSIN HCL 2 MG CAPSULE PO SCH (20:08)
[2018-12-24] MEDS: QUEtiapine FUMARATE 200 MG TABLET PO SCH (20:08)
[2018-12-25 05:02] VITALS: BP 130/81
[2018-12-25 08:13] VITALS: BP 121/76
[2018-12-25] MEDS: OMEPRAZOLE 20 MG CAPSULE PO SCH (08:38)
[2018-12-25] MEDS: SERTRALINE HCL 100 MG TABLET PO SCH (08:38)
[2018-12-25] MEDS: LORazepam 2 MG TABLET PO PRN ×2 (08:38→16:53)
[2018-12-25] MEDS: QUEtiapine FUMARATE 100 MG TABLET PO SCH (08:38)
[2018-12-25] MEDS: TOPIRAMATE 100 MG TABLET PO SCH ×2 (08:38→16:53)
[2018-12-25] MEDS: QUEtiapine FUMARATE 100 MG TABLET PO PRN (08:39)
[2018-12-25] MEDS: ASENAPINE 10 MG SUBLINGUAL TABLET SL SCH ×2 (08:39→16:53)
[2018-12-25] MEDS: NICOTINE 14 MG/24 HOUR PATCH TD PRN (08:47)
[2018-12-25] MEDS: AmLODIPine BESYLATE 2.5 MG TABLET PO SCH (08:50)
[2018-12-25] MEDS: OXYBUTYNIN CHLORIDE 5 MG ER TABLET PO SCH (09:47)
[2018-12-25 16:12] VITALS: BP 124/68
[2018-12-25] MEDS: ACETAMINOPHEN 325 MG TABLET PO PRN (17:45)
[2018-12-25] MEDS: MAGNESIUM HYDROXIDE SUSPENSION 30 ML UDCUP PO PRN (18:02)
[2018-12-25] MEDS: QUEtiapine FUMARATE 200 MG TABLET PO SCH (21:15)
[2018-12-25] MEDS: PRAZOSIN HCL 2 MG CAPSULE PO SCH (21:15)
[2018-12-25] MEDS: ZOLPIDEM TARTRATE 10 MG TABLET PO PRN (21:35)
[2018-12-26 05:55] VITALS: BP 121/68
[2018-12-26] MEDS: LORazepam 2 MG TABLET PO PRN ×4 (06:43→19:12)
[2018-12-26 08:19] VITALS: BP 115/60
[2018-12-26] MEDS: ASENAPINE 10 MG SUBLINGUAL TABLET SL SCH ×2 (08:31→20:10)
[2018-12-26] MEDS: OMEPRAZOLE 20 MG CAPSULE PO SCH (08:31)
[2018-12-26] MEDS: TOPIRAMATE 100 MG TABLET PO SCH ×2 (08:31→16:22)
[2018-12-26] MEDS: SERTRALINE HCL 100 MG TABLET PO SCH (08:31)
[2018-12-26] MEDS: QUEtiapine FUMARATE 100 MG TABLET PO SCH (08:32)
[2018-12-26] MEDS: AmLODIPine BESYLATE 2.5 MG TABLET PO SCH (09:22)
[2018-12-26] MEDS: OXYBUTYNIN CHLORIDE 5 MG ER TABLET PO SCH (09:22)
[2018-12-26] MEDS: NICOTINE 14 MG/24 HOUR PATCH TD PRN (12:52)
[2018-12-26] MEDS ORDERED: HALOPERIDOL LACTATE 5 MG/ML VIAL IM PRN (13:15)
[2018-12-26 13:20] VITALS: BP 117/69
[2018-12-26] MEDS: ACETAMINOPHEN 325 MG TABLET PO PRN (13:28)
[2018-12-26 16:08] VITALS: BP 119/72
[2018-12-26] MEDS: QUEtiapine FUMARATE 200 MG TABLET PO SCH (20:09)
[2018-12-26] MEDS: PRAZOSIN HCL 2 MG CAPSULE PO SCH (20:09)
[2018-12-27 02:10] VITALS: BP 110/61
[2018-12-27] MEDS: IBUPROFEN 400 MG TABLET PO PRN ×2 (02:15→20:57)
[2018-12-27 08:24] VITALS: BP 117/64
[2018-12-27] MEDS: LORazepam 2 MG TABLET PO PRN ×3 (08:26→17:46)
[2018-12-27] MEDS: SERTRALINE HCL 100 MG TABLET PO SCH (08:26)
[2018-12-27] MEDS: TOPIRAMATE 100 MG TABLET PO SCH ×2 (08:26→16:39)
[2018-12-27] MEDS: ASENAPINE 10 MG SUBLINGUAL TABLET SL SCH ×2 (08:26→20:01)
[2018-12-27] MEDS: OMEPRAZOLE 20 MG CAPSULE PO SCH (08:27)
[2018-12-27] MEDS: OXYBUTYNIN CHLORIDE 5 MG ER TABLET PO SCH (08:27)
[2018-12-27] MEDS: QUEtiapine FUMARATE 100 MG TABLET PO SCH (08:27)
[2018-12-27] MEDS: AmLODIPine BESYLATE 2.5 MG TABLET PO SCH (08:27)
[2018-12-27] MEDS: ACETAMINOPHEN 325 MG TABLET PO PRN (13:29)
[2018-12-27] MEDS: NICOTINE 14 MG/24 HOUR PATCH TD PRN (13:42)
[2018-12-27 16:15] VITALS: BP 119/63
[2018-12-27] MEDS: PRAZOSIN HCL 2 MG CAPSULE PO SCH (20:01)
[2018-12-27] MEDS: QUEtiapine FUMARATE 200 MG TABLET PO SCH (20:01)
[2018-12-27 20:55] VITALS: BP 128/75
[2018-12-28 00:07] VITALS: BP 118/74
[2018-12-28 08:04] VITALS: BP 111/67
[2018-12-28] MEDS: ASENAPINE 10 MG SUBLINGUAL TABLET SL SCH ×2 (08:15→20:10)
[2018-12-28] MEDS: OMEPRAZOLE 20 MG CAPSULE PO SCH (08:15)
[2018-12-28] MEDS: TOPIRAMATE 100 MG TABLET PO SCH ×2 (08:15→17:01)
[2018-12-28] MEDS: SERTRALINE HCL 100 MG TABLET PO SCH (08:15)
[2018-12-28] MEDS: AmLODIPine BESYLATE 2.5 MG TABLET PO SCH (08:16)
[2018-12-28] MEDS: QUEtiapine FUMARATE 100 MG TABLET PO SCH (08:17)
[2018-12-28] MEDS: OXYBUTYNIN CHLORIDE 5 MG ER TABLET PO SCH (08:17)
[2018-12-28] MEDS: NICOTINE 14 MG/24 HOUR PATCH TD PRN (08:24)
[2018-12-28] MEDS ORDERED: SERT100T12 PO (08:52)
[2018-12-28] MEDS ORDERED: ASEN10TA8 SL (08:52)
[2018-12-28] MEDS ORDERED: PRAZ2 PO (08:52)
[2018-12-28] MEDS: LORazepam 2 MG TABLET PO PRN ×2 (09:26→15:26)
[2018-12-28 12:33] VITALS: BP 119/66
[2018-12-28] MEDS: MAG HYDROX/AL HYDROX/SIMETH ES 30 ML SUSPENSION UDCUP PO PRN (12:35)
[2018-12-28] MEDS: ACETAMINOPHEN 325 MG TABLET PO PRN (12:36)
[2018-12-28 16:04] VITALS: BP 145/78
[2018-12-28] MEDS: PRAZOSIN HCL 2 MG CAPSULE PO SCH (20:10)
[2018-12-28] MEDS: QUEtiapine FUMARATE 200 MG TABLET PO SCH (20:10)
[2018-12-29 04:01] VITALS: BP 122/68
[2018-12-29] MEDS: LORazepam 2 MG TABLET PO PRN ×3 (04:06→21:51)
[2018-12-29] MEDS: IBUPROFEN 400 MG TABLET PO PRN ×2 (04:32→21:31)
[2018-12-29 08:10] VITALS: BP 140/72
[2018-12-29] MEDS: SERTRALINE HCL 100 MG TABLET PO SCH (10:41)
[2018-12-29] MEDS: AmLODIPine BESYLATE 2.5 MG TABLET PO SCH (10:41)
[2018-12-29] MEDS: TOPIRAMATE 100 MG TABLET PO SCH ×2 (10:41→16:02)
[2018-12-29] MEDS: QUEtiapine FUMARATE 100 MG TABLET PO SCH (10:42)
[2018-12-29] MEDS: ASENAPINE 10 MG SUBLINGUAL TABLET SL SCH ×2 (10:42→20:15)
[2018-12-29] MEDS: OMEPRAZOLE 20 MG CAPSULE PO SCH (10:42)
[2018-12-29] MEDS: OXYBUTYNIN CHLORIDE 5 MG ER TABLET PO SCH (10:42)
[2018-12-29] MEDS: NICOTINE 14 MG/24 HOUR PATCH TD PRN (12:34)
[2018-12-29 15:03] VITALS: BP 148/74
[2018-12-29] MEDS: ACETAMINOPHEN 325 MG TABLET PO PRN (15:03)
[2018-12-29 16:02] VITALS: BP 120/58
[2018-12-29] MEDS: PRAZOSIN HCL 2 MG CAPSULE PO SCH (20:15)
[2018-12-29] MEDS: QUEtiapine FUMARATE 200 MG TABLET PO SCH (20:15)
[2018-12-29 21:30] VITALS: BP 126/62
[2018-12-29] MEDS: ZOLPIDEM TARTRATE 10 MG TABLET PO PRN (23:27)
[2018-12-30] VITALS: BP 135/81
[2018-12-30 08:35] VITALS: BP 140/78
[2018-12-30] MEDS: QUEtiapine FUMARATE 100 MG TABLET PO SCH (09:28)
[2018-12-30] MEDS: SERTRALINE HCL 100 MG TABLET PO SCH (09:28)
[2018-12-30] MEDS: TOPIRAMATE 100 MG TABLET PO SCH ×2 (09:28→16:03)
[2018-12-30] MEDS: AmLODIPine BESYLATE 2.5 MG TABLET PO SCH (09:28)
[2018-12-30] MEDS: ASENAPINE 10 MG SUBLINGUAL TABLET SL SCH ×2 (09:28→20:12)
[2018-12-30] MEDS: OXYBUTYNIN CHLORIDE 5 MG ER TABLET PO SCH (09:28)
[2018-12-30] MEDS: OMEPRAZOLE 20 MG CAPSULE PO SCH (09:28)
[2018-12-30] MEDS: MAGNESIUM HYDROXIDE SUSPENSION 30 ML UDCUP PO PRN (12:11)
[2018-12-30] MEDS: LORazepam 2 MG TABLET PO PRN ×2 (13:29→17:46)
[2018-12-30] MEDS: MAG HYDROX/AL HYDROX/SIMETH ES 30 ML SUSPENSION UDCUP PO PRN (14:31)
[2018-12-30 16:02] VITALS: BP 136/68
[2018-12-30] MEDS: QUEtiapine FUMARATE 100 MG TABLET PO PRN (16:58)
[2018-12-30] MEDS: PRAZOSIN HCL 2 MG CAPSULE PO SCH (20:12)
[2018-12-30] MEDS: ZOLPIDEM TARTRATE 10 MG TABLET PO PRN (20:12)
[2018-12-30] MEDS: QUEtiapine FUMARATE 200 MG TABLET PO SCH (20:12)
[2018-12-31 00:16] VITALS: BP 111/61
[2018-12-31] MEDS: LORazepam 2 MG TABLET PO PRN ×3 (00:39→16:52)
[2018-12-31] MEDS: ACETAMINOPHEN 325 MG TABLET PO PRN ×2 (00:40→12:48)
[2018-12-31 08:17] VITALS: BP 133/74
[2018-12-31] MEDS: OXYBUTYNIN CHLORIDE 5 MG ER TABLET PO SCH (09:13)
[2018-12-31] MEDS: QUEtiapine FUMARATE 100 MG TABLET PO SCH (09:14)
[2018-12-31] MEDS: TOPIRAMATE 100 MG TABLET PO SCH ×2 (09:14→16:35)
[2018-12-31] MEDS: AmLODIPine BESYLATE 2.5 MG TABLET PO SCH (09:14)
[2018-12-31] MEDS: OMEPRAZOLE 20 MG CAPSULE PO SCH (09:14)
[2018-12-31] MEDS: SERTRALINE HCL 100 MG TABLET PO SCH (09:15)
[2018-12-31] MEDS: ASENAPINE 10 MG SUBLINGUAL TABLET SL SCH ×2 (09:17→20:39)
[2018-12-31 16:12] VITALS: BP 135/84
[2018-12-31] MEDS: IBUPROFEN 400 MG TABLET PO PRN (16:43)
[2018-12-31] MEDS: QUEtiapine FUMARATE 100 MG TABLET PO PRN (16:52)
[2018-12-31] MEDS: PRAZOSIN HCL 2 MG CAPSULE PO SCH (20:39)
[2018-12-31] MEDS: ZOLPIDEM TARTRATE 10 MG TABLET PO PRN (20:40)
[2018-12-31] MEDS: QUEtiapine FUMARATE 200 MG TABLET PO SCH (20:40)
[2019-01-01] MEDS: LORazepam 2 MG TABLET PO PRN ×3 (00:36→18:13)
[2019-01-01] MEDS: IBUPROFEN 400 MG TABLET PO PRN ×2 (00:36→23:07)
[2019-01-01 00:38] VITALS: BP 131/73
[2019-01-01 08:17] VITALS: BP 139/76
[2019-01-01] MEDS: ASENAPINE 10 MG SUBLINGUAL TABLET SL SCH ×2 (08:53→20:04)
[2019-01-01] MEDS: OXYBUTYNIN CHLORIDE 5 MG ER TABLET PO SCH (08:53)
[2019-01-01] MEDS: OMEPRAZOLE 20 MG CAPSULE PO SCH (08:54)
[2019-01-01] MEDS: SERTRALINE HCL 100 MG TABLET PO SCH (08:54)
[2019-01-01] MEDS: TOPIRAMATE 100 MG TABLET PO SCH ×2 (08:54→16:09)
[2019-01-01] MEDS: AmLODIPine BESYLATE 2.5 MG TABLET PO SCH (08:54)
[2019-01-01] MEDS: QUEtiapine FUMARATE 100 MG TABLET PO SCH (08:54)
[2019-01-01] MEDS: QUEtiapine FUMARATE 100 MG TABLET PO PRN (13:51)
[2019-01-01 18:30] VITALS: BP 137/74
[2019-01-01] MEDS: PRAZOSIN HCL 2 MG CAPSULE PO SCH (20:04)
[2019-01-01] MEDS: QUEtiapine FUMARATE 200 MG TABLET PO SCH (20:04)
[2019-01-01] MEDS: ZOLPIDEM TARTRATE 10 MG TABLET PO PRN (21:56)
[2019-01-01 23:07] VITALS: BP 121/71
[2019-01-02 06:10] VITALS: BP 130/74
[2019-01-02 08:13] VITALS: BP 131/72
[2019-01-02] MEDS: SERTRALINE HCL 100 MG TABLET PO SCH (08:23)
[2019-01-02] MEDS: OXYBUTYNIN CHLORIDE 5 MG ER TABLET PO SCH (08:23)
[2019-01-02] MEDS: QUEtiapine FUMARATE 100 MG TABLET PO SCH (08:23)
[2019-01-02] MEDS: ASENAPINE 10 MG SUBLINGUAL TABLET SL SCH (08:24)
[2019-01-02] MEDS: AmLODIPine BESYLATE 2.5 MG TABLET PO SCH (08:24)
[2019-01-02] MEDS: TOPIRAMATE 100 MG TABLET PO SCH ×2 (08:24→16:23)
[2019-01-02] MEDS: OMEPRAZOLE 20 MG CAPSULE PO SCH (08:24)
[2019-01-02] MEDS: ACETAMINOPHEN 325 MG TABLET PO PRN (10:01)
[2019-01-02] MEDS: LORazepam 2 MG TABLET PO PRN (12:04)
[2019-01-02] MEDS ORDERED: PRAZ2 PO (15:03)
[2019-01-02] MEDS ORDERED: ASEN10TA8 SL (15:03)
[2019-01-02] MEDS ORDERED: SERT100T12 PO (15:03)
[2019-01-02 16:03] VITALS: BP 143/69
== END 2019-01-02 17:40 | disposition home or self-care (01) | DRG 885 ==
LOC: B2X 21:28 → B3A 12-28 17:31
DX: F25.0 Schizoaffective disorder, bipolar type (principal); R45.851 Suicidal ideations; E78.5 Hyperlipidemia, unspecified; F17.200 Nicotine dependence, unspecified, uncomplicated; G43.909 Migraine, unspecified, not intractable, without status migrainosus; I10 Essential (primary) hypertension; I25.10 Atherosclerotic heart disease of native coronary artery without angina pectoris; J44.9 Chronic obstructive pulmonary disease, unspecified; K21.9 Gastro-esophageal reflux disease without esophagitis; K59.09 Other constipation; M19.90 Unspecified osteoarthritis, unspecified site; M79.7 Fibromyalgia; R32 Unspecified urinary incontinence; Z79.899 Other long term (current) drug therapy; Z88.8 Allergy status to other drugs, medicaments and biological substances; Z90.49 Acquired absence of other specified parts of digestive tract; Z71.6 Tobacco abuse counseling
CPT/HCPCS: 84439; 84443; 87081

== ENCOUNTER 2019-01-27 01:00 | Inpatient (IN) | payer MEDICARE, MEDICAID ==
[~2019-01-27] VITALS: Ht 154.9 cm; Wt 93.0 kg
[~2019-01-27 01:00] MED LIST changes: -CIP250 PO; +FLUD25I IM; +FLUP5 PO; +OMEG-135 PO; -OMEP20 PO; +PRAZ2 PO; -PRAZ2CAP2 PO; -QUET100T PO; -QUET100T33 PO; -QUET200T PO; -QUET200T29 PO
[2019-01-27] MEDS ORDERED: LORazepam 2 MG/ML VIAL IM ONE (03:15)
[2019-01-27] MEDS ORDERED: DiphenhydrAMINE HCL 50 MG/ML VIAL IM ONE (03:15)
[2019-01-27 07:45] VITALS: BP 123/52
[2019-01-27 08:12] LABS: APPEARANCE,URINE CLEAR (CLEAR); BILIRUBIN,URINE NEGATIVE (NEGATIVE); GLUCOSE, URINE (UA) NEGATIVE (NEGATIVE); KETONES,URINE NEGATIVE (NEGATIVE); LEUKOCYTE ESTERASE ,URINE NEGATIVE (NEGATIVE); NITRATE,URINE NEGATIVE (NEGATIVE); OCCULT BLOOD,URINE NEGATIVE (NEGATIVE); PROTEIN,URINE NEGATIVE (NEGATIVE); UROBILINOGEN,URINE 0.2 mg/dL (<=1.0)
[2019-01-27 08:18] LABS: AMPHET/METH SCREEN,URINE NEGATIVE (NEGATIVE); BARBITURATE SCREEN, URINE NEGATIVE (NEGATIVE); BENZODIAZEPINES SCREEN,URINE NEGATIVE (NEGATIVE); CANNABINOID SCREEN,URINE NEGATIVE (NEGATIVE); COCAINE SCREEN,URINE NEGATIVE (NEGATIVE); METHADONE SCREEN, URINE NEGATIVE (NEGATIVE); OPIATE SCREEN,URINE NEGATIVE (NEGATIVE); PHENCYCLIDINE SCREEN,URINE NEGATIVE (NEGATIVE)
[2019-01-27 10:06] VITALS: BP 123/59
[2019-01-27] MEDS ORDERED: ALBUTEROL SULFATE HFA 90 MCG/PUFF 8 GM INHALER IH PRN (10:30)
[2019-01-27] MEDS ORDERED: CloNIDine HCL 0.1 MG TABLET PO PRN (10:30)
[2019-01-27] MEDS ORDERED: MAGNESIUM HYDROXIDE SUSPENSION 30 ML UDCUP PO PRN (10:30)
[2019-01-27] MEDS ORDERED: PETROLATUM,WHITE 28 GM JELLY TP PRN (10:30)
[2019-01-27] MEDS ORDERED: GuaiFENesin/D-METHORPHAN [SUGAR-FREE] 200-20MG/10 ML SYRUP UDCUP PO PRN (10:30)
[2019-01-27] MEDS ORDERED: DOCUSATE SODIUM 100 MG CAPSULE PO PRN (10:30)
[2019-01-27] MEDS ORDERED: ONDANSETRON HCL 4 MG TABLET PO PRN (10:30)
[2019-01-27] MEDS ORDERED: LOPERAMIDE HCL 2 MG CAPSULE PO PRN (10:30)
[2019-01-27] MEDS ORDERED: NICOTINE 14 MG/24 HOUR PATCH TD PRN (10:30)
[2019-01-27 16:00] VITALS: BP 125/60
[2019-01-27] MEDS: TOPIRAMATE 100 MG TABLET PO SCH (16:08)
[2019-01-27] MEDS: LORazepam 2 MG TABLET PO PRN (16:09)
[2019-01-27] MEDS: FluPHENAZine HCL 5 MG TABLET PO SCH ×2 (16:09→20:25)
[2019-01-27] MEDS: QUEtiapine FUMARATE 100 MG TABLET PO PRN (16:09)
[2019-01-27] MEDS: ASENAPINE 5 MG SUBLINGUAL TABLET SL SCH (20:25)
[2019-01-28 06:20] VITALS: BP 120/67
[2019-01-28 07:56] LABS: BASOPHILS % (AUTO) 0.5 % (0.0-2.0); EOSINOPHILS % (AUTO) 1.4 % (1.0-6.0); HEMATOCRIT 38.8 % (36-46); LYMPHOCYTES % (AUTO) 15.1 % (22.0-44.0); MEAN CORPUSCULAR HEMOGLOBIN 29.5 pg (26.0-34.0); MEAN CORPUSCULAR HGB CONC 33.5 G/dL (31.0-37.0); MEAN CORPUSCULAR VOLUME 88 fL (80-100); MONOCYTES # (AUTO) 0.6 K/uL (0.1-1.0); MONOCYTES % (AUTO) 9.4 % (2.0-9.0); NEUTROPHILS # (AUTO) 5.1 K/uL (1.8-7.7); NEUTROPHILS % (AUTO) 73.6 % (40.0-70.0); PLATELET COUNT (AUTO) 270 K/uL (150-450); RED BLOOD CELL COUNT(AUTO) 4.41 MIL/uL (4.00-5.20); RED CELL DISTRIBUTION WIDTH 13.9 % (11.5-14.5)
[2019-01-28 08:02] LABS: HEMOGLOBIN A1C 6.2 % (4.5-6.2)
[2019-01-28 08:13] LABS: ALANINE AMINOTRANSFERASE 21 U/L (12-78); ALBUMIN 3.3 g/dL (3.4-5.0); ALKALINE PHOSPHATASE 72 U/L (46-116); ANION GAP 9 mmol/L (8-16); ASPARTATE AMINOTRANSFERASE 16 U/L (15-37); BILIRUBIN,TOTAL 0.4 mg/dL (0.1-1.0); CALCIUM, TOTAL 8.7 mg/dL (8.8-10.5); CARBON DIOXIDE 27 mmol/L (22-29); CHLORIDE 105 mmol/L (98-107); CHOL/HDL RATIO 5.2 (3.9-5.7); CHOLESTEROL 248 mg/dL (131-200); CREATININE 0.73 mg/dL (0.60-1.30); GLOMERULAR FILTR. RATE CALC > 60 mL/min (>60); GLUCOSE,RANDOM 106 mg/dL (70-110); HDL CHOLESTEROL 48 mg/dL (40-60); LDL CHOL (CALC.) 171 mg/dL (0-130); POTASSIUM 3.6 mmol/L (3.5-5.1); SODIUM SERUM 141 mmol/L (136-145); THYROID STIMULATING HORMONE 0.28 uIU/mL (0.36-3.74); TOTAL PROTEIN, SERUM 6.3 g/dL (6.4-8.2); TRIGLYCERIDES 144 mg/dL (15-150); UREA NITROGEN, BLOOD 12 mg/dL (7-18)
[2019-01-28 08:25] VITALS: BP 137/72
[2019-01-28] MEDS: OXYBUTYNIN CHLORIDE 5 MG ER TABLET PO SCH (09:03)
[2019-01-28] MEDS: ASENAPINE 5 MG SUBLINGUAL TABLET SL SCH (09:04)
[2019-01-28] MEDS: OMEGA-3/DHA/EPA/FISH OIL 1,000 MG CAPSULE PO SCH (09:04)
[2019-01-28] MEDS: AmLODIPine BESYLATE 2.5 MG TABLET PO SCH (09:04)
[2019-01-28] MEDS: LORazepam 2 MG TABLET PO PRN ×2 (09:05→16:00)
[2019-01-28] MEDS: TOPIRAMATE 100 MG TABLET PO SCH ×2 (09:05→16:59)
[2019-01-28] MEDS: FluPHENAZine HCL 5 MG TABLET PO SCH ×3 (09:05→20:23)
[2019-01-28] MEDS: ASPIRIN 81 MG CHEWABLE TABLET PO SCH (09:05)
[2019-01-28] MEDS: SERTRALINE HCL 100 MG TABLET PO SCH (09:05)
[2019-01-28] MEDS ORDERED: ASENAPINE 5 MG SUBLINGUAL TABLET SL ONE (09:15)
[2019-01-28] MEDS: ACETAMINOPHEN 325 MG TABLET PO PRN ×2 (10:21→18:22)
[2019-01-28] MEDS: IBUPROFEN 400 MG TABLET PO PRN (13:22)
[2019-01-28] MEDS: QUEtiapine FUMARATE 100 MG TABLET PO PRN (16:11)
[2019-01-28 16:27] VITALS: BP 125/70
[2019-01-28] MEDS: PRAZOSIN HCL 2 MG CAPSULE PO SCH (20:22)
[2019-01-28] MEDS: ASENAPINE 10 MG SUBLINGUAL TABLET SL SCH (20:51)
[2019-01-29 06:28] VITALS: BP 128/64
[2019-01-29 08:08] VITALS: BP 115/62
[2019-01-29] MEDS: SERTRALINE HCL 100 MG TABLET PO SCH (09:36)
[2019-01-29] MEDS: TOPIRAMATE 100 MG TABLET PO SCH ×2 (09:36→16:26)
[2019-01-29] MEDS: FluPHENAZine HCL 5 MG TABLET PO SCH ×3 (09:36→20:12)
[2019-01-29] MEDS: AmLODIPine BESYLATE 2.5 MG TABLET PO SCH (09:36)
[2019-01-29] MEDS: OXYBUTYNIN CHLORIDE 5 MG ER TABLET PO SCH (09:37)
[2019-01-29] MEDS: OMEGA-3/DHA/EPA/FISH OIL 1,000 MG CAPSULE PO SCH (09:37)
[2019-01-29] MEDS: ASENAPINE 10 MG SUBLINGUAL TABLET SL SCH ×2 (09:37→20:12)
[2019-01-29] MEDS: ASPIRIN 81 MG CHEWABLE TABLET PO SCH (09:37)
[2019-01-29] MEDS: ACETAMINOPHEN 325 MG TABLET PO PRN (10:30)
[2019-01-29] MEDS: LORazepam 2 MG TABLET PO PRN (10:36)
[2019-01-29] MEDS: QUEtiapine FUMARATE 100 MG TABLET PO PRN (10:36)
[2019-01-29 16:12] VITALS: BP 130/75
[2019-01-29 19:52] VITALS: BP 128/60
[2019-01-29] MEDS: IBUPROFEN 400 MG TABLET PO PRN (19:52)
[2019-01-29] MEDS: PRAZOSIN HCL 2 MG CAPSULE PO SCH (20:13)
[2019-01-30] MEDS: ACETAMINOPHEN 325 MG TABLET PO PRN (04:37)
[2019-01-30 04:38] VITALS: BP 125/70
[2019-01-30] MEDS: AmLODIPine BESYLATE 2.5 MG TABLET PO SCH (08:18)
[2019-01-30] MEDS: TOPIRAMATE 100 MG TABLET PO SCH ×2 (08:18→16:23)
[2019-01-30] MEDS: OMEGA-3/DHA/EPA/FISH OIL 1,000 MG CAPSULE PO SCH (08:18)
[2019-01-30] MEDS: ASPIRIN 81 MG CHEWABLE TABLET PO SCH (08:19)
[2019-01-30] MEDS: FluPHENAZine HCL 5 MG TABLET PO SCH ×3 (08:19→20:33)
[2019-01-30] MEDS: OXYBUTYNIN CHLORIDE 5 MG ER TABLET PO SCH (08:19)
[2019-01-30 08:30] VITALS: BP 128/69
[2019-01-30] MEDS: ASENAPINE 10 MG SUBLINGUAL TABLET SL SCH ×2 (09:02→20:33)
[2019-01-30] MEDS: SERTRALINE HCL 100 MG TABLET PO SCH (09:02)
[2019-01-30] MEDS: QUEtiapine FUMARATE 100 MG TABLET PO PRN ×2 (09:48→16:23)
[2019-01-30] MEDS: LORazepam 2 MG TABLET PO PRN ×3 (09:48→20:34)
[2019-01-30 15:10] VITALS: BP 125/80
[2019-01-30] MEDS: IBUPROFEN 400 MG TABLET PO PRN (15:19)
[2019-01-30 16:34] VITALS: BP 129/75
[2019-01-30] MEDS: PRAZOSIN HCL 2 MG CAPSULE PO SCH (20:33)
[2019-01-31 05:56] VITALS: BP 132/72
[2019-01-31] MEDS: OMEGA-3/DHA/EPA/FISH OIL 1,000 MG CAPSULE PO SCH (08:38)
[2019-01-31] MEDS: OXYBUTYNIN CHLORIDE 5 MG ER TABLET PO SCH (08:38)
[2019-01-31] MEDS: ASENAPINE 10 MG SUBLINGUAL TABLET SL SCH ×2 (08:38→20:05)
[2019-01-31] MEDS: LORazepam 2 MG TABLET PO PRN ×2 (08:39→12:51)
[2019-01-31] MEDS: QUEtiapine FUMARATE 100 MG TABLET PO PRN (08:39)
[2019-01-31] MEDS: TOPIRAMATE 100 MG TABLET PO SCH ×2 (08:39→16:08)
[2019-01-31] MEDS: ASPIRIN 81 MG CHEWABLE TABLET PO SCH (08:39)
[2019-01-31] MEDS: AmLODIPine BESYLATE 2.5 MG TABLET PO SCH (08:40)
[2019-01-31] MEDS: FluPHENAZine HCL 5 MG TABLET PO SCH ×3 (08:40→20:05)
[2019-01-31] MEDS: SERTRALINE HCL 100 MG TABLET PO SCH (08:40)
[2019-01-31 08:52] VITALS: BP 117/73
[2019-01-31] MEDS: ACETAMINOPHEN 325 MG TABLET PO PRN (12:50)
[2019-01-31 12:51] VITALS: BP 126/78
[2019-01-31 13:51] VITALS: BP 132/76
[2019-01-31 16:09] VITALS: BP 123/64
[2019-01-31] MEDS: PRAZOSIN HCL 2 MG CAPSULE PO SCH (20:05)
[2019-02-01 05:52] VITALS: BP 129/74
[2019-02-01 08:09] VITALS: BP 138/60
[2019-02-01] MEDS: LORazepam 2 MG TABLET PO PRN ×2 (08:56→13:28)
[2019-02-01] MEDS: FluPHENAZine HCL 5 MG TABLET PO SCH ×3 (08:57→20:15)
[2019-02-01] MEDS: QUEtiapine FUMARATE 100 MG TABLET PO PRN ×2 (08:57→13:28)
[2019-02-01] MEDS: SERTRALINE HCL 100 MG TABLET PO SCH (08:58)
[2019-02-01] MEDS: TOPIRAMATE 100 MG TABLET PO SCH ×2 (08:58→16:00)
[2019-02-01] MEDS: ASENAPINE 10 MG SUBLINGUAL TABLET SL SCH ×2 (08:59→20:15)
[2019-02-01] MEDS: OXYBUTYNIN CHLORIDE 5 MG ER TABLET PO SCH (08:59)
[2019-02-01] MEDS: AmLODIPine BESYLATE 2.5 MG TABLET PO SCH (08:59)
[2019-02-01] MEDS: OMEGA-3/DHA/EPA/FISH OIL 1,000 MG CAPSULE PO SCH (08:59)
[2019-02-01] MEDS: ASPIRIN 81 MG CHEWABLE TABLET PO SCH (09:00)
[2019-02-01] MEDS: IBUPROFEN 400 MG TABLET PO PRN (12:08)
[2019-02-01 16:10] VITALS: BP 135/74
[2019-02-01] MEDS: PRAZOSIN HCL 2 MG CAPSULE PO SCH (20:15)
[2019-02-02 03:58] VITALS: BP 132/68
[2019-02-02 08:20] VITALS: BP 118/56
[2019-02-02] MEDS: ASENAPINE 10 MG SUBLINGUAL TABLET SL SCH ×2 (08:31→21:26)
[2019-02-02] MEDS: OMEGA-3/DHA/EPA/FISH OIL 1,000 MG CAPSULE PO SCH (08:32)
[2019-02-02] MEDS: TOPIRAMATE 100 MG TABLET PO SCH ×2 (08:32→16:13)
[2019-02-02] MEDS: SERTRALINE HCL 100 MG TABLET PO SCH (08:32)
[2019-02-02] MEDS: AmLODIPine BESYLATE 2.5 MG TABLET PO SCH (08:32)
[2019-02-02] MEDS: ASPIRIN 81 MG CHEWABLE TABLET PO SCH (08:32)
[2019-02-02] MEDS: FluPHENAZine HCL 5 MG TABLET PO SCH ×3 (08:33→21:26)
[2019-02-02] MEDS: OXYBUTYNIN CHLORIDE 5 MG ER TABLET PO SCH (08:33)
[2019-02-02] MEDS: LORazepam 2 MG TABLET PO PRN ×2 (10:23→16:17)
[2019-02-02] MEDS: QUEtiapine FUMARATE 100 MG TABLET PO PRN (10:23)
[2019-02-02] MEDS ORDERED: TUBERCULIN, PURIFIED PROTEIN DERIVATIVE 5 TU/0.1 ML SYRINGE ID ONE (14:30)
[2019-02-02 16:23] VITALS: BP 128/63
[2019-02-02] MEDS: IBUPROFEN 400 MG TABLET PO PRN (19:57)
[2019-02-02] MEDS: PRAZOSIN HCL 2 MG CAPSULE PO SCH (21:26)
[2019-02-03 06:36] VITALS: BP 127/76
[2019-02-03 08:13] VITALS: BP 126/79
[2019-02-03] MEDS: OMEGA-3/DHA/EPA/FISH OIL 1,000 MG CAPSULE PO SCH (08:47)
[2019-02-03] MEDS: AmLODIPine BESYLATE 2.5 MG TABLET PO SCH (08:50)
[2019-02-03] MEDS: ASPIRIN 81 MG CHEWABLE TABLET PO SCH (08:51)
[2019-02-03] MEDS: TOPIRAMATE 100 MG TABLET PO SCH ×2 (08:51→16:24)
[2019-02-03] MEDS: FluPHENAZine HCL 5 MG TABLET PO SCH ×3 (08:51→20:00)
[2019-02-03] MEDS: SERTRALINE HCL 100 MG TABLET PO SCH (08:51)
[2019-02-03] MEDS: OXYBUTYNIN CHLORIDE 5 MG ER TABLET PO SCH (08:52)
[2019-02-03] MEDS: ASENAPINE 10 MG SUBLINGUAL TABLET SL SCH ×2 (08:52→20:00)
[2019-02-03] MEDS: LORazepam 2 MG TABLET PO PRN ×2 (09:02→18:53)
[2019-02-03 17:18] VITALS: BP 134/71
[2019-02-03 18:19] VITALS: BP 132/72
[2019-02-03] MEDS: IBUPROFEN 400 MG TABLET PO PRN (18:19)
[2019-02-03] MEDS: PRAZOSIN HCL 2 MG CAPSULE PO SCH (20:01)
[2019-02-03] MEDS: ZOLPIDEM TARTRATE 10 MG TABLET PO PRN (21:24)
[2019-02-03 21:52] VITALS: BP 129/75
[2019-02-03] MEDS: ACETAMINOPHEN 325 MG TABLET PO PRN (21:52)
[2019-02-04 00:01] VITALS: BP 128/67
[2019-02-04] MEDS: QUEtiapine FUMARATE 100 MG TABLET PO PRN ×3 (00:04→19:29)
[2019-02-04] MEDS: LORazepam 2 MG TABLET PO PRN ×3 (00:04→16:15)
[2019-02-04] MEDS: FluPHENAZine HCL 5 MG TABLET PO SCH ×3 (09:25→20:12)
[2019-02-04 09:30] VITALS: BP 140/74
[2019-02-04] MEDS: OMEGA-3/DHA/EPA/FISH OIL 1,000 MG CAPSULE PO SCH (09:51)
[2019-02-04] MEDS: ASENAPINE 10 MG SUBLINGUAL TABLET SL SCH ×2 (09:51→20:12)
[2019-02-04] MEDS: AmLODIPine BESYLATE 2.5 MG TABLET PO SCH (09:52)
[2019-02-04] MEDS: TOPIRAMATE 100 MG TABLET PO SCH ×2 (09:52→16:07)
[2019-02-04] MEDS: SERTRALINE HCL 100 MG TABLET PO SCH (09:52)
[2019-02-04] MEDS: ASPIRIN 81 MG CHEWABLE TABLET PO SCH (09:52)
[2019-02-04] MEDS: OXYBUTYNIN CHLORIDE 5 MG ER TABLET PO SCH (09:53)
[2019-02-04] MEDS: IBUPROFEN 400 MG TABLET PO PRN (13:50)
[2019-02-04 16:08] VITALS: BP 130/79
[2019-02-04] MEDS: ACETAMINOPHEN 325 MG TABLET PO PRN (16:09)
[2019-02-04] MEDS: PRAZOSIN HCL 2 MG CAPSULE PO SCH (20:12)
[2019-02-05 00:54] VITALS: BP 118/71
[2019-02-05] MEDS: IBUPROFEN 400 MG TABLET PO PRN ×2 (01:06→10:28)
[2019-02-05] MEDS: ASPIRIN 81 MG CHEWABLE TABLET PO SCH (07:58)
[2019-02-05] MEDS: AmLODIPine BESYLATE 2.5 MG TABLET PO SCH (07:59)
[2019-02-05] MEDS: FluPHENAZine HCL 5 MG TABLET PO SCH ×3 (07:59→20:21)
[2019-02-05] MEDS: ASENAPINE 10 MG SUBLINGUAL TABLET SL SCH ×2 (07:59→20:22)
[2019-02-05] MEDS: OMEGA-3/DHA/EPA/FISH OIL 1,000 MG CAPSULE PO SCH (07:59)
[2019-02-05] MEDS: TOPIRAMATE 100 MG TABLET PO SCH ×2 (08:00→16:18)
[2019-02-05] MEDS: SERTRALINE HCL 100 MG TABLET PO SCH (08:00)
[2019-02-05] MEDS: OXYBUTYNIN CHLORIDE 5 MG ER TABLET PO SCH (08:12)
[2019-02-05 08:20] VITALS: BP 129/68
[2019-02-05 10:25] VITALS: BP 127/75
[2019-02-05] MEDS: LORazepam 2 MG TABLET PO PRN (12:47)
[2019-02-05 16:09] VITALS: BP 131/52
[2019-02-05 16:10] VITALS: BP 128/65
[2019-02-05] MEDS: QUEtiapine FUMARATE 100 MG TABLET PO PRN (16:18)
[2019-02-05] MEDS: PRAZOSIN HCL 2 MG CAPSULE PO SCH (20:21)
[2019-02-06 06:33] VITALS: BP 144/68
[2019-02-06 08:08] VITALS: BP 121/56
[2019-02-06] MEDS: FluPHENAZine HCL 5 MG TABLET PO SCH ×3 (08:31→20:21)
[2019-02-06] MEDS: OXYBUTYNIN CHLORIDE 5 MG ER TABLET PO SCH (08:31)
[2019-02-06] MEDS: TOPIRAMATE 100 MG TABLET PO SCH ×2 (08:31→16:03)
[2019-02-06] MEDS: SERTRALINE HCL 100 MG TABLET PO SCH (08:32)
[2019-02-06] MEDS: AmLODIPine BESYLATE 2.5 MG TABLET PO SCH (08:32)
[2019-02-06] MEDS: ASENAPINE 10 MG SUBLINGUAL TABLET SL SCH ×2 (08:32→20:21)
[2019-02-06] MEDS: OMEGA-3/DHA/EPA/FISH OIL 1,000 MG CAPSULE PO SCH (08:33)
[2019-02-06] MEDS: ASPIRIN 81 MG CHEWABLE TABLET PO SCH (08:33)
[2019-02-06] MEDS: LORazepam 2 MG TABLET PO PRN ×2 (08:33→16:10)
[2019-02-06] MEDS: IBUPROFEN 400 MG TABLET PO PRN ×2 (09:27→17:55)
[2019-02-06 16:06] VITALS: BP 136/64
[2019-02-06] MEDS: QUEtiapine FUMARATE 100 MG TABLET PO PRN (18:21)
[2019-02-06] MEDS: PRAZOSIN HCL 2 MG CAPSULE PO SCH (20:22)
[2019-02-07 06:57] VITALS: BP 104/59
[2019-02-07 08:37] VITALS: BP 119/66
[2019-02-07] MEDS: SERTRALINE HCL 100 MG TABLET PO SCH (08:52)
[2019-02-07] MEDS: OXYBUTYNIN CHLORIDE 5 MG ER TABLET PO SCH (08:52)
[2019-02-07] MEDS: FluPHENAZine HCL 5 MG TABLET PO SCH ×3 (08:54→20:10)
[2019-02-07] MEDS: ASENAPINE 10 MG SUBLINGUAL TABLET SL SCH ×2 (08:55→20:09)
[2019-02-07] MEDS: ASPIRIN 81 MG CHEWABLE TABLET PO SCH (08:55)
[2019-02-07] MEDS: TOPIRAMATE 100 MG TABLET PO SCH ×2 (08:56→16:24)
[2019-02-07] MEDS: AmLODIPine BESYLATE 2.5 MG TABLET PO SCH (08:56)
[2019-02-07] MEDS: OMEGA-3/DHA/EPA/FISH OIL 1,000 MG CAPSULE PO SCH (08:56)
[2019-02-07] MEDS: LORazepam 2 MG TABLET PO PRN ×2 (09:27→15:44)
[2019-02-07] MEDS: QUEtiapine FUMARATE 100 MG TABLET PO PRN (09:28)
[2019-02-07] MEDS: IBUPROFEN 400 MG TABLET PO PRN (10:28)
[2019-02-07 16:14] VITALS: BP 130/74
[2019-02-07] MEDS: ACETAMINOPHEN 325 MG TABLET PO PRN (16:56)
[2019-02-07] MEDS: PRAZOSIN HCL 2 MG CAPSULE PO SCH (20:10)
[2019-02-08 06:30] VITALS: BP 129/65
[2019-02-08 08:09] VITALS: BP 138/76
[2019-02-08] MEDS: FluPHENAZine HCL 5 MG TABLET PO SCH ×3 (08:23→20:01)
[2019-02-08] MEDS: TOPIRAMATE 100 MG TABLET PO SCH ×2 (08:24→15:46)
[2019-02-08] MEDS: OMEGA-3/DHA/EPA/FISH OIL 1,000 MG CAPSULE PO SCH (08:24)
[2019-02-08] MEDS: SERTRALINE HCL 100 MG TABLET PO SCH (08:24)
[2019-02-08] MEDS: ASENAPINE 10 MG SUBLINGUAL TABLET SL SCH ×2 (08:24→20:00)
[2019-02-08] MEDS: ASPIRIN 81 MG CHEWABLE TABLET PO SCH (08:24)
[2019-02-08] MEDS: OXYBUTYNIN CHLORIDE 5 MG ER TABLET PO SCH (08:25)
[2019-02-08] MEDS: AmLODIPine BESYLATE 2.5 MG TABLET PO SCH (08:25)
[2019-02-08] MEDS: LORazepam 2 MG TABLET PO PRN ×2 (08:25→17:40)
[2019-02-08] MEDS: QUEtiapine FUMARATE 100 MG TABLET PO PRN (09:41)
[2019-02-08] MEDS: IBUPROFEN 400 MG TABLET PO PRN ×2 (10:49→19:16)
[2019-02-08 16:13] VITALS: BP 128/72
[2019-02-08] MEDS: PRAZOSIN HCL 2 MG CAPSULE PO SCH (20:01)
[2019-02-08] MEDS: ZOLPIDEM TARTRATE 10 MG TABLET PO PRN (23:35)
[2019-02-09] VITALS: BP 128/77
[2019-02-09] MEDS: LORazepam 2 MG TABLET PO PRN ×4 (00:04→22:50)
[2019-02-09] MEDS: ASPIRIN 81 MG CHEWABLE TABLET PO SCH (08:11)
[2019-02-09] MEDS: FluPHENAZine HCL 5 MG TABLET PO SCH ×3 (08:12→19:42)
[2019-02-09] MEDS: TOPIRAMATE 100 MG TABLET PO SCH ×2 (08:13→16:29)
[2019-02-09] MEDS: SERTRALINE HCL 100 MG TABLET PO SCH (08:13)
[2019-02-09] MEDS: OXYBUTYNIN CHLORIDE 5 MG ER TABLET PO SCH (08:14)
[2019-02-09] MEDS: AmLODIPine BESYLATE 2.5 MG TABLET PO SCH (08:14)
[2019-02-09] MEDS: ASENAPINE 10 MG SUBLINGUAL TABLET SL SCH ×2 (08:14→19:43)
[2019-02-09] MEDS: OMEGA-3/DHA/EPA/FISH OIL 1,000 MG CAPSULE PO SCH (08:18)
[2019-02-09 08:22] VITALS: BP 124/76
[2019-02-09 10:46] VITALS: BP 113/74
[2019-02-09] MEDS: QUEtiapine FUMARATE 100 MG TABLET PO PRN ×2 (10:46→17:56)
[2019-02-09] MEDS: IBUPROFEN 400 MG TABLET PO PRN ×2 (10:46→19:43)
[2019-02-09 16:15] VITALS: BP 130/64
[2019-02-09] MEDS: PRAZOSIN HCL 2 MG CAPSULE PO SCH (19:43)
[2019-02-09] MEDS: BENZTROPINE MESYLATE 0.5 MG TABLET PO SCH (20:53)
[2019-02-09] MEDS: ZOLPIDEM TARTRATE 10 MG TABLET PO PRN (21:50)
[2019-02-09] MEDS: ACETAMINOPHEN 325 MG TABLET PO PRN (23:39)
[2019-02-10 00:39] VITALS: BP 122/75
[2019-02-10] MEDS: BENZTROPINE MESYLATE 0.5 MG TABLET PO SCH ×2 (08:11→21:30)
[2019-02-10] MEDS: TOPIRAMATE 100 MG TABLET PO SCH ×2 (08:11→16:02)
[2019-02-10] MEDS: OMEGA-3/DHA/EPA/FISH OIL 1,000 MG CAPSULE PO SCH (08:11)
[2019-02-10] MEDS: ASENAPINE 10 MG SUBLINGUAL TABLET SL SCH ×2 (08:12→21:30)
[2019-02-10] MEDS: ASPIRIN 81 MG CHEWABLE TABLET PO SCH (08:12)
[2019-02-10] MEDS: FluPHENAZine HCL 5 MG TABLET PO SCH ×3 (08:13→21:30)
[2019-02-10] MEDS: SERTRALINE HCL 100 MG TABLET PO SCH (08:13)
[2019-02-10] MEDS: AmLODIPine BESYLATE 2.5 MG TABLET PO SCH (08:13)
[2019-02-10] MEDS: OXYBUTYNIN CHLORIDE 5 MG ER TABLET PO SCH (08:15)
[2019-02-10 08:59] VITALS: BP 125/66
[2019-02-10 11:41] VITALS: BP 127/72
[2019-02-10] MEDS: IBUPROFEN 400 MG TABLET PO PRN ×2 (11:41→20:15)
[2019-02-10 16:07] VITALS: BP 124/73
[2019-02-10] MEDS: QUEtiapine FUMARATE 100 MG TABLET PO PRN (16:23)
[2019-02-10] MEDS: LORazepam 2 MG TABLET PO PRN ×2 (16:23→21:56)
[2019-02-10 18:25] VITALS: BP 138/75
[2019-02-10] MEDS: ACETAMINOPHEN 325 MG TABLET PO PRN (18:25)
[2019-02-10] MEDS: PRAZOSIN HCL 2 MG CAPSULE PO SCH (21:30)
[2019-02-10] MEDS: ZOLPIDEM TARTRATE 10 MG TABLET PO PRN (21:56)
[2019-02-11 05:53] VITALS: BP 130/72
[2019-02-11 08:19] VITALS: BP 126/70
[2019-02-11] MEDS: ASENAPINE 10 MG SUBLINGUAL TABLET SL SCH ×2 (08:30→20:01)
[2019-02-11] MEDS: AmLODIPine BESYLATE 2.5 MG TABLET PO SCH (08:30)
[2019-02-11] MEDS: FluPHENAZine HCL 5 MG TABLET PO SCH ×3 (08:30→20:01)
[2019-02-11] MEDS: SERTRALINE HCL 100 MG TABLET PO SCH (08:30)
[2019-02-11] MEDS: TOPIRAMATE 100 MG TABLET PO SCH ×2 (08:30→16:06)
[2019-02-11] MEDS: OXYBUTYNIN CHLORIDE 5 MG ER TABLET PO SCH (08:31)
[2019-02-11] MEDS: OMEGA-3/DHA/EPA/FISH OIL 1,000 MG CAPSULE PO SCH (08:31)
[2019-02-11] MEDS: BENZTROPINE MESYLATE 0.5 MG TABLET PO SCH ×2 (08:31→20:01)
[2019-02-11] MEDS: ASPIRIN 81 MG CHEWABLE TABLET PO SCH (08:31)
[2019-02-11] MEDS ORDERED: FluPHENAZine DECANOATE 25 MG/ML IM SCH ×2 (09:00)
[2019-02-11] MEDS: IBUPROFEN 400 MG TABLET PO PRN (12:18)
[2019-02-11] MEDS: MAG HYDROX/AL HYDROX/SIMETH ES 30 ML SUSPENSION UDCUP PO PRN ×2 (12:19→20:52)
[2019-02-11] MEDS: LORazepam 2 MG TABLET PO PRN ×2 (13:06→18:21)
[2019-02-11] MEDS: QUEtiapine FUMARATE 100 MG TABLET PO PRN (16:08)
[2019-02-11 16:30] VITALS: BP 140/82
[2019-02-11 18:20] VITALS: BP 113/58
[2019-02-11] MEDS: ACETAMINOPHEN 325 MG TABLET PO PRN (18:20)
[2019-02-11] MEDS: PRAZOSIN HCL 2 MG CAPSULE PO SCH (20:02)
[2019-02-12 02:15] VITALS: BP 111/67
[2019-02-12] MEDS: IBUPROFEN 400 MG TABLET PO PRN ×3 (02:16→18:47)
[2019-02-12 08:21] VITALS: BP 126/63
[2019-02-12] MEDS: OXYBUTYNIN CHLORIDE 5 MG ER TABLET PO SCH (08:33)
[2019-02-12] MEDS: ASENAPINE 10 MG SUBLINGUAL TABLET SL SCH ×2 (08:33→20:10)
[2019-02-12] MEDS: OMEGA-3/DHA/EPA/FISH OIL 1,000 MG CAPSULE PO SCH (08:33)
[2019-02-12] MEDS: TOPIRAMATE 100 MG TABLET PO SCH ×2 (08:34→16:03)
[2019-02-12] MEDS: AmLODIPine BESYLATE 2.5 MG TABLET PO SCH (08:34)
[2019-02-12] MEDS: ASPIRIN 81 MG CHEWABLE TABLET PO SCH (08:34)
[2019-02-12] MEDS: BENZTROPINE MESYLATE 0.5 MG TABLET PO SCH ×2 (08:34→20:09)
[2019-02-12] MEDS: SERTRALINE HCL 100 MG TABLET PO SCH (08:35)
[2019-02-12] MEDS: FluPHENAZine HCL 5 MG TABLET PO SCH ×3 (08:35→20:09)
[2019-02-12] MEDS: LORazepam 2 MG TABLET PO PRN ×3 (10:43→21:46)
[2019-02-12] MEDS: QUEtiapine FUMARATE 100 MG TABLET PO PRN ×2 (13:22→21:46)
[2019-02-12] MEDS: MAG HYDROX/AL HYDROX/SIMETH ES 30 ML SUSPENSION UDCUP PO PRN (18:46)
[2019-02-12 18:47] VITALS: BP 131/68
[2019-02-12] MEDS: PRAZOSIN HCL 2 MG CAPSULE PO SCH (20:10)
[2019-02-13 00:04] VITALS: BP 128/72
[2019-02-13] MEDS: ACETAMINOPHEN 325 MG TABLET PO PRN (00:43)
[2019-02-13] MEDS: ZOLPIDEM TARTRATE 10 MG TABLET PO PRN ×2 (00:43→23:43)
[2019-02-13 08:27] VITALS: BP 120/59
[2019-02-13] MEDS: SERTRALINE HCL 100 MG TABLET PO SCH (08:31)
[2019-02-13] MEDS: OXYBUTYNIN CHLORIDE 5 MG ER TABLET PO SCH (08:31)
[2019-02-13] MEDS: TOPIRAMATE 100 MG TABLET PO SCH ×2 (08:31→16:03)
[2019-02-13] MEDS: BENZTROPINE MESYLATE 0.5 MG TABLET PO SCH ×2 (08:31→20:48)
[2019-02-13] MEDS: FluPHENAZine HCL 5 MG TABLET PO SCH ×3 (08:31→20:47)
[2019-02-13] MEDS: OMEGA-3/DHA/EPA/FISH OIL 1,000 MG CAPSULE PO SCH (08:32)
[2019-02-13] MEDS: ASENAPINE 10 MG SUBLINGUAL TABLET SL SCH ×2 (08:32→20:47)
[2019-02-13] MEDS: AmLODIPine BESYLATE 2.5 MG TABLET PO SCH (08:32)
[2019-02-13] MEDS: ASPIRIN 81 MG CHEWABLE TABLET PO SCH (09:04)
[2019-02-13] MEDS: IBUPROFEN 400 MG TABLET PO PRN ×2 (11:55→21:02)
[2019-02-13] MEDS: LORazepam 2 MG TABLET PO PRN ×3 (11:56→21:01)
[2019-02-13 16:18] VITALS: BP 127/61
[2019-02-13] MEDS: MAG HYDROX/AL HYDROX/SIMETH ES 30 ML SUSPENSION UDCUP PO PRN (17:51)
[2019-02-13] MEDS: QUEtiapine FUMARATE 100 MG TABLET PO PRN (17:54)
[2019-02-13] MEDS: PRAZOSIN HCL 2 MG CAPSULE PO SCH (20:47)
[2019-02-14] VITALS: BP 130/81
[2019-02-14 08:22] VITALS: BP 134/68
[2019-02-14] MEDS: TOPIRAMATE 100 MG TABLET PO SCH ×2 (08:26→16:10)
[2019-02-14] MEDS: OMEGA-3/DHA/EPA/FISH OIL 1,000 MG CAPSULE PO SCH (08:28)
[2019-02-14] MEDS: FluPHENAZine HCL 5 MG TABLET PO SCH ×3 (08:28→20:03)
[2019-02-14] MEDS: SERTRALINE HCL 100 MG TABLET PO SCH (08:29)
[2019-02-14] MEDS: ASENAPINE 10 MG SUBLINGUAL TABLET SL SCH ×2 (08:29→19:58)
[2019-02-14] MEDS: QUEtiapine FUMARATE 100 MG TABLET PO PRN (08:29)
[2019-02-14] MEDS: LORazepam 2 MG TABLET PO PRN ×2 (08:30→16:40)
[2019-02-14] MEDS: OXYBUTYNIN CHLORIDE 5 MG ER TABLET PO SCH (08:31)
[2019-02-14] MEDS: ASPIRIN 81 MG CHEWABLE TABLET PO SCH (08:31)
[2019-02-14] MEDS: BENZTROPINE MESYLATE 0.5 MG TABLET PO SCH ×2 (08:31→19:58)
[2019-02-14] MEDS: AmLODIPine BESYLATE 2.5 MG TABLET PO SCH (08:31)
[2019-02-14] MEDS: IBUPROFEN 400 MG TABLET PO PRN ×2 (12:24→20:54)
[2019-02-14 16:08] VITALS: BP 123/67
[2019-02-14] MEDS: ACETAMINOPHEN 325 MG TABLET PO PRN (16:40)
[2019-02-14] MEDS: MAG HYDROX/AL HYDROX/SIMETH ES 30 ML SUSPENSION UDCUP PO PRN (16:41)
[2019-02-14] MEDS: PRAZOSIN HCL 2 MG CAPSULE PO SCH (19:58)
[2019-02-14] MEDS: ZOLPIDEM TARTRATE 10 MG TABLET PO PRN (23:08)
[2019-02-15 06:11] VITALS: BP 127/70
[2019-02-15] MEDS: OMEGA-3/DHA/EPA/FISH OIL 1,000 MG CAPSULE PO SCH (08:13)
[2019-02-15] MEDS: AmLODIPine BESYLATE 2.5 MG TABLET PO SCH (08:14)
[2019-02-15] MEDS: BENZTROPINE MESYLATE 0.5 MG TABLET PO SCH (08:14)
[2019-02-15] MEDS: FluPHENAZine HCL 5 MG TABLET PO SCH (08:14)
[2019-02-15] MEDS: TOPIRAMATE 100 MG TABLET PO SCH (08:15)
[2019-02-15] MEDS: ASPIRIN 81 MG CHEWABLE TABLET PO SCH (08:15)
[2019-02-15] MEDS: LORazepam 2 MG TABLET PO PRN (08:16)
[2019-02-15] MEDS: OXYBUTYNIN CHLORIDE 5 MG ER TABLET PO SCH (08:16)
[2019-02-15] MEDS: ASENAPINE 10 MG SUBLINGUAL TABLET SL SCH (08:17)
[2019-02-15] MEDS: SERTRALINE HCL 100 MG TABLET PO SCH (08:17)
[2019-02-15 08:29] VITALS: BP 145/73
[2019-02-15 09:10] VITALS: BP 140/87
[2019-02-15] MEDS: IBUPROFEN 400 MG TABLET PO PRN (09:10)
[2019-02-15] MEDS ORDERED: ASEN10TA8 SL (09:18)
[2019-02-15] MEDS ORDERED: FLUP5 PO ×2 (09:18→09:28)
[2019-02-15] MEDS ORDERED: BENZ0.5T44 PO ×2 (09:18→09:35)
[2019-02-15] MEDS ORDERED: SERT100T12 PO (09:18)
[2019-02-15] MEDS ORDERED: TOPI100T37 PO (09:18)
[2019-02-15] MEDS ORDERED: FLUD25I IM ×2 (09:18→09:35)
[2019-02-15] MEDS ORDERED: ASPI81TA39 PO (09:35)
== END 2019-02-15 11:05 | disposition home or self-care (01) | DRG 885 ==
LOC: B3A 01:24
DX: F25.0 Schizoaffective disorder, bipolar type (principal); E78.5 Hyperlipidemia, unspecified; F17.200 Nicotine dependence, unspecified, uncomplicated; F41.9 Anxiety disorder, unspecified; G43.909 Migraine, unspecified, not intractable, without status migrainosus; I10 Essential (primary) hypertension; I25.10 Atherosclerotic heart disease of native coronary artery without angina pectoris; J44.9 Chronic obstructive pulmonary disease, unspecified; K21.9 Gastro-esophageal reflux disease without esophagitis; K59.09 Other constipation; M19.90 Unspecified osteoarthritis, unspecified site; M79.7 Fibromyalgia; R32 Unspecified urinary incontinence; Z79.899 Other long term (current) drug therapy; Z91.5 Personal history of self-harm; Z88.8 Allergy status to other drugs, medicaments and biological substances
CPT/HCPCS: 83036; 84443; 87081; J2680; Q0162

== ENCOUNTER 2019-02-22 15:12 | Inpatient (IN) | payer MEDICARE, MEDICAID ==
[~2019-02-22] VITALS: Ht 154.9 cm; Wt 10.9 kg
[~2019-02-22 15:12] MED LIST changes: +ASPI81TA39 PO; +BENZ0.5T44 PO; -OMEG-135 PO
[2019-02-22] MEDS ORDERED: ASEN10TA8 SL (15:26)
[2019-02-22] MEDS ORDERED: PRAZ2 PO (15:26)
[2019-02-22] MEDS ORDERED: TOPI100T37 PO (15:26)
[2019-02-22] MEDS ORDERED: SERT100T12 PO (15:26)
[2019-02-22] MEDS ORDERED: FLUP5 PO (15:30)
[2019-02-22] MEDS ORDERED: ASPI81 PO (15:30)
[2019-02-22] MEDS ORDERED: AMLO2.5T4 PO (15:30)
[2019-02-22] MEDS ORDERED: BENZ0.5T44 PO (15:30)
[2019-02-22] MEDS ORDERED: OXYB5XL PO (15:30)
[2019-02-22 15:45] VITALS: BP 149/77
[2019-02-22] MEDS: TOPIRAMATE 100 MG TABLET PO SCH (17:21)
[2019-02-22] MEDS: QUEtiapine FUMARATE 100 MG TABLET PO PRN (18:19)
[2019-02-22] MEDS ORDERED: NICOTINE 14 MG/24 HOUR PATCH TD PRN (20:15)
[2019-02-22] MEDS ORDERED: CloNIDine HCL 0.1 MG TABLET PO PRN (20:15)
[2019-02-22] MEDS ORDERED: GuaiFENesin/D-METHORPHAN [SUGAR-FREE] 200-20MG/10 ML SYRUP UDCUP PO PRN (20:15)
[2019-02-22] MEDS ORDERED: ACETAMINOPHEN 325 MG TABLET PO PRN (20:15)
[2019-02-22] MEDS ORDERED: ONDANSETRON HCL 4 MG TABLET PO PRN (20:15)
[2019-02-22] MEDS ORDERED: LOPERAMIDE HCL 2 MG CAPSULE PO PRN (20:15)
[2019-02-22] MEDS ORDERED: DOCUSATE SODIUM 100 MG CAPSULE PO PRN (20:15)
[2019-02-22] MEDS ORDERED: PETROLATUM,WHITE 28 GM JELLY TP PRN (20:15)
[2019-02-22] MEDS ORDERED: MAGNESIUM HYDROXIDE SUSPENSION 30 ML UDCUP PO PRN (20:15)
[2019-02-22] MEDS ORDERED: MAG HYDROX/AL HYDROX/SIMETH ES 30 ML SUSPENSION UDCUP PO PRN (20:15)
[2019-02-22] MEDS ORDERED: ALBUTEROL SULFATE HFA 90 MCG/PUFF 8 GM INHALER IH PRN (20:15)
[2019-02-22] MEDS: BENZTROPINE MESYLATE 0.5 MG TABLET PO SCH (20:52)
[2019-02-22] MEDS: ASENAPINE 10 MG SUBLINGUAL TABLET SL SCH (20:52)
[2019-02-22] MEDS: FluPHENAZine HCL 5 MG TABLET PO SCH (20:52)
[2019-02-23 06:12] VITALS: BP 115/86
[2019-02-23 07:35] LABS: APPEARANCE,URINE TURBID (CLEAR); BILIRUBIN,URINE NEGATIVE (NEGATIVE); GLUCOSE, URINE (UA) NEGATIVE (NEGATIVE); KETONES,URINE NEGATIVE (NEGATIVE); LEUKOCYTE ESTERASE ,URINE TRACE (NEGATIVE); NITRATE,URINE NEGATIVE (NEGATIVE); OCCULT BLOOD,URINE NEGATIVE (NEGATIVE); PROTEIN,URINE NEGATIVE (NEGATIVE); UROBILINOGEN,URINE 0.2 mg/dL (<=1.0)
[2019-02-23 07:49] LABS: AMPHET/METH SCREEN,URINE NEGATIVE (NEGATIVE); BARBITURATE SCREEN, URINE NEGATIVE (NEGATIVE); BENZODIAZEPINES SCREEN,URINE NEGATIVE (NEGATIVE); CANNABINOID SCREEN,URINE NEGATIVE (NEGATIVE); COCAINE SCREEN,URINE NEGATIVE (NEGATIVE); METHADONE SCREEN, URINE NEGATIVE (NEGATIVE); OPIATE SCREEN,URINE NEGATIVE (NEGATIVE)
[2019-02-23 07:52] LABS: PHENCYCLIDINE SCREEN,URINE NEGATIVE (NEGATIVE)
[2019-02-23 07:54] LABS: BACTERIA,URINE Moderate /HPF (None Seen); RBC,URINE None Seen /HPF (0-2); SQUAMOUS EPITHELIAL CELL,UR Rare /LPF (None Seen)
[2019-02-23 08:14] VITALS: BP 137/72
[2019-02-23] MEDS: SERTRALINE HCL 100 MG TABLET PO SCH (08:20)
[2019-02-23] MEDS: FluPHENAZine HCL 5 MG TABLET PO SCH ×3 (08:20→21:10)
[2019-02-23] MEDS: AmLODIPine BESYLATE 2.5 MG TABLET PO SCH (08:21)
[2019-02-23] MEDS: ASENAPINE 10 MG SUBLINGUAL TABLET SL SCH ×2 (08:21→21:10)
[2019-02-23] MEDS: BENZTROPINE MESYLATE 0.5 MG TABLET PO SCH ×2 (08:21→21:09)
[2019-02-23] MEDS: OXYBUTYNIN CHLORIDE 5 MG ER TABLET PO SCH (08:21)
[2019-02-23] MEDS: ASPIRIN 81 MG CHEWABLE TABLET PO SCH (08:21)
[2019-02-23] MEDS: TOPIRAMATE 100 MG TABLET PO SCH ×2 (08:22→16:04)
[2019-02-23] MEDS ORDERED: TOPIRAMATE 100 MG TABLET PO SCH (09:00)
[2019-02-23] MEDS ORDERED: LORazepam 2 MG/ML VIAL IM ONE (11:30)
[2019-02-23] MEDS ORDERED: HALOPERIDOL LACTATE 5 MG/ML VIAL IM ONE (11:30)
[2019-02-23] MEDS ORDERED: DiphenhydrAMINE HCL 50 MG/ML VIAL IM ONE (11:30)
[2019-02-23] MEDS: QUEtiapine FUMARATE 100 MG TABLET PO PRN ×2 (12:58→17:00)
[2019-02-23 16:05] VITALS: BP 139/69
[2019-02-23] MEDS: IBUPROFEN 400 MG TABLET PO PRN (16:05)
[2019-02-23] MEDS: LORazepam 2 MG TABLET PO PRN (17:00)
[2019-02-23] MEDS: PRAZOSIN HCL 2 MG CAPSULE PO SCH (21:09)
[2019-02-24 06:28] VITALS: BP 142/81
[2019-02-24 07:00] LABS: BASOPHILS % (AUTO) 0.8 % (0.0-2.0); EOSINOPHILS % (AUTO) 2.8 % (1.0-6.0); HEMATOCRIT 36.7 % (36-46); HEMOGLOBIN 12.1 g/dL (12.0-16.0); LYMPHOCYTES # (AUTO) 1.1 K/uL (1.0-4.8); LYMPHOCYTES % (AUTO) 20.1 % (22.0-44.0); MEAN CORPUSCULAR HEMOGLOBIN 29.1 pg (26.0-34.0); MEAN CORPUSCULAR VOLUME 88 fL (80-100); MONOCYTES # (AUTO) 0.5 K/uL (0.1-1.0); MONOCYTES % (AUTO) 9.2 % (2.0-9.0); NEUTROPHILS # (AUTO) 3.8 K/uL (1.8-7.7); NEUTROPHILS % (AUTO) 67.1 % (40.0-70.0); PLATELET COUNT (AUTO) 244 K/uL (150-450); RED BLOOD CELL COUNT(AUTO) 4.16 MIL/uL (4.00-5.20); RED CELL DISTRIBUTION WIDTH 14.7 % (11.5-14.5)
[2019-02-24 07:34] LABS: ALANINE AMINOTRANSFERASE 17 U/L (12-78); ALBUMIN 3.7 g/dL (3.4-5.0); ALKALINE PHOSPHATASE 70 U/L (46-116); ANION GAP 11 mmol/L (8-16); ASPARTATE AMINOTRANSFERASE 16 U/L (15-37); BILIRUBIN,TOTAL 0.2 mg/dL (0.1-1.0); CALCIUM, TOTAL 8.8 mg/dL (8.8-10.5); CARBON DIOXIDE 22 mmol/L (22-29); CHLORIDE 107 mmol/L (98-107); CHOLESTEROL 236 mg/dL (131-200); CREATININE 0.76 mg/dL (0.60-1.30); FREE T4 (FREE THYROXINE) 0.79 ng/dL (0.76-1.46); GLOMERULAR FILTR. RATE CALC > 60 mL/min (>60); GLUCOSE,RANDOM 111 mg/dL (70-110); HDL CHOLESTEROL 47 mg/dL (40-60); LDL CHOL (CALC.) 158 mg/dL (0-130); SODIUM SERUM 140 mmol/L (136-145); THYROID STIMULATING HORMONE 0.33 uIU/mL (0.36-3.74); TOTAL PROTEIN, SERUM 6.4 g/dL (6.4-8.2); TRIGLYCERIDES 155 mg/dL (15-150); UREA NITROGEN, BLOOD 18 mg/dL (7-18)
[2019-02-24 08:25] VITALS: BP 129/64
[2019-02-24 08:56] LABS: HEMOGLOBIN A1C 5.5 % (4.5-6.2)
[2019-02-24] MEDS: FluPHENAZine HCL 5 MG TABLET PO SCH ×3 (09:47→20:31)
[2019-02-24] MEDS: AmLODIPine BESYLATE 2.5 MG TABLET PO SCH (09:47)
[2019-02-24] MEDS: ASPIRIN 81 MG CHEWABLE TABLET PO SCH (09:48)
[2019-02-24] MEDS: SERTRALINE HCL 100 MG TABLET PO SCH (09:48)
[2019-02-24] MEDS: ASENAPINE 10 MG SUBLINGUAL TABLET SL SCH ×2 (09:48→20:31)
[2019-02-24] MEDS: TOPIRAMATE 100 MG TABLET PO SCH ×2 (09:50→16:31)
[2019-02-24] MEDS: BENZTROPINE MESYLATE 0.5 MG TABLET PO SCH ×2 (09:50→20:31)
[2019-02-24] MEDS: OXYBUTYNIN CHLORIDE 5 MG ER TABLET PO SCH (09:50)
[2019-02-24 16:10] VITALS: BP 131/72
[2019-02-24] MEDS: QUEtiapine FUMARATE 100 MG TABLET PO PRN (18:14)
[2019-02-24] MEDS: PRAZOSIN HCL 2 MG CAPSULE PO SCH (20:31)
[2019-02-25 00:15] VITALS: BP 113/69
[2019-02-25] MEDS: IBUPROFEN 400 MG TABLET PO PRN ×2 (04:51→16:45)
[2019-02-25] MEDS: ASENAPINE 10 MG SUBLINGUAL TABLET SL SCH ×2 (08:04→20:17)
[2019-02-25] MEDS: SERTRALINE HCL 100 MG TABLET PO SCH (08:04)
[2019-02-25] MEDS: BENZTROPINE MESYLATE 0.5 MG TABLET PO SCH ×2 (08:05→20:17)
[2019-02-25] MEDS: AmLODIPine BESYLATE 2.5 MG TABLET PO SCH (08:05)
[2019-02-25] MEDS: TOPIRAMATE 100 MG TABLET PO SCH ×2 (08:05→16:44)
[2019-02-25] MEDS: FluPHENAZine HCL 5 MG TABLET PO SCH ×3 (08:05→20:17)
[2019-02-25] MEDS: ASPIRIN 81 MG CHEWABLE TABLET PO SCH (08:05)
[2019-02-25] MEDS: LORazepam 2 MG TABLET PO PRN ×3 (08:06→22:33)
[2019-02-25] MEDS: OXYBUTYNIN CHLORIDE 5 MG ER TABLET PO SCH (08:08)
[2019-02-25 08:15] VITALS: BP 150/69
[2019-02-25 10:30] VITALS: BP 138/74
[2019-02-25] MEDS: OMEGA-3/DHA/EPA/FISH OIL 1,000 MG CAPSULE PO SCH (10:56)
[2019-02-25] MEDS: QUEtiapine FUMARATE 100 MG TABLET PO PRN ×2 (12:48→20:17)
[2019-02-25 17:00] VITALS: BP 129/71
[2019-02-25] MEDS: PRAZOSIN HCL 2 MG CAPSULE PO SCH (20:17)
[2019-02-25] MEDS: ZOLPIDEM TARTRATE 10 MG TABLET PO PRN (22:33)
[2019-02-26 00:07] VITALS: BP 121/68
[2019-02-26 08:22] VITALS: BP 144/67
[2019-02-26] MEDS: ASENAPINE 10 MG SUBLINGUAL TABLET SL SCH ×2 (08:24→20:04)
[2019-02-26] MEDS: SERTRALINE HCL 100 MG TABLET PO SCH (08:24)
[2019-02-26] MEDS: AmLODIPine BESYLATE 2.5 MG TABLET PO SCH (08:28)
[2019-02-26] MEDS: FluPHENAZine HCL 5 MG TABLET PO SCH ×3 (08:33→20:05)
[2019-02-26] MEDS: ASPIRIN 81 MG CHEWABLE TABLET PO SCH (08:33)
[2019-02-26] MEDS: OXYBUTYNIN CHLORIDE 5 MG ER TABLET PO SCH (08:34)
[2019-02-26] MEDS: TOPIRAMATE 100 MG TABLET PO SCH ×2 (08:35→16:16)
[2019-02-26] MEDS: BENZTROPINE MESYLATE 0.5 MG TABLET PO SCH ×2 (08:35→20:04)
[2019-02-26] MEDS: OMEGA-3/DHA/EPA/FISH OIL 1,000 MG CAPSULE PO SCH (08:35)
[2019-02-26] MEDS: IBUPROFEN 400 MG TABLET PO PRN (08:35)
[2019-02-26] MEDS: LORazepam 2 MG TABLET PO PRN ×2 (08:36→16:16)
[2019-02-26] MEDS: QUEtiapine FUMARATE 100 MG TABLET PO PRN (17:38)
[2019-02-26 18:34] VITALS: BP 170/80
[2019-02-26 19:34] VITALS: BP 137/73
[2019-02-26] MEDS: PRAZOSIN HCL 2 MG CAPSULE PO SCH (20:04)
[2019-02-26] MEDS: ZOLPIDEM TARTRATE 10 MG TABLET PO PRN (22:11)
[2019-02-27 06:44] VITALS: BP 127/67
[2019-02-27] MEDS: ASENAPINE 10 MG SUBLINGUAL TABLET SL SCH (08:09)
[2019-02-27] MEDS: FluPHENAZine HCL 5 MG TABLET PO SCH (08:09)
[2019-02-27] MEDS: BENZTROPINE MESYLATE 0.5 MG TABLET PO SCH (08:09)
[2019-02-27] MEDS: SERTRALINE HCL 100 MG TABLET PO SCH (08:10)
[2019-02-27] MEDS: ASPIRIN 81 MG CHEWABLE TABLET PO SCH (08:10)
[2019-02-27] MEDS: AmLODIPine BESYLATE 2.5 MG TABLET PO SCH (08:10)
[2019-02-27 08:11] VITALS: BP 130/97
[2019-02-27] MEDS: OMEGA-3/DHA/EPA/FISH OIL 1,000 MG CAPSULE PO SCH (08:11)
[2019-02-27] MEDS: OXYBUTYNIN CHLORIDE 5 MG ER TABLET PO SCH (08:11)
[2019-02-27] MEDS: TOPIRAMATE 100 MG TABLET PO SCH (08:11)
[2019-02-27] MEDS: LORazepam 2 MG TABLET PO PRN (08:11)
[2019-02-27] MEDS ORDERED: OMEG-135 PO (09:03)
[2019-02-27] MEDS ORDERED: SERT100T12 PO (09:03)
[2019-02-27] MEDS: IBUPROFEN 400 MG TABLET PO PRN (09:06)
[2019-03-04] MEDS ORDERED: FluPHENAZine DECANOATE 25 MG/ML IM SCH (09:00)
== END 2019-02-27 10:22 | disposition home or self-care (01) | DRG 885 ==
LOC: B2X 16:32 → B3A 02-23 11:30
PROVIDERS: ADMIT Psychiatry & Neurology Psychiatry
DX: F25.0 Schizoaffective disorder, bipolar type (principal); E78.5 Hyperlipidemia, unspecified; G43.909 Migraine, unspecified, not intractable, without status migrainosus; I10 Essential (primary) hypertension; I25.10 Atherosclerotic heart disease of native coronary artery without angina pectoris; J44.9 Chronic obstructive pulmonary disease, unspecified; K21.9 Gastro-esophageal reflux disease without esophagitis; K59.09 Other constipation; M19.90 Unspecified osteoarthritis, unspecified site; M79.7 Fibromyalgia; R32 Unspecified urinary incontinence; Z79.899 Other long term (current) drug therapy
CPT/HCPCS: 80307; 83036; 84439; 84443; 87081; 87086; J1200; J1630; J2060

== ENCOUNTER 2019-03-10 16:54 | Emergency (ER) | payer MEDICARE, MEDICAID ==
[~2019-03-10] VITALS: Ht 154.9 cm; Wt 81.8 kg
[~2019-03-10 16:54] MED LIST changes: +ASPI81 PO; -ASPI81TA39 PO; +OMEG-135 PO
[2019-03-10 16:57] VITALS: BP 146/79
[2019-03-10] MEDS ORDERED: DiphenhydrAMINE HCL 50 MG/ML VIAL IM ONE (18:45)
[2019-03-10] MEDS ORDERED: LORazepam 2 MG/ML VIAL IM ONE (18:45)
== END 2019-03-10 19:28 | disposition home or self-care (01) ==
LOC: EMS 17:00
DX: F20.9 Schizophrenia, unspecified (principal); F17.210 Nicotine dependence, cigarettes, uncomplicated; K21.9 Gastro-esophageal reflux disease without esophagitis; I25.2 Old myocardial infarction; Z88.8 Allergy status to other drugs, medicaments and biological substances; Z79.82 Long term (current) use of aspirin
CPT/HCPCS: 96372; 99284; 99406; J1200; J2060; J3230

== ENCOUNTER 2019-04-14 18:16 | Inpatient (IN) | payer MEDICARE, MEDICAID ==
[~2019-04-14] VITALS: Ht 154.9 cm; Wt 91.2 kg
[2019-04-14 19:03] VITALS: BP 127/71
[2019-04-14] MEDS ORDERED: INFLUENZA VIRUS VACCINE QVS 2019-20 (3YR+)/PF 60 MCG/0.5 ML SYRINGE IM ONE (20:15)
[2019-04-14] MEDS: BENZTROPINE MESYLATE 0.5 MG TABLET PO SCH (20:47)
[2019-04-14] MEDS: FluPHENAZine HCL 5 MG TABLET PO SCH (20:47)
[2019-04-14] MEDS: TOPIRAMATE 100 MG TABLET PO SCH (20:48)
[2019-04-14] MEDS: ASENAPINE 10 MG SUBLINGUAL TABLET SL SCH (20:48)
[2019-04-14] MEDS ORDERED: LOPERAMIDE HCL 2 MG CAPSULE PO PRN (21:45)
[2019-04-14] MEDS ORDERED: CloNIDine HCL 0.1 MG TABLET PO PRN (21:45)
[2019-04-14] MEDS ORDERED: ONDANSETRON HCL 4 MG TABLET PO PRN (21:45)
[2019-04-14] MEDS ORDERED: PETROLATUM,WHITE 28 GM JELLY TP PRN (21:45)
[2019-04-14] MEDS ORDERED: ALBUTEROL SULFATE HFA 90 MCG/PUFF 8 GM INHALER IH PRN (21:45)
[2019-04-14] MEDS ORDERED: DOCUSATE SODIUM 100 MG CAPSULE PO PRN (21:45)
[2019-04-14] MEDS ORDERED: NICOTINE 14 MG/24 HOUR PATCH TD PRN (21:45)
[2019-04-15 02:15] VITALS: BP 136/88
[2019-04-15] MEDS: IBUPROFEN 400 MG TABLET PO PRN ×2 (02:31→10:44)
[2019-04-15] MEDS: LORazepam 2 MG TABLET PO PRN ×4 (02:32→18:34)
[2019-04-15] MEDS: MAGNESIUM HYDROXIDE SUSPENSION 30 ML UDCUP PO PRN (03:11)
[2019-04-15] MEDS: GuaiFENesin/D-METHORPHAN [SUGAR-FREE] 200-20MG/10 ML SYRUP UDCUP PO PRN ×2 (03:12→09:46)
[2019-04-15 07:21] LABS: BASOPHILS % (AUTO) 0.5 % (0.0-2.0); EOSINOPHILS % (AUTO) 1.2 % (1.0-6.0); HEMATOCRIT 36.9 % (36-46); HEMOGLOBIN 12.4 g/dL (12.0-16.0); LYMPHOCYTES # (AUTO) 1.2 K/uL (1.0-4.8); LYMPHOCYTES % (AUTO) 19.6 % (22.0-44.0); MEAN CORPUSCULAR HEMOGLOBIN 29.7 pg (26.0-34.0); MEAN CORPUSCULAR HGB CONC 33.7 G/dL (31.0-37.0); MEAN CORPUSCULAR VOLUME 88 fL (80-100); MONOCYTES # (AUTO) 0.7 K/uL (0.1-1.0); MONOCYTES % (AUTO) 10.6 % (2.0-9.0); NEUTROPHILS # (AUTO) 4.2 K/uL (1.8-7.7); NEUTROPHILS % (AUTO) 68.1 % (40.0-70.0); PLATELET COUNT (AUTO) 254 K/uL (150-450); RED BLOOD CELL COUNT(AUTO) 4.19 MIL/uL (4.00-5.20); RED CELL DISTRIBUTION WIDTH 13.8 % (11.5-14.5)
[2019-04-15 07:46] LABS: HEMOGLOBIN A1C 5.3 % (4.5-6.2)
[2019-04-15 07:53] LABS: ALANINE AMINOTRANSFERASE 16 U/L (12-78); ALBUMIN 3.1 g/dL (3.4-5.0); ALKALINE PHOSPHATASE 66 U/L (46-116); ANION GAP 5 mmol/L (8-16); ASPARTATE AMINOTRANSFERASE 18 U/L (15-37); BILIRUBIN,TOTAL 0.1 mg/dL (0.1-1.0); CALCIUM, TOTAL 8.2 mg/dL (8.8-10.5); CARBON DIOXIDE 29 mmol/L (22-29); CHLORIDE 102 mmol/L (98-107); CHOL/HDL RATIO 3.5 (3.9-5.7); CHOLESTEROL 152 mg/dL (131-200); CREATININE 0.85 mg/dL (0.60-1.30); GLOMERULAR FILTR. RATE CALC > 60 mL/min (>60); GLUCOSE,RANDOM 115 mg/dL (70-110); HDL CHOLESTEROL 44 mg/dL (40-60); LDL CHOL (CALC.) 91 mg/dL (0-130); POTASSIUM 3.7 mmol/L (3.5-5.1); SODIUM SERUM 136 mmol/L (136-145); THYROID STIMULATING HORMONE 0.49 uIU/mL (0.36-3.74); TOTAL PROTEIN, SERUM 6.2 g/dL (6.4-8.2); TRIGLYCERIDES 87 mg/dL (15-150); UREA NITROGEN, BLOOD 18 mg/dL (7-18)
[2019-04-15] MEDS: ASENAPINE 10 MG SUBLINGUAL TABLET SL SCH ×2 (08:09→20:17)
[2019-04-15] MEDS: BENZTROPINE MESYLATE 0.5 MG TABLET PO SCH ×2 (08:12→20:17)
[2019-04-15] MEDS: TOPIRAMATE 100 MG TABLET PO SCH ×2 (08:13→16:34)
[2019-04-15] MEDS: FluPHENAZine HCL 5 MG TABLET PO SCH ×3 (08:13→20:19)
[2019-04-15 08:23] VITALS: BP 156/115
[2019-04-15] MEDS ORDERED: SERTRALINE HCL 100 MG TABLET PO SCH (09:00)
[2019-04-15 10:44] VITALS: BP 123/70
[2019-04-15] MEDS: BuPROPion HCL XL 150 MG ER TABLET PO SCH (12:29)
[2019-04-15 16:01] VITALS: BP 140/88
[2019-04-16] MEDS: MAG HYDROX/AL HYDROX/SIMETH ES 30 ML SUSPENSION UDCUP PO PRN (02:15)
[2019-04-16] MEDS: IBUPROFEN 400 MG TABLET PO PRN ×2 (03:21→17:49)
[2019-04-16 03:22] VITALS: BP 138/78
[2019-04-16] MEDS: GuaiFENesin/D-METHORPHAN [SUGAR-FREE] 200-20MG/10 ML SYRUP UDCUP PO PRN ×2 (03:38→17:49)
[2019-04-16] MEDS: LORazepam 2 MG TABLET PO PRN ×4 (03:38→19:03)
[2019-04-16] MEDS: QUEtiapine FUMARATE 100 MG TABLET PO PRN (03:38)
[2019-04-16 08:15] VITALS: BP 142/80
[2019-04-16] MEDS: AmLODIPine BESYLATE 2.5 MG TABLET PO SCH (08:25)
[2019-04-16] MEDS: ASPIRIN 81 MG CHEWABLE TABLET PO SCH (08:26)
[2019-04-16] MEDS: BuPROPion HCL XL 150 MG ER TABLET PO SCH (08:26)
[2019-04-16] MEDS: OMEGA-3/DHA/EPA/FISH OIL 1,000 MG CAPSULE PO SCH (08:26)
[2019-04-16] MEDS: OXYBUTYNIN CHLORIDE 5 MG ER TABLET PO SCH (08:26)
[2019-04-16] MEDS: BENZTROPINE MESYLATE 0.5 MG TABLET PO SCH ×2 (08:26→20:34)
[2019-04-16] MEDS: ASENAPINE 10 MG SUBLINGUAL TABLET SL SCH ×2 (08:27→20:35)
[2019-04-16] MEDS: FluPHENAZine HCL 5 MG TABLET PO SCH ×3 (08:28→20:34)
[2019-04-16] MEDS: TOPIRAMATE 100 MG TABLET PO SCH ×2 (08:30→16:44)
[2019-04-16 16:04] VITALS: BP 131/61
[2019-04-16] MEDS: ACETAMINOPHEN 325 MG TABLET PO PRN (23:42)
[2019-04-17] MEDS: MAG HYDROX/AL HYDROX/SIMETH ES 30 ML SUSPENSION UDCUP PO PRN (02:04)
[2019-04-17 02:37] VITALS: BP 118/70
[2019-04-17] MEDS: GuaiFENesin/D-METHORPHAN [SUGAR-FREE] 200-20MG/10 ML SYRUP UDCUP PO PRN (03:48)
[2019-04-17] MEDS: IBUPROFEN 400 MG TABLET PO PRN ×2 (03:49→12:04)
[2019-04-17 08:32] VITALS: BP 140/73
[2019-04-17] MEDS: ASPIRIN 81 MG CHEWABLE TABLET PO SCH (08:54)
[2019-04-17] MEDS: OMEGA-3/DHA/EPA/FISH OIL 1,000 MG CAPSULE PO SCH (08:55)
[2019-04-17] MEDS: BuPROPion HCL XL 150 MG ER TABLET PO SCH (08:55)
[2019-04-17] MEDS: BENZTROPINE MESYLATE 0.5 MG TABLET PO SCH ×2 (08:55→20:09)
[2019-04-17] MEDS: AmLODIPine BESYLATE 2.5 MG TABLET PO SCH (08:55)
[2019-04-17] MEDS: TOPIRAMATE 100 MG TABLET PO SCH ×2 (08:55→16:06)
[2019-04-17] MEDS: FluPHENAZine HCL 5 MG TABLET PO SCH (08:55)
[2019-04-17] MEDS: OXYBUTYNIN CHLORIDE 5 MG ER TABLET PO SCH (08:56)
[2019-04-17] MEDS: ASENAPINE 10 MG SUBLINGUAL TABLET SL SCH ×2 (08:56→20:09)
[2019-04-17] MEDS: LORazepam 2 MG TABLET PO PRN ×3 (08:56→18:00)
[2019-04-17] MEDS ORDERED: ARIPiprazole 15 MG TABLET PO ONE (10:30)
[2019-04-17] MEDS ORDERED: ARIPiprazole LAUROXIL ER SUSPENSION 1064 MG/3.9 ML SYRINGE IM ONE (10:30)
[2019-04-17] MEDS ORDERED: ARIPiprazole LAUROXIL,SUBMICR. ER SUSPENSION 675 MG/2.4 ML SYRINGE IM ONE (10:30)
[2019-04-17 16:07] VITALS: BP 158/75
[2019-04-17] MEDS: QUEtiapine FUMARATE 100 MG TABLET PO PRN (18:00)
[2019-04-18 01:58] VITALS: BP 135/70
[2019-04-18 08:14] VITALS: BP 130/79
[2019-04-18] MEDS: BuPROPion HCL XL 150 MG ER TABLET PO SCH (08:29)
[2019-04-18] MEDS: OXYBUTYNIN CHLORIDE 5 MG ER TABLET PO SCH (08:29)
[2019-04-18] MEDS: OMEGA-3/DHA/EPA/FISH OIL 1,000 MG CAPSULE PO SCH (08:29)
[2019-04-18] MEDS: ASENAPINE 10 MG SUBLINGUAL TABLET SL SCH ×2 (08:29→20:21)
[2019-04-18] MEDS: BENZTROPINE MESYLATE 0.5 MG TABLET PO SCH ×2 (08:29→20:21)
[2019-04-18] MEDS: ASPIRIN 81 MG CHEWABLE TABLET PO SCH (08:30)
[2019-04-18] MEDS: AmLODIPine BESYLATE 2.5 MG TABLET PO SCH (08:30)
[2019-04-18] MEDS: TOPIRAMATE 100 MG TABLET PO SCH ×2 (08:30→16:03)
[2019-04-18] MEDS: GuaiFENesin/D-METHORPHAN [SUGAR-FREE] 200-20MG/10 ML SYRUP UDCUP PO PRN (08:41)
[2019-04-18] MEDS: ACETAMINOPHEN 325 MG TABLET PO PRN (09:12)
[2019-04-18] MEDS: LORazepam 2 MG TABLET PO PRN ×3 (09:47→22:12)
[2019-04-18] MEDS: QUEtiapine FUMARATE 100 MG TABLET PO PRN ×3 (09:56→22:13)
[2019-04-18 16:01] VITALS: BP 145/80
[2019-04-18] MEDS: IBUPROFEN 400 MG TABLET PO PRN (20:22)
[2019-04-19 00:21] VITALS: BP 136/80
[2019-04-19] MEDS: ZOLPIDEM TARTRATE 10 MG TABLET PO PRN (00:48)
[2019-04-19] MEDS: QUEtiapine FUMARATE 100 MG TABLET PO PRN (07:09)
[2019-04-19] MEDS: LORazepam 2 MG TABLET PO PRN ×3 (07:09→22:43)
[2019-04-19 08:03] VITALS: BP 129/82
[2019-04-19] MEDS: OMEGA-3/DHA/EPA/FISH OIL 1,000 MG CAPSULE PO SCH (08:48)
[2019-04-19] MEDS: BENZTROPINE MESYLATE 0.5 MG TABLET PO SCH ×2 (08:48→20:42)
[2019-04-19] MEDS: TOPIRAMATE 100 MG TABLET PO SCH ×2 (08:48→16:33)
[2019-04-19] MEDS: OXYBUTYNIN CHLORIDE 5 MG ER TABLET PO SCH (08:48)
[2019-04-19] MEDS: ASPIRIN 81 MG CHEWABLE TABLET PO SCH (08:49)
[2019-04-19] MEDS: BuPROPion HCL XL 150 MG ER TABLET PO SCH (08:49)
[2019-04-19] MEDS: ASENAPINE 10 MG SUBLINGUAL TABLET SL SCH ×2 (08:49→20:42)
[2019-04-19] MEDS: AmLODIPine BESYLATE 2.5 MG TABLET PO SCH (08:49)
[2019-04-19 16:00] VITALS: BP 129/64
[2019-04-19] MEDS: MAGNESIUM HYDROXIDE SUSPENSION 30 ML UDCUP PO PRN (17:06)
[2019-04-19 21:39] VITALS: BP 132/84
[2019-04-19] MEDS: IBUPROFEN 400 MG TABLET PO PRN (21:42)
[2019-04-20 04:15] VITALS: BP 122/82
[2019-04-20] MEDS: ACETAMINOPHEN 325 MG TABLET PO PRN (04:17)
[2019-04-20] MEDS: QUEtiapine FUMARATE 100 MG TABLET PO PRN ×3 (04:28→16:51)
[2019-04-20] MEDS: LORazepam 2 MG TABLET PO PRN ×3 (04:28→16:51)
[2019-04-20] MEDS: BuPROPion HCL XL 150 MG ER TABLET PO SCH (08:21)
[2019-04-20] MEDS: TOPIRAMATE 100 MG TABLET PO SCH ×2 (08:23→16:20)
[2019-04-20] MEDS: BENZTROPINE MESYLATE 0.5 MG TABLET PO SCH ×2 (08:24→20:31)
[2019-04-20] MEDS: ASPIRIN 81 MG CHEWABLE TABLET PO SCH (08:24)
[2019-04-20] MEDS: AmLODIPine BESYLATE 2.5 MG TABLET PO SCH (08:24)
[2019-04-20] MEDS: OXYBUTYNIN CHLORIDE 5 MG ER TABLET PO SCH (08:25)
[2019-04-20] MEDS: OMEGA-3/DHA/EPA/FISH OIL 1,000 MG CAPSULE PO SCH (08:25)
[2019-04-20] MEDS: ASENAPINE 10 MG SUBLINGUAL TABLET SL SCH ×2 (08:26→20:31)
[2019-04-20 08:27] VITALS: BP 121/72
[2019-04-20] MEDS: IBUPROFEN 400 MG TABLET PO PRN (09:24)
[2019-04-20 16:07] VITALS: BP 142/96
[2019-04-21] MEDS: QUEtiapine FUMARATE 100 MG TABLET PO PRN ×5 (00:12→21:14)
[2019-04-21] MEDS: LORazepam 2 MG TABLET PO PRN ×4 (00:12→21:14)
[2019-04-21] MEDS: MAGNESIUM HYDROXIDE SUSPENSION 30 ML UDCUP PO PRN ×2 (02:11→21:36)
[2019-04-21 05:27] VITALS: BP 129/79
[2019-04-21] MEDS: BuPROPion HCL XL 150 MG ER TABLET PO SCH (08:09)
[2019-04-21] MEDS: OMEGA-3/DHA/EPA/FISH OIL 1,000 MG CAPSULE PO SCH (08:09)
[2019-04-21] MEDS: ASPIRIN 81 MG CHEWABLE TABLET PO SCH (08:09)
[2019-04-21] MEDS: AmLODIPine BESYLATE 2.5 MG TABLET PO SCH (08:10)
[2019-04-21] MEDS: BENZTROPINE MESYLATE 0.5 MG TABLET PO SCH ×2 (08:10→20:23)
[2019-04-21] MEDS: OXYBUTYNIN CHLORIDE 5 MG ER TABLET PO SCH (08:10)
[2019-04-21] MEDS: ASENAPINE 10 MG SUBLINGUAL TABLET SL SCH ×2 (08:11→20:23)
[2019-04-21 08:22] VITALS: BP 152/74
[2019-04-21] MEDS: TOPIRAMATE 100 MG TABLET PO SCH ×2 (12:34→16:41)
[2019-04-21 16:00] VITALS: BP 150/93
[2019-04-21] MEDS: IBUPROFEN 400 MG TABLET PO PRN (17:10)
[2019-04-21 17:49] VITALS: BP 139/85
[2019-04-22 00:50] VITALS: BP 139/80
[2019-04-22] MEDS: QUEtiapine FUMARATE 100 MG TABLET PO PRN ×4 (01:29→19:21)
[2019-04-22] MEDS: LORazepam 2 MG TABLET PO PRN ×4 (01:29→19:21)
[2019-04-22] MEDS: IBUPROFEN 400 MG TABLET PO PRN ×2 (03:03→21:14)
[2019-04-22] MEDS: AmLODIPine BESYLATE 2.5 MG TABLET PO SCH (08:09)
[2019-04-22] MEDS: BENZTROPINE MESYLATE 0.5 MG TABLET PO SCH ×2 (08:09→20:00)
[2019-04-22] MEDS: OMEGA-3/DHA/EPA/FISH OIL 1,000 MG CAPSULE PO SCH (08:10)
[2019-04-22] MEDS: TOPIRAMATE 100 MG TABLET PO SCH ×2 (08:10→16:03)
[2019-04-22] MEDS: ASENAPINE 10 MG SUBLINGUAL TABLET SL SCH ×2 (08:10→20:01)
[2019-04-22] MEDS: BuPROPion HCL XL 150 MG ER TABLET PO SCH (08:10)
[2019-04-22] MEDS: OXYBUTYNIN CHLORIDE 5 MG ER TABLET PO SCH (08:11)
[2019-04-22] MEDS: ASPIRIN 81 MG CHEWABLE TABLET PO SCH (08:11)
[2019-04-22 08:22] VITALS: BP 134/75
[2019-04-22 16:04] VITALS: BP 135/74
[2019-04-22 21:14] VITALS: BP 130/70
[2019-04-23] MEDS: QUEtiapine FUMARATE 100 MG TABLET PO PRN ×3 (02:19→13:57)
[2019-04-23] MEDS: ACETAMINOPHEN 325 MG TABLET PO PRN (03:38)
[2019-04-23 03:39] VITALS: BP 136/74
[2019-04-23] MEDS: IBUPROFEN 400 MG TABLET PO PRN ×2 (07:55→22:56)
[2019-04-23] MEDS: ASPIRIN 81 MG CHEWABLE TABLET PO SCH (07:56)
[2019-04-23] MEDS: OMEGA-3/DHA/EPA/FISH OIL 1,000 MG CAPSULE PO SCH (07:56)
[2019-04-23] MEDS: BuPROPion HCL XL 150 MG ER TABLET PO SCH (07:56)
[2019-04-23] MEDS: TOPIRAMATE 100 MG TABLET PO SCH ×2 (07:56→16:19)
[2019-04-23] MEDS: LORazepam 2 MG TABLET PO PRN ×2 (07:57→16:19)
[2019-04-23] MEDS: ASENAPINE 10 MG SUBLINGUAL TABLET SL SCH ×2 (07:57→20:23)
[2019-04-23] MEDS: AmLODIPine BESYLATE 2.5 MG TABLET PO SCH (07:57)
[2019-04-23] MEDS: OXYBUTYNIN CHLORIDE 5 MG ER TABLET PO SCH (07:57)
[2019-04-23] MEDS: BENZTROPINE MESYLATE 0.5 MG TABLET PO SCH ×2 (07:57→20:23)
[2019-04-23 08:16] VITALS: BP 162/82
[2019-04-23 10:30] VITALS: BP 140/90
[2019-04-23] MEDS: MAG HYDROX/AL HYDROX/SIMETH ES 30 ML SUSPENSION UDCUP PO PRN (13:56)
[2019-04-23 16:19] VITALS: BP 124/75
[2019-04-23] MEDS: QUEtiapine FUMARATE 100 MG TABLET PO SCH (16:21)
[2019-04-23 22:54] VITALS: BP 132/86
[2019-04-24] VITALS (11 sets, daily range): BP systolic 125–155; BP diastolic 74–84
[2019-04-24] MEDS: LORazepam 2 MG TABLET PO PRN ×3 (01:22→17:19)
[2019-04-24] MEDS: MAG HYDROX/AL HYDROX/SIMETH ES 30 ML SUSPENSION UDCUP PO PRN ×2 (07:53→17:19)
[2019-04-24] MEDS: TOPIRAMATE 100 MG TABLET PO SCH ×2 (08:26→16:17)
[2019-04-24] MEDS: OXYBUTYNIN CHLORIDE 5 MG ER TABLET PO SCH (08:26)
[2019-04-24] MEDS: ASPIRIN 81 MG CHEWABLE TABLET PO SCH (08:27)
[2019-04-24] MEDS: OMEGA-3/DHA/EPA/FISH OIL 1,000 MG CAPSULE PO SCH (08:27)
[2019-04-24] MEDS: ASENAPINE 10 MG SUBLINGUAL TABLET SL SCH ×2 (08:27→20:06)
[2019-04-24] MEDS: BuPROPion HCL XL 150 MG ER TABLET PO SCH (08:29)
[2019-04-24] MEDS: QUEtiapine FUMARATE 100 MG TABLET PO SCH ×2 (08:30→16:17)
[2019-04-24] MEDS: AmLODIPine BESYLATE 2.5 MG TABLET PO SCH (08:30)
[2019-04-24] MEDS: BENZTROPINE MESYLATE 0.5 MG TABLET PO SCH ×2 (08:30→20:05)
[2019-04-24] MEDS: IBUPROFEN 400 MG TABLET PO PRN (10:57)
[2019-04-24] MEDS: ACETAMINOPHEN 325 MG TABLET PO PRN (18:39)
[2019-04-24] MEDS: ZOLPIDEM TARTRATE 10 MG TABLET PO PRN (21:25)
[2019-04-24] MEDS: QUEtiapine FUMARATE 100 MG TABLET PO PRN (22:09)
[2019-04-25] MEDS: ACETAMINOPHEN 325 MG TABLET PO PRN (04:03)
[2019-04-25 05:51] VITALS: BP 118/79
[2019-04-25] MEDS: ASENAPINE 10 MG SUBLINGUAL TABLET SL SCH ×2 (08:12→20:25)
[2019-04-25] MEDS: BuPROPion HCL XL 150 MG ER TABLET PO SCH (08:13)
[2019-04-25] MEDS: QUEtiapine FUMARATE 100 MG TABLET PO SCH ×2 (08:13→16:06)
[2019-04-25] MEDS: ASPIRIN 81 MG CHEWABLE TABLET PO SCH (08:13)
[2019-04-25] MEDS: OMEGA-3/DHA/EPA/FISH OIL 1,000 MG CAPSULE PO SCH (08:13)
[2019-04-25] MEDS: OXYBUTYNIN CHLORIDE 5 MG ER TABLET PO SCH (08:13)
[2019-04-25] MEDS: AmLODIPine BESYLATE 2.5 MG TABLET PO SCH (08:13)
[2019-04-25] MEDS: TOPIRAMATE 100 MG TABLET PO SCH ×2 (08:14→16:06)
[2019-04-25] MEDS: BENZTROPINE MESYLATE 0.5 MG TABLET PO SCH ×2 (08:14→20:25)
[2019-04-25 08:17] VITALS: BP 118/62
[2019-04-25] MEDS: LORazepam 2 MG TABLET PO PRN ×3 (08:24→15:42)
[2019-04-25] MEDS: IBUPROFEN 400 MG TABLET PO PRN (08:24)
[2019-04-25] MEDS: MAG HYDROX/AL HYDROX/SIMETH ES 30 ML SUSPENSION UDCUP PO PRN (15:41)
[2019-04-25 16:06] VITALS: BP 134/76
[2019-04-26 00:04] VITALS: BP 133/82
[2019-04-26] MEDS: LORazepam 2 MG TABLET PO PRN ×2 (00:14→08:16)
[2019-04-26] MEDS: QUEtiapine FUMARATE 100 MG TABLET PO PRN ×2 (00:14→08:16)
[2019-04-26] MEDS: IBUPROFEN 400 MG TABLET PO PRN (01:15)
[2019-04-26 08:08] VITALS: BP 149/85
[2019-04-26] MEDS: ASENAPINE 10 MG SUBLINGUAL TABLET SL SCH (08:08)
[2019-04-26] MEDS: QUEtiapine FUMARATE 100 MG TABLET PO SCH ×2 (08:08→16:21)
[2019-04-26] MEDS: OMEGA-3/DHA/EPA/FISH OIL 1,000 MG CAPSULE PO SCH (08:08)
[2019-04-26] MEDS: ASPIRIN 81 MG CHEWABLE TABLET PO SCH (08:09)
[2019-04-26] MEDS: BENZTROPINE MESYLATE 0.5 MG TABLET PO SCH (08:09)
[2019-04-26] MEDS: AmLODIPine BESYLATE 2.5 MG TABLET PO SCH (08:09)
[2019-04-26] MEDS: BuPROPion HCL XL 150 MG ER TABLET PO SCH (08:09)
[2019-04-26] MEDS: TOPIRAMATE 100 MG TABLET PO SCH ×2 (08:10→16:21)
[2019-04-26] MEDS: OXYBUTYNIN CHLORIDE 5 MG ER TABLET PO SCH (10:01)
[2019-04-26] MEDS ORDERED: QUET100T PO (11:16)
[2019-04-26] MEDS ORDERED: BUPR-93 PO (11:16)
[2019-04-26 16:27] VITALS: BP 144/84
== END 2019-04-26 19:21 | disposition home or self-care (01) | DRG 885 ==
LOC: B3A 18:59
PROVIDERS: ADMIT Psychiatry & Neurology Psychiatry; ATTEND Psychiatry & Neurology Psychiatry
DX: F20.0 Paranoid schizophrenia (principal); E78.5 Hyperlipidemia, unspecified; F17.200 Nicotine dependence, unspecified, uncomplicated; F60.0 Paranoid personality disorder; G43.909 Migraine, unspecified, not intractable, without status migrainosus; I10 Essential (primary) hypertension; J44.9 Chronic obstructive pulmonary disease, unspecified; K59.09 Other constipation; M79.7 Fibromyalgia; R32 Unspecified urinary incontinence; K21.9 Gastro-esophageal reflux disease without esophagitis; M19.90 Unspecified osteoarthritis, unspecified site; M54.9 Dorsalgia, unspecified; Z23 Encounter for immunization; Z88.8 Allergy status to other drugs, medicaments and biological substances; Z79.899 Other long term (current) drug therapy; Z71.6 Tobacco abuse counseling
CPT/HCPCS: 83036; 84439; 84443; 90686

== ENCOUNTER 2019-05-15 14:06 | Emergency (ER) | payer OTHER, MEDICARE ==
[~2019-05-15] VITALS: Ht 154.9 cm; Wt 95.5 kg
[~2019-05-15 14:06] MED LIST changes: +BUPR-93 PO; -FLUD25I IM; -FLUP5 PO; -PRAZ2 PO; +QUET100T PO; -SERT100T12 PO
[2019-05-15 15:11] LABS: BASOPHILS % (AUTO) 0.6 % (0.0-2.0); EOSINOPHILS % (AUTO) 0.9 % (1.0-6.0); HEMATOCRIT 33.9 % (36-46); HEMOGLOBIN 11.8 g/dL (12.0-16.0); LYMPHOCYTES # (AUTO) 1.6 K/uL (1.0-4.8); LYMPHOCYTES % (AUTO) 20.6 % (22.0-44.0); MEAN CORPUSCULAR HEMOGLOBIN 29.9 pg (26.0-34.0); MEAN CORPUSCULAR HGB CONC 34.8 G/dL (31.0-37.0); MEAN CORPUSCULAR VOLUME 86 fL (80-100); MONOCYTES # (AUTO) 0.6 K/uL (0.1-1.0); MONOCYTES % (AUTO) 8.2 % (2.0-9.0); NEUTROPHILS # (AUTO) 5.3 K/uL (1.8-7.7); NEUTROPHILS % (AUTO) 69.7 % (40.0-70.0); PLATELET COUNT (AUTO) 344 K/uL (150-450); RED BLOOD CELL COUNT(AUTO) 3.96 MIL/uL (4.00-5.20); RED CELL DISTRIBUTION WIDTH 13.3 % (11.5-14.5)
[2019-05-15 15:20] LABS: CARBON DIOXIDE 25 mmol/L (22-29); CHLORIDE 98 mmol/L (98-107); POTASSIUM 3.3 mmol/L (3.5-5.1); SODIUM SERUM 133 mmol/L (136-145)
[2019-05-15 15:21] LABS: ANION GAP 10 mmol/L (8-16); CALCIUM, TOTAL 8.7 mg/dL (8.8-10.5); CREATININE 0.74 mg/dL (0.60-1.30); GLOMERULAR FILTR. RATE CALC > 60 mL/min (>60); GLUCOSE,RANDOM 105 mg/dL (70-110); UREA NITROGEN, BLOOD 10 mg/dL (7-18)
[2019-05-15 15:26] LABS: ALANINE AMINOTRANSFERASE 23 U/L (12-78); ALBUMIN 3.4 g/dL (3.4-5.0); ALKALINE PHOSPHATASE 75 U/L (46-116); ASPARTATE AMINOTRANSFERASE 20 U/L (15-37); BILIRUBIN,TOTAL 0.1 mg/dL (0.1-1.0); TOTAL PROTEIN, SERUM 6.7 g/dL (6.4-8.2)
[2019-05-15 17:09] VITALS: BP 123/68
[2019-05-15 18:00] LABS: AMPHET/METH SCREEN,URINE NEGATIVE (NEGATIVE); BARBITURATE SCREEN, URINE NEGATIVE (NEGATIVE); BENZODIAZEPINES SCREEN,URINE NEGATIVE (NEGATIVE); CANNABINOID SCREEN,URINE NEGATIVE (NEGATIVE); COCAINE SCREEN,URINE NEGATIVE (NEGATIVE); METHADONE SCREEN, URINE NEGATIVE (NEGATIVE); OPIATE SCREEN,URINE NEGATIVE (NEGATIVE)
[2019-05-15 18:01] LABS: PHENCYCLIDINE SCREEN,URINE NEGATIVE (NEGATIVE)
[2019-05-16 08:06] LABS: HIV 1-2 SCREEN 4TH GEN W/RFLX Non Reactive (Non Reactive)
== END 2019-05-15 18:01 | disposition home or self-care (01) ==
LOC: EMS 14:09
DX: S61.432A Puncture wound without foreign body of left hand, initial encounter (principal); S61.431A Puncture wound without foreign body of right hand, initial encounter; K21.9 Gastro-esophageal reflux disease without esophagitis; I25.2 Old myocardial infarction; F20.9 Schizophrenia, unspecified; F17.210 Nicotine dependence, cigarettes, uncomplicated; Z79.82 Long term (current) use of aspirin; Z88.8 Allergy status to other drugs, medicaments and biological substances; Z79.899 Other long term (current) drug therapy; W46.1XXA Contact with contaminated hypodermic needle, initial encounter; Y93.89 Activity, other specified; Y92.89 Other specified places as the place of occurrence of the external cause; Y99.8 Other external cause status
CPT/HCPCS: 36415; 80053; 80074; 80307; 85025; 87389; 99283; G0480

== ENCOUNTER 2019-06-16 10:25 | Emergency (ER) | payer OTHER, MEDICARE ==
[~2019-06-16] VITALS: Ht 167.6 cm; Wt 80.9 kg
[2019-06-16 11:08] VITALS: BP 132/61
[2019-06-16 11:49] LABS: BASOPHILS % (AUTO) 0.4 % (0.0-2.0); EOSINOPHILS % (AUTO) 1.6 % (1.0-6.0); HEMATOCRIT 35.1 % (36-46); HEMOGLOBIN 12.1 g/dL (12.0-16.0); LYMPHOCYTES # (AUTO) 1.4 K/uL (1.0-4.8); LYMPHOCYTES % (AUTO) 21.8 % (22.0-44.0); MEAN CORPUSCULAR HEMOGLOBIN 29.6 pg (26.0-34.0); MEAN CORPUSCULAR HGB CONC 34.4 G/dL (31.0-37.0); MEAN CORPUSCULAR VOLUME 86 fL (80-100); MONOCYTES # (AUTO) 0.6 K/uL (0.1-1.0); MONOCYTES % (AUTO) 9.9 % (2.0-9.0); NEUTROPHILS # (AUTO) 4.3 K/uL (1.8-7.7); NEUTROPHILS % (AUTO) 66.3 % (40.0-70.0); PLATELET COUNT (AUTO) 272 K/uL (150-450); RED BLOOD CELL COUNT(AUTO) 4.08 MIL/uL (4.00-5.20); RED CELL DISTRIBUTION WIDTH 14.1 % (11.5-14.5)
[2019-06-16 11:58] LABS: ANION GAP 8 mmol/L (8-16); CALCIUM, TOTAL 8.9 mg/dL (8.8-10.5); CARBON DIOXIDE 27 mmol/L (22-29); CHLORIDE 103 mmol/L (98-107); CREATININE 0.84 mg/dL (0.60-1.30); GLOMERULAR FILTR. RATE CALC > 60 mL/min (>60); GLUCOSE,RANDOM 95 mg/dL (70-110); POTASSIUM 3.6 mmol/L (3.5-5.1); SODIUM SERUM 138 mmol/L (136-145); UREA NITROGEN, BLOOD 16 mg/dL (7-18)
[2019-06-16 12:04] LABS: ALANINE AMINOTRANSFERASE 26 U/L (12-78); ALBUMIN 3.6 g/dL (3.4-5.0); ALKALINE PHOSPHATASE 90 U/L (46-116); ASPARTATE AMINOTRANSFERASE 17 U/L (15-37); BILIRUBIN,TOTAL 0.3 mg/dL (0.1-1.0); TOTAL PROTEIN, SERUM 6.8 g/dL (6.4-8.2)
[2019-06-16] MEDS ORDERED: QUEtiapine FUMARATE 100 MG TABLET PO ONE (12:45)
== END 2019-06-16 15:02 | disposition home or self-care (01) ==
LOC: EMS 10:26
DX: F20.9 Schizophrenia, unspecified (principal); I25.2 Old myocardial infarction; K21.9 Gastro-esophageal reflux disease without esophagitis; M19.90 Unspecified osteoarthritis, unspecified site; F43.10 Post-traumatic stress disorder, unspecified; F17.210 Nicotine dependence, cigarettes, uncomplicated; Z98.890 Other specified postprocedural states; Z79.899 Other long term (current) drug therapy
CPT/HCPCS: 36415; 80053; 85025; 99284; G0480

== ENCOUNTER 2019-07-07 02:04 | Inpatient (IN) | payer OTHER, MEDICAID ==
[~2019-07-07] VITALS: Ht 154.9 cm; Wt 93.1 kg
[~2019-07-07 02:04] MED LIST changes: +ASPI-728 PO; -ASPI81 PO
[2019-07-07] MEDS ORDERED: ZOLPIDEM TARTRATE 10 MG TABLET PO PRN (02:45)
[2019-07-07 03:39] VITALS: BP 128/63
[2019-07-07] MEDS ORDERED: -PHARMACY VACCINE NOTE- MISC ONE (04:45)
[2019-07-07] MEDS: LORazepam 1 MG TABLET PO PRN ×2 (06:56→14:46)
[2019-07-07] MEDS: AmLODIPine BESYLATE 2.5 MG TABLET PO SCH (07:53)
[2019-07-07] MEDS: ASPIRIN 81 MG CHEWABLE TABLET PO SCH (07:53)
[2019-07-07] MEDS: OMEGA-3/DHA/EPA/FISH OIL 1,000 MG CAPSULE PO SCH (07:54)
[2019-07-07] MEDS ORDERED: CloNIDine HCL 0.1 MG TABLET PO PRN (08:00)
[2019-07-07] MEDS ORDERED: LOPERAMIDE HCL 2 MG CAPSULE PO PRN (08:00)
[2019-07-07] MEDS ORDERED: DOCUSATE SODIUM 100 MG CAPSULE PO PRN (08:00)
[2019-07-07] MEDS ORDERED: PETROLATUM,WHITE 28 GM JELLY TP PRN (08:00)
[2019-07-07] MEDS ORDERED: MAG HYDROX/AL HYDROX/SIMETH ES 30 ML SUSPENSION UDCUP PO PRN (08:00)
[2019-07-07] MEDS ORDERED: GuaiFENesin/D-METHORPHAN [SUGAR-FREE] 200-20MG/10 ML SYRUP UDCUP PO PRN (08:00)
[2019-07-07] MEDS ORDERED: ALBUTEROL SULFATE HFA 90 MCG/PUFF 8 GM INHALER IH PRN (08:00)
[2019-07-07] MEDS ORDERED: NICOTINE 14 MG/24 HOUR PATCH TD PRN (08:00)
[2019-07-07] MEDS ORDERED: ONDANSETRON HCL 4 MG TABLET PO PRN (08:00)
[2019-07-07 08:06] VITALS: BP 136/75
[2019-07-07] MEDS: IBUPROFEN 400 MG TABLET PO PRN (15:46)
[2019-07-07 16:07] VITALS: BP 130/67
[2019-07-07] MEDS: OXYBUTYNIN CHLORIDE 5 MG ER TABLET PO SCH (16:27)
[2019-07-07] MEDS: QUEtiapine FUMARATE 100 MG TABLET PO SCH (16:27)
[2019-07-07] MEDS ORDERED: DiphenhydrAMINE HCL 50 MG/ML VIAL ONE (17:11)
[2019-07-07] MEDS ORDERED: LORazepam 2 MG/ML VIAL IM ONE (17:15)
[2019-07-07] MEDS: ASENAPINE 10 MG SUBLINGUAL TABLET SL SCH (21:00)
[2019-07-07] MEDS: BENZTROPINE MESYLATE 0.5 MG TABLET PO SCH (21:00)
[2019-07-08 04:10] VITALS: BP 131/82
[2019-07-08] MEDS: IBUPROFEN 400 MG TABLET PO PRN ×2 (04:11→14:53)
[2019-07-08 07:46] LABS: BASOPHILS % (AUTO) 0.3 % (0.0-2.0); EOSINOPHILS % (AUTO) 0.4 % (1.0-6.0); HEMATOCRIT 35.7 % (36-46); HEMOGLOBIN 11.9 g/dL (12.0-16.0); LYMPHOCYTES # (AUTO) 1.3 K/uL (1.0-4.8); LYMPHOCYTES % (AUTO) 20.8 % (22.0-44.0); MEAN CORPUSCULAR HEMOGLOBIN 29.4 pg (26.0-34.0); MEAN CORPUSCULAR HGB CONC 33.3 G/dL (31.0-37.0); MEAN CORPUSCULAR VOLUME 88 fL (80-100); MONOCYTES # (AUTO) 0.5 K/uL (0.1-1.0); MONOCYTES % (AUTO) 7.9 % (2.0-9.0); NEUTROPHILS # (AUTO) 4.4 K/uL (1.8-7.7); NEUTROPHILS % (AUTO) 70.6 % (40.0-70.0); PLATELET COUNT (AUTO) 252 K/uL (150-450); RED BLOOD CELL COUNT(AUTO) 4.04 MIL/uL (4.00-5.20); RED CELL DISTRIBUTION WIDTH 15.4 % (11.5-14.5)
[2019-07-08 08:15] LABS: HEMOGLOBIN A1C 5.9 % (4.5-6.2)
[2019-07-08 08:17] LABS: ALBUMIN 3.4 g/dL (3.4-5.0); BILIRUBIN,TOTAL 0.3 mg/dL (0.1-1.0); CALCIUM, TOTAL 8.8 mg/dL (8.8-10.5); FREE T4 (FREE THYROXINE) 0.81 ng/dL (0.76-1.46); POTASSIUM 3.9 mmol/L (3.5-5.1); THYROID STIMULATING HORMONE 0.43 uIU/mL (0.36-3.74); TOTAL PROTEIN, SERUM 6.6 g/dL (6.4-8.2)
[2019-07-08 08:19] VITALS: BP 127/61
[2019-07-08] MEDS: ASPIRIN 81 MG CHEWABLE TABLET PO SCH (08:19)
[2019-07-08] MEDS: BENZTROPINE MESYLATE 0.5 MG TABLET PO SCH ×2 (08:19→20:13)
[2019-07-08] MEDS: OXYBUTYNIN CHLORIDE 5 MG ER TABLET PO SCH (08:20)
[2019-07-08] MEDS: QUEtiapine FUMARATE 100 MG TABLET PO SCH ×2 (08:20→16:35)
[2019-07-08] MEDS: AmLODIPine BESYLATE 2.5 MG TABLET PO SCH (08:20)
[2019-07-08] MEDS: OMEGA-3/DHA/EPA/FISH OIL 1,000 MG CAPSULE PO SCH (08:20)
[2019-07-08] MEDS: ASENAPINE 10 MG SUBLINGUAL TABLET SL SCH ×2 (08:20→20:13)
[2019-07-08] MEDS: BuPROPion HCL XL 150 MG ER TABLET PO SCH (08:21)
[2019-07-08 08:24] LABS: CREATININE 0.95 mg/dL (0.60-1.30)
[2019-07-08] MEDS: LORazepam 1 MG TABLET PO PRN ×2 (09:42→22:43)
[2019-07-08 10:45] VITALS: BP 135/68
[2019-07-08] MEDS: ACETAMINOPHEN 325 MG TABLET PO PRN ×2 (10:54→21:15)
[2019-07-08 16:09] VITALS: BP 145/68
[2019-07-08] MEDS: MAGNESIUM HYDROXIDE SUSPENSION 30 ML UDCUP PO PRN (19:21)
[2019-07-08 21:12] VITALS: BP 138/72
[2019-07-09 04:46] VITALS: BP 140/86
[2019-07-09 08:10] LABS: APPEARANCE,URINE CLEAR (CLEAR); BILIRUBIN,URINE NEGATIVE (NEGATIVE); GLUCOSE, URINE (UA) NEGATIVE (NEGATIVE); KETONES,URINE NEGATIVE (NEGATIVE); LEUKOCYTE ESTERASE ,URINE NEGATIVE (NEGATIVE); NITRATE,URINE NEGATIVE (NEGATIVE); OCCULT BLOOD,URINE NEGATIVE (NEGATIVE); PROTEIN,URINE NEGATIVE (NEGATIVE); UROBILINOGEN,URINE 0.2 mg/dL (<=1.0)
[2019-07-09 08:11] LABS: AMPHET/METH SCREEN,URINE NEGATIVE (NEGATIVE); BARBITURATE SCREEN, URINE NEGATIVE (NEGATIVE); BENZODIAZEPINES SCREEN,URINE NEGATIVE (NEGATIVE); CANNABINOID SCREEN,URINE NEGATIVE (NEGATIVE); COCAINE SCREEN,URINE NEGATIVE (NEGATIVE); METHADONE SCREEN, URINE NEGATIVE (NEGATIVE); OPIATE SCREEN,URINE NEGATIVE (NEGATIVE)
[2019-07-09 08:13] VITALS: BP 88/45
[2019-07-09 08:14] LABS: PHENCYCLIDINE SCREEN,URINE NEGATIVE (NEGATIVE)
[2019-07-09] MEDS: ASENAPINE 10 MG SUBLINGUAL TABLET SL SCH ×2 (08:39→20:22)
[2019-07-09] MEDS: BuPROPion HCL XL 150 MG ER TABLET PO SCH (08:39)
[2019-07-09] MEDS: OMEGA-3/DHA/EPA/FISH OIL 1,000 MG CAPSULE PO SCH (08:39)
[2019-07-09] MEDS: OXYBUTYNIN CHLORIDE 5 MG ER TABLET PO SCH (08:40)
[2019-07-09] MEDS: AmLODIPine BESYLATE 2.5 MG TABLET PO SCH (08:40)
[2019-07-09] MEDS: QUEtiapine FUMARATE 100 MG TABLET PO SCH ×2 (08:40→17:00)
[2019-07-09] MEDS: ASPIRIN 81 MG CHEWABLE TABLET PO SCH (08:40)
[2019-07-09] MEDS: BENZTROPINE MESYLATE 0.5 MG TABLET PO SCH ×2 (08:41→20:22)
[2019-07-09] MEDS: LORazepam 1 MG TABLET PO PRN ×2 (10:00→19:15)
[2019-07-09] MEDS: IBUPROFEN 400 MG TABLET PO PRN ×2 (12:59→18:56)
[2019-07-09] MEDS: OLANZapine 5 MG TABLET PO PRN ×2 (14:06→20:23)
[2019-07-09 16:03] VITALS: BP 138/77
[2019-07-09 18:46] VITALS: BP 135/72
[2019-07-10 00:51] VITALS: BP 148/77
[2019-07-10 08:09] VITALS: BP 137/77
[2019-07-10] MEDS: BuPROPion HCL XL 150 MG ER TABLET PO SCH (09:11)
[2019-07-10] MEDS: OMEGA-3/DHA/EPA/FISH OIL 1,000 MG CAPSULE PO SCH (09:11)
[2019-07-10] MEDS: BENZTROPINE MESYLATE 0.5 MG TABLET PO SCH ×2 (09:12→21:31)
[2019-07-10] MEDS: ASENAPINE 10 MG SUBLINGUAL TABLET SL SCH ×2 (09:12→21:32)
[2019-07-10] MEDS: OXYBUTYNIN CHLORIDE 5 MG ER TABLET PO SCH (09:12)
[2019-07-10] MEDS: QUEtiapine FUMARATE 100 MG TABLET PO SCH ×2 (09:12→16:26)
[2019-07-10] MEDS: AmLODIPine BESYLATE 2.5 MG TABLET PO SCH (09:15)
[2019-07-10] MEDS: LORazepam 1 MG TABLET PO PRN ×3 (09:22→18:19)
[2019-07-10] MEDS: IBUPROFEN 400 MG TABLET PO PRN (09:22)
[2019-07-10] MEDS: ASPIRIN 81 MG CHEWABLE TABLET PO SCH (09:23)
[2019-07-10] MEDS ORDERED: ZIPRASIDONE MESYLATE 20 MG/VIAL IM PRN ×2 (11:30)
[2019-07-10 21:02] VITALS: BP 127/63
[2019-07-11] MEDS: IBUPROFEN 400 MG TABLET PO PRN (01:15)
[2019-07-11] MEDS: LORazepam 1 MG TABLET PO PRN ×4 (02:21→21:20)
[2019-07-11 02:24] VITALS: BP 146/76
[2019-07-11 04:43] VITALS: BP 147/90
[2019-07-11] MEDS: OXYBUTYNIN CHLORIDE 5 MG ER TABLET PO SCH (08:08)
[2019-07-11] MEDS: BENZTROPINE MESYLATE 0.5 MG TABLET PO SCH ×2 (08:08→21:19)
[2019-07-11] MEDS: ASENAPINE 10 MG SUBLINGUAL TABLET SL SCH ×2 (08:08→21:19)
[2019-07-11] MEDS: BuPROPion HCL XL 150 MG ER TABLET PO SCH (08:09)
[2019-07-11] MEDS: OMEGA-3/DHA/EPA/FISH OIL 1,000 MG CAPSULE PO SCH (08:09)
[2019-07-11] MEDS: AmLODIPine BESYLATE 2.5 MG TABLET PO SCH (08:09)
[2019-07-11] MEDS: ASPIRIN 81 MG CHEWABLE TABLET PO SCH (08:10)
[2019-07-11] MEDS: QUEtiapine FUMARATE 100 MG TABLET PO SCH ×2 (08:10→17:00)
[2019-07-11 08:12] VITALS: BP 124/69
[2019-07-11] MEDS: MAGNESIUM HYDROXIDE SUSPENSION 30 ML UDCUP PO PRN (12:24)
[2019-07-11] MEDS: OLANZapine 5 MG TABLET PO PRN (12:25)
[2019-07-11] MEDS ORDERED: LORazepam 2 MG/ML VIAL IM ONE (14:15)
[2019-07-11] MEDS ORDERED: DiphenhydrAMINE HCL 50 MG/ML VIAL IM ONE (14:15)
[2019-07-11 16:25] VITALS: BP 148/85
[2019-07-12 05:34] VITALS: BP 124/86
[2019-07-12] MEDS: ASENAPINE 10 MG SUBLINGUAL TABLET SL SCH (08:08)
[2019-07-12] MEDS: OXYBUTYNIN CHLORIDE 5 MG ER TABLET PO SCH (08:09)
[2019-07-12] MEDS: ASPIRIN 81 MG CHEWABLE TABLET PO SCH (08:09)
[2019-07-12] MEDS: QUEtiapine FUMARATE 100 MG TABLET PO SCH (08:10)
[2019-07-12] MEDS: BENZTROPINE MESYLATE 0.5 MG TABLET PO SCH (08:10)
[2019-07-12] MEDS: BuPROPion HCL XL 150 MG ER TABLET PO SCH (08:10)
[2019-07-12] MEDS: AmLODIPine BESYLATE 2.5 MG TABLET PO SCH (08:10)
[2019-07-12] MEDS: OMEGA-3/DHA/EPA/FISH OIL 1,000 MG CAPSULE PO SCH (08:10)
[2019-07-12 08:11] VITALS: BP 133/74
[2019-07-12] MEDS: LORazepam 1 MG TABLET PO PRN (08:11)
[2019-07-12] MEDS ORDERED: QUET100T33 PO (09:00)
[2019-07-12] MEDS ORDERED: BENZ0.5T44 PO (09:00)
[2019-07-12] MEDS ORDERED: ASEN10TA8 SL (09:00)
[2019-07-12] MEDS ORDERED: BUPR-47 PO (09:00)
== END 2019-07-12 13:15 | disposition home or self-care (01) | DRG 885 ==
LOC: B3A 02:30
PROVIDERS: ADMIT Psychiatry & Neurology Child & Adolescent Psychiatry; ATTEND Psychiatry & Neurology Child & Adolescent Psychiatry
DX: F25.0 Schizoaffective disorder, bipolar type (principal); J44.9 Chronic obstructive pulmonary disease, unspecified; E78.5 Hyperlipidemia, unspecified; K59.09 Other constipation; I10 Essential (primary) hypertension; G43.909 Migraine, unspecified, not intractable, without status migrainosus; M19.90 Unspecified osteoarthritis, unspecified site; M79.7 Fibromyalgia; F17.200 Nicotine dependence, unspecified, uncomplicated; R32 Unspecified urinary incontinence; Z79.899 Other long term (current) drug therapy; Z88.8 Allergy status to other drugs, medicaments and biological substances; Z98.890 Other specified postprocedural states
CPT/HCPCS: 80307; 83036; 84439; 84443; J1200; J2060; J3230; J3486; Q0162

== ENCOUNTER 2019-08-05 20:42 | Emergency (ER) | payer OTHER ==
[~2019-08-05] VITALS: Ht 154.9 cm; Wt 90.9 kg
[~2019-08-05 20:42] MED LIST changes: +BUPR-47 PO; +QUET100T33 PO
[2019-08-05 21:00] VITALS: BP 120/73
[2019-08-05 21:19] LABS: BASOPHILS % (AUTO) 0.6 % (0.0-2.0); EOSINOPHILS % (AUTO) 0.3 % (1.0-6.0); HEMATOCRIT 35.1 % (36-46); HEMOGLOBIN 12.1 g/dL (12.0-16.0); LYMPHOCYTES # (AUTO) 1.9 K/uL (1.0-4.8); LYMPHOCYTES % (AUTO) 31.8 % (22.0-44.0); MEAN CORPUSCULAR HEMOGLOBIN 30.3 pg (26.0-34.0); MEAN CORPUSCULAR HGB CONC 34.4 G/dL (31.0-37.0); MEAN CORPUSCULAR VOLUME 88 fL (80-100); MONOCYTES # (AUTO) 0.5 K/uL (0.1-1.0); MONOCYTES % (AUTO) 8.1 % (2.0-9.0); NEUTROPHILS # (AUTO) 3.5 K/uL (1.8-7.7); NEUTROPHILS % (AUTO) 59.2 % (40.0-70.0); PLATELET COUNT (AUTO) 299 K/uL (150-450); RED BLOOD CELL COUNT(AUTO) 3.98 MIL/uL (4.00-5.20); RED CELL DISTRIBUTION WIDTH 14.2 % (11.5-14.5)
[2019-08-05 21:39] LABS: ANION GAP 7 mmol/L (8-16); CALCIUM, TOTAL 8.8 mg/dL (8.8-10.5); CARBON DIOXIDE 24 mmol/L (22-29); CHLORIDE 104 mmol/L (98-107); GLOMERULAR FILTR. RATE CALC > 60 mL/min (>60); GLUCOSE,RANDOM 118 mg/dL (70-110); POTASSIUM 3.3 mmol/L (3.5-5.1); SODIUM SERUM 135 mmol/L (136-145); UREA NITROGEN, BLOOD 11 mg/dL (7-18)
[2019-08-05 21:45] LABS: ALANINE AMINOTRANSFERASE 20 U/L (12-78); ALBUMIN 3.4 g/dL (3.4-5.0); ALKALINE PHOSPHATASE 78 U/L (46-116); ASPARTATE AMINOTRANSFERASE 12 U/L (15-37); BILIRUBIN,TOTAL 0.2 mg/dL (0.1-1.0); TOTAL PROTEIN, SERUM 6.6 g/dL (6.4-8.2)
== END 2019-08-05 22:46 | disposition left against medical advice (07) ==
LOC: EMS 20:42
DX: R07.9 Chest pain, unspecified (principal); Z53.21 Procedure and treatment not carried out due to patient leaving prior to being seen by health care provider
CPT/HCPCS: 93005

== ENCOUNTER 2019-08-11 23:36 | Emergency (ER) | payer OTHER ==
[~2019-08-11] VITALS: Ht 154.9 cm; Wt 81.8 kg
[2019-08-12 01:50] LABS: BASOPHILS % (AUTO) 0.8 % (0.0-2.0); EOSINOPHILS % (AUTO) 0.2 % (1.0-6.0); HEMATOCRIT 36.1 % (36-46); HEMOGLOBIN 12.5 g/dL (12.0-16.0); LYMPHOCYTES # (AUTO) 1.3 K/uL (1.0-4.8); LYMPHOCYTES % (AUTO) 23.4 % (22.0-44.0); MEAN CORPUSCULAR HEMOGLOBIN 30.8 pg (26.0-34.0); MEAN CORPUSCULAR HGB CONC 34.6 G/dL (31.0-37.0); MEAN CORPUSCULAR VOLUME 89 fL (80-100); MONOCYTES # (AUTO) 0.5 K/uL (0.1-1.0); MONOCYTES % (AUTO) 9.6 % (2.0-9.0); NEUTROPHILS # (AUTO) 3.8 K/uL (1.8-7.7); PLATELET COUNT (AUTO) 250 K/uL (150-450); RED BLOOD CELL COUNT(AUTO) 4.05 MIL/uL (4.00-5.20); RED CELL DISTRIBUTION WIDTH 13.9 % (11.5-14.5)
[2019-08-12 01:55] LABS: ANION GAP 10 mmol/L (8-16); CALCIUM, TOTAL 8.8 mg/dL (8.8-10.5); CARBON DIOXIDE 28 mmol/L (22-29); CHLORIDE 100 mmol/L (98-107); GLOMERULAR FILTR. RATE CALC > 60 mL/min (>60); GLUCOSE,RANDOM 107 mg/dL (70-110); POTASSIUM 3.7 mmol/L (3.5-5.1); SODIUM SERUM 138 mmol/L (136-145); UREA NITROGEN, BLOOD 8 mg/dL (7-18)
[2019-08-12 02:01] LABS: ALANINE AMINOTRANSFERASE 32 U/L (12-78); ALBUMIN 3.8 g/dL (3.4-5.0); ALKALINE PHOSPHATASE 88 U/L (46-116); ASPARTATE AMINOTRANSFERASE 24 U/L (15-37); BILIRUBIN,TOTAL 0.2 mg/dL (0.1-1.0); TOTAL PROTEIN, SERUM 7.1 g/dL (6.4-8.2)
[2019-08-12 04:08] VITALS: BP 124/67
== END 2019-08-12 04:05 | disposition home or self-care (01) ==
LOC: EMS 23:38
DX: F20.9 Schizophrenia, unspecified (principal); R10.9 Unspecified abdominal pain; K21.9 Gastro-esophageal reflux disease without esophagitis; I25.2 Old myocardial infarction; F17.210 Nicotine dependence, cigarettes, uncomplicated; Z79.82 Long term (current) use of aspirin; Z88.8 Allergy status to other drugs, medicaments and biological substances
CPT/HCPCS: 80053; 85025; 99283; G0480

== ENCOUNTER 2019-08-14 09:38 | Inpatient (IN) | payer MEDICARE, MEDICAID ==
[~2019-08-14] VITALS: Ht 154.9 cm; Wt 86.1 kg
[2019-08-14] MEDS ORDERED: LORazepam 2 MG TABLET PO ONE (10:45)
[2019-08-14 11:06] LABS: APPEARANCE,URINE CLEAR (CLEAR); BILIRUBIN,URINE NEGATIVE (NEGATIVE); GLUCOSE, URINE (UA) NEGATIVE (NEGATIVE); KETONES,URINE NEGATIVE (NEGATIVE); LEUKOCYTE ESTERASE ,URINE SMALL (NEGATIVE); NITRATE,URINE NEGATIVE (NEGATIVE); OCCULT BLOOD,URINE NEGATIVE (NEGATIVE); PROTEIN,URINE NEGATIVE (NEGATIVE); UROBILINOGEN,URINE 0.2 mg/dL (<=1.0)
[2019-08-14 11:11] LABS: AMPHET/METH SCREEN,URINE NEGATIVE (NEGATIVE); BARBITURATE SCREEN, URINE NEGATIVE (NEGATIVE); BENZODIAZEPINES SCREEN,URINE NEGATIVE (NEGATIVE); CANNABINOID SCREEN,URINE NEGATIVE (NEGATIVE); COCAINE SCREEN,URINE NEGATIVE (NEGATIVE); METHADONE SCREEN, URINE NEGATIVE (NEGATIVE); OPIATE SCREEN,URINE NEGATIVE (NEGATIVE)
[2019-08-14 11:12] LABS: PHENCYCLIDINE SCREEN,URINE NEGATIVE (NEGATIVE)
[2019-08-14 11:24] LABS: BACTERIA,URINE None Seen /HPF (None Seen); RBC,URINE None Seen /HPF (0-2); SQUAMOUS EPITHELIAL CELL,UR Rare /LPF (None Seen)
[2019-08-14] MEDS ORDERED: ZOLPIDEM TARTRATE 10 MG TABLET PO PRN (11:45)
[2019-08-14 16:34] VITALS: BP 100/70
[2019-08-14] MEDS: LORazepam 2 MG TABLET PO PRN (18:10)
[2019-08-14] MEDS ORDERED: BENZOCAINE/MENTHOL LOZENGE MM PRN (21:00)
[2019-08-14] MEDS ORDERED: ALBUTEROL SULFATE HFA 90 MCG/PUFF 8 GM INHALER IH PRN (21:00)
[2019-08-14] MEDS ORDERED: PETROLATUM,WHITE 28 GM JELLY TP PRN (21:00)
[2019-08-14] MEDS ORDERED: LOPERAMIDE HCL 2 MG CAPSULE PO PRN (21:00)
[2019-08-14] MEDS ORDERED: MAGNESIUM HYDROXIDE SUSPENSION 30 ML UDCUP PO PRN (21:00)
[2019-08-14] MEDS ORDERED: MAG HYDROX/AL HYDROX/SIMETH ES 30 ML SUSPENSION UDCUP PO PRN (21:00)
[2019-08-14] MEDS ORDERED: CloNIDine HCL 0.1 MG TABLET PO PRN (21:00)
[2019-08-14] MEDS ORDERED: IBUPROFEN 600 MG TABLET PO PRN (21:00)
[2019-08-14] MEDS ORDERED: BACITRACIN 28.4 GM OINTMENT TP PRN (21:00)
[2019-08-14] MEDS ORDERED: ONDANSETRON HCL 4 MG TABLET PO PRN (21:00)
[2019-08-15] MEDS ORDERED: -PHARMACY VACCINE NOTE- MISC ONE (00:45)
[2019-08-15 04:36] VITALS: BP 101/68
[2019-08-15] MEDS: ACETAMINOPHEN 325 MG TABLET PO PRN (06:31)
[2019-08-15] MEDS: OMEPRAZOLE 20 MG CAPSULE PO SCH (08:10)
[2019-08-15] MEDS: BENZTROPINE MESYLATE 0.5 MG TABLET PO SCH ×2 (08:10→21:02)
[2019-08-15] MEDS: ASPIRIN 81 MG CHEWABLE TABLET PO SCH (08:11)
[2019-08-15] MEDS: BusPIRone HCL 15 MG TABLET PO SCH (08:11)
[2019-08-15] MEDS: OMEGA-3/DHA/EPA/FISH OIL 1,000 MG CAPSULE PO SCH (08:11)
[2019-08-15] MEDS: AmLODIPine BESYLATE 2.5 MG TABLET PO SCH (08:11)
[2019-08-15] MEDS: ASENAPINE 10 MG SUBLINGUAL TABLET SL SCH ×2 (08:12→21:02)
[2019-08-15] MEDS: DOCUSATE SODIUM 100 MG CAPSULE PO SCH (08:12)
[2019-08-15] MEDS: TOPIRAMATE 100 MG TABLET PO SCH ×2 (08:12→16:47)
[2019-08-15] MEDS: OXYBUTYNIN CHLORIDE 5 MG ER TABLET PO SCH (08:13)
[2019-08-15 08:16] VITALS: BP 137/63
[2019-08-15 16:12] VITALS: BP 135/75
[2019-08-15] MEDS: OLANZapine 5 MG TABLET PO PRN (16:47)
[2019-08-15] MEDS: LORazepam 2 MG TABLET PO PRN (17:10)
[2019-08-16 03:52] VITALS: BP 125/72
[2019-08-16] MEDS: ACETAMINOPHEN 325 MG TABLET PO PRN ×2 (07:20→11:15)
[2019-08-16 08:26] VITALS: BP 143/68
[2019-08-16] MEDS: OMEPRAZOLE 20 MG CAPSULE PO SCH (09:17)
[2019-08-16] MEDS: OXYBUTYNIN CHLORIDE 5 MG ER TABLET PO SCH (09:18)
[2019-08-16] MEDS: AmLODIPine BESYLATE 2.5 MG TABLET PO SCH (09:18)
[2019-08-16] MEDS: ASENAPINE 10 MG SUBLINGUAL TABLET SL SCH ×2 (09:19→21:39)
[2019-08-16] MEDS: TOPIRAMATE 100 MG TABLET PO SCH ×2 (09:19→17:12)
[2019-08-16] MEDS: ASPIRIN 81 MG CHEWABLE TABLET PO SCH (09:19)
[2019-08-16] MEDS: BENZTROPINE MESYLATE 0.5 MG TABLET PO SCH ×2 (09:19→21:39)
[2019-08-16] MEDS: OMEGA-3/DHA/EPA/FISH OIL 1,000 MG CAPSULE PO SCH (09:19)
[2019-08-16] MEDS: DOCUSATE SODIUM 100 MG CAPSULE PO SCH (09:20)
[2019-08-16] MEDS: BusPIRone HCL 15 MG TABLET PO SCH (09:20)
[2019-08-16] MEDS ORDERED: GuaiFENesin/D-METHORPHAN/PHENYLEPH 5 ML LIQUID ORAL.SYG PO PRN (09:45)
[2019-08-16] MEDS: GuaiFENesin/D-METHORPHAN/PHENYLEPH 5 ML LIQUID ORAL.SYG PO PRN ×2 (11:16→17:11)
[2019-08-16] MEDS: LORazepam 2 MG TABLET PO PRN (12:35)
[2019-08-16] MEDS: OLANZapine 5 MG TABLET PO PRN (14:35)
[2019-08-16 16:10] VITALS: BP 139/78
[2019-08-16 22:50] VITALS: BP 106/59
[2019-08-17] MEDS: LORazepam 2 MG TABLET PO PRN ×2 (00:26→09:00)
[2019-08-17 04:55] VITALS: BP 105/68
[2019-08-17 08:09] VITALS: BP 114/69
[2019-08-17] MEDS: OMEPRAZOLE 20 MG CAPSULE PO SCH (08:17)
[2019-08-17] MEDS: DOCUSATE SODIUM 100 MG CAPSULE PO SCH (08:17)
[2019-08-17] MEDS: BENZTROPINE MESYLATE 0.5 MG TABLET PO SCH (08:17)
[2019-08-17] MEDS: OXYBUTYNIN CHLORIDE 5 MG ER TABLET PO SCH (08:17)
[2019-08-17] MEDS: ASPIRIN 81 MG CHEWABLE TABLET PO SCH (08:18)
[2019-08-17] MEDS: BusPIRone HCL 15 MG TABLET PO SCH (08:18)
[2019-08-17] MEDS: AmLODIPine BESYLATE 2.5 MG TABLET PO SCH (08:18)
[2019-08-17] MEDS: ASENAPINE 10 MG SUBLINGUAL TABLET SL SCH (08:19)
[2019-08-17] MEDS: OMEGA-3/DHA/EPA/FISH OIL 1,000 MG CAPSULE PO SCH (08:19)
[2019-08-17] MEDS: TOPIRAMATE 100 MG TABLET PO SCH ×2 (08:19→16:16)
[2019-08-17] MEDS: OLANZapine 5 MG TABLET PO PRN (10:39)
[2019-08-17 16:32] VITALS: BP 150/78
[2019-08-17] MEDS ORDERED: BUSP15 PO (16:46)
[2019-08-17] MEDS ORDERED: OMEP10SU2 PO (16:48)
== END 2019-08-17 17:00 | disposition home or self-care (01) | DRG 885 ==
LOC: EMS 09:40 → B3A 12:17
PROVIDERS: ADMIT Psychiatry & Neurology Psychiatry; ATTEND Psychiatry & Neurology Psychiatry
DX: F25.9 Schizoaffective disorder, unspecified (principal); R45.851 Suicidal ideations; F43.10 Post-traumatic stress disorder, unspecified; F17.200 Nicotine dependence, unspecified, uncomplicated; G43.909 Migraine, unspecified, not intractable, without status migrainosus; G47.00 Insomnia, unspecified; I10 Essential (primary) hypertension; K21.9 Gastro-esophageal reflux disease without esophagitis; K59.00 Constipation, unspecified; M19.90 Unspecified osteoarthritis, unspecified site; M79.7 Fibromyalgia; R45.850 Homicidal ideations; F41.9 Anxiety disorder, unspecified

== ENCOUNTER 2019-08-23 18:12 | Emergency (ER) | payer OTHER ==
[~2019-08-23] VITALS: Ht 154.9 cm; Wt 90.9 kg
[~2019-08-23 18:12] MED LIST changes: -BUPR-47 PO; -BUPR-93 PO; +BUSP15 PO; +OMEP10SU2 PO; -QUET100T PO; -QUET100T33 PO
[2019-08-23 18:15] VITALS: BP 145/75
[2019-08-23] MEDS ORDERED: OMEP20 PO (18:28)
[2019-08-23 20:02] LABS: BASOPHILS % (AUTO) 0.3 % (0.0-2.0); EOSINOPHILS % (AUTO) 0.5 % (1.0-6.0); HEMATOCRIT 34.1 % (36-46); HEMOGLOBIN 11.9 g/dL (12.0-16.0); LYMPHOCYTES # (AUTO) 1.5 K/uL (1.0-4.8); LYMPHOCYTES % (AUTO) 24.8 % (22.0-44.0); MEAN CORPUSCULAR HEMOGLOBIN 30.6 pg (26.0-34.0); MEAN CORPUSCULAR HGB CONC 34.8 G/dL (31.0-37.0); MEAN CORPUSCULAR VOLUME 88 fL (80-100); MONOCYTES # (AUTO) 0.6 K/uL (0.1-1.0); MONOCYTES % (AUTO) 10.5 % (2.0-9.0); NEUTROPHILS # (AUTO) 3.9 K/uL (1.8-7.7); NEUTROPHILS % (AUTO) 63.9 % (40.0-70.0); PLATELET COUNT (AUTO) 272 K/uL (150-450); RED BLOOD CELL COUNT(AUTO) 3.89 MIL/uL (4.00-5.20); RED CELL DISTRIBUTION WIDTH 13.3 % (11.5-14.5)
[2019-08-23 20:12] LABS: ANION GAP 7 mmol/L (8-16); CALCIUM, TOTAL 8.4 mg/dL (8.8-10.5); CARBON DIOXIDE 28 mmol/L (22-29); CHLORIDE 99 mmol/L (98-107); CREATININE 0.83 mg/dL (0.60-1.30); GLOMERULAR FILTR. RATE CALC > 60 mL/min (>60); GLUCOSE,RANDOM 99 mg/dL (70-110); POTASSIUM 3.8 mmol/L (3.5-5.1); SODIUM SERUM 134 mmol/L (136-145); UREA NITROGEN, BLOOD 19 mg/dL (7-18)
[2019-08-23 20:20] LABS: ALANINE AMINOTRANSFERASE 25 U/L (12-78); ALBUMIN 3.3 g/dL (3.4-5.0); ALKALINE PHOSPHATASE 85 U/L (46-116); ASPARTATE AMINOTRANSFERASE 17 U/L (15-37); BILIRUBIN,TOTAL 0.2 mg/dL (0.1-1.0); TOTAL PROTEIN, SERUM 6.5 g/dL (6.4-8.2)
[2019-08-23 20:43] LABS: AMPHET/METH SCREEN,URINE NEGATIVE (NEGATIVE); BARBITURATE SCREEN, URINE NEGATIVE (NEGATIVE); BENZODIAZEPINES SCREEN,URINE NEGATIVE (NEGATIVE); CANNABINOID SCREEN,URINE NEGATIVE (NEGATIVE); COCAINE SCREEN,URINE NEGATIVE (NEGATIVE); METHADONE SCREEN, URINE NEGATIVE (NEGATIVE); OPIATE SCREEN,URINE NEGATIVE (NEGATIVE); PHENCYCLIDINE SCREEN,URINE NEGATIVE (NEGATIVE)
== END 2019-08-23 21:41 | disposition left against medical advice (07) ==
LOC: EMS 18:14
DX: F20.9 Schizophrenia, unspecified (principal); I25.2 Old myocardial infarction; K21.9 Gastro-esophageal reflux disease without esophagitis; M19.90 Unspecified osteoarthritis, unspecified site; F17.210 Nicotine dependence, cigarettes, uncomplicated; Z98.890 Other specified postprocedural states; Z79.899 Other long term (current) drug therapy; Z88.6 Allergy status to analgesic agent; Z88.8 Allergy status to other drugs, medicaments and biological substances
CPT/HCPCS: 36415; 80053; 80307; 85025; 99284; G0480

== ENCOUNTER 2019-08-25 07:05 | Emergency (ER) | payer OTHER ==
[~2019-08-25] VITALS: Ht 154.9 cm; Wt 81.8 kg
[~2019-08-25 07:05] MED LIST changes: -OMEP10SU2 PO; +OMEP20 PO
[2019-08-25] MEDS ORDERED: ACETAMINOPHEN 500 MG TABLET PO ONE (08:00)
[2019-08-25] MEDS ORDERED: PB/HYOSCY/ATR/SCOP/LIDO/MAALOX 55 ML BOTTLE PO ONE (08:00)
[2019-08-25 08:05] VITALS: BP 138/79
== END 2019-08-25 08:55 | disposition home or self-care (01) ==
LOC: EMS 07:07
DX: F20.0 Paranoid schizophrenia (principal); F32.9 Major depressive disorder, single episode, unspecified; I25.2 Old myocardial infarction; K21.9 Gastro-esophageal reflux disease without esophagitis; M19.90 Unspecified osteoarthritis, unspecified site; Z98.890 Other specified postprocedural states; Z79.899 Other long term (current) drug therapy; Z88.2 Allergy status to sulfonamides; Z88.8 Allergy status to other drugs, medicaments and biological substances

== ENCOUNTER 2019-08-25 10:35 | Emergency (ER) | payer OTHER | END 2019-08-25 11:46 | disposition left against medical advice (07) | LOC: EMS 10:37 | DX: F22 Delusional disorders (principal); Z53.21 Procedure and treatment not carried out due to patient leaving prior to being seen by health care provider ==

== ENCOUNTER 2019-08-27 09:40 | Inpatient (IN) | payer MEDICARE, MEDICAID ==
[~2019-08-27] VITALS: Ht 154.9 cm; Wt 92.2 kg
[2019-08-27] MEDS ORDERED: HALOPERIDOL LACTATE 5 MG/ML VIAL IM ONE (11:45)
[2019-08-27] MEDS ORDERED: DiphenhydrAMINE HCL 50 MG/ML VIAL IM ONE (11:45)
[2019-08-27] MEDS ORDERED: LORazepam 2 MG/ML VIAL IM ONE (11:45)
[2019-08-27] MEDS ORDERED: HALOPERIDOL LACTATE 5 MG/ML VIAL ONE (11:59)
[2019-08-27] MEDS ORDERED: LORazepam 2 MG/ML VIAL ONE (11:59)
[2019-08-27] MEDS ORDERED: DiphenhydrAMINE HCL 50 MG/ML VIAL ONE (12:00)
[2019-08-27 12:28] VITALS: BP 123/86
[2019-08-27] MEDS: TOPIRAMATE 100 MG TABLET PO SCH ×2 (12:43→16:55)
[2019-08-27] MEDS: BusPIRone HCL 15 MG TABLET PO SCH (12:44)
[2019-08-27] MEDS: BENZTROPINE MESYLATE 0.5 MG TABLET PO SCH ×2 (12:44→21:03)
[2019-08-27] MEDS ORDERED: -PHARMACY VACCINE NOTE- MISC ONE (13:15)
[2019-08-27 16:24] VITALS: BP 124/80
[2019-08-27 16:54] VITALS: BP 101/58
[2019-08-27] MEDS: ASENAPINE 10 MG SUBLINGUAL TABLET SL SCH (21:03)
[2019-08-28 01:17] VITALS: BP 143/65
[2019-08-28] MEDS: OLANZapine 5 MG RAPDIS TABLET PO PRN ×2 (01:17→13:08)
[2019-08-28] MEDS: LORazepam 2 MG TABLET PO PRN ×2 (01:18→12:36)
[2019-08-28 08:27] VITALS: BP 127/64
[2019-08-28] MEDS: ASENAPINE 10 MG SUBLINGUAL TABLET SL SCH ×2 (08:28→20:03)
[2019-08-28] MEDS: AmLODIPine BESYLATE 2.5 MG TABLET PO SCH (08:29)
[2019-08-28] MEDS: TOPIRAMATE 100 MG TABLET PO SCH ×2 (08:29→18:40)
[2019-08-28] MEDS: OMEGA-3/DHA/EPA/FISH OIL 1,000 MG CAPSULE PO SCH (08:29)
[2019-08-28] MEDS: DOCUSATE SODIUM 100 MG CAPSULE PO SCH (08:30)
[2019-08-28] MEDS: BENZTROPINE MESYLATE 0.5 MG TABLET PO SCH ×2 (08:30→20:02)
[2019-08-28] MEDS: ASPIRIN 81 MG CHEWABLE TABLET PO SCH (08:30)
[2019-08-28] MEDS: OMEPRAZOLE 20 MG CAPSULE PO SCH (08:30)
[2019-08-28] MEDS: OXYBUTYNIN CHLORIDE 5 MG ER TABLET PO SCH (08:31)
[2019-08-28] MEDS: BusPIRone HCL 15 MG TABLET PO SCH (08:31)
[2019-08-28] MEDS: ACETAMINOPHEN 325 MG TABLET PO PRN ×2 (12:59→23:33)
[2019-08-28 16:49] VITALS: BP 137/73
[2019-08-29 02:18] VITALS: BP 155/76
[2019-08-29] MEDS: ASPIRIN 81 MG CHEWABLE TABLET PO SCH (08:07)
[2019-08-29] MEDS: OMEPRAZOLE 20 MG CAPSULE PO SCH (08:08)
[2019-08-29] MEDS: TOPIRAMATE 100 MG TABLET PO SCH ×2 (08:08→17:19)
[2019-08-29] MEDS: AmLODIPine BESYLATE 2.5 MG TABLET PO SCH (08:08)
[2019-08-29] MEDS: ASENAPINE 10 MG SUBLINGUAL TABLET SL SCH ×2 (08:08→21:02)
[2019-08-29] MEDS: BusPIRone HCL 15 MG TABLET PO SCH (08:09)
[2019-08-29] MEDS: DOCUSATE SODIUM 100 MG CAPSULE PO SCH (08:09)
[2019-08-29] MEDS: OMEGA-3/DHA/EPA/FISH OIL 1,000 MG CAPSULE PO SCH (08:09)
[2019-08-29] MEDS: BENZTROPINE MESYLATE 0.5 MG TABLET PO SCH ×2 (08:09→21:02)
[2019-08-29] MEDS: OXYBUTYNIN CHLORIDE 5 MG ER TABLET PO SCH (08:10)
[2019-08-29] MEDS: LORazepam 2 MG TABLET PO PRN ×2 (08:10→17:21)
[2019-08-29 08:29] VITALS: BP 148/84
[2019-08-29 08:30] LABS: BASOPHILS % (AUTO) 0.4 % (0.0-2.0); EOSINOPHILS % (AUTO) 0.8 % (1.0-6.0); HEMATOCRIT 37.9 % (36-46); HEMOGLOBIN 12.7 g/dL (12.0-16.0); LYMPHOCYTES # (AUTO) 1.6 K/uL (1.0-4.8); LYMPHOCYTES % (AUTO) 31.3 % (22.0-44.0); MEAN CORPUSCULAR HGB CONC 33.6 G/dL (31.0-37.0); MEAN CORPUSCULAR VOLUME 89 fL (80-100); MONOCYTES # (AUTO) 0.5 K/uL (0.1-1.0); MONOCYTES % (AUTO) 9.2 % (2.0-9.0); NEUTROPHILS # (AUTO) 3.1 K/uL (1.8-7.7); NEUTROPHILS % (AUTO) 58.3 % (40.0-70.0); PLATELET COUNT (AUTO) 357 K/uL (150-450); RED BLOOD CELL COUNT(AUTO) 4.24 MIL/uL (4.00-5.20); RED CELL DISTRIBUTION WIDTH 13.2 % (11.5-14.5)
[2019-08-29 09:13] LABS: HEMOGLOBIN A1C 5.9 % (3.8-5.6)
[2019-08-29 09:48] LABS: ALANINE AMINOTRANSFERASE 19 U/L (12-78); ALBUMIN 3.6 g/dL (3.4-5.0); ALKALINE PHOSPHATASE 75 U/L (46-116); ANION GAP 11 mmol/L (8-16); ASPARTATE AMINOTRANSFERASE 11 U/L (15-37); BILIRUBIN,TOTAL 0.2 mg/dL (0.1-1.0); CALCIUM, TOTAL 9.1 mg/dL (8.8-10.5); CARBON DIOXIDE 24 mmol/L (22-29); CHLORIDE 102 mmol/L (98-107); CHOL/HDL RATIO 4.1 (3.9-5.7); CHOLESTEROL 176 mg/dL (131-200); CREATININE 0.87 mg/dL (0.60-1.30); GLOMERULAR FILTR. RATE CALC > 60 mL/min (>60); GLUCOSE,RANDOM 88 mg/dL (70-110); HDL CHOLESTEROL 43 mg/dL (40-60); LDL CHOL (CALC.) 99 mg/dL (0-130); POTASSIUM 4.3 mmol/L (3.5-5.1); SODIUM SERUM 137 mmol/L (136-145); TOTAL PROTEIN, SERUM 6.5 g/dL (6.4-8.2); TRIGLYCERIDES 169 mg/dL (15-150); UREA NITROGEN, BLOOD 15 mg/dL (7-18)
[2019-08-29] MEDS: OLANZapine 5 MG RAPDIS TABLET PO PRN (17:22)
[2019-08-29] MEDS: ACETAMINOPHEN 325 MG TABLET PO PRN (17:22)
[2019-08-29 17:30] VITALS: BP 135/65
[2019-08-29] MEDS: ZOLPIDEM TARTRATE 10 MG TABLET PO PRN (22:57)
[2019-08-30 05:14] VITALS: BP 138/86
[2019-08-30 08:21] LABS: APPEARANCE,URINE CLEAR (CLEAR); BILIRUBIN,URINE NEGATIVE (NEGATIVE); GLUCOSE, URINE (UA) NEGATIVE (NEGATIVE); KETONES,URINE NEGATIVE (NEGATIVE); LEUKOCYTE ESTERASE ,URINE NEGATIVE (NEGATIVE); NITRATE,URINE NEGATIVE (NEGATIVE); OCCULT BLOOD,URINE NEGATIVE (NEGATIVE); PH,URINE 5.5 (5.0-8.0); PROTEIN,URINE NEGATIVE (NEGATIVE); UROBILINOGEN,URINE 0.2 mg/dL (<=1.0)
[2019-08-30 08:24] LABS: AMPHET/METH SCREEN,URINE NEGATIVE (NEGATIVE); BARBITURATE SCREEN, URINE NEGATIVE (NEGATIVE); BENZODIAZEPINES SCREEN,URINE NEGATIVE (NEGATIVE); CANNABINOID SCREEN,URINE NEGATIVE (NEGATIVE); COCAINE SCREEN,URINE NEGATIVE (NEGATIVE); METHADONE SCREEN, URINE NEGATIVE (NEGATIVE); OPIATE SCREEN,URINE NEGATIVE (NEGATIVE)
[2019-08-30 08:27] LABS: PHENCYCLIDINE SCREEN,URINE NEGATIVE (NEGATIVE)
[2019-08-30 08:28] VITALS: BP 143/69
[2019-08-30] MEDS: OMEGA-3/DHA/EPA/FISH OIL 1,000 MG CAPSULE PO SCH (08:46)
[2019-08-30] MEDS: AmLODIPine BESYLATE 2.5 MG TABLET PO SCH (08:46)
[2019-08-30] MEDS: BusPIRone HCL 15 MG TABLET PO SCH (08:46)
[2019-08-30] MEDS: BENZTROPINE MESYLATE 0.5 MG TABLET PO SCH ×2 (08:46→21:48)
[2019-08-30] MEDS: ASPIRIN 81 MG CHEWABLE TABLET PO SCH (08:46)
[2019-08-30] MEDS: TOPIRAMATE 100 MG TABLET PO SCH ×2 (08:47→17:46)
[2019-08-30] MEDS: DOCUSATE SODIUM 100 MG CAPSULE PO SCH (08:47)
[2019-08-30] MEDS: OMEPRAZOLE 20 MG CAPSULE PO SCH (08:47)
[2019-08-30] MEDS: OXYBUTYNIN CHLORIDE 5 MG ER TABLET PO SCH (08:48)
[2019-08-30] MEDS: ASENAPINE 10 MG SUBLINGUAL TABLET SL SCH ×2 (08:48→21:47)
[2019-08-30] MEDS: LORazepam 2 MG TABLET PO PRN ×2 (08:48→15:06)
[2019-08-30] MEDS: OLANZapine 5 MG RAPDIS TABLET PO PRN (09:44)
[2019-08-30 10:07] VITALS: BP 154/90
[2019-08-30] MEDS: ACETAMINOPHEN 325 MG TABLET PO PRN ×2 (10:07→16:37)
[2019-08-30] MEDS ORDERED: HALOPERIDOL LACTATE 5 MG/ML VIAL IM ONE (16:15)
[2019-08-30] MEDS ORDERED: LORazepam 2 MG/ML VIAL IM ONE (16:15)
[2019-08-30 16:35] VITALS: BP 128/63
[2019-08-31 05:22] VITALS: BP 124/60
[2019-08-31 08:15] VITALS: BP 151/71
[2019-08-31] MEDS: OXYBUTYNIN CHLORIDE 5 MG ER TABLET PO SCH (08:19)
[2019-08-31] MEDS: BusPIRone HCL 15 MG TABLET PO SCH (08:20)
[2019-08-31] MEDS: OMEPRAZOLE 20 MG CAPSULE PO SCH (08:20)
[2019-08-31] MEDS: TOPIRAMATE 100 MG TABLET PO SCH ×2 (08:20→17:05)
[2019-08-31] MEDS: ASENAPINE 10 MG SUBLINGUAL TABLET SL SCH ×2 (08:20→20:21)
[2019-08-31] MEDS: ASPIRIN 81 MG CHEWABLE TABLET PO SCH (08:20)
[2019-08-31] MEDS: DOCUSATE SODIUM 100 MG CAPSULE PO SCH (08:20)
[2019-08-31] MEDS: OMEGA-3/DHA/EPA/FISH OIL 1,000 MG CAPSULE PO SCH (08:21)
[2019-08-31] MEDS: BENZTROPINE MESYLATE 0.5 MG TABLET PO SCH ×2 (08:21→20:21)
[2019-08-31] MEDS: AmLODIPine BESYLATE 2.5 MG TABLET PO SCH (08:21)
[2019-08-31] MEDS: OLANZapine 5 MG RAPDIS TABLET PO PRN ×2 (09:31→19:06)
[2019-08-31] MEDS: LORazepam 2 MG TABLET PO PRN ×2 (09:32→17:48)
[2019-08-31 10:30] VITALS: BP 128/74
[2019-08-31 17:11] VITALS: BP 115/62
[2019-08-31] MEDS: ACETAMINOPHEN 325 MG TABLET PO PRN ×2 (17:11→22:05)
[2019-08-31 17:27] VITALS: BP 115/62
[2019-08-31 22:05] VITALS: BP 140/78
[2019-09-01 01:23] VITALS: BP 127/72
[2019-09-01] MEDS: LORazepam 2 MG TABLET PO PRN ×3 (04:00→16:35)
[2019-09-01 08:16] VITALS: BP 136/65
[2019-09-01] MEDS: BusPIRone HCL 15 MG TABLET PO SCH (08:40)
[2019-09-01] MEDS: BENZTROPINE MESYLATE 0.5 MG TABLET PO SCH ×2 (08:40→20:27)
[2019-09-01] MEDS: ASENAPINE 10 MG SUBLINGUAL TABLET SL SCH ×2 (08:40→20:27)
[2019-09-01] MEDS: OMEGA-3/DHA/EPA/FISH OIL 1,000 MG CAPSULE PO SCH (08:40)
[2019-09-01] MEDS: ASPIRIN 81 MG CHEWABLE TABLET PO SCH (08:41)
[2019-09-01] MEDS: DOCUSATE SODIUM 100 MG CAPSULE PO SCH (08:42)
[2019-09-01] MEDS: OMEPRAZOLE 20 MG CAPSULE PO SCH (08:42)
[2019-09-01] MEDS: OXYBUTYNIN CHLORIDE 5 MG ER TABLET PO SCH (08:43)
[2019-09-01] MEDS: AmLODIPine BESYLATE 2.5 MG TABLET PO SCH (08:43)
[2019-09-01] MEDS: TOPIRAMATE 100 MG TABLET PO SCH ×2 (08:43→16:05)
[2019-09-01] MEDS: OLANZapine 5 MG RAPDIS TABLET PO PRN ×3 (11:03→21:57)
[2019-09-01 16:39] VITALS: BP 132/60
[2019-09-01] MEDS: ZOLPIDEM TARTRATE 10 MG TABLET PO PRN (21:56)
[2019-09-01] MEDS: ACETAMINOPHEN 325 MG TABLET PO PRN (22:11)
[2019-09-02 00:31] VITALS: BP 108/82
[2019-09-02] MEDS: OMEPRAZOLE 20 MG CAPSULE PO SCH (08:04)
[2019-09-02] MEDS: ASENAPINE 10 MG SUBLINGUAL TABLET SL SCH ×2 (08:04→20:57)
[2019-09-02] MEDS: OXYBUTYNIN CHLORIDE 5 MG ER TABLET PO SCH (08:04)
[2019-09-02] MEDS: DOCUSATE SODIUM 100 MG CAPSULE PO SCH (08:04)
[2019-09-02] MEDS: AmLODIPine BESYLATE 2.5 MG TABLET PO SCH (08:05)
[2019-09-02] MEDS: OMEGA-3/DHA/EPA/FISH OIL 1,000 MG CAPSULE PO SCH (08:05)
[2019-09-02] MEDS: BusPIRone HCL 15 MG TABLET PO SCH (08:05)
[2019-09-02] MEDS: ASPIRIN 81 MG CHEWABLE TABLET PO SCH (08:05)
[2019-09-02] MEDS: BENZTROPINE MESYLATE 0.5 MG TABLET PO SCH ×2 (08:05→20:57)
[2019-09-02] MEDS: TOPIRAMATE 100 MG TABLET PO SCH ×2 (08:06→16:56)
[2019-09-02] MEDS: LORazepam 2 MG TABLET PO PRN ×4 (08:12→22:19)
[2019-09-02 08:23] VITALS: BP 113/69
[2019-09-02] MEDS: OLANZapine 5 MG RAPDIS TABLET PO PRN ×2 (09:05→18:30)
[2019-09-02] MEDS: ACETAMINOPHEN 325 MG TABLET PO PRN ×2 (13:06→18:55)
[2019-09-02 16:28] VITALS: BP 109/74
[2019-09-02] MEDS: ZOLPIDEM TARTRATE 10 MG TABLET PO PRN (23:07)
[2019-09-03] MEDS: OLANZapine 5 MG RAPDIS TABLET PO PRN ×2 (00:45→15:24)
[2019-09-03] MEDS: ACETAMINOPHEN 325 MG TABLET PO PRN ×3 (00:45→16:49)
[2019-09-03 05:29] VITALS: BP 102/72
[2019-09-03 08:05] VITALS: BP 126/69
[2019-09-03] MEDS: DOCUSATE SODIUM 100 MG CAPSULE PO SCH (08:23)
[2019-09-03] MEDS: OMEPRAZOLE 20 MG CAPSULE PO SCH (08:23)
[2019-09-03] MEDS: ASENAPINE 10 MG SUBLINGUAL TABLET SL SCH ×2 (08:24→20:28)
[2019-09-03] MEDS: BENZTROPINE MESYLATE 0.5 MG TABLET PO SCH ×2 (08:24→20:28)
[2019-09-03] MEDS: TOPIRAMATE 100 MG TABLET PO SCH ×2 (08:24→16:49)
[2019-09-03] MEDS: OMEGA-3/DHA/EPA/FISH OIL 1,000 MG CAPSULE PO SCH (08:25)
[2019-09-03] MEDS: ASPIRIN 81 MG CHEWABLE TABLET PO SCH (08:25)
[2019-09-03] MEDS: AmLODIPine BESYLATE 2.5 MG TABLET PO SCH (08:25)
[2019-09-03] MEDS: BusPIRone HCL 15 MG TABLET PO SCH (08:25)
[2019-09-03] MEDS: OXYBUTYNIN CHLORIDE 5 MG ER TABLET PO SCH (08:26)
[2019-09-03] MEDS ORDERED: TUBERCULIN, PURIFIED PROTEIN DERIVATIVE 5 TU/0.1 ML SYRINGE ID ONE (09:00)
[2019-09-03 11:24] VITALS: BP 117/65
[2019-09-03] MEDS: LORazepam 2 MG TABLET PO PRN ×2 (13:41→18:08)
[2019-09-03 16:14] VITALS: BP 132/85
[2019-09-03 16:56] VITALS: BP 134/83
[2019-09-03] MEDS: ZOLPIDEM TARTRATE 10 MG TABLET PO PRN (20:28)
[2019-09-03] MEDS: HALOPERIDOL 5 MG TABLET PO PRN (21:55)
[2019-09-04] MEDS: ACETAMINOPHEN 325 MG TABLET PO PRN ×3 (01:35→16:55)
[2019-09-04] MEDS: LORazepam 2 MG TABLET PO PRN ×3 (01:35→13:28)
[2019-09-04 03:45] VITALS: BP 151/72
[2019-09-04] MEDS: OXYBUTYNIN CHLORIDE 5 MG ER TABLET PO SCH (08:20)
[2019-09-04] MEDS: OMEGA-3/DHA/EPA/FISH OIL 1,000 MG CAPSULE PO SCH (08:21)
[2019-09-04] MEDS: OMEPRAZOLE 20 MG CAPSULE PO SCH (08:21)
[2019-09-04] MEDS: ASPIRIN 81 MG CHEWABLE TABLET PO SCH (08:21)
[2019-09-04] MEDS: DOCUSATE SODIUM 100 MG CAPSULE PO SCH (08:21)
[2019-09-04] MEDS: BENZTROPINE MESYLATE 0.5 MG TABLET PO SCH ×2 (08:22→20:16)
[2019-09-04] MEDS: TOPIRAMATE 100 MG TABLET PO SCH ×2 (08:22→16:11)
[2019-09-04] MEDS: BusPIRone HCL 15 MG TABLET PO SCH (08:22)
[2019-09-04] MEDS: AmLODIPine BESYLATE 2.5 MG TABLET PO SCH (08:22)
[2019-09-04] MEDS: RisperiDONE 3 MG TABLET PO SCH ×2 (08:25→16:54)
[2019-09-04 08:49] VITALS: BP 119/76
[2019-09-04 09:00] VITALS: BP 119/76
[2019-09-04] MEDS: HALOPERIDOL 5 MG TABLET PO PRN ×2 (13:29→19:37)
[2019-09-04 16:20] VITALS: BP 142/76
[2019-09-05 06:27] VITALS: BP 101/49
[2019-09-05] MEDS: BusPIRone HCL 15 MG TABLET PO SCH (08:23)
[2019-09-05] MEDS: TOPIRAMATE 100 MG TABLET PO SCH ×2 (08:23→16:35)
[2019-09-05] MEDS: OXYBUTYNIN CHLORIDE 5 MG ER TABLET PO SCH (08:23)
[2019-09-05] MEDS: BENZTROPINE MESYLATE 0.5 MG TABLET PO SCH ×2 (08:24→20:08)
[2019-09-05] MEDS: AmLODIPine BESYLATE 2.5 MG TABLET PO SCH (08:24)
[2019-09-05] MEDS: OMEPRAZOLE 20 MG CAPSULE PO SCH (08:25)
[2019-09-05] MEDS: OMEGA-3/DHA/EPA/FISH OIL 1,000 MG CAPSULE PO SCH (08:25)
[2019-09-05] MEDS: ASPIRIN 81 MG CHEWABLE TABLET PO SCH (08:26)
[2019-09-05] MEDS: RisperiDONE 3 MG TABLET PO SCH ×2 (08:26→16:34)
[2019-09-05] MEDS: DOCUSATE SODIUM 100 MG CAPSULE PO SCH (08:26)
[2019-09-05] MEDS: LORazepam 2 MG TABLET PO PRN ×3 (08:33→17:28)
[2019-09-05] MEDS: ACETAMINOPHEN 325 MG TABLET PO PRN ×3 (08:34→16:35)
[2019-09-05 08:35] VITALS: BP 110/65
[2019-09-05] MEDS: HALOPERIDOL 5 MG TABLET PO PRN (14:24)
[2019-09-05 16:15] VITALS: BP 129/64
[2019-09-06 04:06] VITALS: BP 150/73
[2019-09-06] MEDS: LORazepam 2 MG TABLET PO PRN ×3 (04:06→16:39)
[2019-09-06] MEDS: ACETAMINOPHEN 325 MG TABLET PO PRN ×3 (04:07→16:03)
[2019-09-06] MEDS: MAG HYDROX/AL HYDROX/SIMETH ES 30 ML SUSPENSION UDCUP PO PRN (04:36)
[2019-09-06 08:29] VITALS: BP 113/58
[2019-09-06] MEDS: BENZTROPINE MESYLATE 0.5 MG TABLET PO SCH ×2 (09:05→20:25)
[2019-09-06] MEDS: ASPIRIN 81 MG CHEWABLE TABLET PO SCH (09:05)
[2019-09-06] MEDS: BusPIRone HCL 15 MG TABLET PO SCH (09:05)
[2019-09-06] MEDS: OMEGA-3/DHA/EPA/FISH OIL 1,000 MG CAPSULE PO SCH (09:06)
[2019-09-06] MEDS: RisperiDONE 3 MG TABLET PO SCH ×2 (09:06→16:03)
[2019-09-06] MEDS: OMEPRAZOLE 20 MG CAPSULE PO SCH (09:06)
[2019-09-06] MEDS: TOPIRAMATE 100 MG TABLET PO SCH ×2 (09:06→16:03)
[2019-09-06] MEDS: AmLODIPine BESYLATE 2.5 MG TABLET PO SCH (09:07)
[2019-09-06] MEDS: DOCUSATE SODIUM 100 MG CAPSULE PO SCH (09:07)
[2019-09-06] MEDS: OXYBUTYNIN CHLORIDE 5 MG ER TABLET PO SCH (09:07)
[2019-09-06 10:21] VITALS: BP 117/61
[2019-09-06] MEDS: HALOPERIDOL 5 MG TABLET PO PRN ×2 (10:31→16:40)
[2019-09-06 16:44] VITALS: BP 128/68
[2019-09-07 05:32] VITALS: BP 120/66
[2019-09-07] MEDS: ACETAMINOPHEN 325 MG TABLET PO PRN ×3 (05:45→19:16)
[2019-09-07] MEDS: LORazepam 2 MG TABLET PO PRN ×4 (08:23→22:50)
[2019-09-07] MEDS: DOCUSATE SODIUM 100 MG CAPSULE PO SCH (08:23)
[2019-09-07] MEDS: TOPIRAMATE 100 MG TABLET PO SCH ×2 (08:23→16:20)
[2019-09-07] MEDS: OMEPRAZOLE 20 MG CAPSULE PO SCH (08:24)
[2019-09-07] MEDS: ASPIRIN 81 MG CHEWABLE TABLET PO SCH (08:24)
[2019-09-07] MEDS: OMEGA-3/DHA/EPA/FISH OIL 1,000 MG CAPSULE PO SCH (08:24)
[2019-09-07] MEDS: BusPIRone HCL 15 MG TABLET PO SCH (08:25)
[2019-09-07] MEDS: OXYBUTYNIN CHLORIDE 5 MG ER TABLET PO SCH (08:25)
[2019-09-07] MEDS: BENZTROPINE MESYLATE 0.5 MG TABLET PO SCH ×2 (08:25→20:37)
[2019-09-07] MEDS: AmLODIPine BESYLATE 2.5 MG TABLET PO SCH (08:25)
[2019-09-07] MEDS: RisperiDONE 3 MG TABLET PO SCH ×2 (08:28→16:20)
[2019-09-07 08:31] VITALS: BP 124/62
[2019-09-07 16:37] VITALS: BP 132/69
[2019-09-07] MEDS: HALOPERIDOL 5 MG TABLET PO PRN (17:26)
[2019-09-07 19:15] VITALS: BP 144/86
[2019-09-08 05:31] VITALS: BP 143/90
[2019-09-08] MEDS: ACETAMINOPHEN 325 MG TABLET PO PRN ×2 (05:33→16:19)
[2019-09-08] MEDS: AmLODIPine BESYLATE 2.5 MG TABLET PO SCH (08:03)
[2019-09-08] MEDS: OMEPRAZOLE 20 MG CAPSULE PO SCH (08:04)
[2019-09-08] MEDS: DOCUSATE SODIUM 100 MG CAPSULE PO SCH (08:04)
[2019-09-08] MEDS: ASPIRIN 81 MG CHEWABLE TABLET PO SCH (08:04)
[2019-09-08] MEDS: TOPIRAMATE 100 MG TABLET PO SCH ×2 (08:05→16:50)
[2019-09-08] MEDS: BusPIRone HCL 15 MG TABLET PO SCH (08:05)
[2019-09-08] MEDS: LORazepam 2 MG TABLET PO PRN ×3 (08:05→17:27)
[2019-09-08] MEDS: OMEGA-3/DHA/EPA/FISH OIL 1,000 MG CAPSULE PO SCH (08:05)
[2019-09-08] MEDS: RisperiDONE 3 MG TABLET PO SCH ×2 (08:05→16:50)
[2019-09-08] MEDS: BENZTROPINE MESYLATE 0.5 MG TABLET PO SCH ×2 (08:05→21:23)
[2019-09-08] MEDS: OXYBUTYNIN CHLORIDE 5 MG ER TABLET PO SCH (08:06)
[2019-09-08 08:09] VITALS: BP 116/51
[2019-09-08] MEDS: HALOPERIDOL 5 MG TABLET PO PRN ×3 (09:30→21:24)
[2019-09-08 15:48] VITALS: BP 146/78
[2019-09-08 16:20] VITALS: BP 146/78
[2019-09-08] MEDS ORDERED: RISP3 PO (20:11)
[2019-09-09 00:46] VITALS: BP 135/79
[2019-09-09] MEDS: DOCUSATE SODIUM 100 MG CAPSULE PO SCH (08:14)
[2019-09-09] MEDS: RisperiDONE 3 MG TABLET PO SCH ×2 (08:14→16:20)
[2019-09-09] MEDS: OXYBUTYNIN CHLORIDE 5 MG ER TABLET PO SCH (08:14)
[2019-09-09] MEDS: ASPIRIN 81 MG CHEWABLE TABLET PO SCH (08:15)
[2019-09-09] MEDS: LORazepam 2 MG TABLET PO PRN ×3 (08:15→17:41)
[2019-09-09] MEDS: BENZTROPINE MESYLATE 0.5 MG TABLET PO SCH ×2 (08:15→20:43)
[2019-09-09] MEDS: OMEPRAZOLE 20 MG CAPSULE PO SCH (08:16)
[2019-09-09] MEDS: BusPIRone HCL 15 MG TABLET PO SCH (08:16)
[2019-09-09] MEDS: OMEGA-3/DHA/EPA/FISH OIL 1,000 MG CAPSULE PO SCH (08:16)
[2019-09-09] MEDS: AmLODIPine BESYLATE 2.5 MG TABLET PO SCH (08:16)
[2019-09-09] MEDS: TOPIRAMATE 100 MG TABLET PO SCH ×2 (08:16→16:20)
[2019-09-09 08:32] VITALS: BP 133/61
[2019-09-09] MEDS: ACETAMINOPHEN 325 MG TABLET PO PRN ×2 (08:46→18:43)
[2019-09-09] MEDS: HALOPERIDOL 5 MG TABLET PO PRN ×2 (13:40→17:41)
[2019-09-09 17:20] VITALS: BP 133/61
[2019-09-09 18:38] VITALS: BP 115/65
[2019-09-10 05:11] VITALS: BP 110/66
[2019-09-10] MEDS: ACETAMINOPHEN 325 MG TABLET PO PRN ×3 (05:22→16:02)
[2019-09-10] MEDS: AmLODIPine BESYLATE 2.5 MG TABLET PO SCH (08:06)
[2019-09-10] MEDS: RisperiDONE 3 MG TABLET PO SCH ×2 (08:06→16:57)
[2019-09-10] MEDS: ASPIRIN 81 MG CHEWABLE TABLET PO SCH (08:07)
[2019-09-10] MEDS: DOCUSATE SODIUM 100 MG CAPSULE PO SCH (08:07)
[2019-09-10] MEDS: TOPIRAMATE 100 MG TABLET PO SCH ×2 (08:07→16:02)
[2019-09-10] MEDS: OMEPRAZOLE 20 MG CAPSULE PO SCH (08:08)
[2019-09-10] MEDS: BusPIRone HCL 15 MG TABLET PO SCH (08:08)
[2019-09-10] MEDS: OMEGA-3/DHA/EPA/FISH OIL 1,000 MG CAPSULE PO SCH (08:08)
[2019-09-10] MEDS: LORazepam 2 MG TABLET PO PRN ×3 (08:09→16:16)
[2019-09-10] MEDS: BENZTROPINE MESYLATE 0.5 MG TABLET PO SCH ×2 (08:10→20:45)
[2019-09-10] MEDS: OXYBUTYNIN CHLORIDE 5 MG ER TABLET PO SCH (08:10)
[2019-09-10] MEDS: HALOPERIDOL 5 MG TABLET PO PRN ×2 (08:30→17:05)
[2019-09-10 08:32] VITALS: BP 119/61
[2019-09-10 16:38] VITALS: BP 118/58
[2019-09-10] MEDS ORDERED: MAG HYDROX/AL HYDROX/SIMETH ES 30 ML SUSPENSION UDCUP PO PRN (17:15)
[2019-09-10] MEDS ORDERED: ONDANSETRON HCL 4 MG TABLET PO PRN (17:15)
[2019-09-10] MEDS ORDERED: PETROLATUM,WHITE 28 GM JELLY TP PRN (17:15)
[2019-09-10] MEDS ORDERED: BENZOCAINE/MENTHOL LOZENGE MM PRN (17:15)
[2019-09-10] MEDS ORDERED: CloNIDine HCL 0.1 MG TABLET PO PRN (17:15)
[2019-09-10] MEDS ORDERED: ALBUTEROL SULFATE HFA 90 MCG/PUFF 8 GM INHALER IH PRN (17:15)
[2019-09-10] MEDS ORDERED: BACITRACIN 28.4 GM OINTMENT TP PRN (17:15)
[2019-09-10] MEDS ORDERED: LOPERAMIDE HCL 2 MG CAPSULE PO PRN (17:15)
[2019-09-11] MEDS: HALOPERIDOL 5 MG TABLET PO PRN ×4 (00:05→17:36)
[2019-09-11] MEDS: ACETAMINOPHEN 325 MG TABLET PO PRN ×3 (04:14→16:37)
[2019-09-11 04:16] VITALS: BP 134/74
[2019-09-11 08:29] VITALS: BP 124/73
[2019-09-11] MEDS: TOPIRAMATE 100 MG TABLET PO SCH ×2 (08:31→16:02)
[2019-09-11] MEDS: OMEPRAZOLE 20 MG CAPSULE PO SCH (08:32)
[2019-09-11] MEDS: DOCUSATE SODIUM 100 MG CAPSULE PO SCH (08:32)
[2019-09-11] MEDS: ASPIRIN 81 MG CHEWABLE TABLET PO SCH (08:32)
[2019-09-11] MEDS: RisperiDONE 3 MG TABLET PO SCH ×2 (08:32→16:01)
[2019-09-11] MEDS: BENZTROPINE MESYLATE 0.5 MG TABLET PO SCH ×2 (08:32→21:00)
[2019-09-11] MEDS: OXYBUTYNIN CHLORIDE 5 MG ER TABLET PO SCH (08:33)
[2019-09-11] MEDS: BusPIRone HCL 15 MG TABLET PO SCH (08:33)
[2019-09-11] MEDS: AmLODIPine BESYLATE 2.5 MG TABLET PO SCH (08:33)
[2019-09-11] MEDS: OMEGA-3/DHA/EPA/FISH OIL 1,000 MG CAPSULE PO SCH (08:33)
[2019-09-11] MEDS: LORazepam 2 MG TABLET PO PRN ×2 (08:34→16:02)
[2019-09-11 16:38] VITALS: BP 134/76
[2019-09-11 17:36] VITALS: BP 131/71
[2019-09-12 02:40] VITALS: BP 125/86
[2019-09-12] MEDS: LORazepam 2 MG TABLET PO PRN ×3 (02:41→15:57)
[2019-09-12] MEDS: ACETAMINOPHEN 325 MG TABLET PO PRN ×3 (02:42→17:11)
[2019-09-12 05:25] VITALS: BP 127/77
[2019-09-12] MEDS: BENZTROPINE MESYLATE 0.5 MG TABLET PO SCH ×2 (08:06→21:20)
[2019-09-12] MEDS: DOCUSATE SODIUM 100 MG CAPSULE PO SCH (08:07)
[2019-09-12] MEDS: ASPIRIN 81 MG CHEWABLE TABLET PO SCH (08:07)
[2019-09-12] MEDS: OXYBUTYNIN CHLORIDE 5 MG ER TABLET PO SCH (08:07)
[2019-09-12] MEDS: BusPIRone HCL 15 MG TABLET PO SCH (08:07)
[2019-09-12] MEDS: OMEGA-3/DHA/EPA/FISH OIL 1,000 MG CAPSULE PO SCH (08:08)
[2019-09-12] MEDS: RisperiDONE 3 MG TABLET PO SCH ×2 (08:08→15:56)
[2019-09-12] MEDS: OMEPRAZOLE 20 MG CAPSULE PO SCH (08:08)
[2019-09-12] MEDS: TOPIRAMATE 100 MG TABLET PO SCH ×2 (08:08→15:56)
[2019-09-12] MEDS: AmLODIPine BESYLATE 2.5 MG TABLET PO SCH (08:08)
[2019-09-12 08:21] VITALS: BP 145/67
[2019-09-12] MEDS: MAGNESIUM HYDROXIDE SUSPENSION 30 ML UDCUP PO PRN (11:56)
[2019-09-12] MEDS: IBUPROFEN 600 MG TABLET PO PRN (15:16)
[2019-09-12] MEDS: HALOPERIDOL 5 MG TABLET PO PRN (15:57)
[2019-09-12 16:12] VITALS: BP 126/82
[2019-09-12] MEDS ORDERED: LORazepam 2 MG/ML VIAL IM ONE (17:30)
[2019-09-12] MEDS ORDERED: DiphenhydrAMINE HCL 50 MG/ML VIAL IM ONE (17:30)
[2019-09-12] MEDS ORDERED: HALOPERIDOL LACTATE 5 MG/ML VIAL IM ONE (17:30)
[2019-09-12] MEDS: MAG HYDROX/AL HYDROX/SIMETH ES 30 ML SUSPENSION UDCUP PO PRN (22:02)
[2019-09-13 03:11] VITALS: BP 132/78
[2019-09-13] MEDS: LORazepam 2 MG TABLET PO PRN ×3 (03:17→14:22)
[2019-09-13 09:02] VITALS: BP 143/106
[2019-09-13] MEDS: DOCUSATE SODIUM 100 MG CAPSULE PO SCH (09:30)
[2019-09-13] MEDS: OMEGA-3/DHA/EPA/FISH OIL 1,000 MG CAPSULE PO SCH (09:30)
[2019-09-13] MEDS: RisperiDONE 3 MG TABLET PO SCH ×2 (09:30→16:01)
[2019-09-13] MEDS: TOPIRAMATE 100 MG TABLET PO SCH ×2 (09:30→16:01)
[2019-09-13] MEDS: BusPIRone HCL 15 MG TABLET PO SCH (09:30)
[2019-09-13] MEDS: AmLODIPine BESYLATE 2.5 MG TABLET PO SCH (09:31)
[2019-09-13] MEDS: IBUPROFEN 600 MG TABLET PO PRN ×2 (09:31→16:00)
[2019-09-13] MEDS: ASPIRIN 81 MG CHEWABLE TABLET PO SCH (09:31)
[2019-09-13] MEDS: BENZTROPINE MESYLATE 0.5 MG TABLET PO SCH ×2 (09:32→20:04)
[2019-09-13] MEDS: OXYBUTYNIN CHLORIDE 5 MG ER TABLET PO SCH (09:32)
[2019-09-13] MEDS: OMEPRAZOLE 20 MG CAPSULE PO SCH (09:32)
[2019-09-13] MEDS: ACETAMINOPHEN 325 MG TABLET PO PRN ×2 (10:19→17:07)
[2019-09-13] MEDS: HALOPERIDOL 5 MG TABLET PO PRN ×2 (11:09→16:17)
[2019-09-13] MEDS: MAG HYDROX/AL HYDROX/SIMETH ES 30 ML SUSPENSION UDCUP PO PRN (11:10)
[2019-09-13 16:23] VITALS: BP 143/72
[2019-09-13] MEDS: MAGNESIUM HYDROXIDE SUSPENSION 30 ML UDCUP PO PRN (17:21)
[2019-09-14] MEDS: LORazepam 2 MG TABLET PO PRN ×4 (04:08→19:18)
[2019-09-14] MEDS: IBUPROFEN 600 MG TABLET PO PRN ×2 (04:09→11:37)
[2019-09-14 04:24] VITALS: BP 128/77
[2019-09-14] MEDS: HALOPERIDOL 5 MG TABLET PO PRN ×3 (04:44→16:40)
[2019-09-14] MEDS: ASPIRIN 81 MG CHEWABLE TABLET PO SCH (08:12)
[2019-09-14] MEDS: BusPIRone HCL 15 MG TABLET PO SCH (08:13)
[2019-09-14] MEDS: OMEPRAZOLE 20 MG CAPSULE PO SCH (08:13)
[2019-09-14] MEDS: BENZTROPINE MESYLATE 0.5 MG TABLET PO SCH ×2 (08:13→21:43)
[2019-09-14] MEDS: OXYBUTYNIN CHLORIDE 5 MG ER TABLET PO SCH (08:14)
[2019-09-14] MEDS: RisperiDONE 3 MG TABLET PO SCH ×2 (08:14→16:03)
[2019-09-14] MEDS: DOCUSATE SODIUM 100 MG CAPSULE PO SCH (08:14)
[2019-09-14] MEDS: AmLODIPine BESYLATE 2.5 MG TABLET PO SCH (08:15)
[2019-09-14] MEDS: OMEGA-3/DHA/EPA/FISH OIL 1,000 MG CAPSULE PO SCH (08:15)
[2019-09-14] MEDS: TOPIRAMATE 100 MG TABLET PO SCH ×2 (08:15→16:03)
[2019-09-14 08:22] VITALS: BP 116/91
[2019-09-14] MEDS: ACETAMINOPHEN 325 MG TABLET PO PRN ×2 (08:22→16:42)
[2019-09-14 08:35] VITALS: BP 116/61
[2019-09-14 11:37] VITALS: BP 113/64
[2019-09-14 16:21] VITALS: BP 139/83
[2019-09-15 02:21] VITALS: BP 127/85
[2019-09-15] MEDS: IBUPROFEN 600 MG TABLET PO PRN (03:14)
[2019-09-15] MEDS: HALOPERIDOL 5 MG TABLET PO PRN ×3 (03:36→20:38)
[2019-09-15] MEDS: LORazepam 2 MG TABLET PO PRN ×3 (06:57→18:01)
[2019-09-15] MEDS: ACETAMINOPHEN 325 MG TABLET PO PRN ×3 (07:01→17:41)
[2019-09-15] MEDS: RisperiDONE 3 MG TABLET PO SCH ×2 (08:09→16:00)
[2019-09-15] MEDS: BusPIRone HCL 15 MG TABLET PO SCH (08:09)
[2019-09-15] MEDS: ASPIRIN 81 MG CHEWABLE TABLET PO SCH (08:09)
[2019-09-15] MEDS: BENZTROPINE MESYLATE 0.5 MG TABLET PO SCH ×2 (08:09→20:37)
[2019-09-15] MEDS: DOCUSATE SODIUM 100 MG CAPSULE PO SCH (08:10)
[2019-09-15] MEDS: AmLODIPine BESYLATE 2.5 MG TABLET PO SCH (08:10)
[2019-09-15] MEDS: OXYBUTYNIN CHLORIDE 5 MG ER TABLET PO SCH (08:10)
[2019-09-15] MEDS: OMEPRAZOLE 20 MG CAPSULE PO SCH (08:10)
[2019-09-15] MEDS: TOPIRAMATE 100 MG TABLET PO SCH ×2 (08:10→16:00)
[2019-09-15 08:22] VITALS: BP 131/66
[2019-09-15] MEDS: OMEGA-3/DHA/EPA/FISH OIL 1,000 MG CAPSULE PO SCH (08:49)
[2019-09-15 16:35] VITALS: BP 138/87
[2019-09-16] MEDS: LORazepam 2 MG TABLET PO PRN ×3 (02:57→17:03)
[2019-09-16 04:52] VITALS: BP 129/74
[2019-09-16] MEDS: BusPIRone HCL 15 MG TABLET PO SCH (08:13)
[2019-09-16] MEDS: ASPIRIN 81 MG CHEWABLE TABLET PO SCH (08:13)
[2019-09-16] MEDS: OMEGA-3/DHA/EPA/FISH OIL 1,000 MG CAPSULE PO SCH (08:13)
[2019-09-16] MEDS: AmLODIPine BESYLATE 2.5 MG TABLET PO SCH (08:14)
[2019-09-16] MEDS: TOPIRAMATE 100 MG TABLET PO SCH ×2 (08:14→16:11)
[2019-09-16] MEDS: BENZTROPINE MESYLATE 0.5 MG TABLET PO SCH ×2 (08:14→20:36)
[2019-09-16] MEDS: RisperiDONE 3 MG TABLET PO SCH ×2 (08:14→16:11)
[2019-09-16] MEDS: OMEPRAZOLE 20 MG CAPSULE PO SCH (08:15)
[2019-09-16] MEDS: DOCUSATE SODIUM 100 MG CAPSULE PO SCH (08:15)
[2019-09-16] MEDS: OXYBUTYNIN CHLORIDE 5 MG ER TABLET PO SCH (08:16)
[2019-09-16 08:22] VITALS: BP 107/74
[2019-09-16] MEDS: HALOPERIDOL 5 MG TABLET PO PRN ×2 (09:01→17:40)
[2019-09-16] MEDS: ACETAMINOPHEN 325 MG TABLET PO PRN ×2 (10:04→16:11)
[2019-09-16 13:13] VITALS: BP 122/70
[2019-09-16] MEDS: IBUPROFEN 600 MG TABLET PO PRN (13:13)
[2019-09-16 16:07] VITALS: BP 153/78
[2019-09-17] MEDS: LORazepam 2 MG TABLET PO PRN ×4 (04:02→18:00)
[2019-09-17] MEDS: IBUPROFEN 600 MG TABLET PO PRN ×2 (04:11→14:36)
[2019-09-17 04:25] VITALS: BP 117/81
[2019-09-17] MEDS: RisperiDONE 3 MG TABLET PO SCH ×2 (08:11→16:05)
[2019-09-17] MEDS: BENZTROPINE MESYLATE 0.5 MG TABLET PO SCH ×2 (08:11→20:37)
[2019-09-17] MEDS: DOCUSATE SODIUM 100 MG CAPSULE PO SCH (08:11)
[2019-09-17] MEDS: OMEPRAZOLE 20 MG CAPSULE PO SCH (08:11)
[2019-09-17] MEDS: TOPIRAMATE 100 MG TABLET PO SCH ×2 (08:12→16:05)
[2019-09-17] MEDS: OXYBUTYNIN CHLORIDE 5 MG ER TABLET PO SCH (08:12)
[2019-09-17] MEDS: ASPIRIN 81 MG CHEWABLE TABLET PO SCH (08:12)
[2019-09-17] MEDS: OMEGA-3/DHA/EPA/FISH OIL 1,000 MG CAPSULE PO SCH (08:13)
[2019-09-17] MEDS: AmLODIPine BESYLATE 2.5 MG TABLET PO SCH (08:13)
[2019-09-17] MEDS: BusPIRone HCL 15 MG TABLET PO SCH (08:13)
[2019-09-17] MEDS: ACETAMINOPHEN 325 MG TABLET PO PRN ×3 (08:14→16:37)
[2019-09-17 10:51] VITALS: BP 143/60
[2019-09-17] MEDS: HALOPERIDOL 5 MG TABLET PO PRN ×3 (11:32→20:38)
[2019-09-17 17:05] VITALS: BP 134/74
[2019-09-18 05:37] VITALS: BP 126/64
[2019-09-18 08:14] VITALS: BP 111/63
[2019-09-18] MEDS: OXYBUTYNIN CHLORIDE 5 MG ER TABLET PO SCH (08:25)
[2019-09-18] MEDS: ASPIRIN 81 MG CHEWABLE TABLET PO SCH (08:26)
[2019-09-18] MEDS: OMEPRAZOLE 20 MG CAPSULE PO SCH (08:26)
[2019-09-18] MEDS: BusPIRone HCL 15 MG TABLET PO SCH (08:26)
[2019-09-18] MEDS: RisperiDONE 3 MG TABLET PO SCH ×2 (08:27→16:20)
[2019-09-18] MEDS: TOPIRAMATE 100 MG TABLET PO SCH ×2 (08:27→16:21)
[2019-09-18] MEDS: OMEGA-3/DHA/EPA/FISH OIL 1,000 MG CAPSULE PO SCH (08:27)
[2019-09-18] MEDS: AmLODIPine BESYLATE 2.5 MG TABLET PO SCH (08:28)
[2019-09-18] MEDS ORDERED: LORazepam 2 MG/ML VIAL ONE (08:29)
[2019-09-18] MEDS ORDERED: HALOPERIDOL LACTATE 5 MG/ML VIAL ONE (08:30)
[2019-09-18] MEDS ORDERED: DiphenhydrAMINE HCL 50 MG/ML VIAL ONE (08:30)
[2019-09-18] MEDS: BENZTROPINE MESYLATE 0.5 MG TABLET PO SCH ×2 (08:30→20:22)
[2019-09-18] MEDS: DOCUSATE SODIUM 100 MG CAPSULE PO SCH (08:41)
[2019-09-18] MEDS: IBUPROFEN 600 MG TABLET PO PRN (09:01)
[2019-09-18] MEDS ORDERED: LORazepam 2 MG/ML VIAL IM ONE (09:45)
[2019-09-18] MEDS ORDERED: DiphenhydrAMINE HCL 50 MG/ML VIAL IM ONE (09:45)
[2019-09-18] MEDS ORDERED: HALOPERIDOL LACTATE 5 MG/ML VIAL IM ONE (09:45)
[2019-09-18 16:14] VITALS: BP 134/70
[2019-09-18] MEDS: LORazepam 2 MG TABLET PO PRN (16:20)
[2019-09-18] MEDS: ACETAMINOPHEN 325 MG TABLET PO PRN (17:42)
[2019-09-18] MEDS: HALOPERIDOL 5 MG TABLET PO PRN (18:15)
[2019-09-18] MEDS: MAG HYDROX/AL HYDROX/SIMETH ES 30 ML SUSPENSION UDCUP PO PRN (18:39)
[2019-09-19 00:54] VITALS: BP 126/72
[2019-09-19] MEDS: LORazepam 2 MG TABLET PO PRN ×3 (01:33→16:46)
[2019-09-19] MEDS: HALOPERIDOL 5 MG TABLET PO PRN ×3 (02:34→17:38)
[2019-09-19 08:26] VITALS: BP 132/79
[2019-09-19] MEDS: OMEGA-3/DHA/EPA/FISH OIL 1,000 MG CAPSULE PO SCH (08:43)
[2019-09-19] MEDS: BusPIRone HCL 15 MG TABLET PO SCH (08:43)
[2019-09-19] MEDS: ASPIRIN 81 MG CHEWABLE TABLET PO SCH (08:44)
[2019-09-19] MEDS: TOPIRAMATE 100 MG TABLET PO SCH ×2 (08:44→16:45)
[2019-09-19] MEDS: AmLODIPine BESYLATE 2.5 MG TABLET PO SCH (08:44)
[2019-09-19] MEDS: OMEPRAZOLE 20 MG CAPSULE PO SCH (08:45)
[2019-09-19] MEDS: RisperiDONE 3 MG TABLET PO SCH ×2 (08:45→16:45)
[2019-09-19] MEDS: BENZTROPINE MESYLATE 0.5 MG TABLET PO SCH ×2 (08:45→20:37)
[2019-09-19] MEDS: OXYBUTYNIN CHLORIDE 5 MG ER TABLET PO SCH (08:46)
[2019-09-19] MEDS: IBUPROFEN 600 MG TABLET PO PRN (08:48)
[2019-09-19] MEDS: DOCUSATE SODIUM 100 MG CAPSULE PO SCH (09:00)
[2019-09-19 17:42] VITALS: BP 145/77
[2019-09-19] MEDS ORDERED: LORazepam 2 MG/ML VIAL ONE (19:07)
[2019-09-19] MEDS ORDERED: HALOPERIDOL LACTATE 5 MG/ML VIAL ONE (19:08)
[2019-09-19] MEDS ORDERED: DiphenhydrAMINE HCL 50 MG/ML VIAL ONE (19:08)
[2019-09-19] MEDS ORDERED: HALOPERIDOL LACTATE 5 MG/ML VIAL IM ONE (19:15)
[2019-09-19] MEDS ORDERED: DiphenhydrAMINE HCL 50 MG/ML VIAL IM ONE (19:15)
[2019-09-19] MEDS ORDERED: LORazepam 2 MG/ML VIAL IM ONE (19:15)
[2019-09-20 07:29] VITALS: BP 133/78
[2019-09-20] MEDS: OMEPRAZOLE 20 MG CAPSULE PO SCH (08:21)
[2019-09-20] MEDS: AmLODIPine BESYLATE 2.5 MG TABLET PO SCH (08:23)
[2019-09-20] MEDS: OXYBUTYNIN CHLORIDE 5 MG ER TABLET PO SCH (08:23)
[2019-09-20] MEDS: BusPIRone HCL 15 MG TABLET PO SCH (08:23)
[2019-09-20] MEDS: RisperiDONE 3 MG TABLET PO SCH ×2 (08:23→16:01)
[2019-09-20] MEDS: TOPIRAMATE 100 MG TABLET PO SCH ×2 (08:23→16:01)
[2019-09-20] MEDS: IBUPROFEN 600 MG TABLET PO PRN ×2 (08:24→16:02)
[2019-09-20] MEDS: BENZTROPINE MESYLATE 0.5 MG TABLET PO SCH ×2 (08:24→21:00)
[2019-09-20] MEDS: DOCUSATE SODIUM 100 MG CAPSULE PO SCH (08:24)
[2019-09-20] MEDS: OMEGA-3/DHA/EPA/FISH OIL 1,000 MG CAPSULE PO SCH (08:26)
[2019-09-20] MEDS: LORazepam 2 MG TABLET PO PRN ×2 (08:27→16:01)
[2019-09-20] MEDS: ASPIRIN 81 MG CHEWABLE TABLET PO SCH (08:27)
[2019-09-20 08:52] VITALS: BP 133/74
[2019-09-20] MEDS: HALOPERIDOL 5 MG TABLET PO PRN (09:00)
[2019-09-20 16:23] VITALS: BP 118/65
[2019-09-21 00:41] VITALS: BP 126/70
[2019-09-21] MEDS: IBUPROFEN 600 MG TABLET PO PRN ×2 (00:48→16:26)
[2019-09-21] MEDS: LORazepam 2 MG TABLET PO PRN (01:20)
[2019-09-21] MEDS: OMEPRAZOLE 20 MG CAPSULE PO SCH (08:33)
[2019-09-21] MEDS: RisperiDONE 3 MG TABLET PO SCH ×2 (08:33→16:43)
[2019-09-21] MEDS: BusPIRone HCL 15 MG TABLET PO SCH (08:33)
[2019-09-21] MEDS: TOPIRAMATE 100 MG TABLET PO SCH ×2 (08:33→16:43)
[2019-09-21] MEDS: ASPIRIN 81 MG CHEWABLE TABLET PO SCH (08:33)
[2019-09-21] MEDS: DOCUSATE SODIUM 100 MG CAPSULE PO SCH (08:33)
[2019-09-21] MEDS: AmLODIPine BESYLATE 2.5 MG TABLET PO SCH (08:34)
[2019-09-21] MEDS: OMEGA-3/DHA/EPA/FISH OIL 1,000 MG CAPSULE PO SCH (08:34)
[2019-09-21] MEDS: OXYBUTYNIN CHLORIDE 5 MG ER TABLET PO SCH (08:34)
[2019-09-21] MEDS: BENZTROPINE MESYLATE 0.5 MG TABLET PO SCH ×2 (08:34→21:47)
[2019-09-21 08:41] VITALS: BP 121/77
[2019-09-21] MEDS: ACETAMINOPHEN 325 MG TABLET PO PRN ×2 (09:17→13:15)
[2019-09-21] MEDS: HALOPERIDOL 5 MG TABLET PO PRN ×2 (10:37→14:45)
[2019-09-21 13:20] VITALS: BP 133/70
[2019-09-21 16:29] VITALS: BP 127/86
[2019-09-21] MEDS ORDERED: LORazepam 2 MG/ML VIAL ONE (17:18)
[2019-09-21] MEDS ORDERED: HALOPERIDOL LACTATE 5 MG/ML VIAL ONE (17:18)
[2019-09-21] MEDS ORDERED: HALOPERIDOL LACTATE 5 MG/ML VIAL IM ONE (17:30)
[2019-09-21] MEDS ORDERED: LORazepam 2 MG/ML VIAL IM ONE (17:30)
[2019-09-21] MEDS ORDERED: HALOPERIDOL 5 MG TABLET PO ONE (22:30)
[2019-09-22] MEDS: HALOPERIDOL 5 MG TABLET PO PRN ×3 (05:00→16:20)
[2019-09-22 05:27] VITALS: BP 135/69
[2019-09-22] MEDS: IBUPROFEN 600 MG TABLET PO PRN ×3 (05:57→20:44)
[2019-09-22] MEDS: AmLODIPine BESYLATE 2.5 MG TABLET PO SCH (08:33)
[2019-09-22] MEDS: BusPIRone HCL 15 MG TABLET PO SCH (08:33)
[2019-09-22] MEDS: RisperiDONE 3 MG TABLET PO SCH ×2 (08:33→16:19)
[2019-09-22] MEDS: DOCUSATE SODIUM 100 MG CAPSULE PO SCH (08:34)
[2019-09-22] MEDS: OXYBUTYNIN CHLORIDE 5 MG ER TABLET PO SCH (08:34)
[2019-09-22] MEDS: BENZTROPINE MESYLATE 0.5 MG TABLET PO SCH ×2 (08:34→20:37)
[2019-09-22] MEDS: ASPIRIN 81 MG CHEWABLE TABLET PO SCH (08:34)
[2019-09-22] MEDS: OMEPRAZOLE 20 MG CAPSULE PO SCH (08:34)
[2019-09-22] MEDS: OMEGA-3/DHA/EPA/FISH OIL 1,000 MG CAPSULE PO SCH (08:34)
[2019-09-22] MEDS: TOPIRAMATE 100 MG TABLET PO SCH ×2 (08:34→16:19)
[2019-09-22 08:35] VITALS: BP 119/61
[2019-09-22] MEDS: ACETAMINOPHEN 325 MG TABLET PO PRN ×2 (09:12→18:10)
[2019-09-22 16:22] VITALS: BP 135/84
[2019-09-22 20:44] VITALS: BP 131/71
[2019-09-23 01:56] VITALS: BP 140/61
[2019-09-23] MEDS: HALOPERIDOL 5 MG TABLET PO PRN ×4 (02:13→22:15)
[2019-09-23 08:29] VITALS: BP 134/96
[2019-09-23] MEDS: OMEPRAZOLE 20 MG CAPSULE PO SCH (08:31)
[2019-09-23] MEDS: TOPIRAMATE 100 MG TABLET PO SCH ×2 (08:31→15:52)
[2019-09-23] MEDS: ASPIRIN 81 MG CHEWABLE TABLET PO SCH (08:31)
[2019-09-23] MEDS: DOCUSATE SODIUM 100 MG CAPSULE PO SCH (08:31)
[2019-09-23] MEDS: OMEGA-3/DHA/EPA/FISH OIL 1,000 MG CAPSULE PO SCH (08:31)
[2019-09-23] MEDS: RisperiDONE 3 MG TABLET PO SCH ×2 (08:31→15:53)
[2019-09-23] MEDS: OXYBUTYNIN CHLORIDE 5 MG ER TABLET PO SCH (08:32)
[2019-09-23] MEDS: AmLODIPine BESYLATE 2.5 MG TABLET PO SCH (08:32)
[2019-09-23] MEDS: BENZTROPINE MESYLATE 0.5 MG TABLET PO SCH ×2 (08:32→20:29)
[2019-09-23] MEDS: BusPIRone HCL 15 MG TABLET PO SCH (08:33)
[2019-09-23] MEDS: IBUPROFEN 600 MG TABLET PO PRN ×2 (12:40→18:59)
[2019-09-23] MEDS: MAG HYDROX/AL HYDROX/SIMETH ES 30 ML SUSPENSION UDCUP PO PRN ×2 (13:57→17:28)
[2019-09-23] MEDS: ACETAMINOPHEN 325 MG TABLET PO PRN ×2 (15:53→22:16)
[2019-09-23 18:07] VITALS: BP 160/77
[2019-09-24 04:18] VITALS: BP 147/84
[2019-09-24] MEDS: OXYBUTYNIN CHLORIDE 5 MG ER TABLET PO SCH (08:11)
[2019-09-24] MEDS: AmLODIPine BESYLATE 2.5 MG TABLET PO SCH (08:11)
[2019-09-24] MEDS: BusPIRone HCL 15 MG TABLET PO SCH (08:12)
[2019-09-24] MEDS: OMEPRAZOLE 20 MG CAPSULE PO SCH (08:12)
[2019-09-24] MEDS: ASPIRIN 81 MG CHEWABLE TABLET PO SCH (08:12)
[2019-09-24] MEDS: TOPIRAMATE 100 MG TABLET PO SCH ×2 (08:12→17:06)
[2019-09-24] MEDS: RisperiDONE 3 MG TABLET PO SCH ×2 (08:13→17:06)
[2019-09-24] MEDS: DOCUSATE SODIUM 100 MG CAPSULE PO SCH (08:13)
[2019-09-24] MEDS: BENZTROPINE MESYLATE 0.5 MG TABLET PO SCH ×2 (08:13→20:03)
[2019-09-24] MEDS: OMEGA-3/DHA/EPA/FISH OIL 1,000 MG CAPSULE PO SCH (08:13)
[2019-09-24 08:28] VITALS: BP 148/84
[2019-09-24 10:30] VITALS: BP 134/82
[2019-09-24] MEDS: HALOPERIDOL 5 MG TABLET PO PRN ×3 (10:39→19:35)
[2019-09-24 16:17] VITALS: BP 137/78
[2019-09-24] MEDS: MAG HYDROX/AL HYDROX/SIMETH ES 30 ML SUSPENSION UDCUP PO PRN (17:03)
[2019-09-24] MEDS: IBUPROFEN 600 MG TABLET PO PRN (17:24)
[2019-09-25 00:39] VITALS: BP 146/66
[2019-09-25] MEDS: HALOPERIDOL 5 MG TABLET PO PRN ×5 (00:45→21:10)
[2019-09-25] MEDS: ACETAMINOPHEN 325 MG TABLET PO PRN ×2 (00:46→16:53)
[2019-09-25 01:45] VITALS: BP 143/78
[2019-09-25 08:24] VITALS: BP 128/63
[2019-09-25] MEDS: OMEPRAZOLE 20 MG CAPSULE PO SCH (09:13)
[2019-09-25] MEDS: OXYBUTYNIN CHLORIDE 5 MG ER TABLET PO SCH (09:13)
[2019-09-25] MEDS: DOCUSATE SODIUM 100 MG CAPSULE PO SCH (09:14)
[2019-09-25] MEDS: RisperiDONE 3 MG TABLET PO SCH ×2 (09:14→16:52)
[2019-09-25] MEDS: TOPIRAMATE 100 MG TABLET PO SCH ×2 (09:14→16:52)
[2019-09-25] MEDS: AmLODIPine BESYLATE 2.5 MG TABLET PO SCH (09:14)
[2019-09-25] MEDS: ASPIRIN 81 MG CHEWABLE TABLET PO SCH (09:14)
[2019-09-25] MEDS: BusPIRone HCL 15 MG TABLET PO SCH (09:15)
[2019-09-25] MEDS: BENZTROPINE MESYLATE 0.5 MG TABLET PO SCH ×2 (09:15→21:10)
[2019-09-25] MEDS: OMEGA-3/DHA/EPA/FISH OIL 1,000 MG CAPSULE PO SCH (13:03)
[2019-09-25 16:52] VITALS: BP 127/63
[2019-09-25 17:05] VITALS: BP 127/53
[2019-09-26] MEDS: ACETAMINOPHEN 325 MG TABLET PO PRN ×4 (01:24→21:25)
[2019-09-26 03:13] VITALS: BP 135/64
[2019-09-26] MEDS: HALOPERIDOL 5 MG TABLET PO PRN ×4 (03:53→18:30)
[2019-09-26 08:14] VITALS: BP 161/73
[2019-09-26] MEDS: OMEPRAZOLE 20 MG CAPSULE PO SCH (08:14)
[2019-09-26] MEDS: TOPIRAMATE 100 MG TABLET PO SCH ×2 (08:14→16:43)
[2019-09-26] MEDS: RisperiDONE 3 MG TABLET PO SCH ×2 (08:14→16:43)
[2019-09-26] MEDS: ASPIRIN 81 MG CHEWABLE TABLET PO SCH (08:14)
[2019-09-26] MEDS: BENZTROPINE MESYLATE 0.5 MG TABLET PO SCH ×2 (08:15→20:32)
[2019-09-26] MEDS: BusPIRone HCL 15 MG TABLET PO SCH (08:15)
[2019-09-26] MEDS: AmLODIPine BESYLATE 2.5 MG TABLET PO SCH (08:16)
[2019-09-26] MEDS: DOCUSATE SODIUM 100 MG CAPSULE PO SCH (09:00)
[2019-09-26] MEDS: OMEGA-3/DHA/EPA/FISH OIL 1,000 MG CAPSULE PO SCH (09:00)
[2019-09-26] MEDS: OXYBUTYNIN CHLORIDE 5 MG ER TABLET PO SCH (09:46)
[2019-09-26 17:06] VITALS: BP 156/73
[2019-09-27 04:00] VITALS: BP 145/83
[2019-09-27 08:21] VITALS: BP 124/63
[2019-09-27] MEDS: TOPIRAMATE 100 MG TABLET PO SCH ×2 (08:24→17:20)
[2019-09-27] MEDS: ASPIRIN 81 MG CHEWABLE TABLET PO SCH (08:24)
[2019-09-27] MEDS: HALOPERIDOL 5 MG TABLET PO PRN ×3 (08:24→20:30)
[2019-09-27] MEDS: BENZTROPINE MESYLATE 0.5 MG TABLET PO SCH ×2 (08:25→20:30)
[2019-09-27] MEDS: AmLODIPine BESYLATE 2.5 MG TABLET PO SCH (08:25)
[2019-09-27] MEDS: OMEPRAZOLE 20 MG CAPSULE PO SCH (08:25)
[2019-09-27] MEDS: RisperiDONE 3 MG TABLET PO SCH ×2 (08:25→17:21)
[2019-09-27] MEDS: BusPIRone HCL 15 MG TABLET PO SCH (08:26)
[2019-09-27] MEDS: DOCUSATE SODIUM 100 MG CAPSULE PO SCH (09:00)
[2019-09-27] MEDS: OMEGA-3/DHA/EPA/FISH OIL 1,000 MG CAPSULE PO SCH (09:00)
[2019-09-27] MEDS: OXYBUTYNIN CHLORIDE 5 MG ER TABLET PO SCH (09:26)
[2019-09-27 17:56] VITALS: BP 118/57
[2019-09-27] MEDS: IBUPROFEN 600 MG TABLET PO PRN (22:34)
[2019-09-28 04:31] VITALS: BP 115/67
[2019-09-28] MEDS: HALOPERIDOL 5 MG TABLET PO PRN ×4 (04:44→21:40)
[2019-09-28 08:23] VITALS: BP 151/100
[2019-09-28] MEDS: OMEPRAZOLE 20 MG CAPSULE PO SCH (08:57)
[2019-09-28] MEDS: TOPIRAMATE 100 MG TABLET PO SCH ×2 (08:57→18:38)
[2019-09-28] MEDS: DOCUSATE SODIUM 100 MG CAPSULE PO SCH (08:57)
[2019-09-28] MEDS: OMEGA-3/DHA/EPA/FISH OIL 1,000 MG CAPSULE PO SCH (08:57)
[2019-09-28] MEDS: BENZTROPINE MESYLATE 0.5 MG TABLET PO SCH ×2 (08:58→20:43)
[2019-09-28] MEDS: ASPIRIN 81 MG CHEWABLE TABLET PO SCH (08:58)
[2019-09-28] MEDS: AmLODIPine BESYLATE 2.5 MG TABLET PO SCH (08:58)
[2019-09-28] MEDS: BusPIRone HCL 15 MG TABLET PO SCH (08:58)
[2019-09-28] MEDS: OXYBUTYNIN CHLORIDE 5 MG ER TABLET PO SCH (08:59)
[2019-09-28] MEDS: RisperiDONE 3 MG TABLET PO SCH ×2 (08:59→18:37)
[2019-09-28] MEDS: IBUPROFEN 600 MG TABLET PO PRN (16:34)
[2019-09-28 16:49] VITALS: BP 152/68
[2019-09-29 06:42] VITALS: BP 109/61
[2019-09-29] MEDS: TOPIRAMATE 100 MG TABLET PO SCH ×2 (08:07→17:30)
[2019-09-29] MEDS: OXYBUTYNIN CHLORIDE 5 MG ER TABLET PO SCH (08:07)
[2019-09-29] MEDS: AmLODIPine BESYLATE 2.5 MG TABLET PO SCH (08:07)
[2019-09-29] MEDS: BENZTROPINE MESYLATE 0.5 MG TABLET PO SCH ×2 (08:07→20:19)
[2019-09-29] MEDS: OMEGA-3/DHA/EPA/FISH OIL 1,000 MG CAPSULE PO SCH (08:08)
[2019-09-29] MEDS: HALOPERIDOL 5 MG TABLET PO PRN ×3 (08:08→20:18)
[2019-09-29] MEDS: BusPIRone HCL 15 MG TABLET PO SCH (08:08)
[2019-09-29] MEDS: ASPIRIN 81 MG CHEWABLE TABLET PO SCH (08:08)
[2019-09-29] MEDS: RisperiDONE 3 MG TABLET PO SCH ×2 (08:08→17:29)
[2019-09-29] MEDS: OMEPRAZOLE 20 MG CAPSULE PO SCH (08:09)
[2019-09-29] MEDS: DOCUSATE SODIUM 100 MG CAPSULE PO SCH (08:09)
[2019-09-29 08:26] VITALS: BP 128/70
[2019-09-29 16:10] VITALS: BP 159/79
[2019-09-29 21:10] VITALS: BP 142/82
[2019-09-30 03:43] VITALS: BP 125/64
[2019-09-30 08:29] VITALS: BP 137/72
[2019-09-30] MEDS: AmLODIPine BESYLATE 2.5 MG TABLET PO SCH (08:54)
[2019-09-30] MEDS: DOCUSATE SODIUM 100 MG CAPSULE PO SCH (08:54)
[2019-09-30] MEDS: TOPIRAMATE 100 MG TABLET PO SCH ×2 (08:54→16:36)
[2019-09-30] MEDS: OMEPRAZOLE 20 MG CAPSULE PO SCH (08:55)
[2019-09-30] MEDS: BusPIRone HCL 15 MG TABLET PO SCH (08:55)
[2019-09-30] MEDS: BENZTROPINE MESYLATE 0.5 MG TABLET PO SCH ×2 (08:55→21:20)
[2019-09-30] MEDS: OMEGA-3/DHA/EPA/FISH OIL 1,000 MG CAPSULE PO SCH (08:56)
[2019-09-30] MEDS: RisperiDONE 3 MG TABLET PO SCH ×2 (08:56→16:36)
[2019-09-30] MEDS: HALOPERIDOL 5 MG TABLET PO PRN ×3 (08:56→16:37)
[2019-09-30] MEDS: OXYBUTYNIN CHLORIDE 5 MG ER TABLET PO SCH (10:51)
[2019-09-30] MEDS: ASPIRIN 81 MG CHEWABLE TABLET PO SCH (10:52)
[2019-09-30] MEDS: IBUPROFEN 600 MG TABLET PO PRN (16:37)
[2019-09-30 17:33] VITALS: BP 138/70
[2019-10-01] MEDS: IBUPROFEN 600 MG TABLET PO PRN ×2 (02:14→11:17)
[2019-10-01] MEDS: HALOPERIDOL 5 MG TABLET PO PRN ×4 (04:30→20:21)
[2019-10-01 04:43] VITALS: BP 137/82
[2019-10-01 08:12] LABS: HEMATOCRIT 34.8 % (36-46); HEMOGLOBIN 11.8 g/dL (12.0-16.0); MEAN CORPUSCULAR HEMOGLOBIN 29.5 pg (26.0-34.0); MEAN CORPUSCULAR HGB CONC 33.7 G/dL (31.0-37.0); MEAN CORPUSCULAR VOLUME 88 fL (80-100); PLATELET COUNT (AUTO) 248 K/uL (150-450); RED BLOOD CELL COUNT(AUTO) 3.98 MIL/uL (4.00-5.20); RED CELL DISTRIBUTION WIDTH 12.4 % (11.5-14.5)
[2019-10-01 08:26] LABS: ANION GAP 10 mmol/L (8-16); CALCIUM, TOTAL 8.5 mg/dL (8.8-10.5); CARBON DIOXIDE 25 mmol/L (22-29); CHLORIDE 95 mmol/L (98-107); CREATININE 0.77 mg/dL (0.60-1.30); GLOMERULAR FILTR. RATE CALC > 60 mL/min (>60); GLUCOSE,RANDOM 132 mg/dL (70-110); PHOSPHORUS 4.3 mg/dL (2.5-4.9); POTASSIUM 3.6 mmol/L (3.5-5.1); SODIUM SERUM 130 mmol/L (136-145); UREA NITROGEN, BLOOD 19 mg/dL (7-18)
[2019-10-01] MEDS: TOPIRAMATE 100 MG TABLET PO SCH ×2 (08:32→16:40)
[2019-10-01] MEDS: RisperiDONE 3 MG TABLET PO SCH ×2 (08:32→16:40)
[2019-10-01] MEDS: OMEPRAZOLE 20 MG CAPSULE PO SCH (08:33)
[2019-10-01] MEDS: OMEGA-3/DHA/EPA/FISH OIL 1,000 MG CAPSULE PO SCH (08:33)
[2019-10-01] MEDS: ASPIRIN 81 MG CHEWABLE TABLET PO SCH (08:33)
[2019-10-01] MEDS: AmLODIPine BESYLATE 2.5 MG TABLET PO SCH (08:33)
[2019-10-01] MEDS: BENZTROPINE MESYLATE 0.5 MG TABLET PO SCH ×2 (08:33→20:21)
[2019-10-01] MEDS: BusPIRone HCL 15 MG TABLET PO SCH (08:34)
[2019-10-01] MEDS: OXYBUTYNIN CHLORIDE 5 MG ER TABLET PO SCH (08:34)
[2019-10-01] MEDS: DOCUSATE SODIUM 100 MG CAPSULE PO SCH (08:34)
[2019-10-01 08:35] VITALS: BP 135/78
[2019-10-01 10:23] LABS: BAND NEUTROPHILS % (MANUAL) 2 % (0-5); LYMPHOCYTES % (MANUAL) 18 % (22-44); SEGMENTED NEUTROPHILS % 80 % (40-70)
[2019-10-01 11:18] VITALS: BP 129/70
[2019-10-01] MEDS ORDERED: LORazepam 2 MG/ML VIAL IM ONE (11:30)
[2019-10-01] MEDS ORDERED: HALOPERIDOL LACTATE 5 MG/ML VIAL IM ONE (11:30)
[2019-10-01 17:09] VITALS: BP 137/73
[2019-10-02 04:45] VITALS: BP 135/70
[2019-10-02] MEDS: MULTIVITAMINS WITH IRON TABLET PO SCH (06:40)
[2019-10-02] MEDS: BusPIRone HCL 15 MG TABLET PO SCH (08:09)
[2019-10-02] MEDS: DOCUSATE SODIUM 100 MG CAPSULE PO SCH (08:09)
[2019-10-02] MEDS: OXYBUTYNIN CHLORIDE 5 MG ER TABLET PO SCH (08:09)
[2019-10-02] MEDS: RisperiDONE 3 MG TABLET PO SCH ×2 (08:10→15:56)
[2019-10-02] MEDS: SODIUM CHLORIDE 1 GM TABLET PO SCH ×3 (08:10→15:56)
[2019-10-02] MEDS: OMEGA-3/DHA/EPA/FISH OIL 1,000 MG CAPSULE PO SCH (08:10)
[2019-10-02] MEDS: BENZTROPINE MESYLATE 0.5 MG TABLET PO SCH ×2 (08:11→21:48)
[2019-10-02] MEDS: TOPIRAMATE 100 MG TABLET PO SCH ×2 (08:11→15:57)
[2019-10-02] MEDS: OMEPRAZOLE 20 MG CAPSULE PO SCH (08:11)
[2019-10-02] MEDS: ASPIRIN 81 MG CHEWABLE TABLET PO SCH (08:13)
[2019-10-02] MEDS: AmLODIPine BESYLATE 2.5 MG TABLET PO SCH (09:29)
[2019-10-02] MEDS: IBUPROFEN 600 MG TABLET PO PRN ×2 (09:30→17:44)
[2019-10-02 12:27] VITALS: BP 106/63
[2019-10-02] MEDS: HALOPERIDOL 5 MG TABLET PO PRN (15:57)
[2019-10-02 16:05] VITALS: BP 149/79
[2019-10-02 16:56] VITALS: BP 141/86
[2019-10-03] MEDS: IBUPROFEN 600 MG TABLET PO PRN ×3 (00:09→16:52)
[2019-10-03] MEDS: MULTIVITAMINS WITH IRON TABLET PO SCH (06:32)
[2019-10-03 08:10] VITALS: BP 120/66
[2019-10-03] MEDS: AmLODIPine BESYLATE 2.5 MG TABLET PO SCH (08:26)
[2019-10-03] MEDS: BusPIRone HCL 15 MG TABLET PO SCH (08:27)
[2019-10-03] MEDS: DOCUSATE SODIUM 100 MG CAPSULE PO SCH (08:27)
[2019-10-03] MEDS: OMEGA-3/DHA/EPA/FISH OIL 1,000 MG CAPSULE PO SCH (08:27)
[2019-10-03] MEDS: OMEPRAZOLE 20 MG CAPSULE PO SCH (08:27)
[2019-10-03] MEDS: ASPIRIN 81 MG CHEWABLE TABLET PO SCH (08:28)
[2019-10-03] MEDS: TOPIRAMATE 100 MG TABLET PO SCH ×2 (08:28→16:51)
[2019-10-03] MEDS: RisperiDONE 3 MG TABLET PO SCH ×2 (08:28→16:51)
[2019-10-03] MEDS: BENZTROPINE MESYLATE 0.5 MG TABLET PO SCH ×2 (08:28→20:21)
[2019-10-03] MEDS: HALOPERIDOL 5 MG TABLET PO PRN ×3 (08:29→16:52)
[2019-10-03] MEDS: OXYBUTYNIN CHLORIDE 5 MG ER TABLET PO SCH (08:29)
[2019-10-03 16:25] VITALS: BP 149/71
[2019-10-03] MEDS: ASENAPINE 10 MG SUBLINGUAL TABLET SL SCH (17:04)
[2019-10-04 03:03] VITALS: BP 135/74
[2019-10-04 03:47] VITALS: BP 135/74
[2019-10-04] MEDS: IBUPROFEN 600 MG TABLET PO PRN ×2 (03:47→09:22)
[2019-10-04] MEDS: HALOPERIDOL 5 MG TABLET PO PRN ×2 (05:16→13:52)
[2019-10-04 08:04] VITALS: BP 130/92
[2019-10-04] MEDS: AmLODIPine BESYLATE 2.5 MG TABLET PO SCH (08:16)
[2019-10-04] MEDS: BENZTROPINE MESYLATE 0.5 MG TABLET PO SCH ×2 (08:16→20:04)
[2019-10-04] MEDS: TOPIRAMATE 100 MG TABLET PO SCH ×2 (08:16→16:15)
[2019-10-04] MEDS: DOCUSATE SODIUM 100 MG CAPSULE PO SCH (08:16)
[2019-10-04] MEDS: RisperiDONE 3 MG TABLET PO SCH ×2 (08:17→16:15)
[2019-10-04] MEDS: OMEGA-3/DHA/EPA/FISH OIL 1,000 MG CAPSULE PO SCH (08:17)
[2019-10-04] MEDS: ASPIRIN 81 MG CHEWABLE TABLET PO SCH (08:17)
[2019-10-04] MEDS: BusPIRone HCL 15 MG TABLET PO SCH (08:18)
[2019-10-04] MEDS: MULTIVITAMINS WITH IRON TABLET PO SCH (08:18)
[2019-10-04] MEDS: OMEPRAZOLE 20 MG CAPSULE PO SCH (08:19)
[2019-10-04] MEDS: OXYBUTYNIN CHLORIDE 5 MG ER TABLET PO SCH (08:19)
[2019-10-04] MEDS: ASENAPINE 10 MG SUBLINGUAL TABLET SL SCH ×2 (08:20→16:15)
[2019-10-04 17:29] VITALS: BP 137/68
[2019-10-05 03:12] VITALS: BP 127/75
[2019-10-05] MEDS: MULTIVITAMINS WITH IRON TABLET PO SCH (06:35)
[2019-10-05 08:13] VITALS: BP 123/70
[2019-10-05] MEDS: BusPIRone HCL 15 MG TABLET PO SCH (08:30)
[2019-10-05] MEDS: BENZTROPINE MESYLATE 0.5 MG TABLET PO SCH ×2 (08:30→20:18)
[2019-10-05] MEDS: ASPIRIN 81 MG CHEWABLE TABLET PO SCH (08:31)
[2019-10-05] MEDS: DOCUSATE SODIUM 100 MG CAPSULE PO SCH (08:31)
[2019-10-05] MEDS: OXYBUTYNIN CHLORIDE 5 MG ER TABLET PO SCH (08:32)
[2019-10-05] MEDS: OMEGA-3/DHA/EPA/FISH OIL 1,000 MG CAPSULE PO SCH (08:32)
[2019-10-05] MEDS: AmLODIPine BESYLATE 2.5 MG TABLET PO SCH (08:32)
[2019-10-05] MEDS: RisperiDONE 3 MG TABLET PO SCH ×2 (08:32→16:53)
[2019-10-05] MEDS: TOPIRAMATE 100 MG TABLET PO SCH ×2 (08:32→16:53)
[2019-10-05] MEDS: ASENAPINE 10 MG SUBLINGUAL TABLET SL SCH ×2 (08:33→16:53)
[2019-10-05] MEDS: OMEPRAZOLE 20 MG CAPSULE PO SCH (08:33)
[2019-10-05] MEDS: IBUPROFEN 600 MG TABLET PO PRN (12:05)
[2019-10-05] MEDS ORDERED: LORazepam 2 MG/ML VIAL IM ONE (13:00)
[2019-10-05] MEDS ORDERED: DiphenhydrAMINE HCL 50 MG/ML VIAL IM ONE (13:00)
[2019-10-05] MEDS ORDERED: HALOPERIDOL LACTATE 5 MG/ML VIAL IM ONE (13:00)
[2019-10-05 16:00] VITALS: BP 123/64
[2019-10-06 06:20] VITALS: BP 125/74
[2019-10-06] MEDS: MULTIVITAMINS WITH IRON TABLET PO SCH (06:39)
[2019-10-06 08:14] VITALS: BP 118/54
[2019-10-06] MEDS: BENZTROPINE MESYLATE 0.5 MG TABLET PO SCH ×2 (08:14→20:19)
[2019-10-06] MEDS: DOCUSATE SODIUM 100 MG CAPSULE PO SCH (08:14)
[2019-10-06] MEDS: OMEGA-3/DHA/EPA/FISH OIL 1,000 MG CAPSULE PO SCH (08:14)
[2019-10-06] MEDS: BusPIRone HCL 15 MG TABLET PO SCH (08:15)
[2019-10-06] MEDS: RisperiDONE 3 MG TABLET PO SCH ×2 (08:15→16:25)
[2019-10-06] MEDS: ASPIRIN 81 MG CHEWABLE TABLET PO SCH (08:15)
[2019-10-06] MEDS: TOPIRAMATE 100 MG TABLET PO SCH ×2 (08:16→16:24)
[2019-10-06] MEDS: AmLODIPine BESYLATE 2.5 MG TABLET PO SCH (08:16)
[2019-10-06] MEDS: ASENAPINE 10 MG SUBLINGUAL TABLET SL SCH ×2 (08:16→16:24)
[2019-10-06] MEDS: OMEPRAZOLE 20 MG CAPSULE PO SCH (08:16)
[2019-10-06] MEDS: OXYBUTYNIN CHLORIDE 5 MG ER TABLET PO SCH (09:32)
[2019-10-06 16:21] VITALS: BP 137/73
[2019-10-06] MEDS: HALOPERIDOL 5 MG TABLET PO PRN (17:35)
[2019-10-06 19:29] VITALS: BP 120/67
[2019-10-06] MEDS: IBUPROFEN 600 MG TABLET PO PRN (19:29)
[2019-10-07 05:38] VITALS: BP 128/71
[2019-10-07] MEDS: MULTIVITAMINS WITH IRON TABLET PO SCH (06:37)
[2019-10-07] MEDS: TOPIRAMATE 100 MG TABLET PO SCH ×3 (08:02→18:34)
[2019-10-07] MEDS: ASENAPINE 10 MG SUBLINGUAL TABLET SL SCH ×3 (08:02→18:34)
[2019-10-07] MEDS: ASPIRIN 81 MG CHEWABLE TABLET PO SCH (08:03)
[2019-10-07] MEDS: BENZTROPINE MESYLATE 0.5 MG TABLET PO SCH ×2 (08:04→20:35)
[2019-10-07] MEDS: OMEGA-3/DHA/EPA/FISH OIL 1,000 MG CAPSULE PO SCH (08:04)
[2019-10-07] MEDS: DOCUSATE SODIUM 100 MG CAPSULE PO SCH (08:04)
[2019-10-07] MEDS: AmLODIPine BESYLATE 2.5 MG TABLET PO SCH (08:04)
[2019-10-07] MEDS: OXYBUTYNIN CHLORIDE 5 MG ER TABLET PO SCH (08:04)
[2019-10-07] MEDS: OMEPRAZOLE 20 MG CAPSULE PO SCH (08:05)
[2019-10-07] MEDS: BusPIRone HCL 15 MG TABLET PO SCH (08:05)
[2019-10-07] MEDS: RisperiDONE 3 MG TABLET PO SCH ×3 (08:05→18:34)
[2019-10-07 08:08] VITALS: BP 119/71
[2019-10-07] MEDS: IBUPROFEN 600 MG TABLET PO PRN ×2 (10:05→20:36)
[2019-10-07 17:19] VITALS: BP 142/67
[2019-10-07] MEDS: HALOPERIDOL 5 MG TABLET PO PRN (21:21)
[2019-10-08 01:13] VITALS: BP 125/68
[2019-10-08 06:50] VITALS: BP 123/66
[2019-10-08] MEDS: IBUPROFEN 600 MG TABLET PO PRN ×2 (06:50→13:42)
[2019-10-08] MEDS: MULTIVITAMINS WITH IRON TABLET PO SCH (07:15)
[2019-10-08] MEDS: OMEGA-3/DHA/EPA/FISH OIL 1,000 MG CAPSULE PO SCH (08:04)
[2019-10-08] MEDS: DOCUSATE SODIUM 100 MG CAPSULE PO SCH (08:04)
[2019-10-08] MEDS: BENZTROPINE MESYLATE 0.5 MG TABLET PO SCH ×2 (08:05→20:42)
[2019-10-08] MEDS: OMEPRAZOLE 20 MG CAPSULE PO SCH (08:05)
[2019-10-08] MEDS: ASPIRIN 81 MG CHEWABLE TABLET PO SCH (08:05)
[2019-10-08] MEDS: BusPIRone HCL 15 MG TABLET PO SCH (08:05)
[2019-10-08] MEDS: OXYBUTYNIN CHLORIDE 5 MG ER TABLET PO SCH (08:06)
[2019-10-08] MEDS: RisperiDONE 3 MG TABLET PO SCH ×2 (08:06→16:16)
[2019-10-08] MEDS: AmLODIPine BESYLATE 2.5 MG TABLET PO SCH (08:07)
[2019-10-08] MEDS: HALOPERIDOL 5 MG TABLET PO PRN ×2 (08:07→17:35)
[2019-10-08] MEDS: TOPIRAMATE 100 MG TABLET PO SCH ×2 (08:07→16:16)
[2019-10-08 08:12] VITALS: BP 128/57
[2019-10-08] MEDS: ASENAPINE 10 MG SUBLINGUAL TABLET SL SCH ×2 (08:56→16:17)
[2019-10-08 13:42] VITALS: BP 114/67
[2019-10-08 16:56] VITALS: BP 130/79
[2019-10-08] MEDS ORDERED: HALOPERIDOL LACTATE 5 MG/ML VIAL IM ONE (19:30)
[2019-10-08] MEDS ORDERED: LORazepam 2 MG/ML VIAL ONE (19:30)
[2019-10-08] MEDS ORDERED: LORazepam 2 MG/ML VIAL IM ONE (19:30)
[2019-10-08] MEDS ORDERED: HALOPERIDOL LACTATE 5 MG/ML VIAL ONE (19:30)
[2019-10-09 04:38] VITALS: BP 128/70
[2019-10-09] MEDS: MULTIVITAMINS WITH IRON TABLET PO SCH (06:30)
[2019-10-09 08:17] VITALS: BP 125/60
[2019-10-09] MEDS: BusPIRone HCL 15 MG TABLET PO SCH (08:41)
[2019-10-09] MEDS: RisperiDONE 3 MG TABLET PO SCH ×2 (08:42→16:12)
[2019-10-09] MEDS: BENZTROPINE MESYLATE 0.5 MG TABLET PO SCH ×2 (08:42→20:21)
[2019-10-09] MEDS: OMEPRAZOLE 20 MG CAPSULE PO SCH (08:42)
[2019-10-09] MEDS: ASPIRIN 81 MG CHEWABLE TABLET PO SCH (08:43)
[2019-10-09] MEDS: HALOPERIDOL 5 MG TABLET PO PRN ×3 (08:43→19:11)
[2019-10-09] MEDS: OXYBUTYNIN CHLORIDE 5 MG ER TABLET PO SCH (08:43)
[2019-10-09] MEDS: DOCUSATE SODIUM 100 MG CAPSULE PO SCH (08:44)
[2019-10-09] MEDS: TOPIRAMATE 100 MG TABLET PO SCH ×2 (08:44→16:13)
[2019-10-09] MEDS: AmLODIPine BESYLATE 2.5 MG TABLET PO SCH (08:44)
[2019-10-09] MEDS: ASENAPINE 10 MG SUBLINGUAL TABLET SL SCH ×2 (08:45→16:12)
[2019-10-09] MEDS: OMEGA-3/DHA/EPA/FISH OIL 1,000 MG CAPSULE PO SCH (09:15)
[2019-10-09] MEDS: IBUPROFEN 600 MG TABLET PO PRN ×2 (10:54→18:06)
[2019-10-09 16:06] VITALS: BP 133/73
[2019-10-09] MEDS ORDERED: HALOPERIDOL LACTATE 5 MG/ML VIAL ONE (21:08)
[2019-10-09] MEDS ORDERED: LORazepam 2 MG/ML VIAL ONE (21:08)
[2019-10-09] MEDS ORDERED: HALOPERIDOL LACTATE 5 MG/ML VIAL IM ONE (21:15)
[2019-10-09] MEDS ORDERED: LORazepam 2 MG/ML VIAL IM ONE (21:15)
[2019-10-10 03:26] VITALS: BP 123/65
[2019-10-10] MEDS: MULTIVITAMINS WITH IRON TABLET PO SCH (06:56)
[2019-10-10 08:19] VITALS: BP 121/73
[2019-10-10] MEDS: RisperiDONE 3 MG TABLET PO SCH ×2 (08:32→16:18)
[2019-10-10] MEDS: BusPIRone HCL 15 MG TABLET PO SCH (08:32)
[2019-10-10] MEDS: OXYBUTYNIN CHLORIDE 5 MG ER TABLET PO SCH (08:32)
[2019-10-10] MEDS: BENZTROPINE MESYLATE 0.5 MG TABLET PO SCH ×2 (08:32→20:48)
[2019-10-10] MEDS: AmLODIPine BESYLATE 2.5 MG TABLET PO SCH (08:33)
[2019-10-10] MEDS: TOPIRAMATE 100 MG TABLET PO SCH ×2 (08:33→16:18)
[2019-10-10] MEDS: OMEPRAZOLE 20 MG CAPSULE PO SCH (08:33)
[2019-10-10] MEDS: HALOPERIDOL 5 MG TABLET PO PRN ×3 (08:33→17:37)
[2019-10-10] MEDS: DOCUSATE SODIUM 100 MG CAPSULE PO SCH (08:34)
[2019-10-10] MEDS: ASENAPINE 10 MG SUBLINGUAL TABLET SL SCH ×2 (08:34→16:18)
[2019-10-10] MEDS: OMEGA-3/DHA/EPA/FISH OIL 1,000 MG CAPSULE PO SCH (08:34)
[2019-10-10] MEDS: ASPIRIN 81 MG CHEWABLE TABLET PO SCH (08:34)
[2019-10-10] MEDS: IBUPROFEN 600 MG TABLET PO PRN ×2 (11:07→17:36)
[2019-10-10 16:00] VITALS: BP 143/81
[2019-10-11 05:30] VITALS: BP 135/64
[2019-10-11] MEDS: MULTIVITAMINS WITH IRON TABLET PO SCH (07:00)
[2019-10-11 08:16] VITALS: BP 126/67
[2019-10-11] MEDS: RisperiDONE 3 MG TABLET PO SCH ×2 (08:34→17:13)
[2019-10-11] MEDS: ASPIRIN 81 MG CHEWABLE TABLET PO SCH (08:34)
[2019-10-11] MEDS: OMEGA-3/DHA/EPA/FISH OIL 1,000 MG CAPSULE PO SCH (08:34)
[2019-10-11] MEDS: OXYBUTYNIN CHLORIDE 5 MG ER TABLET PO SCH (08:35)
[2019-10-11] MEDS: DOCUSATE SODIUM 100 MG CAPSULE PO SCH (08:35)
[2019-10-11] MEDS: BusPIRone HCL 15 MG TABLET PO SCH (08:35)
[2019-10-11] MEDS: BENZTROPINE MESYLATE 0.5 MG TABLET PO SCH ×2 (08:35→20:27)
[2019-10-11] MEDS: ASENAPINE 10 MG SUBLINGUAL TABLET SL SCH ×2 (08:35→17:14)
[2019-10-11] MEDS: OMEPRAZOLE 20 MG CAPSULE PO SCH (08:36)
[2019-10-11] MEDS: AmLODIPine BESYLATE 2.5 MG TABLET PO SCH (08:36)
[2019-10-11] MEDS: TOPIRAMATE 100 MG TABLET PO SCH ×2 (08:36→17:13)
[2019-10-11] MEDS: HALOPERIDOL 5 MG TABLET PO PRN (08:37)
[2019-10-11 10:24] VITALS: BP 113/65
[2019-10-11] MEDS: IBUPROFEN 600 MG TABLET PO PRN ×2 (10:24→17:14)
[2019-10-11 16:03] VITALS: BP 155/76
[2019-10-11] MEDS ORDERED: DiphenhydrAMINE HCL 50 MG/ML VIAL ONE (19:27)
[2019-10-11] MEDS ORDERED: LORazepam 2 MG/ML VIAL ONE (19:27)
[2019-10-11] MEDS ORDERED: HALOPERIDOL LACTATE 5 MG/ML VIAL ONE (19:27)
[2019-10-11] MEDS ORDERED: DiphenhydrAMINE HCL 50 MG/ML VIAL IM ONE (19:30)
[2019-10-11] MEDS ORDERED: HALOPERIDOL LACTATE 5 MG/ML VIAL IM ONE (19:30)
[2019-10-11] MEDS ORDERED: LORazepam 2 MG/ML VIAL IM ONE (19:30)
[2019-10-12 06:12] VITALS: BP 135/68
[2019-10-12] MEDS: MULTIVITAMINS WITH IRON TABLET PO SCH (06:56)
[2019-10-12 08:19] VITALS: BP 127/60
[2019-10-12] MEDS: DOCUSATE SODIUM 100 MG CAPSULE PO SCH (08:20)
[2019-10-12] MEDS: OMEGA-3/DHA/EPA/FISH OIL 1,000 MG CAPSULE PO SCH (08:21)
[2019-10-12] MEDS: ASPIRIN 81 MG CHEWABLE TABLET PO SCH (08:21)
[2019-10-12] MEDS: BusPIRone HCL 15 MG TABLET PO SCH (08:21)
[2019-10-12] MEDS: OMEPRAZOLE 20 MG CAPSULE PO SCH (08:21)
[2019-10-12] MEDS: RisperiDONE 3 MG TABLET PO SCH ×2 (08:22→17:22)
[2019-10-12] MEDS: OXYBUTYNIN CHLORIDE 5 MG ER TABLET PO SCH (08:22)
[2019-10-12] MEDS: ASENAPINE 10 MG SUBLINGUAL TABLET SL SCH ×2 (08:22→17:22)
[2019-10-12] MEDS: TOPIRAMATE 100 MG TABLET PO SCH ×2 (08:22→17:23)
[2019-10-12] MEDS: BENZTROPINE MESYLATE 0.5 MG TABLET PO SCH ×2 (08:23→21:09)
[2019-10-12] MEDS: AmLODIPine BESYLATE 2.5 MG TABLET PO SCH (08:23)
[2019-10-12] MEDS: IBUPROFEN 600 MG TABLET PO PRN ×2 (10:00→17:27)
[2019-10-12 16:00] VITALS: BP 134/78
[2019-10-12] MEDS: HALOPERIDOL 5 MG TABLET PO PRN (17:22)
[2019-10-13 06:23] VITALS: BP 122/60
[2019-10-13] MEDS: MULTIVITAMINS WITH IRON TABLET PO SCH (06:50)
[2019-10-13 08:15] VITALS: BP 107/65
[2019-10-13] MEDS: ASPIRIN 81 MG CHEWABLE TABLET PO SCH (08:18)
[2019-10-13] MEDS: BusPIRone HCL 15 MG TABLET PO SCH (08:18)
[2019-10-13] MEDS: TOPIRAMATE 100 MG TABLET PO SCH ×2 (08:18→17:34)
[2019-10-13] MEDS: OXYBUTYNIN CHLORIDE 5 MG ER TABLET PO SCH (08:18)
[2019-10-13] MEDS: DOCUSATE SODIUM 100 MG CAPSULE PO SCH (08:19)
[2019-10-13] MEDS: RisperiDONE 3 MG TABLET PO SCH ×2 (08:22→17:34)
[2019-10-13] MEDS: OMEGA-3/DHA/EPA/FISH OIL 1,000 MG CAPSULE PO SCH (08:22)
[2019-10-13] MEDS: AmLODIPine BESYLATE 2.5 MG TABLET PO SCH (08:22)
[2019-10-13] MEDS: OMEPRAZOLE 20 MG CAPSULE PO SCH (08:23)
[2019-10-13] MEDS: BENZTROPINE MESYLATE 0.5 MG TABLET PO SCH ×2 (08:23→20:56)
[2019-10-13] MEDS: ASENAPINE 10 MG SUBLINGUAL TABLET SL SCH ×2 (08:23→17:34)
[2019-10-13] MEDS: IBUPROFEN 600 MG TABLET PO PRN ×2 (09:02→17:47)
[2019-10-13] MEDS: HALOPERIDOL 5 MG TABLET PO PRN ×2 (09:02→13:43)
[2019-10-13] MEDS ORDERED: LORazepam 2 MG/ML VIAL IM ONE (16:00)
[2019-10-13] MEDS ORDERED: HALOPERIDOL LACTATE 5 MG/ML VIAL IM ONE (16:00)
[2019-10-13] MEDS ORDERED: DiphenhydrAMINE HCL 50 MG/ML VIAL IM ONE (16:00)
[2019-10-13 17:29] VITALS: BP 135/75
[2019-10-14 05:59] VITALS: BP 130/59
[2019-10-14] MEDS: MULTIVITAMINS WITH IRON TABLET PO SCH (06:42)
[2019-10-14 08:30] VITALS: BP 131/73
[2019-10-14] MEDS: OMEPRAZOLE 20 MG CAPSULE PO SCH (08:34)
[2019-10-14] MEDS: DOCUSATE SODIUM 100 MG CAPSULE PO SCH (08:34)
[2019-10-14] MEDS: ASENAPINE 10 MG SUBLINGUAL TABLET SL SCH ×2 (08:34→17:02)
[2019-10-14] MEDS: RisperiDONE 3 MG TABLET PO SCH ×2 (08:34→17:02)
[2019-10-14] MEDS: OXYBUTYNIN CHLORIDE 5 MG ER TABLET PO SCH (08:34)
[2019-10-14] MEDS: BusPIRone HCL 15 MG TABLET PO SCH (08:35)
[2019-10-14] MEDS: ASPIRIN 81 MG CHEWABLE TABLET PO SCH (08:35)
[2019-10-14] MEDS: OMEGA-3/DHA/EPA/FISH OIL 1,000 MG CAPSULE PO SCH (08:35)
[2019-10-14] MEDS: TOPIRAMATE 100 MG TABLET PO SCH ×2 (08:35→17:02)
[2019-10-14] MEDS: BENZTROPINE MESYLATE 0.5 MG TABLET PO SCH ×2 (08:35→20:15)
[2019-10-14] MEDS: MAGNESIUM HYDROXIDE SUSPENSION 30 ML UDCUP PO PRN (08:38)
[2019-10-14] MEDS: AmLODIPine BESYLATE 2.5 MG TABLET PO SCH (08:41)
[2019-10-14] MEDS: HALOPERIDOL 5 MG TABLET PO PRN ×2 (10:42→14:44)
[2019-10-14] MEDS: IBUPROFEN 600 MG TABLET PO PRN ×2 (10:43→22:22)
[2019-10-14 16:21] VITALS: BP 139/73
[2019-10-14] MEDS ORDERED: DiphenhydrAMINE HCL 50 MG/ML VIAL IM ONE (19:30)
[2019-10-14] MEDS ORDERED: HALOPERIDOL LACTATE 5 MG/ML VIAL IM ONE (19:30)
[2019-10-14] MEDS ORDERED: LORazepam 2 MG/ML VIAL IM ONE (19:30)
[2019-10-14 22:22] VITALS: BP 133/84
[2019-10-15 04:22] VITALS: BP 124/78
[2019-10-15] MEDS: MULTIVITAMINS WITH IRON TABLET PO SCH (06:39)
[2019-10-15 08:11] VITALS: BP 135/67
[2019-10-15] MEDS: OMEGA-3/DHA/EPA/FISH OIL 1,000 MG CAPSULE PO SCH (08:13)
[2019-10-15] MEDS: DOCUSATE SODIUM 100 MG CAPSULE PO SCH (08:13)
[2019-10-15] MEDS: AmLODIPine BESYLATE 2.5 MG TABLET PO SCH (08:14)
[2019-10-15] MEDS: OXYBUTYNIN CHLORIDE 5 MG ER TABLET PO SCH (08:14)
[2019-10-15] MEDS: RisperiDONE 3 MG TABLET PO SCH ×2 (08:14→16:10)
[2019-10-15] MEDS: OMEPRAZOLE 20 MG CAPSULE PO SCH (08:14)
[2019-10-15] MEDS: ASPIRIN 81 MG CHEWABLE TABLET PO SCH (08:15)
[2019-10-15] MEDS: TOPIRAMATE 100 MG TABLET PO SCH ×2 (08:15→16:09)
[2019-10-15] MEDS: ASENAPINE 10 MG SUBLINGUAL TABLET SL SCH ×2 (08:15→16:09)
[2019-10-15] MEDS: BENZTROPINE MESYLATE 0.5 MG TABLET PO SCH ×2 (08:15→20:33)
[2019-10-15] MEDS: BusPIRone HCL 15 MG TABLET PO SCH (08:16)
[2019-10-15 08:28] LABS: BASOPHILS % (AUTO) 0.7 % (0.0-2.0); EOSINOPHILS % (AUTO) 0.6 % (1.0-6.0); HEMATOCRIT 39.6 % (36-46); HEMOGLOBIN 13.3 g/dL (12.0-16.0); LYMPHOCYTES # (AUTO) 1.2 K/uL (1.0-4.8); LYMPHOCYTES % (AUTO) 21.4 % (22.0-44.0); MEAN CORPUSCULAR HEMOGLOBIN 29.4 pg (26.0-34.0); MEAN CORPUSCULAR HGB CONC 33.6 G/dL (31.0-37.0); MEAN CORPUSCULAR VOLUME 88 fL (80-100); MONOCYTES # (AUTO) 0.4 K/uL (0.1-1.0); MONOCYTES % (AUTO) 7.7 % (2.0-9.0); NEUTROPHILS % (AUTO) 69.6 % (40.0-70.0); PLATELET COUNT (AUTO) 294 K/uL (150-450); RED BLOOD CELL COUNT(AUTO) 4.52 MIL/uL (4.00-5.20); RED CELL DISTRIBUTION WIDTH 12.3 % (11.5-14.5)
[2019-10-15 08:48] LABS: ALANINE AMINOTRANSFERASE 23 U/L (12-78); ALBUMIN 4.1 g/dL (3.4-5.0); ALKALINE PHOSPHATASE 87 U/L (46-116); ANION GAP 10 mmol/L (8-16); ASPARTATE AMINOTRANSFERASE 12 U/L (15-37); BILIRUBIN,TOTAL 0.2 mg/dL (0.1-1.0); CALCIUM, TOTAL 9.5 mg/dL (8.8-10.5); CARBON DIOXIDE 25 mmol/L (22-29); CHLORIDE 97 mmol/L (98-107); CREATININE 0.79 mg/dL (0.60-1.30); GLOMERULAR FILTR. RATE CALC > 60 mL/min (>60); GLUCOSE,RANDOM 110 mg/dL (70-110); PHOSPHORUS 4.6 mg/dL (2.5-4.9); POTASSIUM 3.8 mmol/L (3.5-5.1); SODIUM SERUM 132 mmol/L (136-145); TOTAL PROTEIN, SERUM 7.7 g/dL (6.4-8.2); UREA NITROGEN, BLOOD 19 mg/dL (7-18)
[2019-10-15 08:59] LABS: HEMOGLOBIN A1C 5.7 % (3.8-5.6)
[2019-10-15 09:28] LABS: IRON, SERUM 47 mcg/dL (50-175); TOTAL IRON BINDING CAPACITY 361 mcg/dL (250-450)
[2019-10-15] MEDS: IBUPROFEN 600 MG TABLET PO PRN (11:30)
[2019-10-15 16:17] VITALS: BP 132/69
[2019-10-15] MEDS: MAGNESIUM HYDROXIDE SUSPENSION 30 ML UDCUP PO PRN (17:18)
[2019-10-15] MEDS: HALOPERIDOL 5 MG TABLET PO PRN (17:53)
[2019-10-15] MEDS ORDERED: DiphenhydrAMINE HCL 50 MG/ML VIAL ONE (18:05)
[2019-10-15] MEDS ORDERED: LORazepam 2 MG/ML VIAL ONE (18:05)
[2019-10-15] MEDS ORDERED: HALOPERIDOL LACTATE 5 MG/ML VIAL ONE (18:05)
[2019-10-15] MEDS ORDERED: DiphenhydrAMINE HCL 50 MG/ML VIAL IM ONE (18:15)
[2019-10-15] MEDS ORDERED: LORazepam 2 MG/ML VIAL IM ONE (18:15)
[2019-10-15] MEDS ORDERED: HALOPERIDOL LACTATE 5 MG/ML VIAL IM ONE (18:15)
[2019-10-16 01:15] VITALS: BP 128/63
[2019-10-16 08:07] VITALS: BP 116/66
[2019-10-16] MEDS: OXYBUTYNIN CHLORIDE 5 MG ER TABLET PO SCH (09:15)
[2019-10-16] MEDS: DOCUSATE SODIUM 100 MG CAPSULE PO SCH (09:15)
[2019-10-16] MEDS: TOPIRAMATE 100 MG TABLET PO SCH ×2 (09:15→16:40)
[2019-10-16] MEDS: RisperiDONE 4 MG TABLET PO SCH ×2 (09:16→16:40)
[2019-10-16] MEDS: MULTIVITAMINS WITH IRON TABLET PO SCH (09:16)
[2019-10-16] MEDS: SODIUM CHLORIDE 1 GM TABLET PO SCH ×3 (09:16→16:40)
[2019-10-16] MEDS: BusPIRone HCL 15 MG TABLET PO SCH (09:16)
[2019-10-16] MEDS: BENZTROPINE MESYLATE 0.5 MG TABLET PO SCH ×2 (09:16→21:05)
[2019-10-16] MEDS: AmLODIPine BESYLATE 2.5 MG TABLET PO SCH (09:16)
[2019-10-16] MEDS: OMEGA-3/DHA/EPA/FISH OIL 1,000 MG CAPSULE PO SCH (09:17)
[2019-10-16] MEDS: ASENAPINE 10 MG SUBLINGUAL TABLET SL SCH ×2 (09:17→16:43)
[2019-10-16] MEDS: OMEPRAZOLE 20 MG CAPSULE PO SCH (09:19)
[2019-10-16] MEDS: ASPIRIN 81 MG CHEWABLE TABLET PO SCH (09:19)
[2019-10-16] MEDS ORDERED: RisperiDONE MICROSPHERES 50 MG/2 ML SYRINGE IM ONE (11:30)
[2019-10-16] MEDS: MAG HYDROX/AL HYDROX/SIMETH ES 30 ML SUSPENSION UDCUP PO PRN ×2 (12:26→17:23)
[2019-10-16 16:51] VITALS: BP 110/62
[2019-10-16] MEDS: HALOPERIDOL 5 MG TABLET PO PRN (19:20)
[2019-10-16] MEDS: IBUPROFEN 600 MG TABLET PO PRN (19:20)
[2019-10-17 00:51] VITALS: BP 117/86
[2019-10-17 05:23] VITALS: BP 125/75
[2019-10-17] MEDS: IBUPROFEN 600 MG TABLET PO PRN (05:25)
[2019-10-17] MEDS: MULTIVITAMINS WITH IRON TABLET PO SCH (06:31)
[2019-10-17 08:11] VITALS: BP 158/83
[2019-10-17] MEDS: OMEGA-3/DHA/EPA/FISH OIL 1,000 MG CAPSULE PO SCH (08:14)
[2019-10-17] MEDS: DOCUSATE SODIUM 100 MG CAPSULE PO SCH (08:14)
[2019-10-17] MEDS: SODIUM CHLORIDE 1 GM TABLET PO SCH ×3 (08:14→16:17)
[2019-10-17] MEDS: BENZTROPINE MESYLATE 0.5 MG TABLET PO SCH ×2 (08:14→20:36)
[2019-10-17] MEDS: BusPIRone HCL 15 MG TABLET PO SCH (08:15)
[2019-10-17] MEDS: TOPIRAMATE 100 MG TABLET PO SCH ×2 (08:15→16:17)
[2019-10-17] MEDS: OMEPRAZOLE 20 MG CAPSULE PO SCH (08:15)
[2019-10-17] MEDS: RisperiDONE 4 MG TABLET PO SCH ×2 (08:16→16:17)
[2019-10-17] MEDS: AmLODIPine BESYLATE 2.5 MG TABLET PO SCH (08:16)
[2019-10-17] MEDS: ASPIRIN 81 MG CHEWABLE TABLET PO SCH (08:16)
[2019-10-17] MEDS: OXYBUTYNIN CHLORIDE 5 MG ER TABLET PO SCH (08:17)
[2019-10-17] MEDS: ASENAPINE 10 MG SUBLINGUAL TABLET SL SCH ×2 (08:17→16:18)
[2019-10-17] MEDS: HALOPERIDOL 5 MG TABLET PO PRN ×3 (09:02→17:07)
[2019-10-17 10:35] VITALS: BP 138/74
[2019-10-17 16:07] VITALS: BP 136/75
[2019-10-17] MEDS: ACETAMINOPHEN 325 MG TABLET PO PRN (16:50)
[2019-10-17] MEDS ORDERED: HALOPERIDOL LACTATE 5 MG/ML VIAL IM ONE (21:45)
[2019-10-17] MEDS ORDERED: LORazepam 2 MG/ML VIAL IM ONE (21:45)
[2019-10-17] MEDS: MAG HYDROX/AL HYDROX/SIMETH ES 30 ML SUSPENSION UDCUP PO PRN (21:50)
[2019-10-18 04:04] VITALS: BP 121/77
[2019-10-18] MEDS: MULTIVITAMINS WITH IRON TABLET PO SCH (06:42)
[2019-10-18] MEDS: OXYBUTYNIN CHLORIDE 5 MG ER TABLET PO SCH (08:10)
[2019-10-18] MEDS: DOCUSATE SODIUM 100 MG CAPSULE PO SCH (08:10)
[2019-10-18] MEDS: AmLODIPine BESYLATE 2.5 MG TABLET PO SCH (08:11)
[2019-10-18] MEDS: BENZTROPINE MESYLATE 0.5 MG TABLET PO SCH ×2 (08:11→20:39)
[2019-10-18] MEDS: ASPIRIN 81 MG CHEWABLE TABLET PO SCH (08:11)
[2019-10-18] MEDS: OMEGA-3/DHA/EPA/FISH OIL 1,000 MG CAPSULE PO SCH (08:11)
[2019-10-18] MEDS: OMEPRAZOLE 20 MG CAPSULE PO SCH (08:12)
[2019-10-18] MEDS: TOPIRAMATE 100 MG TABLET PO SCH ×2 (08:12→16:25)
[2019-10-18] MEDS: ASENAPINE 10 MG SUBLINGUAL TABLET SL SCH ×2 (08:12→16:25)
[2019-10-18] MEDS: RisperiDONE 4 MG TABLET PO SCH ×2 (08:12→16:25)
[2019-10-18] MEDS: BusPIRone HCL 15 MG TABLET PO SCH (08:12)
[2019-10-18 08:24] VITALS: BP 117/54
[2019-10-18] MEDS: IBUPROFEN 600 MG TABLET PO PRN (10:28)
[2019-10-18 16:15] VITALS: BP 138/72
[2019-10-18] MEDS: HALOPERIDOL 5 MG TABLET PO PRN (16:25)
[2019-10-18] MEDS: ACETAMINOPHEN 325 MG TABLET PO PRN (19:29)
[2019-10-18] MEDS: HALOPERIDOL 5 MG TABLET PO SCH (21:16)
[2019-10-19 03:13] VITALS: BP 127/78
[2019-10-19] MEDS: HALOPERIDOL 5 MG TABLET PO PRN ×3 (03:58→14:58)
[2019-10-19] MEDS: MULTIVITAMINS WITH IRON TABLET PO SCH (06:21)
[2019-10-19] MEDS: ASENAPINE 10 MG SUBLINGUAL TABLET SL SCH ×2 (08:06→16:08)
[2019-10-19] MEDS: ASPIRIN 81 MG CHEWABLE TABLET PO SCH (08:07)
[2019-10-19] MEDS: BusPIRone HCL 15 MG TABLET PO SCH (08:07)
[2019-10-19] MEDS: BENZTROPINE MESYLATE 0.5 MG TABLET PO SCH ×2 (08:07→20:37)
[2019-10-19] MEDS: TOPIRAMATE 100 MG TABLET PO SCH ×2 (08:07→16:01)
[2019-10-19] MEDS: OMEPRAZOLE 20 MG CAPSULE PO SCH (08:07)
[2019-10-19] MEDS: OXYBUTYNIN CHLORIDE 5 MG ER TABLET PO SCH (08:07)
[2019-10-19] MEDS: DOCUSATE SODIUM 100 MG CAPSULE PO SCH (08:08)
[2019-10-19] MEDS: RisperiDONE 4 MG TABLET PO SCH ×2 (08:08→16:01)
[2019-10-19] MEDS: AmLODIPine BESYLATE 2.5 MG TABLET PO SCH (08:08)
[2019-10-19] MEDS: OMEGA-3/DHA/EPA/FISH OIL 1,000 MG CAPSULE PO SCH (08:08)
[2019-10-19 08:20] VITALS: BP 106/66
[2019-10-19 10:32] VITALS: BP 117/83
[2019-10-19] MEDS: IBUPROFEN 600 MG TABLET PO PRN (10:32)
[2019-10-19] MEDS: MAG HYDROX/AL HYDROX/SIMETH ES 30 ML SUSPENSION UDCUP PO PRN (13:32)
[2019-10-19 14:57] VITALS: BP 128/62
[2019-10-19] MEDS: ACETAMINOPHEN 325 MG TABLET PO PRN (14:57)
[2019-10-19] MEDS ORDERED: HALOPERIDOL LACTATE 5 MG/ML VIAL ONE (16:02)
[2019-10-19] MEDS ORDERED: DiphenhydrAMINE HCL 50 MG/ML VIAL ONE (16:02)
[2019-10-19] MEDS ORDERED: HALOPERIDOL LACTATE 5 MG/ML VIAL IM ONE (16:15)
[2019-10-19] MEDS ORDERED: DiphenhydrAMINE HCL 50 MG/ML VIAL IM ONE (16:15)
[2019-10-19 16:30] VITALS: BP 125/81
[2019-10-19] MEDS: HALOPERIDOL 5 MG TABLET PO SCH (20:37)
[2019-10-20 06:02] VITALS: BP 129/77
[2019-10-20] MEDS: IBUPROFEN 600 MG TABLET PO PRN ×2 (06:28→16:50)
[2019-10-20] MEDS: MULTIVITAMINS WITH IRON TABLET PO SCH (06:54)
[2019-10-20] MEDS: ASPIRIN 81 MG CHEWABLE TABLET PO SCH (08:01)
[2019-10-20] MEDS: TOPIRAMATE 100 MG TABLET PO SCH ×2 (08:02→16:50)
[2019-10-20] MEDS: DOCUSATE SODIUM 100 MG CAPSULE PO SCH (08:02)
[2019-10-20] MEDS: BENZTROPINE MESYLATE 0.5 MG TABLET PO SCH ×2 (08:02→20:50)
[2019-10-20] MEDS: AmLODIPine BESYLATE 2.5 MG TABLET PO SCH (08:02)
[2019-10-20] MEDS: RisperiDONE 4 MG TABLET PO SCH ×2 (08:02→16:48)
[2019-10-20] MEDS: HALOPERIDOL 5 MG TABLET PO PRN ×2 (08:02→12:40)
[2019-10-20] MEDS: ASENAPINE 10 MG SUBLINGUAL TABLET SL SCH ×2 (08:03→16:50)
[2019-10-20] MEDS: OMEPRAZOLE 20 MG CAPSULE PO SCH (08:03)
[2019-10-20] MEDS: OXYBUTYNIN CHLORIDE 5 MG ER TABLET PO SCH (08:03)
[2019-10-20] MEDS: BusPIRone HCL 15 MG TABLET PO SCH (08:03)
[2019-10-20] MEDS: OMEGA-3/DHA/EPA/FISH OIL 1,000 MG CAPSULE PO SCH (08:03)
[2019-10-20 08:18] VITALS: BP 128/67
[2019-10-20 16:18] VITALS: BP 139/64
[2019-10-20] MEDS: HALOPERIDOL 5 MG TABLET PO SCH (20:51)
[2019-10-21 01:30] VITALS: BP 129/64
[2019-10-21] MEDS: IBUPROFEN 600 MG TABLET PO PRN ×3 (01:32→18:13)
[2019-10-21] MEDS: HALOPERIDOL 5 MG TABLET PO PRN ×2 (01:47→15:02)
[2019-10-21] MEDS: MULTIVITAMINS WITH IRON TABLET PO SCH (06:31)
[2019-10-21 08:06] VITALS: BP 124/66
[2019-10-21] MEDS: DOCUSATE SODIUM 100 MG CAPSULE PO SCH (08:12)
[2019-10-21] MEDS: OMEPRAZOLE 20 MG CAPSULE PO SCH (08:12)
[2019-10-21] MEDS: OMEGA-3/DHA/EPA/FISH OIL 1,000 MG CAPSULE PO SCH (08:12)
[2019-10-21] MEDS: OXYBUTYNIN CHLORIDE 5 MG ER TABLET PO SCH (08:12)
[2019-10-21] MEDS: AmLODIPine BESYLATE 2.5 MG TABLET PO SCH (08:13)
[2019-10-21] MEDS: BusPIRone HCL 15 MG TABLET PO SCH (08:13)
[2019-10-21] MEDS: BENZTROPINE MESYLATE 0.5 MG TABLET PO SCH ×2 (08:13→19:59)
[2019-10-21] MEDS: ASPIRIN 81 MG CHEWABLE TABLET PO SCH (08:14)
[2019-10-21] MEDS: ASENAPINE 10 MG SUBLINGUAL TABLET SL SCH ×2 (08:15→16:00)
[2019-10-21] MEDS: TOPIRAMATE 100 MG TABLET PO SCH ×2 (08:15→16:03)
[2019-10-21] MEDS: RisperiDONE 4 MG TABLET PO SCH ×2 (08:15→16:03)
[2019-10-21] MEDS: MAG HYDROX/AL HYDROX/SIMETH ES 30 ML SUSPENSION UDCUP PO PRN ×2 (09:14→15:02)
[2019-10-21] MEDS: ACETAMINOPHEN 325 MG TABLET PO PRN (12:27)
[2019-10-21 16:42] VITALS: BP 131/63
[2019-10-21 19:20] VITALS: BP 156/91
[2019-10-21] MEDS: HALOPERIDOL 5 MG TABLET PO SCH (20:00)
[2019-10-22 04:15] VITALS: BP 132/86
[2019-10-22] MEDS: MULTIVITAMINS WITH IRON TABLET PO SCH (06:37)
[2019-10-22 08:17] VITALS: BP 125/70
[2019-10-22] MEDS: AmLODIPine BESYLATE 2.5 MG TABLET PO SCH (08:20)
[2019-10-22] MEDS: TOPIRAMATE 100 MG TABLET PO SCH ×2 (08:20→16:09)
[2019-10-22] MEDS: ASENAPINE 10 MG SUBLINGUAL TABLET SL SCH ×2 (08:20→16:08)
[2019-10-22] MEDS: OMEGA-3/DHA/EPA/FISH OIL 1,000 MG CAPSULE PO SCH (08:21)
[2019-10-22] MEDS: RisperiDONE 4 MG TABLET PO SCH ×2 (08:21→16:08)
[2019-10-22] MEDS: BENZTROPINE MESYLATE 0.5 MG TABLET PO SCH ×2 (08:21→20:05)
[2019-10-22] MEDS: ASPIRIN 81 MG CHEWABLE TABLET PO SCH (08:21)
[2019-10-22] MEDS: OXYBUTYNIN CHLORIDE 5 MG ER TABLET PO SCH (08:21)
[2019-10-22] MEDS: DOCUSATE SODIUM 100 MG CAPSULE PO SCH (08:22)
[2019-10-22] MEDS: BusPIRone HCL 15 MG TABLET PO SCH (08:22)
[2019-10-22] MEDS ORDERED: LANSOPRAZOLE 30 MG CAPSULE PO SCH (09:00)
[2019-10-22] MEDS: LANSOPRAZOLE 30 MG SOLUBLE TABLET PO SCH (12:10)
[2019-10-22 16:10] VITALS: BP 130/67
[2019-10-22] MEDS: HALOPERIDOL 5 MG TABLET PO PRN (16:14)
[2019-10-22] MEDS: IBUPROFEN 600 MG TABLET PO PRN (18:30)
[2019-10-22] MEDS: HALOPERIDOL 5 MG TABLET PO SCH (20:05)
[2019-10-23] MEDS: IBUPROFEN 600 MG TABLET PO PRN (03:22)
[2019-10-23 03:23] VITALS: BP 129/72
[2019-10-23] MEDS: MULTIVITAMINS WITH IRON TABLET PO SCH (06:34)
[2019-10-23 08:01] LABS: BAND NEUTROPHILS % (MANUAL) 0 % (0-5)
[2019-10-23 08:07] LABS: HEMATOCRIT 37.1 % (36-46); HEMOGLOBIN 12.3 g/dL (12.0-16.0); MEAN CORPUSCULAR HEMOGLOBIN 28.8 pg (26.0-34.0); MEAN CORPUSCULAR HGB CONC 33.1 G/dL (31.0-37.0); MEAN CORPUSCULAR VOLUME 87 fL (80-100); PLATELET COUNT (AUTO) 275 K/uL (150-450); RED BLOOD CELL COUNT(AUTO) 4.26 MIL/uL (4.00-5.20); RED CELL DISTRIBUTION WIDTH 12.5 % (11.5-14.5)
[2019-10-23 08:14] VITALS: BP 115/74
[2019-10-23 08:25] LABS: ANION GAP 8 mmol/L (8-16); CALCIUM, TOTAL 8.6 mg/dL (8.8-10.5); CARBON DIOXIDE 26 mmol/L (22-29); CHLORIDE 97 mmol/L (98-107); CREATININE 0.77 mg/dL (0.60-1.30); GLOMERULAR FILTR. RATE CALC > 60 mL/min (>60); GLUCOSE,RANDOM 106 mg/dL (70-110); PHOSPHORUS 4.3 mg/dL (2.5-4.9); POTASSIUM 3.8 mmol/L (3.5-5.1); SODIUM SERUM 131 mmol/L (136-145); UREA NITROGEN, BLOOD 19 mg/dL (7-18)
[2019-10-23] MEDS: RisperiDONE 4 MG TABLET PO SCH ×2 (08:34→16:15)
[2019-10-23] MEDS: LANSOPRAZOLE 30 MG SOLUBLE TABLET PO SCH (08:34)
[2019-10-23] MEDS: ASENAPINE 10 MG SUBLINGUAL TABLET SL SCH ×2 (08:34→16:15)
[2019-10-23] MEDS: ASPIRIN 81 MG CHEWABLE TABLET PO SCH (08:34)
[2019-10-23] MEDS: DOCUSATE SODIUM 100 MG CAPSULE PO SCH (08:34)
[2019-10-23] MEDS: BENZTROPINE MESYLATE 0.5 MG TABLET PO SCH ×2 (08:35→19:58)
[2019-10-23] MEDS: BusPIRone HCL 15 MG TABLET PO SCH (08:35)
[2019-10-23] MEDS: OXYBUTYNIN CHLORIDE 5 MG ER TABLET PO SCH (08:35)
[2019-10-23] MEDS: OMEGA-3/DHA/EPA/FISH OIL 1,000 MG CAPSULE PO SCH (08:35)
[2019-10-23] MEDS: AmLODIPine BESYLATE 2.5 MG TABLET PO SCH (08:35)
[2019-10-23] MEDS: TOPIRAMATE 100 MG TABLET PO SCH ×2 (08:38→16:16)
[2019-10-23 08:42] LABS: LYMPHOCYTES % (MANUAL) 25 % (22-44); MONOCYTES % (MANUAL) 2 % (2-9); SEGMENTED NEUTROPHILS % 73 % (40-70)
[2019-10-23 16:03] VITALS: BP 138/72
[2019-10-23] MEDS: HALOPERIDOL 5 MG TABLET PO PRN (16:55)
[2019-10-23] MEDS: HALOPERIDOL 5 MG TABLET PO SCH (19:58)
[2019-10-24 02:31] VITALS: BP 128/76
[2019-10-24] MEDS: MULTIVITAMINS WITH IRON TABLET PO SCH (06:36)
[2019-10-24 08:03] VITALS: BP 130/80
[2019-10-24] MEDS: OMEGA-3/DHA/EPA/FISH OIL 1,000 MG CAPSULE PO SCH (08:17)
[2019-10-24] MEDS: AmLODIPine BESYLATE 2.5 MG TABLET PO SCH (08:17)
[2019-10-24] MEDS: ASPIRIN 81 MG CHEWABLE TABLET PO SCH (08:17)
[2019-10-24] MEDS: RisperiDONE 4 MG TABLET PO SCH ×2 (08:17→16:23)
[2019-10-24] MEDS: ASENAPINE 10 MG SUBLINGUAL TABLET SL SCH ×2 (08:17→16:23)
[2019-10-24] MEDS: BusPIRone HCL 15 MG TABLET PO SCH (08:18)
[2019-10-24] MEDS: DOCUSATE SODIUM 100 MG CAPSULE PO SCH (08:18)
[2019-10-24] MEDS: BENZTROPINE MESYLATE 0.5 MG TABLET PO SCH ×2 (08:18→20:27)
[2019-10-24] MEDS: TOPIRAMATE 100 MG TABLET PO SCH ×2 (08:18→16:23)
[2019-10-24] MEDS: LANSOPRAZOLE 30 MG SOLUBLE TABLET PO SCH (08:18)
[2019-10-24] MEDS: OXYBUTYNIN CHLORIDE 5 MG ER TABLET PO SCH (08:19)
[2019-10-24] MEDS: HALOPERIDOL 5 MG TABLET PO PRN ×2 (08:48→13:09)
[2019-10-24] MEDS: HALOPERIDOL 5 MG TABLET PO SCH (20:27)
[2019-10-24] MEDS: IBUPROFEN 600 MG TABLET PO PRN (21:26)
[2019-10-24 21:27] VITALS: BP 130/60
[2019-10-25 02:39] VITALS: BP 126/63
[2019-10-25] MEDS: MULTIVITAMINS WITH IRON TABLET PO SCH (06:47)
[2019-10-25] MEDS: IBUPROFEN 600 MG TABLET PO PRN ×2 (07:16→16:17)
[2019-10-25 08:19] VITALS: BP 108/66
[2019-10-25] MEDS: OMEGA-3/DHA/EPA/FISH OIL 1,000 MG CAPSULE PO SCH (08:48)
[2019-10-25] MEDS: SODIUM CHLORIDE 1 GM TABLET PO SCH ×2 (08:48→17:14)
[2019-10-25] MEDS: DOCUSATE SODIUM 100 MG CAPSULE PO SCH (08:49)
[2019-10-25] MEDS: ASPIRIN 81 MG CHEWABLE TABLET PO SCH (08:49)
[2019-10-25] MEDS: TOPIRAMATE 100 MG TABLET PO SCH ×2 (08:49→17:13)
[2019-10-25] MEDS: BusPIRone HCL 15 MG TABLET PO SCH (08:49)
[2019-10-25] MEDS: ASENAPINE 10 MG SUBLINGUAL TABLET SL SCH ×2 (08:50→17:13)
[2019-10-25] MEDS: BENZTROPINE MESYLATE 0.5 MG TABLET PO SCH ×2 (08:50→21:21)
[2019-10-25] MEDS: OXYBUTYNIN CHLORIDE 5 MG ER TABLET PO SCH (08:50)
[2019-10-25] MEDS: AmLODIPine BESYLATE 2.5 MG TABLET PO SCH (08:51)
[2019-10-25] MEDS: RisperiDONE 4 MG TABLET PO SCH ×2 (08:51→17:13)
[2019-10-25] MEDS: LANSOPRAZOLE 30 MG SOLUBLE TABLET PO SCH (08:51)
[2019-10-25] MEDS: HALOPERIDOL 5 MG TABLET PO PRN (10:20)
[2019-10-25 16:21] VITALS: BP 142/73
[2019-10-25] MEDS: HALOPERIDOL 5 MG TABLET PO SCH (21:21)
[2019-10-26 03:32] VITALS: BP 146/82
[2019-10-26] MEDS: HALOPERIDOL 5 MG TABLET PO PRN ×3 (03:33→17:17)
[2019-10-26] MEDS: MULTIVITAMINS WITH IRON TABLET PO SCH (06:59)
[2019-10-26] MEDS: OXYBUTYNIN CHLORIDE 5 MG ER TABLET PO SCH (08:06)
[2019-10-26] MEDS: TOPIRAMATE 100 MG TABLET PO SCH ×2 (08:07→17:05)
[2019-10-26] MEDS: ASPIRIN 81 MG CHEWABLE TABLET PO SCH (08:07)
[2019-10-26] MEDS: SODIUM CHLORIDE 1 GM TABLET PO SCH ×2 (08:07→17:05)
[2019-10-26] MEDS: LANSOPRAZOLE 30 MG SOLUBLE TABLET PO SCH (08:07)
[2019-10-26] MEDS: DOCUSATE SODIUM 100 MG CAPSULE PO SCH (08:08)
[2019-10-26] MEDS: OMEGA-3/DHA/EPA/FISH OIL 1,000 MG CAPSULE PO SCH (08:08)
[2019-10-26] MEDS: AmLODIPine BESYLATE 2.5 MG TABLET PO SCH (08:08)
[2019-10-26] MEDS: RisperiDONE 4 MG TABLET PO SCH ×2 (08:09→17:05)
[2019-10-26] MEDS: ASENAPINE 10 MG SUBLINGUAL TABLET SL SCH ×2 (08:09→17:05)
[2019-10-26] MEDS: BusPIRone HCL 15 MG TABLET PO SCH (08:09)
[2019-10-26] MEDS: BENZTROPINE MESYLATE 0.5 MG TABLET PO SCH ×2 (08:09→20:56)
[2019-10-26 13:01] VITALS: BP 102/69
[2019-10-26] MEDS: IBUPROFEN 600 MG TABLET PO PRN (15:32)
[2019-10-26 16:05] VITALS: BP 127/60
[2019-10-26] MEDS ORDERED: LORazepam 2 MG/ML VIAL ONE (17:57)
[2019-10-26] MEDS ORDERED: HALOPERIDOL LACTATE 5 MG/ML VIAL ONE (17:58)
[2019-10-26] MEDS ORDERED: LORazepam 2 MG/ML VIAL IM ONE (18:00)
[2019-10-26] MEDS ORDERED: HALOPERIDOL LACTATE 5 MG/ML VIAL IM ONE (18:00)
[2019-10-26] MEDS: HALOPERIDOL 5 MG TABLET PO SCH (20:56)
[2019-10-27 02:48] VITALS: BP 123/65
[2019-10-27] MEDS: MULTIVITAMINS WITH IRON TABLET PO SCH (06:44)
[2019-10-27] MEDS: TOPIRAMATE 100 MG TABLET PO SCH ×2 (08:22→16:50)
[2019-10-27] MEDS: OXYBUTYNIN CHLORIDE 5 MG ER TABLET PO SCH (08:22)
[2019-10-27] MEDS: SODIUM CHLORIDE 1 GM TABLET PO SCH ×2 (08:22→16:51)
[2019-10-27] MEDS: BENZTROPINE MESYLATE 0.5 MG TABLET PO SCH ×2 (08:23→20:10)
[2019-10-27] MEDS: DOCUSATE SODIUM 100 MG CAPSULE PO SCH (08:23)
[2019-10-27] MEDS: ASPIRIN 81 MG CHEWABLE TABLET PO SCH (08:23)
[2019-10-27] MEDS: OMEGA-3/DHA/EPA/FISH OIL 1,000 MG CAPSULE PO SCH (08:23)
[2019-10-27] MEDS: RisperiDONE 4 MG TABLET PO SCH ×2 (08:24→16:51)
[2019-10-27] MEDS: AmLODIPine BESYLATE 2.5 MG TABLET PO SCH (08:24)
[2019-10-27] MEDS: LANSOPRAZOLE 30 MG SOLUBLE TABLET PO SCH (08:24)
[2019-10-27] MEDS: BusPIRone HCL 15 MG TABLET PO SCH (08:24)
[2019-10-27] MEDS: ASENAPINE 10 MG SUBLINGUAL TABLET SL SCH ×2 (08:24→16:50)
[2019-10-27 08:25] VITALS: BP 112/59
[2019-10-27] MEDS: HALOPERIDOL 5 MG TABLET PO PRN (16:52)
[2019-10-27 17:23] VITALS: BP 132/75
[2019-10-27] MEDS: HALOPERIDOL 5 MG TABLET PO SCH (20:09)
[2019-10-28] MEDS: MULTIVITAMINS WITH IRON TABLET PO SCH (06:36)
[2019-10-28 07:01] VITALS: BP 116/72
[2019-10-28] MEDS: BENZTROPINE MESYLATE 0.5 MG TABLET PO SCH ×2 (08:22→20:39)
[2019-10-28] MEDS: ASENAPINE 10 MG SUBLINGUAL TABLET SL SCH ×2 (08:22→16:14)
[2019-10-28] MEDS: BusPIRone HCL 15 MG TABLET PO SCH (08:22)
[2019-10-28] MEDS: SODIUM CHLORIDE 1 GM TABLET PO SCH ×2 (08:22→16:14)
[2019-10-28] MEDS: OXYBUTYNIN CHLORIDE 5 MG ER TABLET PO SCH (08:23)
[2019-10-28] MEDS: RisperiDONE 4 MG TABLET PO SCH ×2 (08:23→16:14)
[2019-10-28] MEDS: TOPIRAMATE 100 MG TABLET PO SCH ×2 (08:23→16:14)
[2019-10-28] MEDS: LANSOPRAZOLE 30 MG SOLUBLE TABLET PO SCH (08:23)
[2019-10-28] MEDS: OMEGA-3/DHA/EPA/FISH OIL 1,000 MG CAPSULE PO SCH (08:23)
[2019-10-28] MEDS: DOCUSATE SODIUM 100 MG CAPSULE PO SCH (08:24)
[2019-10-28] MEDS: ASPIRIN 81 MG CHEWABLE TABLET PO SCH (08:24)
[2019-10-28 08:37] VITALS: BP_SYST 100
[2019-10-28 09:05] VITALS: BP 123/64
[2019-10-28] MEDS: AmLODIPine BESYLATE 2.5 MG TABLET PO SCH (09:05)
[2019-10-28] MEDS: IBUPROFEN 600 MG TABLET PO PRN ×2 (09:05→18:08)
[2019-10-28] MEDS: HALOPERIDOL 5 MG TABLET PO PRN (13:30)
[2019-10-28 16:10] VITALS: BP 135/71
[2019-10-28 18:08] VITALS: BP 138/66
[2019-10-28] MEDS: HALOPERIDOL 5 MG TABLET PO SCH (20:42)
[2019-10-29 01:07] VITALS: BP 136/76
[2019-10-29] MEDS: IBUPROFEN 600 MG TABLET PO PRN ×2 (01:07→18:10)
[2019-10-29] MEDS: MULTIVITAMINS WITH IRON TABLET PO SCH (06:38)
[2019-10-29] MEDS: SODIUM CHLORIDE 1 GM TABLET PO SCH ×2 (08:24→15:59)
[2019-10-29] MEDS: LANSOPRAZOLE 30 MG SOLUBLE TABLET PO SCH (08:24)
[2019-10-29] MEDS: ASENAPINE 10 MG SUBLINGUAL TABLET SL SCH ×2 (08:25→15:58)
[2019-10-29] MEDS: RisperiDONE 4 MG TABLET PO SCH ×2 (08:25→15:59)
[2019-10-29 08:34] VITALS: BP 149/76
[2019-10-29] MEDS ORDERED: TUBERCULIN, PURIFIED PROTEIN DERIVATIVE 5 TU/0.1 ML SYRINGE ID ONE (13:15)
[2019-10-29 16:42] VITALS: BP 133/67
[2019-10-29] MEDS ORDERED: IBUPROFEN 600 MG TABLET ONE (18:09)
[2019-10-29] MEDS ORDERED: ALBUTEROL SULFATE HFA 90 MCG/PUFF 8 GM INHALER IH PRN (18:30)
[2019-10-29] MEDS ORDERED: MAG HYDROX/AL HYDROX/SIMETH ES 30 ML SUSPENSION UDCUP PO PRN (18:30)
[2019-10-29] MEDS ORDERED: BENZOCAINE/MENTHOL LOZENGE PO PRN (18:30)
[2019-10-29] MEDS ORDERED: PETROLATUM,WHITE 28 GM JELLY TP PRN (18:30)
[2019-10-29] MEDS: HALOPERIDOL 5 MG TABLET PO SCH (19:59)
[2019-10-29] MEDS: BENZTROPINE MESYLATE 0.5 MG TABLET PO SCH (19:59)
[2019-10-30 01:43] VITALS: BP 131/62
[2019-10-30] MEDS: MULTIVITAMINS WITH IRON TABLET PO SCH (06:41)
[2019-10-30] MEDS: IBUPROFEN 600 MG TABLET PO PRN ×2 (06:42→19:23)
[2019-10-30] MEDS: ASPIRIN 81 MG CHEWABLE TABLET PO SCH (08:11)
[2019-10-30] MEDS: SODIUM CHLORIDE 1 GM TABLET PO SCH ×2 (08:11→16:06)
[2019-10-30] MEDS: RisperiDONE 4 MG TABLET PO SCH ×2 (08:12→16:07)
[2019-10-30] MEDS: BENZTROPINE MESYLATE 0.5 MG TABLET PO SCH ×2 (08:12→20:35)
[2019-10-30] MEDS: ASENAPINE 10 MG SUBLINGUAL TABLET SL SCH ×2 (08:13→16:06)
[2019-10-30] MEDS: OMEGA-3/DHA/EPA/FISH OIL 1,000 MG CAPSULE PO SCH (08:13)
[2019-10-30] MEDS: LANSOPRAZOLE 30 MG CAPSULE PO SCH (08:13)
[2019-10-30] MEDS: DOCUSATE SODIUM 100 MG CAPSULE PO SCH (08:14)
[2019-10-30 08:34] VITALS: BP 129/71
[2019-10-30] MEDS ORDERED: RisperiDONE MICROSPHERES 50 MG/2 ML SYRINGE IM SCH (09:00)
[2019-10-30] MEDS ORDERED: DiphenhydrAMINE HCL 50 MG/ML VIAL ONE (11:59)
[2019-10-30] MEDS ORDERED: HALOPERIDOL LACTATE 5 MG/ML VIAL ONE (12:00)
[2019-10-30] MEDS ORDERED: HALOPERIDOL LACTATE 5 MG/ML VIAL IM ONE (12:15)
[2019-10-30] MEDS ORDERED: DiphenhydrAMINE HCL 50 MG/ML VIAL IM ONE (12:15)
[2019-10-30 13:25] VITALS: BP 130/65
[2019-10-30] MEDS: AmLODIPine BESYLATE 2.5 MG TABLET PO SCH (14:07)
[2019-10-30] MEDS: BusPIRone HCL 15 MG TABLET PO SCH (14:07)
[2019-10-30 16:05] VITALS: BP 118/66
[2019-10-30] MEDS: OXYBUTYNIN CHLORIDE 5 MG ER TABLET PO SCH (16:07)
[2019-10-30] MEDS: TOPIRAMATE 100 MG TABLET PO SCH (16:07)
[2019-10-30] MEDS: MAGNESIUM HYDROXIDE SUSPENSION 30 ML UDCUP PO PRN (17:20)
[2019-10-30 19:23] VITALS: BP 124/73
[2019-10-30] MEDS: HALOPERIDOL 5 MG TABLET PO SCH (20:35)
[2019-10-31 02:20] VITALS: BP 133/76
[2019-10-31] MEDS: MULTIVITAMINS WITH IRON TABLET PO SCH (06:31)
[2019-10-31] MEDS: BENZTROPINE MESYLATE 0.5 MG TABLET PO SCH (08:08)
[2019-10-31] MEDS: SODIUM CHLORIDE 1 GM TABLET PO SCH (08:08)
[2019-10-31] MEDS: ASPIRIN 81 MG CHEWABLE TABLET PO SCH (08:09)
[2019-10-31] MEDS: RisperiDONE 4 MG TABLET PO SCH (08:10)
[2019-10-31] MEDS: AmLODIPine BESYLATE 2.5 MG TABLET PO SCH (08:10)
[2019-10-31] MEDS: BusPIRone HCL 15 MG TABLET PO SCH (08:10)
[2019-10-31] MEDS: DOCUSATE SODIUM 100 MG CAPSULE PO SCH (08:10)
[2019-10-31] MEDS: TOPIRAMATE 100 MG TABLET PO SCH (08:10)
[2019-10-31] MEDS: OMEGA-3/DHA/EPA/FISH OIL 1,000 MG CAPSULE PO SCH (08:10)
[2019-10-31] MEDS: OXYBUTYNIN CHLORIDE 5 MG ER TABLET PO SCH (08:10)
[2019-10-31] MEDS: LANSOPRAZOLE 30 MG CAPSULE PO SCH (08:11)
[2019-10-31] MEDS: ASENAPINE 10 MG SUBLINGUAL TABLET SL SCH (08:15)
[2019-10-31] MEDS: MAGNESIUM HYDROXIDE SUSPENSION 30 ML UDCUP PO PRN (08:21)
[2019-10-31 08:36] VITALS: BP 121/70
== END 2019-10-31 11:10 | disposition home or self-care (01) | DRG 885 ==
LOC: B3A 11:53
PROVIDERS: ADMIT Psychiatry & Neurology Psychiatry; ATTEND Psychiatry & Neurology Psychiatry
DX: F20.0 Paranoid schizophrenia (principal); R45.851 Suicidal ideations; I10 Essential (primary) hypertension; K21.9 Gastro-esophageal reflux disease without esophagitis; M19.90 Unspecified osteoarthritis, unspecified site; G43.909 Migraine, unspecified, not intractable, without status migrainosus; G47.00 Insomnia, unspecified; K59.00 Constipation, unspecified; F41.9 Anxiety disorder, unspecified; Z79.899 Other long term (current) drug therapy; Z03.818 Encounter for observation for suspected exposure to other biological agents ruled out
CPT/HCPCS: 74018; 80307; 83036; 83540; 83550; 83735; 84100; 84295; 85007; 87081; 87635; J1200; J1630; J2060; J2794

== ENCOUNTER 2019-10-21 22:06 | Emergency (ER) | payer OTHER ==
[~2019-10-21] VITALS: Ht 154.9 cm; Wt 81.8 kg
[~2019-10-21 22:06] MED LIST changes: +RISP3 PO
[2019-10-21 23:04] LABS: BASOPHILS % (AUTO) 0.5 % (0.0-2.0); EOSINOPHILS % (AUTO) 0.7 % (1.0-6.0); HEMOGLOBIN 12.1 g/dL (12.0-16.0); LYMPHOCYTES # (AUTO) 1.6 K/uL (1.0-4.8); LYMPHOCYTES % (AUTO) 23.1 % (22.0-44.0); MEAN CORPUSCULAR HEMOGLOBIN 28.9 pg (26.0-34.0); MEAN CORPUSCULAR HGB CONC 33.7 G/dL (31.0-37.0); MEAN CORPUSCULAR VOLUME 86 fL (80-100); MONOCYTES # (AUTO) 0.7 K/uL (0.1-1.0); MONOCYTES % (AUTO) 10.6 % (2.0-9.0); NEUTROPHILS # (AUTO) 4.5 K/uL (1.8-7.7); NEUTROPHILS % (AUTO) 65.1 % (40.0-70.0); PLATELET COUNT (AUTO) 265 K/uL (150-450); RED CELL DISTRIBUTION WIDTH 12.6 % (11.5-14.5)
[2019-10-21 23:14] LABS: ANION GAP 7 mmol/L (8-16); CALCIUM, TOTAL 9.1 mg/dL (8.8-10.5); CARBON DIOXIDE 28 mmol/L (22-29); CHLORIDE 95 mmol/L (98-107); CREATININE 0.74 mg/dL (0.60-1.30); GLOMERULAR FILTR. RATE CALC > 60 mL/min (>60); GLUCOSE,RANDOM 123 mg/dL (70-110); POTASSIUM 3.6 mmol/L (3.5-5.1); SODIUM SERUM 130 mmol/L (136-145); UREA NITROGEN, BLOOD 17 mg/dL (7-18)
[2019-10-21] MEDS ORDERED: SODIUM CHLORIDE 0.9% 100 ML ONE (23:16)
[2019-10-21] MEDS ORDERED: IOVERSOL 350 MG/ML 100 ML VIAL ONE (23:16)
[2019-10-21 23:20] LABS: ALANINE AMINOTRANSFERASE 26 U/L (12-78); ALKALINE PHOSPHATASE 81 U/L (46-116); ASPARTATE AMINOTRANSFERASE 13 U/L (15-37); BILIRUBIN,TOTAL 0.2 mg/dL (0.1-1.0); LIPASE 115 U/L (73-393); TOTAL PROTEIN, SERUM 7.2 g/dL (6.4-8.2)
[2019-10-21] MEDS ORDERED: FUROSEMIDE 40 MG/4 ML VIAL IVP ONE (23:45)
[2019-10-22] MEDS ORDERED: PB/HYOSCY/ATR/SCOP/LIDO/MAALOX 55 ML BOTTLE PO ONE (00:15)
[2019-10-22 00:43] LABS: APPEARANCE,URINE CLEAR (CLEAR); BILIRUBIN,URINE NEGATIVE (NEGATIVE); GLUCOSE, URINE (UA) NEGATIVE (NEGATIVE); KETONES,URINE NEGATIVE (NEGATIVE); LEUKOCYTE ESTERASE ,URINE SMALL (NEGATIVE); NITRATE,URINE NEGATIVE (NEGATIVE); OCCULT BLOOD,URINE NEGATIVE (NEGATIVE); PROTEIN,URINE NEGATIVE (NEGATIVE); UROBILINOGEN,URINE 0.2 mg/dL (<=1.0)
[2019-10-22 00:58] LABS: BACTERIA,URINE Few /HPF (None Seen); RBC,URINE None Seen /HPF (0-2); SQUAMOUS EPITHELIAL CELL,UR Rare /LPF (None Seen); YEAST,URINE None Seen /HPF (None Seen)
[2019-10-22 01:45] VITALS: BP 118/61
== END 2019-10-22 02:26 | disposition home or self-care (01) ==
LOC: EMS 22:06
DX: K29.70 Gastritis, unspecified, without bleeding (principal); F25.9 Schizoaffective disorder, unspecified; F32.9 Major depressive disorder, single episode, unspecified; K21.9 Gastro-esophageal reflux disease without esophagitis; I25.2 Old myocardial infarction; Z87.891 Personal history of nicotine dependence; Z88.8 Allergy status to other drugs, medicaments and biological substances
CPT/HCPCS: 36415; 71260; 74176; 80053; 81001; 83690; 84484; 85025; 93005; 99285; J1940; J7050; Q9967; 72193; 74160

== ENCOUNTER 2021-11-25 12:39 | Emergency (ER) | payer OTHER ==
[~2021-11-25] VITALS: Ht 162.6 cm; Wt 95.5 kg
[~2021-11-25 12:39] MED LIST changes: -AMLO2.5T4 PO; +AMLO2.5T96 PO; +ASEN10TA14 SL; -ASEN10TA8 SL; +ASPI-1450 PO; -ASPI-728 PO; -BENZ0.5T44 PO; +BENZ0.5T49 PO; -OMEG-135 PO; -OMEP20 PO; +OXYB-34 PO; -OXYB5XL PO; -RISP3 PO; +RISP3TAB35 PO
[2021-11-25 12:42] VITALS: BP 138/78
== END 2021-11-25 13:52 | disposition left against medical advice (07) ==
LOC: EMS 12:45
DX: M25.561 Pain in right knee (principal); F32.A Depression, unspecified; F20.9 Schizophrenia, unspecified; F10.20 Alcohol dependence, uncomplicated; K21.9 Gastro-esophageal reflux disease without esophagitis; M79.7 Fibromyalgia; Z88.8 Allergy status to other drugs, medicaments and biological substances
CPT/HCPCS: 99283; Z7502

== ENCOUNTER 2021-12-02 19:39 | Emergency (ER) | payer OTHER ==
[~2021-12-02] VITALS: Ht 154.9 cm; Wt 97.3 kg
[2021-12-02 19:52] VITALS: BP 114/66
[2021-12-02] MEDS ORDERED: LORazepam 1 MG TABLET PO ONE (21:30)
[2021-12-02] MEDS ORDERED: QUEtiapine FUMARATE 100 MG TABLET PO ONE (21:30)
== END 2021-12-02 22:05 | disposition home or self-care (01) ==
LOC: EMS 19:50
DX: G89.29 Other chronic pain (principal); F20.0 Paranoid schizophrenia; F10.20 Alcohol dependence, uncomplicated; F17.210 Nicotine dependence, cigarettes, uncomplicated; F32.9 Major depressive disorder, single episode, unspecified; K21.9 Gastro-esophageal reflux disease without esophagitis; M79.7 Fibromyalgia; M19.90 Unspecified osteoarthritis, unspecified site; Z88.1 Allergy status to other antibiotic agents
CPT/HCPCS: 99283

== ENCOUNTER 2021-12-12 19:04 | Emergency (ER) | payer OTHER ==
[2021-12-12 20:43] LABS: APPEARANCE,URINE HAZY (CLEAR); BILIRUBIN,URINE NEGATIVE (NEGATIVE); GLUCOSE, URINE (UA) NEGATIVE (NEGATIVE); KETONES,URINE NEGATIVE (NEGATIVE); LEUKOCYTE ESTERASE ,URINE LARGE (NEGATIVE); NITRATE,URINE NEGATIVE (NEGATIVE); OCCULT BLOOD,URINE NEGATIVE (NEGATIVE); PROTEIN,URINE NEGATIVE (NEGATIVE); SPECIFIC GRAVITIY, URINE 1.006 (1.003-1.030); UROBILINOGEN,URINE <=1.0 mg/dL (<=1.0)
[2021-12-12 20:49] LABS: BACTERIA,URINE Many /HPF (None Seen); RBC,URINE None Seen /HPF (0-2); SQUAMOUS EPITHELIAL CELL,UR None Seen /LPF (None Seen)
[2021-12-12 22:12] LABS: BASOPHILS % (AUTO) 0.4 % (0.0-2.0); EOSINOPHILS % (AUTO) 0.1 % (1.0-6.0); HEMATOCRIT 34.5 % (36-46); HEMOGLOBIN 11.8 g/dL (12.0-16.0); LYMPHOCYTES # (AUTO) 1.2 K/uL (1.0-4.8); LYMPHOCYTES % (AUTO) 25.1 % (22.0-44.0); MEAN CORPUSCULAR HEMOGLOBIN 30.1 pg (26.0-34.0); MEAN CORPUSCULAR HGB CONC 34.1 G/dL (31.0-37.0); MEAN CORPUSCULAR VOLUME 88 fL (80-100); MONOCYTES # (AUTO) 0.7 K/uL (0.1-1.0); MONOCYTES % (AUTO) 14.1 % (2.0-9.0); NEUTROPHILS # (AUTO) 2.9 K/uL (1.8-7.7); NEUTROPHILS % (AUTO) 60.3 % (40.0-70.0); PLATELET COUNT (AUTO) 223 K/uL (150-450); RED BLOOD CELL COUNT(AUTO) 3.91 MIL/uL (4.00-5.20); RED CELL DISTRIBUTION WIDTH 12.8 % (11.5-14.5)
[2021-12-12 22:21] LABS: ANION GAP 11 mmol/L (8-16); CALCIUM, TOTAL 8.8 mg/dL (8.8-10.5); CARBON DIOXIDE 23 mmol/L (22-29); CHLORIDE 98 mmol/L (98-107); CREATININE 0.79 mg/dL (0.60-1.30); GLOMERULAR FILTR. RATE CALC > 60 mL/min (>60); GLUCOSE,RANDOM 104 mg/dL (70-110); POTASSIUM 3.1 mmol/L (3.5-5.1); SODIUM SERUM 132 mmol/L (136-145); UREA NITROGEN, BLOOD 7 mg/dL (7-18)
[2021-12-12 22:26] LABS: ALANINE AMINOTRANSFERASE 28 U/L (12-78); ALBUMIN 3.5 g/dL (3.4-5.0); ALKALINE PHOSPHATASE 66 U/L (46-116); ASPARTATE AMINOTRANSFERASE 23 U/L (15-37); BILIRUBIN,TOTAL 0.2 mg/dL (0.1-1.0); LIPASE 81 U/L (73-393); TOTAL PROTEIN, SERUM 6.5 g/dL (6.4-8.2)
[2021-12-12] MEDS ORDERED: NITR100C4 PO (22:29)
[2021-12-12] MEDS ORDERED: POLY17PO PO (22:29)
[2021-12-12 22:30] VITALS: BP 141/74
[2021-12-12] MEDS ORDERED: LORazepam 1 MG TABLET PO ONE (22:45)
[2021-12-12 23:00] LABS: AMPHET/METH SCREEN,URINE NEGATIVE (NEGATIVE); BARBITURATE SCREEN, URINE NEGATIVE (NEGATIVE); BENZODIAZEPINES SCREEN,URINE NEGATIVE (NEGATIVE); CANNABINOID SCREEN,URINE NEGATIVE (NEGATIVE); COCAINE SCREEN,URINE NEGATIVE (NEGATIVE); METHADONE SCREEN, URINE NEGATIVE (NEGATIVE); OPIATE SCREEN,URINE POSITIVE (NEGATIVE); PHENCYCLIDINE SCREEN,URINE NEGATIVE (NEGATIVE)
== END 2021-12-12 23:12 | disposition home or self-care (01) ==
LOC: EMS 19:20
DX: N39.0 Urinary tract infection, site not specified (principal); K59.00 Constipation, unspecified; F20.9 Schizophrenia, unspecified; F32.9 Major depressive disorder, single episode, unspecified; F10.20 Alcohol dependence, uncomplicated; F17.210 Nicotine dependence, cigarettes, uncomplicated; I25.10 Atherosclerotic heart disease of native coronary artery without angina pectoris; K21.9 Gastro-esophageal reflux disease without esophagitis; M79.7 Fibromyalgia; Z88.1 Allergy status to other antibiotic agents; Z91.048 Other nonmedicinal substance allergy status
CPT/HCPCS: 99283; 80053; 81001; 83690; 85025; 36415; 87086; 80307; G0480

== ENCOUNTER 2021-12-23 19:02 | Emergency (ER) | payer OTHER ==
[~2021-12-23] VITALS: Ht 152.4 cm; Wt 81.8 kg
[~2021-12-23 19:02] MED LIST changes: +NITR100C4 PO; +POLY17PO PO
[2021-12-23 20:00] VITALS: BP 134/71
[2021-12-23] MEDS ORDERED: METHOCARBAMOL 500 MG TABLET PO ONE (20:00)
[2021-12-23] MEDS ORDERED: KETOROLAC TROMETHAMINE 10 MG TABLET PO ONE (20:00)
[2021-12-23] MEDS ORDERED: METH-659 PO (20:13)
[2021-12-23] MEDS ORDERED: NAPR-1025 PO (20:13)
== END 2021-12-23 20:26 | disposition home or self-care (01) ==
LOC: EMS 19:06
DX: S00.93XA Contusion of unspecified part of head, initial encounter (principal); S16.1XXA Strain of muscle, fascia and tendon at neck level, initial encounter; F32.A Depression, unspecified; M79.7 Fibromyalgia; F20.9 Schizophrenia, unspecified; M19.90 Unspecified osteoarthritis, unspecified site; F17.210 Nicotine dependence, cigarettes, uncomplicated; Z87.19 Personal history of other diseases of the digestive system; Z86.79 Personal history of other diseases of the circulatory system; Z86.59 Personal history of other mental and behavioral disorders; Z98.890 Other specified postprocedural states; Z88.8 Allergy status to other drugs, medicaments and biological substances; Y08.89XA Assault by other specified means, initial encounter; Y93.89 Activity, other specified; Y92.89 Other specified places as the place of occurrence of the external cause; Y99.8 Other external cause status
CPT/HCPCS: 99283

== ENCOUNTER 2021-12-24 17:58 | Emergency (ER) | payer OTHER ==
[~2021-12-24] VITALS: Ht 152.4 cm; Wt 72.7 kg
[~2021-12-24 17:58] MED LIST changes: +METH-659 PO; +NAPR-1025 PO
[2021-12-24 20:54] LABS: BASOPHILS % (AUTO) 0.6 % (0.0-2.0); EOSINOPHILS % (AUTO) 0.1 % (1.0-6.0); HEMOGLOBIN 12.9 g/dL (12.0-16.0); LYMPHOCYTES # (AUTO) 1.3 K/uL (1.0-4.8); LYMPHOCYTES % (AUTO) 17.4 % (22.0-44.0); MEAN CORPUSCULAR HEMOGLOBIN 30.5 pg (26.0-34.0); MEAN CORPUSCULAR HGB CONC 34.8 G/dL (31.0-37.0); MEAN CORPUSCULAR VOLUME 88 fL (80-100); MONOCYTES # (AUTO) 0.7 K/uL (0.1-1.0); MONOCYTES % (AUTO) 8.6 % (2.0-9.0); NEUTROPHILS # (AUTO) 5.5 K/uL (1.8-7.7); NEUTROPHILS % (AUTO) 73.3 % (40.0-70.0); PLATELET COUNT (AUTO) 287 K/uL (150-450); RED BLOOD CELL COUNT(AUTO) 4.22 MIL/uL (4.00-5.20); RED CELL DISTRIBUTION WIDTH 12.9 % (11.5-14.5)
[2021-12-24 21:03] LABS: ANION GAP 8 mmol/L (8-16); CARBON DIOXIDE 25 mmol/L (22-29); CHLORIDE 98 mmol/L (98-107); CREATININE 0.95 mg/dL (0.60-1.30); GLUCOSE,RANDOM 107 mg/dL (70-110); SODIUM SERUM 131 mmol/L (136-145); UREA NITROGEN, BLOOD 11 mg/dL (7-18)
[2021-12-24 21:04] LABS: GLOMERULAR FILTR. RATE CALC 59 mL/min (>60)
[2021-12-24 21:09] LABS: ALANINE AMINOTRANSFERASE 27 U/L (12-78); ALBUMIN 3.9 g/dL (3.4-5.0); ALKALINE PHOSPHATASE 85 U/L (46-116); ASPARTATE AMINOTRANSFERASE 17 U/L (15-37); BILIRUBIN,TOTAL 0.2 mg/dL (0.1-1.0); TOTAL PROTEIN, SERUM 7.2 g/dL (6.4-8.2)
[2021-12-24 22:43] VITALS: BP 148/70
== END 2021-12-24 22:55 | disposition home or self-care (01) ==
LOC: EMS 18:02
DX: F20.0 Paranoid schizophrenia (principal); F10.20 Alcohol dependence, uncomplicated; F17.210 Nicotine dependence, cigarettes, uncomplicated; F32.9 Major depressive disorder, single episode, unspecified; M79.7 Fibromyalgia; K21.9 Gastro-esophageal reflux disease without esophagitis; Z86.59 Personal history of other mental and behavioral disorders; Z87.39 Personal history of other diseases of the musculoskeletal system and connective tissue; Z88.8 Allergy status to other drugs, medicaments and biological substances
CPT/HCPCS: 99283; 80053; 85025; 36415; G0480

== ENCOUNTER 2022-01-06 22:28 | Emergency (ER) | payer OTHER ==
[~2022-01-06] VITALS: Ht 152.4 cm; Wt 72.7 kg
[2022-01-06 22:52] VITALS: BP 159/64
== END 2022-01-07 06:01 | disposition left against medical advice (07) ==
LOC: EMS 22:31
DX: Z53.21 Procedure and treatment not carried out due to patient leaving prior to being seen by health care provider (principal)
CPT/HCPCS: 93005

== ENCOUNTER 2022-01-09 17:11 | Emergency (ER) | payer OTHER ==
[~2022-01-09] VITALS: Ht 152.4 cm; Wt 81.8 kg
[2022-01-09 17:47] VITALS: BP 154/71
[2022-01-10] MEDS ORDERED: IBUP-2070 PO (06:08)
== END 2022-01-09 18:46 | disposition left against medical advice (07) ==
LOC: EMS 17:12
DX: R07.89 Other chest pain (principal); F32.9 Major depressive disorder, single episode, unspecified; F20.9 Schizophrenia, unspecified; I25.2 Old myocardial infarction; F17.210 Nicotine dependence, cigarettes, uncomplicated; Z88.8 Allergy status to other drugs, medicaments and biological substances; Z79.899 Other long term (current) drug therapy
CPT/HCPCS: 93005; 99283

== ENCOUNTER 2022-01-10 02:08 | Emergency (ER) | payer OTHER ==
[~2022-01-10] VITALS: Ht 152.4 cm; Wt 72.0 kg
[2022-01-10 05:15] LABS: BASOPHILS % (AUTO) 0.3 % (0.0-2.0); EOSINOPHILS % (AUTO) 0 % (1.0-6.0); HEMATOCRIT 35.6 % (36-46); HEMOGLOBIN 12.7 g/dL (12.0-16.0); LYMPHOCYTES % (AUTO) 12.6 % (22.0-44.0); MEAN CORPUSCULAR HEMOGLOBIN 30.4 pg (26.0-34.0); MEAN CORPUSCULAR HGB CONC 35.5 G/dL (31.0-37.0); MEAN CORPUSCULAR VOLUME 86 fL (80-100); MONOCYTES # (AUTO) 0.6 K/uL (0.1-1.0); MONOCYTES % (AUTO) 7.8 % (2.0-9.0); NEUTROPHILS # (AUTO) 6.3 K/uL (1.8-7.7); NEUTROPHILS % (AUTO) 79.3 % (40.0-70.0); PLATELET COUNT (AUTO) 285 K/uL (150-450); RED BLOOD CELL COUNT(AUTO) 4.16 MIL/uL (4.00-5.20); RED CELL DISTRIBUTION WIDTH 12.7 % (11.5-14.5)
[2022-01-10 05:31] LABS: ANION GAP 8 mmol/L (8-16); CALCIUM, TOTAL 8.9 mg/dL (8.8-10.5); CARBON DIOXIDE 25 mmol/L (22-29); CHLORIDE 97 mmol/L (98-107); CREATININE 0.69 mg/dL (0.60-1.30); GLOMERULAR FILTR. RATE CALC > 60 mL/min (>60); GLUCOSE,RANDOM 126 mg/dL (70-110); POTASSIUM 3.2 mmol/L (3.5-5.1); SODIUM SERUM 130 mmol/L (136-145); UREA NITROGEN, BLOOD 6 mg/dL (7-18)
[2022-01-10 05:34] LABS: PROTHROMBIN TIME 10.7 SEC (9.4-11.6)
[2022-01-10 05:42] LABS: B-TYPE NATRIURETIC PEPTIDE 39 pg/mL (0-100)
[2022-01-10 05:55] LABS: ALANINE AMINOTRANSFERASE 21 U/L (12-78); ALBUMIN 3.5 g/dL (3.4-5.0); ALKALINE PHOSPHATASE 81 U/L (46-116); ASPARTATE AMINOTRANSFERASE 15 U/L (15-37); BILIRUBIN,TOTAL 0.3 mg/dL (0.1-1.0); CREATINE KINASE, TOTAL ONLY 150 U/L (26-192); TOTAL PROTEIN, SERUM 6.6 g/dL (6.4-8.2)
[2022-01-10] MEDS ORDERED: IBUP-2070 PO (06:08)
[2022-01-10] MEDS ORDERED: HYDROCODONE/ACETAMINOPHEN 5-325 MG TABLET PO ONE (06:15)
[2022-01-10 06:37] VITALS: BP 135/78
[2022-01-10 06:37] LABS: APPEARANCE,URINE HAZY (CLEAR); BILIRUBIN,URINE NEGATIVE (NEGATIVE); GLUCOSE, URINE (UA) NEGATIVE (NEGATIVE); KETONES,URINE NEGATIVE (NEGATIVE); LEUKOCYTE ESTERASE ,URINE LARGE (NEGATIVE); NITRATE,URINE NEGATIVE (NEGATIVE); OCCULT BLOOD,URINE NEGATIVE (NEGATIVE); PROTEIN,URINE NEGATIVE (NEGATIVE); SPECIFIC GRAVITIY, URINE 1.009 (1.003-1.030); UROBILINOGEN,URINE <=1.0 mg/dL (<=1.0)
[2022-01-10 06:53] LABS: BACTERIA,URINE Moderate /HPF (None Seen); RBC,URINE 0-2 /HPF (0-2); RENAL EPITHELIAL CELLS,URINE Rare /LPF (None Seen); SQUAMOUS EPITHELIAL CELL,UR Few /LPF (None Seen)
== END 2022-01-10 06:51 | disposition home or self-care (01) ==
LOC: EMS 02:09
DX: R07.89 Other chest pain (principal); F32.9 Major depressive disorder, single episode, unspecified; I25.2 Old myocardial infarction; F20.9 Schizophrenia, unspecified; K21.9 Gastro-esophageal reflux disease without esophagitis; F17.210 Nicotine dependence, cigarettes, uncomplicated; Z88.8 Allergy status to other drugs, medicaments and biological substances; Z79.899 Other long term (current) drug therapy
CPT/HCPCS: 71045; 80053; 81001; 82550; 83880; 84484; 85025; 85610; 85730; 87086; 93005; 99285; 36415-L1; 36415-TC

== ENCOUNTER 2022-01-14 19:29 | Emergency (ER) | payer OTHER ==
[~2022-01-14 19:29] MED LIST changes: +IBUP-2070 PO
[2022-01-14] MEDS ORDERED: ASPI-1444 PO (20:11)
== END 2022-01-14 20:32 | disposition left against medical advice (07) ==
LOC: EMS 19:34
DX: Z53.21 Procedure and treatment not carried out due to patient leaving prior to being seen by health care provider (principal)

== ENCOUNTER 2022-01-14 21:12 | Emergency (ER) | payer OTHER ==
[~2022-01-14] VITALS: Ht 152.4 cm; Wt 73.0 kg
[~2022-01-14 21:12] MED LIST changes: +ASPI-1444 PO
[2022-01-15 00:49] LABS: BASOPHILS % (AUTO) 0.4 % (0.0-2.0); EOSINOPHILS % (AUTO) 0 % (1.0-6.0); HEMATOCRIT 38.3 % (36-46); HEMOGLOBIN 13.4 g/dL (12.0-16.0); LYMPHOCYTES # (AUTO) 1.7 K/uL (1.0-4.8); LYMPHOCYTES % (AUTO) 16.1 % (22.0-44.0); MEAN CORPUSCULAR HEMOGLOBIN 30.4 pg (26.0-34.0); MEAN CORPUSCULAR HGB CONC 35.1 G/dL (31.0-37.0); MEAN CORPUSCULAR VOLUME 87 fL (80-100); MONOCYTES # (AUTO) 0.9 K/uL (0.1-1.0); MONOCYTES % (AUTO) 8.5 % (2.0-9.0); NEUTROPHILS # (AUTO) 7.7 K/uL (1.8-7.7); PLATELET COUNT (AUTO) 336 K/uL (150-450); RED BLOOD CELL COUNT(AUTO) 4.42 MIL/uL (4.00-5.20); RED CELL DISTRIBUTION WIDTH 12.9 % (11.5-14.5)
[2022-01-15 00:53] LABS: ANION GAP 12 mmol/L (8-16); CALCIUM, TOTAL 9.5 mg/dL (8.8-10.5); CARBON DIOXIDE 27 mmol/L (22-29); CHLORIDE 95 mmol/L (98-107); CREATININE 0.94 mg/dL (0.60-1.30); GLOMERULAR FILTR. RATE CALC 59 mL/min (>60); GLUCOSE,RANDOM 116 mg/dL (70-110); POTASSIUM 3.2 mmol/L (3.5-5.1); SODIUM SERUM 134 mmol/L (136-145); UREA NITROGEN, BLOOD 12 mg/dL (7-18)
[2022-01-15 00:59] LABS: ALANINE AMINOTRANSFERASE 29 U/L (12-78); ALBUMIN 3.9 g/dL (3.4-5.0); ALKALINE PHOSPHATASE 78 U/L (46-116); ASPARTATE AMINOTRANSFERASE 21 U/L (15-37); BILIRUBIN,TOTAL 0.2 mg/dL (0.1-1.0); TOTAL PROTEIN, SERUM 7.1 g/dL (6.4-8.2)
[2022-01-15 01:25] LABS: COVID AG,FIA SOURCE NASAL SWAB
[2022-01-15] MEDS: HALOPERIDOL LACTATE 5 MG/ML VIAL IM ONE ×2 (03:26→03:29)
[2022-01-15] MEDS ORDERED: HALOPERIDOL 5 MG TABLET PO ONE (03:30)
[2022-01-15 05:48] VITALS: BP 152/62
== END 2022-01-15 08:24 | disposition left against medical advice (07) ==
LOC: EMS 21:26
DX: R44.0 Auditory hallucinations (principal); F32.A Depression, unspecified; M19.90 Unspecified osteoarthritis, unspecified site; M79.7 Fibromyalgia; F17.210 Nicotine dependence, cigarettes, uncomplicated; F15.90 Other stimulant use, unspecified, uncomplicated; Z86.59 Personal history of other mental and behavioral disorders; Z87.19 Personal history of other diseases of the digestive system; Z86.79 Personal history of other diseases of the circulatory system; Z20.822 Contact with and (suspected) exposure to COVID-19; Z98.890 Other specified postprocedural states; Z88.8 Allergy status to other drugs, medicaments and biological substances
CPT/HCPCS: 99283; 87426; 80053; 85025; 36415; G0480; J1630; 99284